=== PATIENT | female | born 1980 | race Caucasian/White ===

== ENCOUNTER 2017-05-12 13:46 | Emergency (ER) | payer OTHER ==
[~2017-05-12] VITALS: Ht 160 cm; Wt 63.5 kg
[~2017-05-12 13:46] MED LIST: AMOX875T PO; HYDR-971 PO
[2017-05-12] MEDS ORDERED: IV NORMAL SALINE 1000ML BAG 1,000 ML IV SCH (15:24)
[2017-05-12] MEDS ORDERED: DEXAMETHASONE SOD PHOS 20 MG/5 ML VIAL. IV ONE (15:30)
[2017-05-12] MEDS ORDERED: ONDANSETRON PF 4 MG/2 ML VIAL. IV ONE (15:30)
[2017-05-12] MEDS ORDERED: 0.9 % SODIUM CHLORIDE 10 ML DISP.SYRIN. IV PRN (15:30)
[2017-05-12] MEDS ORDERED: diphenhydrAMINE 50 MG/ML VIAL IVP ONE (15:30)
[2017-05-12] MEDS ORDERED: KETOROLAC TROMETHAMINE 30 MG/ML INJ. IV ONE (15:30)
[2017-05-12] MEDS ORDERED: DIPH25CA58 PO (16:41)
[2017-05-12] MEDS ORDERED: NAPR500T PO (16:41)
[2017-05-12] MEDS ORDERED: DIAZ5TAB PO (16:41)
--- NOTE | 2017-05-12 16:42 | PHYS DOC ---
Past Medical History Past Medical History: No Pertinent History Past Surgical History: Hysterectomy Additional Past Surgical Histo: BX HAND PLASTIC SX, TEETH REMOVED. Alcohol Use: None Drug Use: None Adult General Chief Complaint Chief Complaint: HEADACHE HPI HPI This is a pleasant 36-year-old otherwise healthy female with a history of intermittent headaches presents with back pain that began 4 days ago describes a dull aching in the upper back with radiation from the lumbar spine down to the upper back and the back of the skull. She describes headache as a bandlike squeezing both temples and the top of her head. It is not worse of life and not sudden onset patient denies any neck stiffness, fevers, or other focal neurologic deficits. Patient admits she's had some photophobia with some nausea and vomiting. Patient denies any trauma. Patient denies any change in vision, denies any problems speaking, or ear pain. She denies any recent URI symptoms of cough congestion runny nose or rash. Her back pain is moderate in pain with no radiation to the rectum. There is no bowel or bladder incontinence. She denies any fevers, chills or weight loss. She doesn't have a diagnosis of migraines but her mother has called these migraines in the past the pattern of her headache is slightly different in location only. Review of Systems Review of Systems Constitutional: Denies fever or chills [] Eyes: Denies change in visual acuity, redness, or eye pain she has had some photophobia without blurred vision HENT: Denies nasal congestion or sore throat [] Respiratory: Denies cough or shortness of breath [] Cardiovascular: No additional information not addressed in HPI [] GI: Denies abdominal pain, she has had some nausea without vomiting bloody stools diarrhea or constipation : Denies dysuria or hematuria [] Musculoskeletal: sHe has lower and upper back pain Integument: Denies rash or skin lesions [] Neurologic: Denies headache, focal weakness or sensory changes [] Endocrine: Denies polyuria or polydipsia [] Current Medications Current Medications Current Medications Medications (Trade) Dose Ordered Sig/Vee Start Time Stop Time Status Last Admin Dose Admin Dexamethasone Sodium Phosphate (Decadron) 10 mg 1X ONCE 05/12/17 15:30 05/12/17 15:31 DC 05/12/17 15:46 10 MG Diphenhydramine HCl (Benadryl) 25 mg 1X ONCE 05/12/17 15:30 05/12/17 15:31 DC 05/12/17 15:45 25 MG Ketorolac Tromethamine (Toradol) 30 mg 1X ONCE 05/12/17 15:30 05/12/17 15:31 DC 05/12/17 15:44 30 MG Ondansetron HCl (Zofran) 4 mg 1X ONCE 05/12/17 15:30 05/12/17 15:31 DC 05/12/17 15:43 4 MG Sodium Chloride (Normal Saline Flush) 10 ml QSHIFT PRN 05/12/17 15:30 05/12/17 15:42 10 ML Allergies Allergies Allergies Coded Allergies Type Severity Reaction Last Updated Verified No Known Drug Allergies 07/11/15 No Physical Exam Physical Exam I reviewed this patient's vital signs are also normal limits. Constitutional: Well developed, well nourished, no acute distress, non-toxic appearance. [] HENT: Normocephalic, atraumatic, bilateral external ears normal, oropharynx moist, no oral exudates, nose normal. [] Eyes: PERRLA, EOMI, conjunctiva normal, no discharge. [] Neck: Normal range of motion, supple, no stridor. There is tenderness that is reproducible over the trapezius muscle on the left more than the right. at the insertion site at the base of the frontalis muscle [] Cardiovascular:Heart rate regular rhythm, no murmur [] Lungs & Thorax: Bilateral breath sounds clear to auscultation [] Skin: Warm, dry, no erythema, no rash. [] Back: Patient does have reproducible tenderness over the erector spinae muscles right greater than left easily reproducible on exam. There is no midline tenderness palpation. Patient straight leg raise is negative bilaterally. Patient's DTRs are normal bilaterally at the knees. Patient is no sensation to light touch per perception the lower extremities bilaterally. Patient has +2 capillary refill +2 peripheral pulses Extremities: No tenderness, no cyanosis, no clubbing, ROM intact, no edema. [] Neurologic: Alert and oriented X 3, normal motor function, normal sensory function, no focal deficits noted. [] Psychologic: Affect normal, judgement normal, mood normal. [] Current Patient Data Vital Signs Vital Signs Date Time Temp Pulse Resp B/P (MAP) Pulse Ox O2 Delivery O2 Flow Rate FiO2 05/12/17 16:01 84 22 135/89 (104) Room Air 05/12/17 14:31 94 05/12/17 14:10 99.8 99.8 EKG EKG [] Radiology/Procedures Radiology/Procedures [] Course & Med Decision Making Course & Med Decision Making Pertinent Labs and Imaging studies reviewed. (See chart for details) Patient was reevaluated at approximate 4:20 PM she feels markedly better. Her headache is resolved her back pain is improved. Patient has a normal neuro exam is quite lucid and will follow-up with her primary care provider. Impression: Tension headache, upper and lower back pain CR a FTI negative by history and physical. Doubt subarachnoid hemorrhage or meningitis. Disposition: PCP follow-up for continued evaluation neurology referral for headache evaluation. [] Dragon Disclaimer Dragon Disclaimer This electronic medical record was generated, in whole or in part, using a voice recognition dictation system. Departure Departure Impression: Primary Impression: Back pain Additional Impressions: Neck pain Tension headache Disposition: HOME, SELF-CARE Condition: IMPROVED Referrals: NO PCP (PCP) Patient Instructions: Back Exercises, Back Injury Prevention, Back Pain, Adult , Tension Headache Additional Instructions: This return for any new or increasing symptoms or given any question concerns. Also return immediately for any neurologic weakness. Scripts Diazepam (VALIUM) 5 Mg Tablet 5 MG PO TID for MUSCLE SPASMS for 5 Days, #15 TAB Prov: ALESIA SZYMANSKI MD 05/12/17 Diphenhydramine Hcl (BENADRYL) 25 Mg Capsule 1 CAP PO QHS, #30 CAP 1 Refill Prov: ALESIA SZYMANSKI MD 05/12/17 Naproxen (NAPROSYN) 500 Mg Tablet 1 TAB PO BID, #14 TAB 1 Refill Prov: ALESIA SZYMANSKI MD 05/12/17 Problem Qualifiers ALESIA SZYMANSKI MD May 12, 2017 16:42
[2017-05-12 16:45] VITALS: BP 124/74
== END 2017-05-12 16:54 | disposition home or self-care (01) ==
LOC: ER 13:46
DX: G44.209 Tension-type headache, unspecified, not intractable (principal); M54.6 Pain in thoracic spine; M54.2 Cervicalgia; Z90.710 Acquired absence of both cervix and uterus
CPT/HCPCS: 96361; 96374; 96375; 99284; J1100; J1200; J1885; J2405; J7030

== ENCOUNTER 2018-02-28 11:29 | Emergency (ER) | payer OTHER | END 2018-02-28 12:37 | disposition home or self-care (01) | LOC: ER 11:29 | DX: K12.0 Recurrent oral aphthae (principal) | CPT/HCPCS: 99283 ==

== ENCOUNTER 2018-10-12 08:26 | Emergency (ER) | payer SELFPAY ==
[~2018-10-12] VITALS: Ht 160 cm; Wt 74.5 kg
[~2018-10-12 08:26] MED LIST changes: +DIAZ5TAB PO; +DIPH25CA58 PO; +HYDR-3164 PO; -HYDR-971 PO; +NAPR-683 PO
[2018-10-12] MEDS ORDERED: ONDANSETRON PF 4 MG/2 ML VIAL. IV ONE (08:45)
[2018-10-12] MEDS ORDERED: IV NORMAL SALINE 1000ML BAG 1,000 ML IV ONE ×2 (08:45→10:15)
[2018-10-12 09:16] LABS: BILIRUBIN,URINE SMALL (NEG); CLARITY,URINE CLEAR; COLOR,URINE AMBER; NITRITE,URINE NEGATIVE (NEG); PH,URINE 5.5; PROTEIN,URINE 100 mg/dL (NEG-TRACE); UROBILINOGEN,URINE 0.2 mg/dL (0.2 mg/dL)
[2018-10-12 09:23] LABS: BARBITURATES NEG (NEG); BENZODIAZEPINES NEG (NEG); CANNABINOIDS NEG (NEG); COCAINE NEG (NEG); METHADONE NEG (NEG); OPIATES NEG (NEG); PHENCYCLIDINE NEG (NEG)
[2018-10-12 09:26] LABS: BACTERIA,URINE MANY /HPF (0-FEW); SQUAMOUS EPITHELIAL CELL,UR FEW /LPF
--- NOTE | 2018-10-12 09:29 | RAD ---
CHEST PA LATERAL History: CHEST PAIN WITH COUGH FOR ONE WEEK Comparison: Jul 05, 2013 Findings: 2 views of the chest are submitted. There is no infiltrate, pneumothorax, or effusion. The cardiac silhouette is within normal limits in size. The trachea is in the midline. No acute osseous abnormality is identified. Impression: 1. There is no evidence of acute cardiopulmonary disease. Electronically signed by: Subhash Lucas MD (10/12/2018 9:25 AM) [id number]
[2018-10-12 09:33] LABS: AMPHETAMINE/METHAMPHETAMINE POS (NEG)
[2018-10-12 09:42] LABS: BASO % 0 % (0-3); EOS % 0 % (0-3); HEMOGLOBIN 13.7 g/dL (12.0-15.5); LYMPH # 0.9 x10^3/uL (1.0-4.8); LYMPH % 8 % (24-48); MEAN CORPUSCULAR HEMOGLOBIN 27 pg (25-35); MEAN CORPUSCULAR HGB CONC 34 g/dL (31-37); MEAN CORPUSCULAR VOLUME 79 fL (79-100); MONO # 0.4 x10^3/uL (0.0-1.1); MONO % 4 % (0-9); NEUT # 9.3 x10^3uL (1.8-7.7); NEUT % 88 % (31-73); PLATELET COUNT 211 x10^3/uL (140-400); RED BLOOD COUNT 5.04 x10^6/uL (3.50-5.40); RED CELL DISTRIBUTION WIDTH 13.7 % (11.5-14.5); WHITE BLOOD COUNT 10.6 x10^3/uL (4.0-11.0)
--- NOTE | 2018-10-12 10:04 | PHYS DOC ---
Past Medical History Past Medical History: No Pertinent History Past Surgical History: Hysterectomy Additional Past Surgical Histo: BX HAND PLASTIC SX, TEETH REMOVED. Alcohol Use: None Drug Use: None Adult General Chief Complaint Chief Complaint: ABDOMINAL PAIN HPI HPI Patient is a 38 year old female who presents with complaints of chest pain with inspiration, nausea but no vomiting and dysuria. She states that she has been having intermittent fevers at home. She has sinus pressure as well as earaches. The patient does have track correa which she stated were old, but there is scabbing apparent to several of the track correa. Review of Systems Review of Systems Constitutional: See history of present illness Eyes: Denies change in visual acuity, redness, or eye pain [] HENT: Denies nasal congestion or sore throat [] Respiratory: See history of present illness Cardiovascular: No additional information not addressed in HPI [] GI: See history of present illness : See history of present illness Musculoskeletal: Denies back pain or joint pain [] Integument: Denies rash or skin lesions [] Neurologic: Denies headache, focal weakness or sensory changes [] Endocrine: Denies polyuria or polydipsia [] All other systems were reviewed and found to be within normal limits, except as documented in this note. Current Medications Current Medications Current Medications Medications (Trade) Dose Ordered Sig/Vee Start Time Stop Time Status Last Admin Dose Admin Acetaminophen (Tylenol) 1,000 mg 1X ONCE 10/12/18 10:30 10/12/18 10:31 DC 10/12/18 10:47 1,000 MG Ondansetron HCl (Zofran) 4 mg 1X ONCE 10/12/18 08:45 10/12/18 09:03 DC 10/12/18 09:33 4 MG Potassium Chloride (KCl Oral Soln) 40 meq 1X ONCE 10/12/18 11:15 10/12/18 11:16 DC 10/12/18 11:20 40 MEQ Potassium Chloride (Klor-Con) 40 meq 1X ONCE 10/12/18 10:15 10/12/18 11:09 DC 10/12/18 10:57 40 MEQ Sodium Chloride 1,000 ml @ 1,000 mls/hr 1X ONCE 10/12/18 10:15 10/12/18 11:14 DC 10/12/18 11:00 1,000 MLS/HR Allergies Allergies Allergies Coded Allergies Type Severity Reaction Last Updated Verified No Known Drug Allergies 07/11/15 No Physical Exam Physical Exam Constitutional: Well developed, well nourished, no acute distress, non-toxic appearance. [] HENT: Normocephalic, atraumatic, bilateral tympanic membranes normal, oropharynx moist, no pharyngeal erythema, no oral exudates, sinus drainage noted to back of throat, nose is positive for thick nasal drainage Eyes: PERRLA, EOMI, conjunctiva normal, no discharge. [] Neck: Normal range of motion, no tenderness, supple, no stridor. [] Cardiovascular:Heart rate regular rhythm, no murmur [] Lungs & Thorax: Bilateral breath sounds clear to auscultation [] Abdomen: Bowel sounds normal, soft, no tenderness, no masses, no pulsatile masses. [] Skin: Warm, dry, no erythema, no rash. [] Back: No tenderness, no CVA tenderness. [] Extremities: No tenderness, no cyanosis, no clubbing, ROM intact, no edema. [] Neurologic: Alert and oriented X 3, normal motor function, normal sensory function, no focal deficits noted. [] Psychologic: Affect normal, judgement normal, mood normal. [] Current Patient Data Vital Signs Vital Signs Date Time Temp Pulse Resp B/P (MAP) Pulse Ox O2 Delivery O2 Flow Rate FiO2 10/12/18 12:19 101.5 107 21 108/57 (74) 98 Room Air 101.5 Lab Values Laboratory Tests Test 10/12/18 09:00 10/12/18 09:25 Urine Collection Type Unknown Urine Color [place] Urine Clarity Clear Urine pH 5.5 Urine Specific [place] >=1.030 Urine Protein 100 mg/dL (NEG-TRACE) Urine Glucose (UA) Negative mg/dL (NEG) Urine Ketones (Stick) 15 mg/dL (NEG) Urine Blood Small (NEG) Urine Nitrite Negative (NEG) Urine Bilirubin Small (NEG) Urine Urobilinogen Dipstick 0.2 mg/dL (0.2 mg/dL) Urine Leukocyte Esterase Small (NEG) Urine RBC 1-2 /HPF (0-2) Urine WBC 11-20 /HPF (0-4) Urine Squamous Epithelial Cells Few /LPF Urine Bacteria Many /HPF (0-FEW) Urine Mucus Marked /LPF Urine Opiates Screen Neg (NEG) Urine Methadone Screen Neg (NEG) Urine Barbiturates Neg (NEG) Urine Phencyclidine Screen Neg (NEG) Urine Amphetamine/Methamphetamine Pos (NEG) Urine Benzodiazepines Screen Neg (NEG) Urine Cocaine Screen Neg (NEG) Urine Cannabinoids Screen Neg (NEG) Urine Ethyl Alcohol Neg (NEG) Influenza Type A Antigen Negative (NEGATIVE) Influenza Type B Antigen Negative (NEGATIVE) White Blood Count 10.6 x10^3/uL (4.0-11.0) Red Blood Count 5.04 x10^6/uL (3.50-5.40) Hemoglobin 13.7 g/dL (12.0-15.5) Hematocrit 40.0 % (36.0-47.0) Mean Corpuscular Volume 79 fL (79-100) Mean Corpuscular Hemoglobin 27 pg (25-35) Mean Corpuscular Hemoglobin Concent 34 g/dL (31-37) Red Cell Distribution Width 13.7 % (11.5-14.5) Platelet Count 211 x10^3/uL (140-400) Neutrophils (%) (Auto) 88 % (31-73) H Lymphocytes (%) (Auto) 8 % (24-48) L Monocytes (%) (Auto) 4 % (0-9) Eosinophils (%) (Auto) 0 % (0-3) Basophils (%) (Auto) 0 % (0-3) Neutrophils # (Auto) 9.3 x10^3uL (1.8-7.7) H Lymphocytes # (Auto) 0.9 x10^3/uL (1.0-4.8) L Monocytes # (Auto) 0.4 x10^3/uL (0.0-1.1) Eosinophils # (Auto) 0.0 x10^3/uL (0.0-0.7) Basophils # (Auto) 0.0 x10^3/uL (0.0-0.2) Segmented Neutrophils % 79 % (35-66) H Band Neutrophils % 9 % (0-9) Lymphocytes % 9 % (24-48) L Monocytes % 2 % (0-10) Basophils % 1 % (0-3) Toxic Vacuolation Slight Platelet Estimate Adequate (ADEQUATE) Sodium Level 133 mmol/L (136-145) L Potassium Level 2.7 mmol/L (3.5-5.1) *L Chloride Level 94 mmol/L (98-107) L Carbon Dioxide Level 26 mmol/L (21-32) Anion Gap 13 (6-14) Blood Urea Nitrogen 11 mg/dL (7-20) Creatinine 0.9 mg/dL (0.6-1.0) Estimated GFR (Cockcroft-Gault) 70.5 BUN/Creatinine Ratio 12 (6-20) Glucose Level 92 mg/dL (70-99) Calcium Level 9.6 mg/dL (8.5-10.1) Total Bilirubin 0.8 mg/dL (0.2-1.0) Aspartate Amino Transferase (AST) 18 U/L (15-37) Alanine Aminotransferase (ALT) 36 U/L (14-59) Alkaline Phosphatase 136 U/L (46-116) H Total Protein 8.9 g/dL (6.4-8.2) H Albumin 3.8 g/dL (3.4-5.0) Albumin/Globulin Ratio 0.7 (1.0-1.7) L Laboratory Tests 10/12/18 09:25 Laboratory Tests 10/12/18 09:25 EKG EKG [] Radiology/Procedures Radiology/Procedures [] PATIENT: YOSEF GORMAN ACCOUNT: [id number] : 1980 LOCATION: ER AGE: 38 SEX: F EXAM STATUS: PRE ER ORD. PHYSICIAN: DESMOND PRESLEY APRN REASON: chest pain with cough PROCEDURE: CHEST PA & LATERAL CHEST PA LATERAL History: CHEST PAIN WITH COUGH FOR ONE WEEK Comparison: Jul 05, 2013 Findings: 2 views of the chest are submitted. There is no infiltrate, pneumothorax, or effusion. The cardiac silhouette is within normal limits in size. The trachea is in the midline. No acute osseous abnormality is identified. Impression: 1. There is no evidence of acute cardiopulmonary disease. Electronically signed by: Mile Ruiz MD (10/12/2018 9:25 AM) [id number] DICTATED and SIGNED BY: MILE RUIZ MD DATE: 10/12/18911 Course & Med Decision Making Course & Med Decision Making Pertinent Labs and Imaging studies reviewed. (See chart for details) []The patient was given normal saline in the emergency department as well as Tylenol for pain. She was given potassium for her hypokalemia. The patient was counseled about methamphetamine abuse and offered services. She declined the need for rehabilitation and declined any services. I did state that if she changes her mind she is welcome to come to the emergency department for services at any time. Dragon Disclaimer Dragon Disclaimer This electronic medical record was generated, in whole or in part, using a voice recognition dictation system. Departure Departure Impression: Primary Impression: Upper respiratory infection Additional Impressions: Nausea Urinary tract infection Hypokalemia Methamphetamine abuse Disposition: HOME, SELF-CARE Condition: STABLE Referrals: NO PCP (PCP) Patient Instructions: Hypokalemia, Methamphetamine Abuse, Complications, Upper Respiratory Infection, Adult, Urinary Tract Infection Additional Instructions: Take the antibiotic as directed. Increase fluids and rest. Use the Zofran to control nausea to increase fluid intake. Follow-up with your primary care provider in 3 days for recheck or return to the emergency department if worsening. Scripts Sulfamethoxazole/Trimethoprim (BACTRIM DS TABLET) 1 Each Tablet 1 TAB PO BID for infection, #20 TAB Prov: DESMOND PRESLEY APRN 10/12/18 Problem Qualifiers DESMOND PRESLEY APRN Oct 12, 2018 10:04
[2018-10-12 10:09] LABS: ALBUMIN 3.8 g/dL (3.4-5.0); ALBUMIN/GLOBULIN RATIO 0.7 (1.0-1.7); CALCIUM 9.6 mg/dL (8.5-10.1); CREATININE 0.9 mg/dL (0.6-1.0); GFR 70.5; TOTAL BILIRUBIN 0.8 mg/dL (0.2-1.0); TOTAL PROTEIN 8.9 g/dL (6.4-8.2)
[2018-10-12 10:11] LABS: POTASSIUM 2.7 mmol/L (3.5-5.1)
[2018-10-12] MEDS ORDERED: POTASSIUM CHLORIDE 20 MEQ TABLET.ER. PO ONE (10:15)
[2018-10-12] MEDS ORDERED: ACETAMINOPHEN 500 MG TABLET PO ONE (10:30)
[2018-10-12 10:41] LABS: INFLUENZA A PATIENT NEGATIVE (NEGATIVE); INFLUENZA B PATIENT NEGATIVE (NEGATIVE)
[2018-10-12 11:11] LABS: % BANDS 9 % (0-9); % BASOS 1 % (0-3); % LYMPHS 9 % (24-48); % MONOS 2 % (0-10); % SEGS 79 % (35-66); PLT ESTIMATE ADEQUATE (ADEQUATE); TOXIC VACUOLATION SLIGHT
[2018-10-12] MEDS ORDERED: POTASSIUM CHLORIDE 20 MEQ/15 ML ORAL LIQUID. PEG ONE (11:15)
[2018-10-12] MEDS ORDERED: SULF1TAB24 PO (12:04)
[2018-10-12 12:19] VITALS: BP 108/57
== END 2018-10-12 12:22 | disposition home or self-care (01) ==
LOC: ER 08:26
DX: J06.9 Acute upper respiratory infection, unspecified (principal); N39.0 Urinary tract infection, site not specified; R11.0 Nausea; E87.6 Hypokalemia; F15.10 Other stimulant abuse, uncomplicated; Z90.710 Acquired absence of both cervix and uterus
CPT/HCPCS: 36415; 71046; 80053; 80307; 81001; 85007; 85025; 87086; 87804; 96374; 99284; J2405; J7030

== ENCOUNTER 2018-12-19 11:02 | Emergency (ER) | payer SELFPAY ==
[~2018-12-19] VITALS: Ht 160 cm; Wt 74.8 kg
[~2018-12-19 11:02] MED LIST changes: +SULF1TAB24 PO
[2018-12-19] MEDS ORDERED: ORPH100T PO (11:31)
[2018-12-19] MEDS ORDERED: HYDR-3164 PO (11:31)
--- NOTE | 2018-12-19 11:33 | PHYS DOC ---
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 (IKE HOUSER DOOR REPAIRMAN) Alcohol Use: None Drug Use: None (IKE HOUSER DOOR REPAIRMAN) Adult General Chief Complaint Chief Complaint: BACK PAIN - NO INJURY HPI HPI Patient is a 38 year old female who presents with right mid back pain x 2 weeks. Patient states it is worse with movement. Patient states she's been using heat and ibuprofen. She states they sort of help but she is having hard time sleeping due to the pain. She denies injury or lifting anything heavy or doing any unusual activities. (IKE HOUSER DOOR REPAIRMAN) Review of Systems Review of Systems Constitutional: Denies fever or chills [] Eyes: Denies change in visual acuity, redness, or eye pain [] HENT: Denies nasal congestion or sore throat [] Respiratory: Denies cough or shortness of breath [] Cardiovascular: No additional information not addressed in HPI [] GI: Denies abdominal pain, nausea, vomiting, bloody stools or diarrhea [] : Denies dysuria or hematuria [] Musculoskeletal: Right mid back pain or joint pain [] Integument: Denies rash or skin lesions [] Neurologic: Denies headache, focal weakness or sensory changes [] All other systems were reviewed and found to be within normal limits, except as documented in this note. (IKE HOUSER DOOR REPAIRMAN) Allergies Allergies Allergies Coded Allergies Type Severity Reaction Last Updated Verified No Known Drug Allergies 07/11/15 No (SAMUEL TUBBS MD) Physical Exam Physical Exam Constitutional: Well developed, well nourished, no acute distress, non-toxic appearance. [] HENT: Normocephalic, atraumatic, bilateral external ears normal, oropharynx moist, no oral exudates, nose normal. [] Eyes: PERRLA, EOMI, conjunctiva normal, no discharge. [] Neck: Normal range of motion, no tenderness, supple, no stridor. [] Cardiovascular:Heart rate regular rhythm, no murmur [] Lungs & Thorax: Bilateral breath sounds clear to auscultation [] Abdomen: Bowel sounds normal, soft, no tenderness, no masses, no pulsatile masses. [] Skin: Warm, dry, no erythema, no rash. [] Back: Right mid back tenderness, no CVA tenderness. [] Extremities: No tenderness, no cyanosis, no clubbing, ROM intact, no edema. [] Neurologic: Alert and oriented X 3, normal motor function, normal sensory function, no focal deficits noted. [] Psychologic: Affect normal, judgement normal, mood normal. [] (IKE HOUSER APRN) Current Patient Data Vital Signs Vital Signs Date Time Temp Pulse Resp B/P (MAP) Pulse Ox O2 Delivery O2 Flow Rate FiO2 12/19/18 12:38 82 16 159/95 (116) 98 Room Air 12/19/18 11:07 98.3 98.3 (SAMUEL TUBBS MD) Lab Values Laboratory Tests Test 12/19/18 11:07 Urine Collection Type Unknown Urine Color Yellow Urine Clarity Clear Urine pH 7.0 Urine Specific [place] 1.020 Urine Protein Negative mg/dL (NEG-TRACE) Urine Glucose (UA) Negative mg/dL (NEG) Urine Ketones (Stick) Negative mg/dL (NEG) Urine Blood Negative (NEG) Urine Nitrite Negative (NEG) Urine Bilirubin Negative (NEG) Urine Urobilinogen Dipstick 1.0 mg/dL (0.2 mg/dL) Urine Leukocyte Esterase Negative (NEG) Urine RBC 0 /HPF (0-2) Urine WBC 0 /HPF (0-4) Urine Squamous Epithelial Cells Few /LPF Urine Bacteria 0 /HPF (0-FEW) (SAMUEL TUBBS MD) Lab Values Laboratory Tests Test 12/19/18 11:07 Urine Collection Type Unknown Urine Color Yellow Urine Clarity Clear Urine pH 7.0 Urine Specific [place] 1.020 Urine Protein Negative mg/dL (NEG-TRACE) Urine Glucose (UA) Negative mg/dL (NEG) Urine Ketones (Stick) Negative mg/dL (NEG) Urine Blood Negative (NEG) Urine Nitrite Negative (NEG) Urine Bilirubin Negative (NEG) Urine Urobilinogen Dipstick 1.0 mg/dL (0.2 mg/dL) Urine Leukocyte Esterase Negative (NEG) Urine RBC 0 /HPF (0-2) Urine WBC 0 /HPF (0-4) Urine Squamous Epithelial Cells Few /LPF Urine Bacteria 0 /HPF (0-FEW) (IKE HOUSER APRN) EKG EKG [] (IKE HOUSER APRN) Radiology/Procedures Radiology/Procedures [] (IKE HOUSER APRN) Course & Med Decision Making Course & Med Decision Making Patient is a 38 year old female who presents with right mid back pain x 2 weeks. Patient states it is worse with movement. Patient states she's been using heat and ibuprofen. She states they sort of help but she is having hard time sleeping due to the pain. She denies injury or lifting anything heavy or doing any unusual activities. There is some tenderness to the area of the mid right back. There is no swelling or bruising is noted. Patient is ambulatory with a steady gait. She denies any numbness or tingling. Patient denies dysuria , fever, nausea, vomiting, diarrhea, blood in her urine. Patient has probable muscle strain. I will give her prescription for muscle relaxer and [place]. Patient to continue taking ibuprofen and using heat to help with the pain. Patient follow-up with her primary care doctor. (IKE HOUSER APRN) Course & Med Decision Making Staff Physician Addendum: I was working in the ER during the course of this patient's visit. I was available for consultation as needed, but I was not directly involved in the care of this patient. (SAMUEL TUBBS MD) Dragon Disclaimer Dragon Disclaimer This electronic medical record was generated, in whole or in part, using a voice recognition dictation system. (IKE HOUSER APRN) Departure Departure Impression: Primary Impression: Muscle strain of upper back Disposition: HOME, SELF-CARE Condition: STABLE Referrals: NO PCP (PCP) Patient Instructions: Low Back Strain with Rehab-SportsMed, Muscle Strain Additional Instructions: Follow up with primary care doctor. Drink plenty of fluids. Continue using Ibuprofen every 6 hours and heat. Take medications as prescribed. Scripts Hydrocodone/Apap 5-325 (NORCO 5-325 TABLET) 1 Each Tablet 1 TAB PO PRN Q6HRS PRN for PAIN, #8 TAB 0 Refills Prov: IKE HOUSER APRN 12/19/18 Orphenadrine Citrate (ORPHENADRINE CITRATE) 100 Mg Tablet.er 1 TAB PO BID, #10 TAB Prov: IKE HOUSER APRN 12/19/18 IKE HOUSER APRN Dec 19, 2018 11:32 SAMUEL TUBBS MD Dec 19, 2018 12:57
[2018-12-19 12:09] LABS: BILIRUBIN,URINE NEGATIVE (NEG); CLARITY,URINE CLEAR; COLOR,URINE YELLOW; NITRITE,URINE NEGATIVE (NEG); PROTEIN,URINE NEGATIVE (NEG-TRACE)
[2018-12-19 12:14] LABS: BACTERIA,URINE 0 /HPF (0-FEW); RBC,URINE 0 /HPF (0-2); SQUAMOUS EPITHELIAL CELL,UR FEW /LPF; WBC,URINE 0 /HPF (0-4)
[2018-12-19 12:38] VITALS: BP 159/95
[2019-04-03] MEDS ORDERED: DIPH25CA58 PO (06:50)
== END 2018-12-19 12:38 | disposition home or self-care (01) ==
LOC: ER 11:02
DX: S29.012A Strain of muscle and tendon of back wall of thorax, initial encounter (principal); Z90.710 Acquired absence of both cervix and uterus; X58.XXXA Exposure to other specified factors, initial encounter; Y93.89 Activity, other specified; Y92.89 Other specified places as the place of occurrence of the external cause; Y99.8 Other external cause status
CPT/HCPCS: 81001; 99283

== ENCOUNTER 2019-03-23 12:29 | Emergency (ER) | payer SELFPAY ==
[~2019-03-23] VITALS: Ht 160 cm; Wt 78.2 kg
[~2019-03-23 12:29] MED LIST changes: +ORPH100T PO
[2019-03-23] MEDS ORDERED: IBUPROFEN 400 MG TABLET. PO ONE (13:00)
[2019-03-23] MEDS ORDERED: ACETAMINOPHEN 500 MG TABLET PO ONE (13:00)
[2019-03-23] MEDS ORDERED: IV NORMAL SALINE 1000ML BAG 1,000 ML IV ONE ×2 (13:00→15:30)
[2019-03-23 13:14] LABS: BILIRUBIN,URINE NEGATIVE (NEG); CLARITY,URINE CLEAR; COLOR,URINE YELLOW; NITRITE,URINE NEGATIVE (NEG); PH,URINE 8.5; PROTEIN,URINE NEGATIVE (NEG-TRACE); UROBILINOGEN,URINE 0.2 mg/dL (0.2 mg/dL)
--- NOTE | 2019-03-23 13:20 | RAD ---
CHEST PA LATERAL History: Cough for one month, fever Comparison: October 12, 2018 Findings: 2 views of the chest are submitted. There is no dependent pleural fluid or pneumothorax. Heart size is within normal limits. There is a small focus of opacity at the left lateral lung base on the PA view difficult to visualize on the lateral view. Impression: 1. There is a small focus of opacity left lung base on the PA view, possible small focus of infiltrate or nodularity although difficult to visualize on the lateral view. Electronically signed by: Subhash Lucas MD (03/23/2019 1:17 PM) [email or web address]
[2019-03-23 13:21] LABS: BACTERIA,URINE 0 /HPF (0-FEW); RBC,URINE 0 /HPF (0-2)
[2019-03-23 13:34] LABS: BASO % 0 % (0-3); EOS # 0.1 x10^3/uL (0.0-0.7); EOS % 1 % (0-3); HEMATOCRIT 37.7 % (36.0-47.0); HEMOGLOBIN 12.8 g/dL (12.0-15.5); LYMPH % 10 % (24-48); MEAN CORPUSCULAR HEMOGLOBIN 27 pg (25-35); MEAN CORPUSCULAR HGB CONC 34 g/dL (31-37); MEAN CORPUSCULAR VOLUME 80 fL (79-100); MONO # 0.5 x10^3/uL (0.0-1.1); MONO % 5 % (0-9); NEUT # 8.2 x10^3uL (1.8-7.7); NEUT % 84 % (31-73); PLATELET COUNT 295 x10^3/uL (140-400); RED CELL DISTRIBUTION WIDTH 14.4 % (11.5-14.5); WHITE BLOOD COUNT 9.8 x10^3/uL (4.0-11.0)
--- NOTE | 2019-03-23 13:38 | RAD ---
CT HEAD WO CONTRAST History: Headache, fever for 3 weeks, no improvement with antibiotics Comparison: July 05, 2013 Technique: Noncontrast CT imaging was performed of the head. Exposure: One or more of the following individualized dose reduction techniques were utilized for this examination: 1. Automated exposure control 2. Adjustment of the mA and/or kV according to patient size 3. Use of iterative reconstruction technique. Findings: No acute extra-axial or parenchymal hemorrhage is identified. There is no significant intra-axial mass effect, midline shift, or extra-axial fluid collection. The thompson-white differentiation of the major vascular territories is preserved. The ventricles, sulci, and cisterns are within normal limits in size and configuration. The mastoid air cells and the visualized paranasal sinuses are aerated. No acute calvarial abnormality is identified. There are again some pineal calcifications. There is likely degree of mild cerebellar tonsillar ectopia greater on the right. Impression: 1. No acute intracranial abnormality is identified. Electronically signed by: Subhash Lucas MD (03/23/2019 1:36 PM) [id number]
[2019-03-23 13:39] LABS: INFLUENZA A PATIENT NEGATIVE (NEGATIVE); INFLUENZA B PATIENT NEGATIVE (NEGATIVE)
[2019-03-23 13:40] LABS: CALCIUM 9.4 mg/dL (8.5-10.1); CREATININE 0.8 mg/dL (0.6-1.0); GFR 80.7; POTASSIUM 3.9 mmol/L (3.5-5.1)
[2019-03-23 13:42] LABS: PROTHROMBIN TIME PATIENT 12.6 SEC (11.7-14.0)
[2019-03-23 13:46] LABS: ALBUMIN 3.1 g/dL (3.4-5.0); ALBUMIN/GLOBULIN RATIO 0.6 (1.0-1.7); TOTAL BILIRUBIN 0.5 mg/dL (0.2-1.0); TOTAL PROTEIN 8.1 g/dL (6.4-8.2)
--- NOTE | 2019-03-23 13:54 | PHYS DOC ---
Past Medical History Past Medical History: URI Past Surgical History: Hysterectomy Additional Past Surgical Histo: BX HAND PLASTIC SX, TEETH REMOVED. Alcohol Use: None Drug Use: None Adult General Chief Complaint Chief Complaint: FLU SYMPTOM HPI HPI Patient is a 38 year old female presented ER today for evaluation of fever off and on for one month. Patient complains chill, body ache, headache. Patient denies any abdominal pain, no nausea vomiting. Patient complaint of nonproductive cough as well. Review of Systems Review of Systems Constitutional: Positive for fever and chills [] Eyes: Denies change in visual acuity, redness, or eye pain [] HENT: Denies nasal congestion or sore throat [] Respiratory: Positive for cough, no shortness of breath [] Cardiovascular: No additional information not addressed in HPI [] GI: Denies abdominal pain, nausea, vomiting, bloody stools or diarrhea [] : Denies dysuria or hematuria [] Musculoskeletal: Positive for back pain and joint pain [] Integument: Denies rash or skin lesions [] Neurologic: Positive for headache, no focal weakness or sensory changes [] Endocrine: Denies polyuria or polydipsia [] All other systems were reviewed and found to be within normal limits, except as documented in this note. Current Medications Current Medications Current Medications Medications (Trade) Dose Ordered Sig/Vee Start Time Stop Time Status Last Admin Dose Admin Acetaminophen (Tylenol) 1,000 mg 1X ONCE 03/23/19 13:00 03/23/19 13:01 DC 03/23/19 13:12 1,000 MG Ceftriaxone Sodium (Rocephin) 1 gm 1X ONCE 03/23/19 14:15 03/23/19 14:24 DC 03/23/19 14:28 1 GM Ibuprofen (Motrin) 800 mg 1X ONCE 03/23/19 13:00 03/23/19 13:01 DC 03/23/19 13:11 800 MG Sodium Chloride 1,000 ml @ 1,000 mls/hr 1X ONCE 03/23/19 15:30 03/23/19 16:29 Allergies Allergies Allergies Coded Allergies Type Severity Reaction Last Updated Verified No Known Drug Allergies 07/11/15 No Physical Exam Physical Exam Constitutional: Well developed, well nourished, no acute distress, non-toxic appearance. [] HENT: Normocephalic, atraumatic, bilateral external ears normal, oropharynx moist, no oral exudates, nose normal. [] Eyes: PERRLA, EOMI, conjunctiva normal, no discharge. [] Neck: Normal range of motion, no tenderness, supple, no stridor. [] Cardiovascular: SINUS TACHYCARDIA, regular rhythm, no murmur [] Lungs & Thorax: Bilateral breath sounds clear to auscultation [] Abdomen: Bowel sounds normal, soft, no tenderness, no masses, no pulsatile masses. [] Skin: Warm, dry, no erythema, no rash. [] Back: No tenderness, no CVA tenderness. [] Extremities: No tenderness, no cyanosis, no clubbing, ROM intact, no edema. [] Neurologic: Alert and oriented X 3, normal motor function, normal sensory function, no focal deficits noted. [] Psychologic: Affect normal, judgement normal, mood normal. [] Current Patient Data Vital Signs Vital Signs Date Time Temp Pulse Resp B/P (MAP) Pulse Ox O2 Delivery O2 Flow Rate FiO2 03/23/19 14:41 100.7 100.7 03/23/19 12:35 125 36 127/85 (99) 96 Room Air Lab Values Laboratory Tests Test 03/23/19 12:25 03/23/19 12:54 03/23/19 13:08 03/23/19 13:40 Urine Collection Type Unknown Urine Color Yellow Urine Clarity Clear Urine pH 8.5 Urine Specific [place] 1.015 Urine Protein Negative mg/dL (NEG-TRACE) Urine Glucose (UA) Negative mg/dL (NEG) Urine Ketones (Stick) Negative mg/dL (NEG) Urine Blood Negative (NEG) Urine Nitrite Negative (NEG) Urine Bilirubin Negative (NEG) Urine Urobilinogen Dipstick 0.2 mg/dL (0.2 mg/dL) Urine Leukocyte Esterase Negative (NEG) Urine RBC 0 /HPF (0-2) Urine WBC 1-4 /HPF (0-4) Urine Bacteria 0 /HPF (0-FEW) Glucose (Fingerstick) 94 mg/dL (70-99) Influenza Type A Antigen Negative (NEGATIVE) Influenza Type B Antigen Negative (NEGATIVE) White Blood Count 9.8 x10^3/uL (4.0-11.0) Red Blood Count 4.70 x10^6/uL (3.50-5.40) Hemoglobin 12.8 g/dL (12.0-15.5) Hematocrit 37.7 % (36.0-47.0) Mean Corpuscular Volume 80 fL (79-100) Mean Corpuscular Hemoglobin 27 pg (25-35) Mean Corpuscular Hemoglobin Concent 34 g/dL (31-37) Red Cell Distribution Width 14.4 % (11.5-14.5) Platelet Count 295 x10^3/uL (140-400) Neutrophils (%) (Auto) 84 % (31-73) H Lymphocytes (%) (Auto) 10 % (24-48) L Monocytes (%) (Auto) 5 % (0-9) Eosinophils (%) (Auto) 1 % (0-3) Basophils (%) (Auto) 0 % (0-3) Neutrophils # (Auto) 8.2 x10^3uL (1.8-7.7) H Lymphocytes # (Auto) 1.0 x10^3/uL (1.0-4.8) Monocytes # (Auto) 0.5 x10^3/uL (0.0-1.1) Eosinophils # (Auto) 0.1 x10^3/uL (0.0-0.7) Basophils # (Auto) 0.0 x10^3/uL (0.0-0.2) Segmented Neutrophils % 72 % (35-66) H Band Neutrophils % 15 % (0-9) H Lymphocytes % 5 % (24-48) L Monocytes % 4 % (0-10) Basophils % 2 % (0-3) Metamyelocytes % 2 % (0-0) H Toxic Granulation Slight Platelet Estimate Adequate (ADEQUATE) Polychromasia Slight Prothrombin Time 12.6 SEC (11.7-14.0) Prothrombin Time INR 1.0 (0.8-1.1) PTT 25 SEC (24-38) Sodium Level 133 mmol/L (136-145) L Potassium Level 3.9 mmol/L (3.5-5.1) Chloride Level 97 mmol/L (98-107) L Carbon Dioxide Level 25 mmol/L (21-32) Anion Gap 11 (6-14) Blood Urea Nitrogen 11 mg/dL (7-20) Creatinine 0.8 mg/dL (0.6-1.0) Estimated GFR (Cockcroft-Gault) 80.7 BUN/Creatinine Ratio 14 (6-20) Glucose Level 106 mg/dL (70-99) H Lactic Acid Level 1.5 mmol/L (0.4-2.0) Calcium Level 9.4 mg/dL (8.5-10.1) Total Bilirubin 0.5 mg/dL (0.2-1.0) Aspartate Amino Transferase (AST) 15 U/L (15-37) Alanine Aminotransferase (ALT) 23 U/L (14-59) Alkaline Phosphatase 122 U/L (46-116) H Total Protein 8.1 g/dL (6.4-8.2) Albumin 3.1 g/dL (3.4-5.0) L Albumin/Globulin Ratio 0.6 (1.0-1.7) L Lipase 232 U/L (73-393) Heterophil Agglutinins Negative (NEGATIVE) Laboratory Tests 03/23/19 13:08 Laboratory Tests 03/23/19 13:08 EKG EKG [] Radiology/Procedures Radiology/Procedures [][address] [address] IMAGING REPORT Signed PATIENT: YOSEF GORMAN ACCOUNT: [id number] : 1980 LOCATION: ER AGE: 38 SEX: F EXAM STATUS: REG ER ORD. PHYSICIAN: FERMÍN BAKER DO REASON: COUGH X 1 MONTH, FEVER PROCEDURE: CHEST PA & LATERAL CHEST PA LATERAL History: Cough for one month, fever Comparison: October 12, 2018 Findings: 2 views of the chest are submitted. There is no dependent pleural fluid or pneumothorax. Heart size is within normal limits. There is a small focus of opacity at the left lateral lung base on the PA view difficult to visualize on the lateral view. Impression: 1. There is a small focus of opacity left lung base on the PA view, possible small focus of infiltrate or nodularity although difficult to visualize on the lateral view. Electronically signed by: Mile Ruiz MD (03/23/2019 1:17 PM) [id number] DICTATED and SIGNED BY: MILE RUIZ MD DATE: 03/23/19 1317 [facility] [address] [facility] [place] [address] IMAGING REPORT Signed PATIENT: YOSEF GORMAN ACCOUNT: [id number] : 1980 LOCATION: ER AGE: 38 SEX: F EXAM STATUS: REG ER ORD. PHYSICIAN: FERMÍN BAKER DO REASON: HEADACHE, FEVER X 3 WEEKS, ANTIBIOTIC NOT HELPING PROCEDURE: CT HEAD WO CONTRAST CT HEAD WO CONTRAST History: Headache, fever for 3 weeks, no improvement with antibiotics Comparison: July 05, 2013 Technique: Noncontrast CT imaging was performed of the head. Exposure: One or more of the following individualized dose reduction techniques were utilized for this examination: 1. Automated exposure control 2. Adjustment of the mA and/or kV according to patient size 3. Use of iterative reconstruction technique. Findings: No acute extra-axial or parenchymal hemorrhage is identified. There is no significant intra-axial mass effect, midline shift, or extra-axial fluid collection. The thompson-white differentiation of the major vascular territories is preserved. The ventricles, sulci, and cisterns are within normal limits in size and configuration. The mastoid air cells and the visualized paranasal sinuses are aerated. No acute calvarial abnormality is identified. There are again some pineal calcifications. There is likely degree of mild cerebellar tonsillar ectopia greater on the right. Impression: 1. No acute intracranial abnormality is identified. Electronically signed by: Mile Ruiz MD (03/23/2019 1:36 PM) [id number] DICTATED and SIGNED BY: MILE RUIZ MD DATE: 03/23/19 1336 Course & Med Decision Making Course & Med Decision Making Pertinent Labs and Imaging studies reviewed. (See chart for details) Patient had no sign evidence of meningitis, her neck is not stiff, no evident of meningeal's side. No petechial rash. xray of her chest shown infiltration. Patient was given saline and Tylenol and Motrin in ER, her temperature improved, she felt much better. We will discharge patient home with antibiotics for pneumonia. Dragon Disclaimer Dragon Disclaimer This electronic medical record was generated, in whole or in part, using a voice recognition dictation system. Departure Departure Impression: Primary Impression: Fever Additional Impression: CAP (community acquired pneumonia) Disposition: 01 HOME, SELF-CARE Condition: IMPROVED Referrals: NO PCP (PCP) FOLLOW UP WITH FAMILY DOCTOR IN A FEW DAY FOR REEVALUATION. TAKE TYLENOL OR MOTRIN NEEDED FOR FEVER. Patient Instructions: Fever, Pneumonia, Adult Scripts Azithromycin (ZITHROMAX) 250 Mg Tablet 1 PKG PO UD, #6 TAB Prov: FERMÍN BAKER DO 03/23/19 Problem Qualifiers FERMÍN BAKER DO March 23, 2019 13:54
[2019-03-23 14:14] LABS: MONONUCLEOSIS PATIENT NEGATIVE (NEGATIVE)
[2019-03-23] MEDS ORDERED: cefTRIAXone IV Push 1 GM VIAL. IVP ONE (14:15)
--- NOTE | 2019-03-23 14:19 | EKG ---
[facility] [address] [place] [address] Test Date: 2019-03-23 Test Time: 12:50:11 Pat Name: YOSEF GORMAN Department: Room: Gender: F Manager [place] : 1980 Requested By: FERMÍN BAKER Order Number: [id number] Reading MD: Measurements Intervals [place] Rate: 129 P: 31 [place]: 116 QRS: 25 QRSD: 74 T: 22 QT: 262 QTc: 385 Interpretive Statements SINUS TACHYCARDIA QRS(T) CONTOUR ABNORMALITY CONSIDER ANTEROLATERAL MYOCARDIAL DAMAGE POSSIBLY ABNORMAL ECG RI6.01 No previous ECG available for comparison
[2019-03-23 14:32] LABS: % BANDS 15 % (0-9); % BASOS 2 % (0-3); % LYMPHS 5 % (24-48); % METAS 2 % (0-0); % MONOS 4 % (0-10); % SEGS 72 % (35-66)
[2019-03-23 14:35] LABS: PLT ESTIMATE ADEQUATE (ADEQUATE); POLYCHROMASIA SLIGHT; TOXIC GRANULATION SLIGHT
[2019-03-23 15:09] VITALS: BP 103/65
[2019-03-23] MEDS ORDERED: AZIT250T PO (15:33)
[2019-04-03] MEDS ORDERED: DIPH25CA58 PO (06:50)
== END 2019-03-23 18:00 | disposition home or self-care (01) ==
LOC: ER 12:29
DX: J18.9 Pneumonia, unspecified organism (principal); R50.9 Fever, unspecified; R00.0 Tachycardia, unspecified; M79.18 Myalgia, other site; R51 Headache; Z90.710 Acquired absence of both cervix and uterus
CPT/HCPCS: 36415; 70450; 71046; 80053; 81001; 82962; 83605; 83690; 85007; 85025; 85610; 85730; 86308; 87040; 87205; 87804; 93005; 96374; 99285; J0696; J7030; 87077

== ENCOUNTER 2019-03-24 09:58 | Inpatient (IN) | payer SELFPAY ==
[~2019-03-24] VITALS: Ht 160 cm; Wt 78.0 kg
[~2019-03-24 09:58] MED LIST changes: +AZIT250T PO
[2019-03-24] MEDS: IV NORMAL SALINE 1000ML BAG 1,000 ML IV SCH ×2 (10:38→13:08)
[2019-03-24] MEDS ORDERED: VANCOMYCIN PER PHARMACY MC ONE (10:45)
[2019-03-24] MEDS ORDERED: cefTRIAXone IV Push 1 GM VIAL. IVP ONE (11:00)
[2019-03-24] MEDS ORDERED: VANCOMYCIN 2 GM in IV NORMAL SALINE 500ML BAG 500 ML IV ONE (11:00)
[2019-03-24 11:04] LABS: BASO % 0 % (0-3); EOS # 0.1 x10^3/uL (0.0-0.7); EOS % 1 % (0-3); HEMATOCRIT 34.3 % (36.0-47.0); HEMOGLOBIN 11.6 g/dL (12.0-15.5); LYMPH # 0.8 x10^3/uL (1.0-4.8); LYMPH % 8 % (24-48); MEAN CORPUSCULAR HEMOGLOBIN 27 pg (25-35); MEAN CORPUSCULAR HGB CONC 34 g/dL (31-37); MEAN CORPUSCULAR VOLUME 80 fL (79-100); MONO # 0.6 x10^3/uL (0.0-1.1); MONO % 6 % (0-9); NEUT # 9.2 x10^3uL (1.8-7.7); NEUT % 86 % (31-73); PLATELET COUNT 284 x10^3/uL (140-400); RED BLOOD COUNT 4.29 x10^6/uL (3.50-5.40); RED CELL DISTRIBUTION WIDTH 14.9 % (11.5-14.5); WHITE BLOOD COUNT 10.6 x10^3/uL (4.0-11.0)
[2019-03-24 11:05] LABS: CREATININE 0.7 mg/dL (0.6-1.0); GFR 94.2; POTASSIUM 4.1 mmol/L (3.5-5.1)
--- NOTE | 2019-03-24 11:10 | RAD ---
PORTABLE CHEST 1V History: Fever yesterday, chest pain today, cough for 1.5 months Comparison: March 23, 2019 Findings: Single view of the chest is submitted. There is no infiltrate, pneumothorax, or effusion. The pericardial cardiac silhouette is within normal limits in size. Impression: 1. There is no radiographic evidence of acute cardiopulmonary disease. Electronically signed by: Subhash Lucas MD (03/24/2019 11:07 AM) [email or web address]
[2019-03-24 11:11] LABS: ALBUMIN 2.8 g/dL (3.4-5.0); ALBUMIN/GLOBULIN RATIO 0.6 (1.0-1.7); TOTAL BILIRUBIN 0.2 mg/dL (0.2-1.0); TOTAL PROTEIN 7.2 g/dL (6.4-8.2)
[2019-03-24] MEDS ORDERED: ONDANSETRON PF 4 MG/2 ML VIAL. IV PRN (11:30)
[2019-03-24] MEDS ORDERED: IV NORMAL SALINE 1000ML BAG 1,000 ML IV ONE (11:30)
[2019-03-24 11:32] LABS: BILIRUBIN,URINE NEGATIVE (NEG); CLARITY,URINE CLEAR; COLOR,URINE YELLOW; NITRITE,URINE NEGATIVE (NEG); PH,URINE 6.5; PROTEIN,URINE NEGATIVE (NEG-TRACE); UROBILINOGEN,URINE 0.2 mg/dL (0.2 mg/dL)
[2019-03-24 11:33] LABS: BACTERIA,URINE 0 /HPF (0-FEW); RBC,URINE 0 /HPF (0-2); SQUAMOUS EPITHELIAL CELL,UR FEW /LPF; WBC,URINE 0 /HPF (0-4)
[2019-03-24 11:50] VITALS: BP 107/57
--- NOTE | 2019-03-24 11:53 | PDOC1 ---
History and Physical Date of Admission Date of Admission DATE: 03/24/19 TIME: 11:52 Identification/Chief Complaint Chief Complaint Positive blood cultures Source Source: Chart review, Patient History of Present Illness History of Present Illness Ms Yung is a 38 yo F w/ PMHx of IVDA in sustained remission over a year who presents with 6 week history of cough and fevers up to 106F. Was seen in ED for this on 03/23/19 and had a blood culture positive for GPC in 2/2 bottles. Patient states she's had a fever on and off for 1 month and a cough. Of note patient was seen in the ED yesterday, had a full workup was noted to have bandemia and elevated neutrophils, was sent home on Z pack which she has not take. She states she took prednisone from the mother. On further review she notes prior opioid dependence which she has been in sustained remission from for over 6 years, she began this habit after a hysterectomy when she was younger. 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) Rheumatologic: No pertinent hx Infectious disease: No pertinent hx ENT: No pertinent hx Renal/: No pertinent hx Endocrine: No pertinent hx Dermatology: No pertinent hx Past Surgical History Past Surgical History: Hysterectomy Family History Family History: Diabetes, Drug Abuse, Heart Disease Social History Smoke: No ALCOHOL: none Drugs: Other (Opioid and methamphatemine use in remission) Current Medications Current Medications Current Medications Ceftriaxone Sodium (Rocephin) 1 gm 1X ONCE IVP ; Start 03/24/19 at 11:00; Stop 03/24/19 at 11:01; Status DC Sodium Chloride 1,000 ml @ 1,560 mls/hr Q39M IV Last administered on 03/24/19at 10:38; Start 03/24/19 at 10:38; Stop 03/24/19 at 11:38; Status DC Vancomycin HCl (Vanco Per Pharmacy) 1 each 1X ONCE MC ; Start 03/24/19 at 10:45; Stop 03/24/19 at 10:52; Status DC Vancomycin HCl 2 gm/Sodium Chloride 500 ml @ 250 mls/hr 1X ONCE IV ; Start 03/24/19 at 11:00; Stop 03/24/19 at 12:59 Ondansetron HCl (Zofran) 4 mg PRN Q8HRS PRN IV NAUSEA/VOMITING; Start 03/24/19 at 11:30; Stop 03/25/19 at 11:29 Acetaminophen (Tylenol) 650 mg PRN Q4HRS PRN PO FEVER; Start 03/24/19 at 11:30; Stop 03/25/19 at 11:29 Sodium Chloride 1,000 ml @ 125 mls/hr 1X ONCE IV ; Start 03/24/19 at 11:30; Stop 03/24/19 at 19:29 Active Scripts Active Zithromax (Azithromycin) 250 Mg Tablet 1 Pkg PO UD Emerson 5-325 Tablet (Acetaminophen/Hydrocodone Bitart) 1 Each Tablet 1 Tab PO PRN Q6HRS PRN Orphenadrine Citrate 100 Mg Tablet.er 1 Tab PO BID Bactrim Ds Tablet (Sulfamethoxazole/Trimethoprim) 1 Each Tablet 1 Tab PO BID Valium (Diazepam) 5 Mg Tablet 5 Mg PO TID 5 Days Benadryl (Diphenhydramine Hcl) 25 Mg Capsule 1 Cap PO QHS Naprosyn (Naproxen) 500 Mg Tablet 1 Tab PO BID Amoxicillin 875 Mg Tablet 1 Tab PO BID [place] 5-325 Tablet (Acetaminophen/Hydrocodone Bitart) 1 Each Tablet 1-2 Tab PO Q4-6HRS Allergies Allergies: Coded Allergies: No Known Drug Allergies (Unverified , 07/11/15) ROS General: YES: Chills, Night Sweats, Fatigue, Malaise; No: Appetite, Other PSYCHOLOGICAL ROS: No: Anxiety, Behavioral Disorder, Concentration difficultie, Decreased libido, Depression, Disorientation, Hallucinations, Hostility, Irritablity, Memory difficulties, Mood Swings, Obsessive thoughts, Physical abuse, Sexual abuse, Sleep disturbances, Suicidal ideation, Other Eyes: No Blurry vision, No Decreased vision, No Double vision, No Dry eyes, No Excessive tearing, No Eye Pain, No Itchy Eyes, No Loss of vision, No Photophobia, No Scotomata, No Uses contacts, No Uses glasses, No Other HEENT: No: Heacaches, Visual Changes, Hearing change, Nasal congestion, Nasal discharge, Oral lesions, Sinus pain, Sore Throat, Epistaxis, Sneezing, Snoring, Tinnitus, Vertigo, Vocal changes, Other ALLERGY AND IMMUNOLOGY: No: Hives, Insect Bite Sensitivity, Itchy/Watery Eyes, Nasal Congestion, Post Nasal Drip, Seasonal Allergies, Other Hematological and Lymphatic: No: Bleeding Problems, Blood Clots, Blood Transfusions, Brusing, Night Sweats, Pallor, Swollen Lymph Nodes, Other ENDOCRINE: No: Breast Changes, Galactorrhea, Hair Pattern Changes, Hot Flashes, Malaise/lethargy, Mood Swings, Palpitations, Polydipsia/polyuria, Skin Changes, Temperature Intolerance, Unexpected Weight Changes, Other Breast: No New/Changing Breast Lumps, No Nipple changes, No Nipple discharge, No Other Respiratory: YES: Cough, Pleuritic Pain, Shortness of breath, Wheezing; No: Hemoptysis, Orthopnea, SOB with excertion, Sputum Changes, Stridor, Tachypnea, Other Cardiovascular: No Chest Pain, No Palpitations, No Orthopnea, No Paroxysmal Noc. Dyspnea, No Edema, No Lt Headedness, No Other Gastrointestinal: Yes Nausea; No Vomiting, No Abdominal Pain, No Diarrhea, No Constipation, No Melena, No Hematochezia, No Other Genitourinary: No Dysuria, No Frequency, No Incontinence, No Hematuria, No Re tention, No Discharge, No Urgency, No Pain, No Flank Pain, No Other, No , No , No , No , No , No , No Musculoskeletal: Yes Gait Disturbance, Yes Joint Pain; No Joint Stiffness, No Joint Swelling, No Muscle Pain, No Muscular Weakness, No Pain In:, No Swelling In:, No Other Neurological: No Behavorial Changes, No Bowel/Bladder ControlChng, No Confusion, No Dizziness, No Gait Disturbance, No Headaches, No Impaired Coord/ba luke, No Memory Loss, No Numbness/Tingling, No Seizures, No Speech Problems, No Tremors, No Visual Changes, No Weakness, No Other Skin: No Dry Skin, No Eczema, No Hair Changes, No Lumps, No Mole Changes, No Mottling, No Nail Changes, No Pruritus, No Rash, No Skin Lesion Changes, No Other, No Acne Physical Exam General: Alert, Oriented X3, Cooperative, No acute distress HEENT: Atraumatic, PERRLA, EOMI, Mucous membr. moist/pink Lungs: Clear to auscultation, Normal air movement Heart: S1S2, RRR Abdomen: Normal bowel sounds, Soft, No tenderness, No hepatosplenomegaly, No masses Extremities: No clubbing, No cyanosis, No edema, Normal pulses, No tenderness/swelling Skin: No rashes, No breakdown, No significant lesion Neuro: Normal gait, Normal speech, Strength at 5/5 X4 ext, Normal tone, Sensation intact, Cranial nerves 3-12 NL, Reflexes 2+ Psych/Mental Status: Mental status NL, Mood NL Vitals Vitals Vital Signs Date Time Temp Pulse Resp B/P (MAP) Pulse Ox O2 Delivery O2 Flow Rate FiO2 03/24/19 11:06 104 18 127/84 (98) 98 Room Air 03/24/19 10:15 98.7 98.7 Labs Labs Laboratory Tests Test 03/24/19 10:24 03/24/19 10:53 White Blood Count 10.6 x10^3/uL (4.0-11.0) Red Blood Count 4.29 x10^6/uL (3.50-5.40) Hemoglobin 11.6 g/dL (12.0-15.5) Hematocrit 34.3 % (36.0-47.0) Mean Corpuscular Volume 80 fL (79-100) Mean Corpuscular Hemoglobin 27 pg (25-35) Mean Corpuscular Hemoglobin Concent 34 g/dL (31-37) Red Cell Distribution Width 14.9 % (11.5-14.5) Platelet Count 284 x10^3/uL (140-400) Neutrophils (%) (Auto) 86 % (31-73) Lymphocytes (%) (Auto) 8 % (24-48) Monocytes (%) (Auto) 6 % (0-9) Eosinophils (%) (Auto) 1 % (0-3) Basophils (%) (Auto) 0 % (0-3) Neutrophils # (Auto) 9.2 x10^3uL (1.8-7.7) Lymphocytes # (Auto) 0.8 x10^3/uL (1.0-4.8) Monocytes # (Auto) 0.6 x10^3/uL (0.0-1.1) Eosinophils # (Auto) 0.1 x10^3/uL (0.0-0.7) Basophils # (Auto) 0.0 x10^3/uL (0.0-0.2) Sodium Level 138 mmol/L (136-145) Potassium Level 4.1 mmol/L (3.5-5.1) Chloride Level 102 mmol/L (98-107) Carbon Dioxide Level 23 mmol/L (21-32) Anion Gap 13 (6-14) Blood Urea Nitrogen 8 mg/dL (7-20) Creatinine 0.7 mg/dL (0.6-1.0) Estimated GFR (Cockcroft-Gault) 94.2 BUN/Creatinine Ratio 11 (6-20) Glucose Level 138 mg/dL (70-99) Lactic Acid Level 1.8 mmol/L (0.4-2.0) Calcium Level 9.0 mg/dL (8.5-10.1) Total Bilirubin 0.2 mg/dL (0.2-1.0) Aspartate Amino Transf (AST/SGOT) 17 U/L (15-37) Alanine Aminotransferase (ALT/SGPT) 31 U/L (14-59) Alkaline Phosphatase 112 U/L (46-116) Total Protein 7.2 g/dL (6.4-8.2) Albumin 2.8 g/dL (3.4-5.0) Albumin/Globulin Ratio 0.6 (1.0-1.7) Urine Collection Type Unknown Urine Color Yellow Urine Clarity Clear Urine pH 6.5 Urine Specific [place] <=1.005 Urine Protein Negative mg/dL (NEG-TRACE) Urine Glucose (UA) Negative mg/dL (NEG) Urine Ketones (Stick) Negative mg/dL (NEG) Urine Blood Negative (NEG) Urine Nitrite Negative (NEG) Urine Bilirubin Negative (NEG) Urine Urobilinogen Dipstick 0.2 mg/dL (0.2 mg/dL) Urine Leukocyte Esterase Negative (NEG) Urine RBC 0 /HPF (0-2) Urine WBC 0 /HPF (0-4) Urine Squamous Epithelial Cells Few /LPF Urine Bacteria 0 /HPF (0-FEW) Laboratory Tests Test 03/24/19 10:24 03/24/19 10:53 White Blood Count 10.6 x10^3/uL (4.0-11.0) Red Blood Count 4.29 x10^6/uL (3.50-5.40) Hemoglobin 11.6 g/dL (12.0-15.5) Hematocrit 34.3 % (36.0-47.0) Mean Corpuscular Volume 80 fL (79-100) Mean Corpuscular Hemoglobin 27 pg (25-35) Mean Corpuscular Hemoglobin Concent 34 g/dL (31-37) Red Cell Distribution Width 14.9 % (11.5-14.5) Platelet Count 284 x10^3/uL (140-400) Neutrophils (%) (Auto) 86 % (31-73) Lymphocytes (%) (Auto) 8 % (24-48) Monocytes (%) (Auto) 6 % (0-9) Eosinophils (%) (Auto) 1 % (0-3) Basophils (%) (Auto) 0 % (0-3) Neutrophils # (Auto) 9.2 x10^3uL (1.8-7.7) Lymphocytes # (Auto) 0.8 x10^3/uL (1.0-4.8) Monocytes # (Auto) 0.6 x10^3/uL (0.0-1.1) Eosinophils # (Auto) 0.1 x10^3/uL (0.0-0.7) Basophils # (Auto) 0.0 x10^3/uL (0.0-0.2) Sodium Level 138 mmol/L (136-145) Potassium Level 4.1 mmol/L (3.5-5.1) Chloride Level 102 mmol/L (98-107) Carbon Dioxide Level 23 mmol/L (21-32) Anion Gap 13 (6-14) Blood Urea Nitrogen 8 mg/dL (7-20) Creatinine 0.7 mg/dL (0.6-1.0) Estimated GFR (Cockcroft-Gault) 94.2 BUN/Creatinine Ratio 11 (6-20) Glucose Level 138 mg/dL (70-99) Lactic Acid Level 1.8 mmol/L (0.4-2.0) Calcium Level 9.0 mg/dL (8.5-10.1) Total Bilirubin 0.2 mg/dL (0.2-1.0) Aspartate Amino Transf (AST/SGOT) 17 U/L (15-37) Alanine Aminotransferase (ALT/SGPT) 31 U/L (14-59) Alkaline Phosphatase 112 U/L (46-116) Total Protein 7.2 g/dL (6.4-8.2) Albumin 2.8 g/dL (3.4-5.0) Albumin/Globulin Ratio 0.6 (1.0-1.7) Urine Collection Type Unknown Urine Color Yellow Urine Clarity Clear Urine pH 6.5 Urine Specific [place] <=1.005 Urine Protein Negative mg/dL (NEG-TRACE) Urine Glucose (UA) Negative mg/dL (NEG) Urine Ketones (Stick) Negative mg/dL (NEG) Urine Blood Negative (NEG) Urine Nitrite Negative (NEG) Urine Bilirubin Negative (NEG) Urine Urobilinogen Dipstick 0.2 mg/dL (0.2 mg/dL) Urine Leukocyte Esterase Negative (NEG) Urine RBC 0 /HPF (0-2) Urine WBC 0 /HPF (0-4) Urine Squamous Epithelial Cells Few /LPF Urine Bacteria 0 /HPF (0-FEW) Images Images CT Head - negative CXR - There is a small focus of opacity left lung base on the PA view, possible small focus of infiltrate or nodularity although difficult to visualize on the lateral view. VTE Prophylaxis Ordered VTE Prophylaxis Devices: Yes VTE Pharmacological Prophylaxi: No Assessment/Plan Assessment/Plan A/P: Cough - CXR is clear on repeat. Will get CT chest to better elucidate. Blood cultures positive - source is not clear Sepsis - from gram positive bacteremia - will give empiric IVF and antibiotics, consult ID Right knee pain Anemia - uncertain etiology, s/p hysterectomy, will check iron stores Hyperglycemia - will monitor, no hx of DM Moderate protein calorie malnutrition - Albumin low likely from prolonged illness FEN - General diet PPX - SCDs FULL CODE Inpatient for sepsis with bacteremia SHEY MA MD March 24, 2019 11:53
[2019-03-24] MEDS: ACETAMINOPHEN 325 MG TABLET. PO PRN (13:08)
--- NOTE | 2019-03-24 13:33 | PHYS DOC ---
Past Medical History Past Medical History: URI Past Surgical History: Hysterectomy Additional Past Surgical Histo: BX HAND PLASTIC SX, TEETH REMOVED. Alcohol Use: None Drug Use: None Adult General Chief Complaint Chief Complaint: OTHER COMPLAINTS HPI HPI Patient is a 38 year old female who presents to the ED today because it she received a phone call from one of all providers notifying her she's had a positive blood culture. Blood work done on 03/24/2019 shows patient has gram- positive cocci in 2 bottles. Patient states she's had a fever on and off for 1 month and a cough. Of note patient was seen in the ED yesterday, had a full workup was noted to have bandemia and elevated neutrophils, and possible infiltrate was sent home on Z pack which she has not take. She states she took prednisone from the mother but not antibiotics. Review of Systems Review of Systems Constitutional: Reports fever, positive blood cultures Eyes: Denies change in visual acuity, redness, or eye pain [] HENT: Denies nasal congestion or sore throat [] Respiratory: Reports cough, denies shortness of breath [] Cardiovascular: No additional information not addressed in HPI [] GI: Denies abdominal pain, nausea, vomiting, bloody stools or diarrhea [] : Denies dysuria or hematuria [] Musculoskeletal: Denies back pain or joint pain [] Integument: Denies rash or skin lesions [] Neurologic: Denies headache, focal weakness or sensory changes [] All other systems were reviewed and found to be within normal limits, except as documented in this note. Allergies Allergies Allergies Coded Allergies Type Severity Reaction Last Updated Verified No Known Drug Allergies 07/11/15 No Physical Exam Physical Exam Constitutional: Well developed, well nourished, no acute distress, non-toxic appearance. [] HENT: Normocephalic, atraumatic, bilateral external ears normal, oropharynx moist, no oral exudates, nose normal. [] Eyes: PERRLA, EOMI, conjunctiva normal, no discharge. [] Neck: Normal range of motion, no tenderness, supple, no stridor. [] Cardiovascular:Heart rate regular rhythm, no murmur [] Lungs & Thorax: Bilateral breath sounds clear to auscultation [] Abdomen: Bowel sounds normal, soft, no tenderness, no masses, no pulsatile masses. [] Skin: Warm, dry, no erythema, no rash. [] Back: No tenderness, no CVA tenderness. [] Extremities: No tenderness, no cyanosis, no clubbing, ROM intact, no edema. [] Neurologic: Alert and oriented X 3, normal motor function, normal sensory function, no focal deficits noted. [] Psychologic: Affect normal, judgement normal, mood normal. [] Current Patient Data Vital Signs Vital Signs Date Time Temp Pulse Resp B/P (MAP) Pulse Ox O2 Delivery O2 Flow Rate FiO2 03/24/19 10:15 98.7 103 18 134/73 (93) 98 Room Air 98.7 EKG EKG [] Radiology/Procedures Radiology/Procedures [] Course & Med Decision Making Course & Med Decision Making Pertinent Labs and Imaging studies reviewed. (See chart for details) This is a 38-year-old female patient who presents to the ED today to be admitted after receiving a phone call she had positive blood cultures. Two bottles of the blood cultures done yesterday were positive for gram positive cocci. Patient was started on sepsis workup given Rocephin and vancomycin. Spoke with Dr. Red who accepted patient for admission Labs pending on admission. Dragon Disclaimer Dragon Disclaimer This electronic medical record was generated, in whole or in part, using a voice recognition dictation system. Departure Departure Impression: Primary Impression: Blood culture positive for microorganism Additional Impressions: Fever Cough Disposition: ADMITTED INPATIENT Condition: STABLE Referrals: NO PCP (PCP) Date and Time of Reassessment Date: March 24, 2019 Time: 12:00 Fluid Challenge Is the fluid challenge complet: No IBW Target Volume Used: No BMI > 30: No Vital Signs Vital Signs: Vital Signs Date Time Temp Pulse Resp B/P (MAP) Pulse Ox O2 Delivery O2 Flow Rate FiO2 03/24/19 10:15 98.7 103 18 134/73 (93) 98 Room Air 98.7 Temperature Source: Oral Respirations Respiratory Effort: Normal Respiratory Pattern: Normal Cardiovascular Pulse Rhythm: Regular Heart: Nml rate, reg. rhythm Lung Sounds Breath Sounds: Clear Capillary Refil Capillary Refill: Rt Hand < 3 seconds Peripheral Pulse Pulse Location: Monitor Pulse Strength: Normal (2+) Pulse Assessment Method: NIBP Integumentary Skin: Warm Skin Moisture: Moist Skin Turgor: Normal Skin Color: warm Fingernail Color: WNL Problem Qualifiers Additional Impressions: Fever Fever type: unspecified Qualified Codes: R50.9 - Fever, unspecified AMINATARICH [employer]ING MACHINE OPERATOR/TENDER March 24, 2019 13:33
[2019-03-24] MEDS ORDERED: IOHEXOL 350 MG/ML 100 ML VIAL. IV ONE (14:15)
[2019-03-24] MEDS ORDERED: CONTRAST GIVEN. MC PRN (14:30)
[2019-03-24 15:00] VITALS: BP 143/77
--- NOTE | 2019-03-24 15:01 | RAD ---
Right knee, 2 views, 03/24/2019: HISTORY: Knee swelling No fracture or dislocation is identified. No significant arthritic change is seen. There is minimal subcutaneous edema anteriorly. IMPRESSION: No acute bony abnormality is detected. Electronically signed by: Peter Keith MD (03/24/2019 2:58 PM) [facility]
[2019-03-24 19:00] VITALS: BP 123/78
[2019-03-24] MEDS: diphenhydrAMINE HCL 25 MG CAPSULE PO SCH (20:42)
[2019-03-24] MEDS: LACTOBACILLUS RHAMNOSUS GG 1 CAPSULE. PO SCH (20:42)
[2019-03-24] MEDS ORDERED: NON FORMULARY ITEM (Naproxen (Naprosyn) 1 TAB) PO SCH (21:00)
[2019-03-24 23:00] VITALS: BP 119/88
[2019-03-25 03:00] VITALS: BP 109/83
[2019-03-25] MEDS: ACETAMINOPHEN 325 MG TABLET. PO PRN ×2 (03:33→20:56)
[2019-03-25 06:01] LABS: BASO % 0 % (0-3); EOS # 0.2 x10^3/uL (0.0-0.7); EOS % 2 % (0-3); HEMATOCRIT 30.3 % (36.0-47.0); HEMOGLOBIN 10.1 g/dL (12.0-15.5); LYMPH # 2.7 x10^3/uL (1.0-4.8); LYMPH % 25 % (24-48); MEAN CORPUSCULAR HEMOGLOBIN 27 pg (25-35); MEAN CORPUSCULAR HGB CONC 33 g/dL (31-37); MEAN CORPUSCULAR VOLUME 81 fL (79-100); MONO % 9 % (0-9); NEUT # 6.7 x10^3uL (1.8-7.7); NEUT % 63 % (31-73); PLATELET COUNT 288 x10^3/uL (140-400); RED BLOOD COUNT 3.77 x10^6/uL (3.50-5.40); RED CELL DISTRIBUTION WIDTH 14.7 % (11.5-14.5); WHITE BLOOD COUNT 10.7 x10^3/uL (4.0-11.0)
[2019-03-25 06:07] LABS: CALCIUM 8.7 mg/dL (8.5-10.1); CREATININE 0.7 mg/dL (0.6-1.0); GFR 94.2; POTASSIUM 3.4 mmol/L (3.5-5.1)
[2019-03-25] MEDS: KETOROLAC 30 MG/ML VIAL. IV PRN ×2 (06:39→15:46)
[2019-03-25 07:00] VITALS: BP 118/77
[2019-03-25] MEDS: LACTOBACILLUS RHAMNOSUS GG 1 CAPSULE. PO SCH ×2 (08:51→20:56)
--- NOTE | 2019-03-25 09:41 | PDOC ---
Infectious Disease Note Vital Signs: Vital Signs Vital Signs Date Time Temp Pulse Resp B/P (MAP) Pulse Ox O2 Delivery O2 Flow Rate FiO2 03/25/19 07:00 97.8 72 14 118/77 (91) 98 Room Air 97.8 Medications: Inpatient Meds: Current Medications Medications (Trade) Dose Ordered Sig/Vee Start Time Stop Time Status Last Admin Dose Admin Acetaminophen (Tylenol) 650 mg PRN Q4HRS PRN 03/24/19 11:30 03/26/19 11:28 03/25/19 03:33 650 MG Ceftriaxone Sodium (Rocephin) 1 gm Q24H 03/25/19 11:00 Diphenhydramine HCl (Benadryl) 25 mg QHS 03/24/19 21:00 03/24/19 20:42 25 MG Info (CONTRAST GIVEN -- Rx MONITORING) 1 each PRN DAILY PRN 03/24/19 14:30 03/26/19 14:29 Iohexol (Omnipaque 350 Mg/ml) 100 ml 1X ONCE 03/24/19 14:15 03/24/19 14:16 DC Ketorolac Tromethamine (Toradol 30mg Vial) 30 mg PRN Q6HRS PRN 03/24/19 14:00 03/29/19 13:59 03/25/19 06:39 30 MG Lactobacillus Rhamnosus (Culturelle) 1 cap BID 03/24/19 21:00 03/25/19 08:51 1 CAP Non-Formulary Medication (Naproxen (Naprosyn)) 1 tab BID 03/24/19 21:00 03/24/19 21:00 DC Ondansetron HCl (Zofran) 4 mg PRN Q8HRS PRN 03/24/19 11:30 03/26/19 11:28 Sodium Chloride 1,000 ml @ 125 mls/hr 1X ONCE 03/24/19 11:30 03/24/19 19:29 DC 03/24/19 13:10 125 MLS/HR Vancomycin HCl (Vanco Per Pharmacy) 1 each 1X ONCE 03/24/19 10:45 03/24/19 10:52 DC Vancomycin HCl 2 gm/Sodium Chloride 500 ml @ 250 mls/hr 1X ONCE 03/24/19 11:00 03/24/19 12:59 DC 03/24/19 13:05 250 MLS/HR Labs: Lab Laboratory Tests Test 03/24/19 10:24 03/24/19 10:53 03/24/19 14:45 03/25/19 04:43 White Blood Count 10.6 x10^3/uL (4.0-11.0) 10.7 x10^3/uL (4.0-11.0) Red Blood Count 4.29 x10^6/uL (3.50-5.40) 3.77 x10^6/uL (3.50-5.40) Hemoglobin 11.6 g/dL (12.0-15.5) 10.1 g/dL (12.0-15.5) Hematocrit 34.3 % (36.0-47.0) 30.3 % (36.0-47.0) Mean Corpuscular Volume 80 fL (79-100) 81 fL (79-100) Mean Corpuscular Hemoglobin 27 pg (25-35) 27 pg (25-35) Mean Corpuscular Hemoglobin Concent 34 g/dL (31-37) 33 g/dL (31-37) Red Cell Distribution Width 14.9 % (11.5-14.5) 14.7 % (11.5-14.5) Platelet Count 284 x10^3/uL (140-400) 288 x10^3/uL (140-400) Neutrophils (%) (Auto) 86 % (31-73) 63 % (31-73) Lymphocytes (%) (Auto) 8 % (24-48) 25 % (24-48) Monocytes (%) (Auto) 6 % (0-9) 9 % (0-9) Eosinophils (%) (Auto) 1 % (0-3) 2 % (0-3) Basophils (%) (Auto) 0 % (0-3) 0 % (0-3) Neutrophils # (Auto) 9.2 x10^3uL (1.8-7.7) 6.7 x10^3uL (1.8-7.7) Lymphocytes # (Auto) 0.8 x10^3/uL (1.0-4.8) 2.7 x10^3/uL (1.0-4.8) Monocytes # (Auto) 0.6 x10^3/uL (0.0-1.1) 1.0 x10^3/uL (0.0-1.1) Eosinophils # (Auto) 0.1 x10^3/uL (0.0-0.7) 0.2 x10^3/uL (0.0-0.7) Basophils # (Auto) 0.0 x10^3/uL (0.0-0.2) 0.0 x10^3/uL (0.0-0.2) Sodium Level 138 mmol/L (136-145) 142 mmol/L (136-145) Potassium Level 4.1 mmol/L (3.5-5.1) 3.4 mmol/L (3.5-5.1) Chloride Level 102 mmol/L (98-107) 105 mmol/L (98-107) Carbon Dioxide Level 23 mmol/L (21-32) 24 mmol/L (21-32) Anion Gap 13 (6-14) 13 (6-14) Blood Urea Nitrogen 8 mg/dL (7-20) 7 mg/dL (7-20) Creatinine 0.7 mg/dL (0.6-1.0) 0.7 mg/dL (0.6-1.0) Estimated GFR (Cockcroft-Gault) 94.2 94.2 BUN/Creatinine Ratio 11 (6-20) Glucose Level 138 mg/dL (70-99) 96 mg/dL (70-99) Lactic Acid Level 1.8 mmol/L (0.4-2.0) 1.4 mmol/L (0.4-2.0) Calcium Level 9.0 mg/dL (8.5-10.1) 8.7 mg/dL (8.5-10.1) Total Bilirubin 0.2 mg/dL (0.2-1.0) Aspartate Amino Transf (AST/SGOT) 17 U/L (15-37) Alanine Aminotransferase (ALT/SGPT) 31 U/L (14-59) Alkaline Phosphatase 112 U/L (46-116) Total Protein 7.2 g/dL (6.4-8.2) Albumin 2.8 g/dL (3.4-5.0) Albumin/Globulin Ratio 0.6 (1.0-1.7) Procalcitonin < 0.10 ng/mL (0.00-0.10) Hepatitis C IgG Antibody Nonreactive (Nonreactive) HIV (1&2) Antibody Screen Nonreactive (Nonreactive) Urine Collection Type Unknown Urine Color Yellow Urine Clarity Clear Urine pH 6.5 Urine Specific [place] <=1.005 Urine Protein Negative mg/dL (NEG-TRACE) Urine Glucose (UA) Negative mg/dL (NEG) Urine Ketones (Stick) Negative mg/dL (NEG) Urine Blood Negative (NEG) Urine Nitrite Negative (NEG) Urine Bilirubin Negative (NEG) Urine Urobilinogen Dipstick 0.2 mg/dL (0.2 mg/dL) Urine Leukocyte Esterase Negative (NEG) Urine RBC 0 /HPF (0-2) Urine WBC 0 /HPF (0-4) Urine Squamous Epithelial Cells Few /LPF Urine Bacteria 0 /HPF (0-FEW) Objective: Assessment: Pt seen and examined IMP Febrile illness for one month fever upto 106*F GPC bacteremia 1/4 bottles ? could be contaminant Cough and Chestpain CXR normal Arthalgias Nausea and vomiting POA,now resolved Plan: Plan of Care Ceftriaxone IV Vanc Doxycycline ct chest w/o f/u bc results MOODY NIELSEN MD March 25, 2019 09:41
[2019-03-25] MEDS ORDERED: VANCOMYCIN 1 GM in IV NORMAL SALINE 250ML 250 ML IV SCH (09:45)
[2019-03-25] MEDS ORDERED: VANCOMYCIN 2 GM in IV NORMAL SALINE 500ML BAG 500 ML IV ONE (10:15)
[2019-03-25] MEDS: DOXYCYCLINE HYCLATE 100 MG TABLET PO SCH ×2 (10:19→20:56)
[2019-03-25 11:00] VITALS: BP 108/68
--- NOTE | 2019-03-25 12:26 | PDOC ---
[employer] PROGRESS NOTE Chief Complaint Chief Complaint Febrile illness for one month fever upto 106*F GPC bacteremia 1/4 bottles ? could be contaminant Cough and Chestpain CXR normal Arthalgias Nausea and vomiting POA,now resolved Plan: Plan of Care Ceftriaxone IV Vanc Doxycycline ct chest w/o f/u bc results History of Present Illness History of Present Illness Patient seen and examined Vitals Vitals Vital Signs Date Time Temp Pulse Resp B/P (MAP) Pulse Ox O2 Delivery O2 Flow Rate FiO2 03/25/19 07:50 Room Air 03/25/19 07:00 97.8 72 14 118/77 (91) 98 97.8 Physical Exam General: Alert, Oriented X3, Cooperative, No acute distress Heart: Regular rate, Normal S1, Normal S2 Lungs: Wheezing Abdomen: Normal bowel sounds, Soft, No tenderness, No hepatosplenomegaly, No masses Extremities: No clubbing, No cyanosis, No edema, Normal pulses, No tenderness/swelling Skin: No rashes, No breakdown, No significant lesion Labs Labs: Laboratory Tests Test 03/24/19 14:45 03/25/19 04:43 03/25/19 10:25 Lactic Acid Level 1.4 mmol/L (0.4-2.0) White Blood Count 10.7 x10^3/uL (4.0-11.0) Red Blood Count 3.77 x10^6/uL (3.50-5.40) Hemoglobin 10.1 g/dL (12.0-15.5) Hematocrit 30.3 % (36.0-47.0) Mean Corpuscular Volume 81 fL (79-100) Mean Corpuscular Hemoglobin 27 pg (25-35) Mean Corpuscular Hemoglobin Concent 33 g/dL (31-37) Red Cell Distribution Width 14.7 % (11.5-14.5) Platelet Count 288 x10^3/uL (140-400) Neutrophils (%) (Auto) 63 % (31-73) Lymphocytes (%) (Auto) 25 % (24-48) Monocytes (%) (Auto) 9 % (0-9) Eosinophils (%) (Auto) 2 % (0-3) Basophils (%) (Auto) 0 % (0-3) Neutrophils # (Auto) 6.7 x10^3uL (1.8-7.7) Lymphocytes # (Auto) 2.7 x10^3/uL (1.0-4.8) Monocytes # (Auto) 1.0 x10^3/uL (0.0-1.1) Eosinophils # (Auto) 0.2 x10^3/uL (0.0-0.7) Basophils # (Auto) 0.0 x10^3/uL (0.0-0.2) Sodium Level 142 mmol/L (136-145) Potassium Level 3.4 mmol/L (3.5-5.1) Chloride Level 105 mmol/L (98-107) Carbon Dioxide Level 24 mmol/L (21-32) Anion Gap 13 (6-14) Blood Urea Nitrogen 7 mg/dL (7-20) Creatinine 0.7 mg/dL (0.6-1.0) Estimated GFR (Cockcroft-Gault) 94.2 Glucose Level 96 mg/dL (70-99) Calcium Level 8.7 mg/dL (8.5-10.1) C-Reactive Protein, Quantitative 24.4 mg/L (0-3.3) Review of Systems Review of Systems Complains of weakness and cough Assessment and Plan Assessmemt and Plan Problems Medical Problems: (1) Blood culture positive for microorganism Status: Acute (2) Cough Status: Acute (3) Fever Status: Possible pneumonia AcuteFebrile illness GPC bacteremia Cough and Chestpain Body aches Nausea and vomiting POA,now resolved Plan: Plan of Care Consult ID IV fluids Home meds Frequent labs Ceftriaxone IV Vanc Doxycycline ct chest w/o per ID Follow blood cultures Comment Review of Relevant I have reviewed the following items ina (where applicable) has been applied. Labs Laboratory Tests Test 03/24/19 10:24 03/24/19 10:53 03/24/19 14:45 03/25/19 04:43 White Blood Count 10.6 x10^3/uL (4.0-11.0) 10.7 x10^3/uL (4.0-11.0) Red Blood Count 4.29 x10^6/uL (3.50-5.40) 3.77 x10^6/uL (3.50-5.40) Hemoglobin 11.6 g/dL (12.0-15.5) 10.1 g/dL (12.0-15.5) Hematocrit 34.3 % (36.0-47.0) 30.3 % (36.0-47.0) Mean Corpuscular Volume 80 fL (79-100) 81 fL (79-100) Mean Corpuscular Hemoglobin 27 pg (25-35) 27 pg (25-35) Mean Corpuscular Hemoglobin Concent 34 g/dL (31-37) 33 g/dL (31-37) Red Cell Distribution Width 14.9 % (11.5-14.5) 14.7 % (11.5-14.5) Platelet Count 284 x10^3/uL (140-400) 288 x10^3/uL (140-400) Neutrophils (%) (Auto) 86 % (31-73) 63 % (31-73) Lymphocytes (%) (Auto) 8 % (24-48) 25 % (24-48) Monocytes (%) (Auto) 6 % (0-9) 9 % (0-9) Eosinophils (%) (Auto) 1 % (0-3) 2 % (0-3) Basophils (%) (Auto) 0 % (0-3) 0 % (0-3) Neutrophils # (Auto) 9.2 x10^3uL (1.8-7.7) 6.7 x10^3uL (1.8-7.7) Lymphocytes # (Auto) 0.8 x10^3/uL (1.0-4.8) 2.7 x10^3/uL (1.0-4.8) Monocytes # (Auto) 0.6 x10^3/uL (0.0-1.1) 1.0 x10^3/uL (0.0-1.1) Eosinophils # (Auto) 0.1 x10^3/uL (0.0-0.7) 0.2 x10^3/uL (0.0-0.7) Basophils # (Auto) 0.0 x10^3/uL (0.0-0.2) 0.0 x10^3/uL (0.0-0.2) Sodium Level 138 mmol/L (136-145) 142 mmol/L (136-145) Potassium Level 4.1 mmol/L (3.5-5.1) 3.4 mmol/L (3.5-5.1) Chloride Level 102 mmol/L (98-107) 105 mmol/L (98-107) Carbon Dioxide Level 23 mmol/L (21-32) 24 mmol/L (21-32) Anion Gap 13 (6-14) 13 (6-14) Blood Urea Nitrogen 8 mg/dL (7-20) 7 mg/dL (7-20) Creatinine 0.7 mg/dL (0.6-1.0) 0.7 mg/dL (0.6-1.0) Estimated GFR (Cockcroft-Gault) 94.2 94.2 BUN/Creatinine Ratio 11 (6-20) Glucose Level 138 mg/dL (70-99) 96 mg/dL (70-99) Lactic Acid Level 1.8 mmol/L (0.4-2.0) 1.4 mmol/L (0.4-2.0) Calcium Level 9.0 mg/dL (8.5-10.1) 8.7 mg/dL (8.5-10.1) Total Bilirubin 0.2 mg/dL (0.2-1.0) Aspartate Amino Transf (AST/SGOT) 17 U/L (15-37) Alanine Aminotransferase (ALT/SGPT) 31 U/L (14-59) Alkaline Phosphatase 112 U/L (46-116) Total Protein 7.2 g/dL (6.4-8.2) Albumin 2.8 g/dL (3.4-5.0) Albumin/Globulin Ratio 0.6 (1.0-1.7) Procalcitonin < 0.10 ng/mL (0.00-0.10) Hepatitis C IgG Antibody Nonreactive (Nonreactive) HIV (1&2) Antibody Screen Nonreactive (Nonreactive) Urine Collection Type Unknown Urine Color Yellow Urine Clarity Clear Urine pH 6.5 Urine Specific [place] <=1.005 Urine Protein Negative mg/dL (NEG-TRACE) Urine Glucose (UA) Negative mg/dL (NEG) Urine Ketones (Stick) Negative mg/dL (NEG) Urine Blood Negative (NEG) Urine Nitrite Negative (NEG) Urine Bilirubin Negative (NEG) Urine Urobilinogen Dipstick 0.2 mg/dL (0.2 mg/dL) Urine Leukocyte Esterase Negative (NEG) Urine RBC 0 /HPF (0-2) Urine WBC 0 /HPF (0-4) Urine Squamous Epithelial Cells Few /LPF Urine Bacteria 0 /HPF (0-FEW) Test 03/25/19 10:25 C-Reactive Protein, Quantitative 24.4 mg/L (0-3.3) Laboratory Tests Test 03/24/19 14:45 03/25/19 04:43 03/25/19 10:25 Lactic Acid Level 1.4 mmol/L (0.4-2.0) White Blood Count 10.7 x10^3/uL (4.0-11.0) Red Blood Count 3.77 x10^6/uL (3.50-5.40) Hemoglobin 10.1 g/dL (12.0-15.5) Hematocrit 30.3 % (36.0-47.0) Mean Corpuscular Volume 81 fL (79-100) Mean Corpuscular Hemoglobin 27 pg (25-35) Mean Corpuscular Hemoglobin Concent 33 g/dL (31-37) Red Cell Distribution Width 14.7 % (11.5-14.5) Platelet Count 288 x10^3/uL (140-400) Neutrophils (%) (Auto) 63 % (31-73) Lymphocytes (%) (Auto) 25 % (24-48) Monocytes (%) (Auto) 9 % (0-9) Eosinophils (%) (Auto) 2 % (0-3) Basophils (%) (Auto) 0 % (0-3) Neutrophils # (Auto) 6.7 x10^3uL (1.8-7.7) Lymphocytes # (Auto) 2.7 x10^3/uL (1.0-4.8) Monocytes # (Auto) 1.0 x10^3/uL (0.0-1.1) Eosinophils # (Auto) 0.2 x10^3/uL (0.0-0.7) Basophils # (Auto) 0.0 x10^3/uL (0.0-0.2) Sodium Level 142 mmol/L (136-145) Potassium Level 3.4 mmol/L (3.5-5.1) Chloride Level 105 mmol/L (98-107) Carbon Dioxide Level 24 mmol/L (21-32) Anion Gap 13 (6-14) Blood Urea Nitrogen 7 mg/dL (7-20) Creatinine 0.7 mg/dL (0.6-1.0) Estimated GFR (Cockcroft-Gault) 94.2 Glucose Level 96 mg/dL (70-99) Calcium Level 8.7 mg/dL (8.5-10.1) C-Reactive Protein, Quantitative 24.4 mg/L (0-3.3) Microbiology 03/24/19 Blood Culture - Final, Complete Medications Current Medications Ceftriaxone Sodium (Rocephin) 1 gm 1X ONCE IVP Last administered on 03/24/19at 13:04; Start 03/24/19 at 11:00; Stop 03/24/19 at 11:01; Status DC Sodium Chloride 1,000 ml @ 1,560 mls/hr Q39M IV Last administered on 03/24/19at 13:08; Start 03/24/19 at 10:38; Stop 03/24/19 at 11:38; Status DC Vancomycin HCl (Vanco Per Pharmacy) 1 each 1X ONCE MC ; Start 03/24/19 at 10:45; Stop 03/24/19 at 10:52; Status DC Vancomycin HCl 2 gm/Sodium Chloride 500 ml @ 250 mls/hr 1X ONCE IV Last administered on 03/24/19at 13:05; Start 03/24/19 at 11:00; Stop 03/24/19 at 12:59; Status DC Ondansetron HCl (Zofran) 4 mg PRN Q8HRS PRN IV NAUSEA/VOMITING; Start 03/24/19 at 11:30; Stop 03/26/19 at 11:28 Acetaminophen (Tylenol) 650 mg PRN Q4HRS PRN PO FEVER Last administered on 03/25/19at 03:33; Start 03/24/19 at 11:30; Stop 03/26/19 at 11:28 Sodium Chloride 1,000 ml @ 125 mls/hr 1X ONCE IV Last administered on 03/24/19at 13:10; Start 03/24/19 at 11:30; Stop 03/24/19 at 19:29; Status DC Diphenhydramine HCl (Benadryl) 25 mg QHS PO Last administered on 03/24/19at 20:42; Start 03/24/19 at 21:00 Non-Formulary Medication (Naproxen (Naprosyn)) 1 tab BID PO ; Start 03/24/19 at 21:00; Stop 03/24/19 at 21:00; Status DC Ketorolac Tromethamine (Toradol 30mg Vial) 30 mg PRN Q6HRS PRN IV MODERATE PAIN Last administered on 03/25/19at 06:39; Start 03/24/19 at 14:00; Stop 03/29/19 at 13:59 Ceftriaxone Sodium (Rocephin) 1 gm Q24H IVP ; Start 03/25/19 at 11:00 Iohexol (Omnipaque 350 Mg/ml) 100 ml 1X ONCE IV ; Start 03/24/19 at 14:15; Stop 03/24/19 at 14:16; Status DC Info (CONTRAST GIVEN -- Rx MONITORING) 1 each PRN DAILY PRN MC SEE COMMENTS; Start 03/24/19 at 14:30; Stop 03/26/19 at 14:29 Lactobacillus Rhamnosus (Culturelle) 1 cap BID PO Last administered on 03/25/19at 08:51; Start 03/24/19 at 21:00 Vancomycin HCl 1 gm/Sodium Chloride 250 ml @ 250 mls/hr Q12H IV ; Start 03/25/19 at 09:45; Status UNV Doxycycline Hyclate (Vibra-Tab) 100 mg BID PO Last administered on 03/25/19at 10:19; Start 03/25/19 at 10:00 Vancomycin HCl (Vanco Per Pharmacy) 1 each PRN DAILY PRN MC SEE COMMENTS; Start 03/25/19 at 10:00 Vancomycin HCl 2 gm/Sodium Chloride 500 ml @ 250 mls/hr 1X ONCE IV Last administered on 03/25/19at 10:20; Start 03/25/19 at 10:15; Stop 03/25/19 at 12:14; Status DC Active Scripts Active Zithromax (Azithromycin) 250 Mg Tablet 1 Pkg PO UD Clifford 5-325 Tablet (Acetaminophen/Hydrocodone Bitart) 1 Each Tablet 1 Tab PO PRN Q6HRS PRN Orphenadrine Citrate 100 Mg Tablet.er 1 Tab PO BID Bactrim Ds Tablet (Sulfamethoxazole/Trimethoprim) 1 Each Tablet 1 Tab PO BID Valium (Diazepam) 5 Mg Tablet 5 Mg PO TID 5 Days Benadryl (Diphenhydramine Hcl) 25 Mg Capsule 1 Cap PO QHS Naprosyn (Naproxen) 500 Mg Tablet 1 Tab PO BID Amoxicillin 875 Mg Tablet 1 Tab PO BID Clifford 5-325 Tablet (Acetaminophen/Hydrocodone Bitart) 1 Each Tablet 1-2 Tab PO Q4-6HRS Vitals/I & O Vital Sign - Last 24 Hours 03/24/19 03/24/19 03/24/19 03/24/19 15:00 19:00 19:38 23:00 Temp 97.6 98.2 98.5 97.6 98.2 98.5 Pulse 86 79 74 Resp 18 18 18 B/P (MAP) 143/77 (99) 123/78 (93) 119/88 (98) Pulse Ox 98 98 98 O2 Delivery Room Air Room Air 03/25/19 03/25/19 03/25/19 03:00 07:00 07:50 Temp 99.2 97.8 99.2 97.8 Pulse 79 72 Resp 16 14 B/P (MAP) 109/83 (92) 118/77 (91) Pulse Ox 98 98 O2 Delivery Room Air Room Air Intake and Output 03/24/19 03/24/19 03/25/19 15:00 23:00 07:00 Intake Total 240 ml 600 ml 600 ml Balance 240 ml 600 ml 600 ml CABRERA ZAIDI III DO March 25, 2019 12:26
[2019-03-25] MEDS: VANCOMYCIN PER PHARMACY MC PRN ×2 (12:51→12:55)
--- NOTE | 2019-03-25 12:59 | RAD ---
CT of the chest without contrast, 03/25/2019: HISTORY: Chest pain, fever, cough No IV contrast contrast was injected for this study, reportedly due to lack of adequate venous access. There are several small scattered peripheral opacities in both lungs. These include a 1.5 cm subpleural cavitary nodule in the anterolateral aspect of the left lower lobe as seen on image 36 of series #2. There is a slightly larger irregular spiculated subpleural nodule in the posterior aspect of the left lower lobe and a similar nodule in the anterolateral aspect of the left upper lobe. These opacities do not demonstrate definite cavitation. Smaller peripheral subpleural irregular opacities are noted in the right lung such as in the right upper lobe on image 11 of series #2. A density in the posterior costophrenic angle on the right appears to be due to a trace amount of pleural fluid and underlying atelectasis. There is minimal blunting of the posterior costophrenic angle on the right with tiny pleural opacities suggesting minimal fibrocalcific scarring. The thoracic aorta is of normal caliber with only minimal calcific plaquing. The heart size is normal. No mediastinal adenopathy is seen. There are mild scattered degenerative changes in the spine. IMPRESSION: 1. Multiple peripheral parenchymal densities left greater than right, including a cavitary nodule in the left lower lobe. Diagnostic considerations include a multifocal infectious process such as septic emboli, pulmonary embolic disease or scarring from a prior inflammatory or embolic episode. 2. Probable tiny left pleural effusion 3. Minimal calcific pleural plaquing on the right. PQRS Compliance Statement: One or more of the following individualized dose reduction techniques were utilized for this examination: 1. Automated exposure control 2. Adjustment of the mA and/or kV according to patient size 3. Use of iterative reconstruction technique Electronically signed by: Peter Keith MD (03/25/2019 12:56 PM) [facility]
[2019-03-25] MEDS: cefTRIAXone IV Push 1 GM VIAL. IVP SCH (13:36)
--- NOTE | 2019-03-25 14:09 | NUR ---
SW following for discharge planning. Discussed with RN, pt is from home with family, currently no SW needs. ID following. SW will continue to follow for discharge planning.
[2019-03-25 15:00] VITALS: BP 131/87
--- NOTE | 2019-03-25 16:49 | CONS ---
DATE OF CONSULTATION: PULMONARY CONSULTATION ATTENDING PHYSICIAN: Morris Seay MD. REASON FOR CONSULTATION: Abnormal CT chest and pneumonia. HISTORY OF PRESENT ILLNESS: The patient is a 38-year-old who has no history of tobacco use. She has a febrile illness with a fever maximum of 106, 3 days ago. The febrile illness has been present for over one month. The patient has been clean from IV meth about a year. She did IV meth for a year as well. The patient was having cough for about a month as well. The pain was started to hurt her neck as well as arms as a result, she was hospitalized and especially when she had a fever of 106. She underwent CT chest, which was reviewed by me. There are multiple bilateral patchy infiltrates, left greater than right including a cavitary nodule in the left lower lobe. I have been asked to see her for further evaluation. She has no other chronic medical conditions. The patient has not been on any other drugs. No nausea. She did have emesis x 1. No sick contact. No recent travels. PAST MEDICAL HISTORY: Significant for history of opioid and amphetamine use in the past and she did IV meth for about a year. No other medical problems. PAST SURGICAL HISTORY: Hysterectomy. FAMILY HISTORY: Diabetes, drug abuse and heart disease. ALLERGIES: None. MEDICATIONS: All reviewed as listed in the MRAD. REVIEW OF SYSTEMS: As discussed in my history of present illness. PHYSICAL EXAMINATION: VITAL SIGNS: Reviewed. T-max of 99.5. The blood pressure stable, pulse ox 99% room air. NECK: Supple. LUNGS: Clear. CARDIOVASCULAR: Regular rate and rhythm. ABDOMEN: Soft, nontender. EXTREMITIES: With no pitting edema. LABORATORY DATA: Reviewed. White cell count 10.7, hemoglobin 10.1 and platelets are 288. Chemistries with BUN and creatinine normal. IMPRESSION: The patient with febrile illness for about a month along with cough for the same duration. She has done IV meth for a year, but has been clean for the same duration. She now comes in with a very high-grade fever of 106 and bilateral infiltrates on the CT chest with one of the cavitary nodule in the left lower lobe. Clinical suspicion for low-grade infection such as endocarditis is high. The possibility of right-sided vegetations cannot be ruled out. She is a nonsmoker. RECOMMENDATIONS: 1. Continue with broad-spectrum antibiotics. 2. Follow final blood cultures, 10/30 is positive for gram-positive cocci. 3. She will need an echocardiogram and possible transesophageal echo to look for vegetations. 4. Follow Infectious Disease recommendations. 5. Discussed with the patient and RN. We will follow along with you. ORTEGA CUENCA MD DR: GISSELLE/silvia JOB#: [id number] / [id number]
[2019-03-25] MEDS ORDERED: POTASSIUM CHLORIDE 20 MEQ TABLET.ER. PO ONE (18:30)
[2019-03-25 19:00] VITALS: BP 123/76
[2019-03-25] MEDS: diphenhydrAMINE HCL 25 MG CAPSULE PO SCH (20:56)
[2019-03-25] MEDS: VANCOMYCIN 1.25 GM in IV NORMAL SALINE 250ML 250 ML IV SCH (20:57)
[2019-03-25 23:03] VITALS: BP 113/66
--- NOTE | 2019-03-26 03:09 | CONS ---
DATE OF CONSULTATION: 03/25/2019 REFERRING PHYSICIAN: Dr. Seay REASON FOR CONSULTATION: Positive blood culture. HISTORY OF PRESENT ILLNESS: A 38-year-old female with history of chronic cough, chest pain going on for 6 weeks with fever as high as 105, presented to the ER on 03/23/2019. She had a white count done, which was normal. Blood cultures were done. She was given Z-OZIEL and was discharged. The patient was asked to return as blood cultures were positive. She did take some prednisone from her mother. The patient also has pain over the left neck going down the left upper extremity, which has resolved. She has chest pain, which goes on for hours along with cough, dry. She was supposed to get CTA with IV infiltrated and the patient has refused for further CTA. The patient denies any recent procedures. There is a history of opiate dependence, which she has been in sustained remission for over 6 years. The patient also had right knee pain, which she attributed to mowing her lawn. She also has swelling of both the hands small joints off and on for a couple of months. She denies any history of injury. Denies any history of autoimmune disease. The patient denies being on any antibiotics recently. She has undergone hysterectomy for uterine bleeding 6 years ago. She also underwent dental extraction with dentures 1 year ago due to broken teeth. The patient received a dose of IV vancomycin and Rocephin in the ER. Currently, is on IV Rocephin. Chest x-ray revealed no acute abnormality. Knee x-ray showed no acute bony abnormality. White count was 10.7, hemoglobin of 10.1, hematocrit 30.3, platelets 288. UA was negative. Hepatitis C antibody negative. HIV negative. Lactate was normal. The patient had a potassium of 3.4. Procalcitonin of less than 0.10. Upon admission here, the patient has had no further fevers. She remains on room air. PAST MEDICAL AND SURGICAL HISTORY: Status post hysterectomy, history of opioid and amphetamine use with sustained remission per chart, dental extraction with dentures. FAMILY HISTORY: Positive for drug abuse, diabetes, heart disease. SOCIAL HISTORY: Denies smoking, ETOH or illicit drug use. Two children. Not sexually active. Denies any history of STDs. Denies any history of recent travel or sick contact. The patient has cats, dogs and horses. CURRENT MEDICATION: IV ceftriaxone, status post dose of vancomycin. In the ER, the patient was given Zithromax, which she did not take; Bactrim, which she did not take. Also, there is a note of amoxicillin in the past. ALLERGIES: No known drug allergies. REVIEW OF SYSTEMS: Fevers high-grade of 106 for 1-1/2 months. Chest pain about the same time; dry cough; pleuritic chest pain; nausea; vomiting once, now resolved; joint pain; knee pain; small joints of both hands; right upper extremity swelling and pain due to infiltration of IV. PHYSICAL EXAMINATION: VITAL SIGNS: Temperature 97.8, pulse 72, respiratory rate 14, blood pressure 118/77, oxygen saturation 98% on room air. GENERAL: Alert and oriented x 3, pleasant female, lying in bed comfortably, in no acute distress, cooperative. HEENT: Normocephalic, atraumatic, anicteric. No oropharyngeal exudate. Oral mucosa moist. Edentulous. NECK: Supple. No JVD. LUNGS: Clear bilaterally. No wheezing. HEART: S1, S2. No gallops or murmurs. ABDOMEN: Soft, nontender, nondistended. No rebound, no guarding. BACK: Reveals normal curvature. No CVA tenderness. EXTREMITIES: No edema, no cyanosis, no clubbing. DERMATOLOGIC: Warm and dry. No generalized rash. Multiple tattoos. NEUROLOGIC: Alert and oriented x 3, grossly nonfocal. PSYCHIATRIC: Cooperative, appropriate mood and affect. LABORATORY DATA: WBC 10.7, hemoglobin 10.1, hematocrit 30.3, platelets 288, neutrophils 63, lymphocytes 25, mono 9, eosinophils 2, basophils 0, neutrophils 6.7, lymphocytes 2.7. UA negative. Sodium 142, potassium 3.4, chloride 105, bicarb 24, BUN 7, creatinine 0.7, glucose 96. Lactate 1.4, total bili 8.7. Procalcitonin less than 0.10. Hepatitis C antibody nonreactive, HIV nonreactive. DIAGNOSTICS: Chest x-ray: No acute cardiopulmonary abnormality. Knee x-ray shows no acute bony abnormality. IMPRESSION: 1. Chest pain with cough. Chest x-ray is clear. 2. Bacteremia 1/4 bottles, gram-positive cocci in clusters, ID and TRE pending at this time. 3. Right knee pain. 4. Arthralgias. RECOMMENDATIONS: 1. Continue empiric ceftriaxone for now. 2. Add empiric IV vancomycin for now. Monitor renal functions closely. 3. Repeat blood cultures. 4. The patient has remained afebrile with normal white count and normal procalcitonin here. Arthralgias could be from other noninfectious etiologies. 5. Follow up cultures and lab in a.m. 6. Continue supportive care. 7. Obtain a CT of the chest without contrast as the patient is refusing for CTA. 8. Continue supportive care. 9. Discussed with RN. 10. We will add doxycycline. Thank you, Dr. Seay, for consulting Infectious Disease to participate in this patient's care. If you have any questions, do not hesitate to contact me. MOODY NIELSEN MD DR: PK/nts JOB#: [id number] / [id number]
[2019-03-26 03:12] VITALS: BP 116/75
[2019-03-26] MEDS: KETOROLAC 30 MG/ML VIAL. IV PRN ×2 (04:53→18:04)
[2019-03-26 07:00] VITALS: BP 108/70
--- NOTE | 2019-03-26 07:57 | NUR ---
Martha Yung, mother of patient called for a status.
[2019-03-26] MEDS: LACTOBACILLUS RHAMNOSUS GG 1 CAPSULE. PO SCH ×2 (09:13→21:33)
[2019-03-26] MEDS: DOXYCYCLINE HYCLATE 100 MG TABLET PO SCH ×2 (09:14→21:33)
[2019-03-26] MEDS: VANCOMYCIN PER PHARMACY MC PRN ×2 (09:40→23:41)
[2019-03-26] MEDS: VANCOMYCIN 1.25 GM in IV NORMAL SALINE 250ML 250 ML IV SCH ×3 (10:00→23:25)
--- NOTE | 2019-03-26 10:35 | PDOC ---
Infectious Disease Note Subjective: Subjective pt has headache today cont to have chestpain at 10 this am some sob no f/c/n/v/d/abdo pain RUE swelling and pain has improved some ROS: ROS Negative except for above. Vital Signs: Vital Signs Vital Signs Date Time Temp Pulse Resp B/P (MAP) Pulse Ox O2 Delivery O2 Flow Rate FiO2 03/26/19 07:00 98.2 73 16 108/70 (83) 96 Room Air 98.2 Physical Exam: PHYSICAL EXAM GENERAL: Alert and oriented x 3, pleasant female, lying in bed comfortably, in no acute distress, cooperative. HEENT: Normocephalic, atraumatic, anicteric. No oropharyngeal exudate. Oral mucosa moist. Edentulous. NECK: Supple. No JVD. LUNGS: Clear bilaterally. No wheezing. HEART: S1, S2. No gallops or murmurs. ABDOMEN: Soft, nontender, nondistended. No rebound, no guarding. BACK: Reveals normal curvature. No CVA tenderness. EXTREMITIES: No edema, no cyanosis, no clubbing.RUE swelling and mild tenderness at previous iv site DERMATOLOGIC: Warm and dry. No generalized rash. Multiple tattoos. NEUROLOGIC: Alert and oriented x 3, grossly nonfocal. PSYCHIATRIC: Cooperative, appropriate mood and affect. Medications: Inpatient Meds: Current Medications Medications (Trade) Dose Ordered Sig/Vee Start Time Stop Time Status Last Admin Dose Admin Acetaminophen (Tylenol) 650 mg PRN Q4HRS PRN 03/24/19 11:30 03/26/19 11:28 03/25/19 20:56 650 MG Ceftriaxone Sodium (Rocephin) 1 gm Q24H 03/25/19 11:00 03/25/19 13:36 1 GM Diphenhydramine HCl (Benadryl) 25 mg QHS 03/24/19 21:00 03/25/19 20:56 25 MG Doxycycline Hyclate (Vibra-Tab) 100 mg BID 03/25/19 10:00 03/26/19 09:14 100 MG Info (CONTRAST GIVEN -- Rx MONITORING) 1 each PRN DAILY PRN 03/24/19 14:30 03/26/19 14:29 Iohexol (Omnipaque 350 Mg/ml) 100 ml 1X ONCE 03/24/19 14:15 03/24/19 14:16 DC Ketorolac Tromethamine (Toradol 30mg Vial) 30 mg PRN Q6HRS PRN 03/24/19 14:00 03/29/19 13:59 03/26/19 04:53 30 MG Lactobacillus Rhamnosus (Culturelle) 1 cap BID 03/24/19 21:00 03/26/19 09:13 1 CAP Non-Formulary Medication (Naproxen (Naprosyn)) 1 tab BID 03/24/19 21:00 03/24/19 21:00 DC Ondansetron HCl (Zofran) 4 mg PRN Q8HRS PRN 03/24/19 11:30 03/26/19 11:28 Potassium Chloride (Klor-Con) 40 meq 1X ONCE 03/25/19 18:30 03/25/19 18:31 DC 03/25/19 17:58 40 MEQ Sodium Chloride 1,000 ml @ 125 mls/hr 1X ONCE 03/24/19 11:30 03/24/19 19:29 DC 03/24/19 13:10 125 MLS/HR Vancomycin HCl (Vanco Per Pharmacy) 1 each PRN DAILY PRN 03/25/19 10:00 03/26/19 09:40 1 EACH Vancomycin HCl (Vancomycin Trough Level) 1 each 1X ONCE 03/26/19 21:30 03/26/19 21:31 Vancomycin HCl 1.25 gm/Sodium Chloride 250 ml @ 167 mls/hr Q12H 03/25/19 22:00 03/25/19 20:57 167 MLS/HR Vancomycin HCl 1 gm/Sodium Chloride 250 ml @ 250 mls/hr Q12H 03/25/19 09:45 UNV Vancomycin HCl 2 gm/Sodium Chloride 500 ml @ 250 mls/hr 1X ONCE 03/25/19 10:15 03/25/19 12:14 DC 03/25/19 10:20 250 MLS/HR Labs: Micro CT Chest IMPRESSION: 1. Multiple peripheral parenchymal densities left greater than right, including a cavitary nodule in the left lower lobe. Diagnostic considerations include a multifocal infectious process such as septic emboli, pulmonary embolic disease or scarring from a prior inflammatory or embolic episode. 2. Probable tiny left pleural effusion 3. Minimal calcific pleural plaquing on the right. Objective: Assessment: 1. Chest pain with cough. Chest x-ray is clear. CT chest Multiple peripheral parenchymal densities left greater than right, including a cavitary nodule in the left lower lobe. Diagnostic considerations include a multifocal infectious process such as septic emboli, pulmonary embolic disease or scarring from a prior inflammatory or embolic episode. Unable to get CTA due to iv infiltration Pt refused for Contrast 2. Bacteremia / bottles, gram-positive cocci in clusters, ID and TRE pending at this time. 3. Right knee pain. 4. Arthralgias. 5. H/O Drug use IVDU one year ago per pt 6. HIV and hep c neg 7.RUE swelling from IV contrast leak Plan: Plan of Care cont ceftriaxone and IV vancomycin cont doxycycline Monitor renal functions closely. f/u Repeat blood cultures. echo ordered f/u lab in a.m. u/s rue elevate rususy D/W MOODY Koch MD March 26, 2019 10:35
[2019-03-26 11:00] VITALS: BP 129/87
[2019-03-26] MEDS: cefTRIAXone IV Push 1 GM VIAL. IVP SCH (11:11)
[2019-03-26] MEDS: ACETAMINOPHEN 325 MG TABLET. PO PRN (11:25)
--- NOTE | 2019-03-26 11:38 | PDOC ---
PULMONARY PROGRESS NOTES Subjective LESS COUGH Vitals Vital Signs Date Time Temp Pulse Resp B/P (MAP) Pulse Ox O2 Delivery O2 Flow Rate FiO2 03/26/19 07:00 98.2 73 16 108/70 (83) 96 Room Air 98.2 General: Alert, No acute distress Lungs: Clear Cardiovascular: S1 Abdomen: Soft Neuro Exam: Alert Extremities: No Edema Skin: Warm Labs Laboratory Tests Test 03/24/19 14:45 03/25/19 04:43 03/25/19 10:25 Lactic Acid Level 1.4 mmol/L (0.4-2.0) White Blood Count 10.7 x10^3/uL (4.0-11.0) Red Blood Count 3.77 x10^6/uL (3.50-5.40) Hemoglobin 10.1 g/dL (12.0-15.5) Hematocrit 30.3 % (36.0-47.0) Mean Corpuscular Volume 81 fL (79-100) Mean Corpuscular Hemoglobin 27 pg (25-35) Mean Corpuscular Hemoglobin Concent 33 g/dL (31-37) Red Cell Distribution Width 14.7 % (11.5-14.5) Platelet Count 288 x10^3/uL (140-400) Neutrophils (%) (Auto) 63 % (31-73) Lymphocytes (%) (Auto) 25 % (24-48) Monocytes (%) (Auto) 9 % (0-9) Eosinophils (%) (Auto) 2 % (0-3) Basophils (%) (Auto) 0 % (0-3) Neutrophils # (Auto) 6.7 x10^3uL (1.8-7.7) Lymphocytes # (Auto) 2.7 x10^3/uL (1.0-4.8) Monocytes # (Auto) 1.0 x10^3/uL (0.0-1.1) Eosinophils # (Auto) 0.2 x10^3/uL (0.0-0.7) Basophils # (Auto) 0.0 x10^3/uL (0.0-0.2) Sodium Level 142 mmol/L (136-145) Potassium Level 3.4 mmol/L (3.5-5.1) Chloride Level 105 mmol/L (98-107) Carbon Dioxide Level 24 mmol/L (21-32) Anion Gap 13 (6-14) Blood Urea Nitrogen 7 mg/dL (7-20) Creatinine 0.7 mg/dL (0.6-1.0) Estimated GFR (Cockcroft-Gault) 94.2 Glucose Level 96 mg/dL (70-99) Calcium Level 8.7 mg/dL (8.5-10.1) Erythrocyte Sedimentation Rate 61 (0-25) C-Reactive Protein, Quantitative 24.4 mg/L (0-3.3) Treponema pallidum Antibody Nonreactive (Nonreactive) Medications Active Scripts Medications Dose Route/Sig Max Daily Dose Days Date Category Zithromax (Azithromycin) 250 Mg Tablet 1 Pkg PO UD 03/23/19 Rx [place] 5-325 Tablet (Acetaminophen/Hydrocodone Bitart) 1 Each Tablet 1 Tab PO PRN Q6HRS PRN 12/19/18 Rx Orphenadrine Citrate 100 Mg Tablet.er 1 Tab PO BID 12/19/18 Rx Bactrim Ds Tablet (Sulfamethoxazole/Trimethoprim) 1 Each Tablet 1 Tab PO BID 10/12/18 Rx Valium (Diazepam) 5 Mg Tablet 5 Mg PO TID 5 05/12/17 Rx Benadryl (Diphenhydramine Hcl) 25 Mg Capsule 1 Cap PO QHS 05/12/17 Rx Naprosyn (Naproxen) 500 Mg Tablet 1 Tab PO BID 05/12/17 Rx Amoxicillin 875 Mg Tablet 1 Tab PO BID 12/03/16 Rx [place] 5-325 Tablet (Acetaminophen/Hydrocodone Bitart) 1 Each Tablet 1-2 Tab PO Q4-6HRS 12/03/16 Rx Impression . 1.The patient with febrile illness for about a month along with cough for the same duration. She has done IV meth for a year, but has been clean for the same duration. She now comes in with a very high-grade fever of 106 and bilateral infiltrates on the CT chest with one of the cavitary nodule in the left lower lobe. Clinical suspicion for low-grade infection such as endocarditis is high. The possibility of right-sided vegetations cannot be ruled out. She is a nonsmoker. 2. BACTEREMIA Plan . 1. Continue with broad-spectrum antibiotics. 2. Follow final blood cultures, 10/30 is positive for gram-positive cocci. 3. She will need an echocardiogram and possible transesophageal echo to look for vegetations. ECHO ordered 4. Follow Infectious Disease recommendations. 5. Discussed with the patient and RN. We will follow along with you. ORTEGA CUENCA MD March 26, 2019 11:38
--- NOTE | 2019-03-26 12:50 | CARD ---
MR#: [id number] Date of Study: 03/26/2019 Ordering Physician: JOLANTA PETERS, Referring Physician: SHEY MA, Tech: Loly Richards [facility] APPROVED REPORT EXAM: Two-dimensional and M-mode echocardiogram with Doppler and color Doppler. Other Information Quality : GoodHR: 90bpm Rhythm : Other INDICATION Fever 2D DIMENSIONS RVDd3.1 (2.9-3.5cm)Left Atrium(2D)3.6 (1.6-4.0cm) IVSd1.0 (0.7-1.1cm)Aortic Root(2D)2.9 (2.0-3.7cm) LVDd4.5 (3.9-5.9cm)LVOT Diameter1.9 (1.8-2.4cm) PWd0.9 (0.7-1.1cm)LVDs2.9 (2.5-4.0cm) FS (%) 34.7 %SV58.2 ml LVEF(%)64.0 (>50%) M-Mode DIMENSIONS Left Atrium(MM)3.84 (2.5-4.0cm)Aortic Root2.74 (2.2-3.7cm) Aortic Valve AoV Peak Dejan.136.7cm/sAoV VTI22.8cm AO Peak GR.7.5mmHgLVOT Peak Dejan.102.1cm/s AO Mean GR.4mmHgAVA (VMAX)2.13cm2 JEANNE (VTI)2.20cm2 Mitral Valve MV E Jkrxmogc44.2cm/sMV DECEL [id number] MV A Eswpaxmk37.6cm/sE/A Ratio1.4 MV A Izsnjufx393pf Pulmonary Valve PV Peak Zysvfabs91.2cm/s Tricuspid Valve TR P. Vcxpmpoc585vd/sRAP NNQGXCTP4yeXs TR Peak Gr.02ahRgRMXX13fcSm Pulmonary Vein S1 Djqsrexp46.1cm/sD2 Tgrnqgds81.3cm/s PVa [id number] LEFT VENTRICLE The left ventricle is normal size. There is normal left ventricular wall thickness. The left ventricu lar systolic function is normal and the ejection fraction is within normal range. The Ejection Fracti on is 60-65%. There is normal LV segmental wall motion. The left ventricular diastolic function and f illing is normal for age. RIGHT VENTRICLE The right ventricle is normal size. There is normal right ventricular wall thickness. The right ventr icular systolic function is normal. ATRIA The left atrium size is normal. The right atrium size is normal. The interatrial septum is intact wit h no evidence for an atrial septal defect or patent foramen ovale as noted on 2-D or Doppler imaging. AORTIC VALVE The aortic valve is normal in structure and function. The aortic valve is trileaflet. Doppler and Col or Flow revealed no significant aortic regurgitation. There is no significant aortic valvular stenosi s. There is no aortic valvular vegetation. MITRAL VALVE The mitral valve is normal in structure and function. There is no evidence of mitral valve prolapse. There is no mitral valve stenosis. Doppler and Color-flow revealed trace mitral regurgitation. TRICUSPID VALVE The tricuspid valve is normal in structure and function. Doppler and Color Flow revealed mild tricusp id regurgitation. The PA pressure was estimated at 29 mmHg. There is no tricuspid valve prolapse or v egetation. There is no tricuspid valve stenosis. PULMONIC VALVE The pulmonary valve is normal in structure and function. Doppler and Color Flow revealed no pulmonic valvular regurgitation. There is no pulmonic valvular stenosis. GREAT VESSELS The aortic root is normal in size. The ascending aorta is normal in size. The IVC is normal in size a nd collapses >50% with inspiration. PERICARDIAL EFFUSION There is no evidence of significant pericardial effusion. Critical Notification Critical Value: No <Conclusion> The left ventricle is normal size. The left ventricular systolic function is normal and the ejection fraction is within normal range. The Ejection Fraction is 60-65%. There is no significant aortic valvular stenosis. Doppler and Color Flow revealed no significant aortic regurgitation. Doppler and Color-flow revealed trace mitral regurgitation. Doppler and Color Flow revealed mild tricuspid regurgitation. The PA pressure was estimated at 29 mmHg. Signed by : Moisés Garcia MD Electronically Approved : 03/26/2019 12:49:59
--- NOTE | 2019-03-26 13:51 | PDOC ---
PROGRESS NOTES Chief Complaint Chief Complaint Febrile illness for one month fever upto 106*F GPC bacteremia 1/4 bottles ? could be contaminant Cough and Chestpain CXR normal Arthalgias Nausea and vomiting POA,now resolved Plan: Plan of Care antibiotics as per ID technical services consultant will order ECHO ct chest discussed with patient further recommendations based on clinical course. f/u bc results History of Present Illness History of Present Illness Patient seen and examined Vitals Vitals Vital Signs Date Time Temp Pulse Resp B/P (MAP) Pulse Ox O2 Delivery O2 Flow Rate FiO2 03/26/19 11:00 98.3 85 18 129/87 (101) 96 Room Air 98.3 Physical Exam Physical Exam GENERAL: Alert and oriented x 3, pleasant female, lying in bed comfortably, in no acute distress, cooperative. HEENT: Normocephalic, atraumatic, anicteric. No oropharyngeal exudate. Oral mucosa moist. Edentulous. NECK: Supple. No JVD. LUNGS: Clear bilaterally. No wheezing. HEART: S1, S2. No gallops or murmurs. ABDOMEN: Soft, nontender, nondistended. No rebound, no guarding. BACK: Reveals normal curvature. No CVA tenderness. EXTREMITIES: No edema, no cyanosis, no clubbing.RUE swelling and mild tenderness at previous iv site DERMATOLOGIC: Warm and dry. No generalized rash. Multiple tattoos. NEUROLOGIC: Alert and oriented x 3, grossly nonfocal. PSYCHIATRIC: Cooperative, appropriate mood and affect. General: Alert, Oriented X3, Cooperative, No acute distress Heart: Regular rate, Normal S1, Normal S2 Lungs: Clear Abdomen: Normal bowel sounds, Soft, No tenderness, No hepatosplenomegaly, No masses Extremities: No clubbing, No cyanosis, No edema, Normal pulses, No tenderness/swelling Skin: No rashes, No breakdown, No significant lesion Review of Systems Review of Systems pertinent as per HPI otherwise 14 point review of system is negative Assessment and Plan Assessmemt and Plan Problems Medical Problems: (1) Blood culture positive for microorganism Status: Acute (2) Cough Status: Acute (3) Fever Status: Acute Comment Review of Relevant I have reviewed the following items ina (where applicable) has been applied. Labs Laboratory Tests Test 03/24/19 14:45 03/25/19 04:43 03/25/19 10:25 Lactic Acid Level 1.4 mmol/L (0.4-2.0) White Blood Count 10.7 x10^3/uL (4.0-11.0) Red Blood Count 3.77 x10^6/uL (3.50-5.40) Hemoglobin 10.1 g/dL (12.0-15.5) Hematocrit 30.3 % (36.0-47.0) Mean Corpuscular Volume 81 fL (79-100) Mean Corpuscular Hemoglobin 27 pg (25-35) Mean Corpuscular Hemoglobin Concent 33 g/dL (31-37) Red Cell Distribution Width 14.7 % (11.5-14.5) Platelet Count 288 x10^3/uL (140-400) Neutrophils (%) (Auto) 63 % (31-73) Lymphocytes (%) (Auto) 25 % (24-48) Monocytes (%) (Auto) 9 % (0-9) Eosinophils (%) (Auto) 2 % (0-3) Basophils (%) (Auto) 0 % (0-3) Neutrophils # (Auto) 6.7 x10^3uL (1.8-7.7) Lymphocytes # (Auto) 2.7 x10^3/uL (1.0-4.8) Monocytes # (Auto) 1.0 x10^3/uL (0.0-1.1) Eosinophils # (Auto) 0.2 x10^3/uL (0.0-0.7) Basophils # (Auto) 0.0 x10^3/uL (0.0-0.2) Sodium Level 142 mmol/L (136-145) Potassium Level 3.4 mmol/L (3.5-5.1) Chloride Level 105 mmol/L (98-107) Carbon Dioxide Level 24 mmol/L (21-32) Anion Gap 13 (6-14) Blood Urea Nitrogen 7 mg/dL (7-20) Creatinine 0.7 mg/dL (0.6-1.0) Estimated GFR (Cockcroft-Gault) 94.2 Glucose Level 96 mg/dL (70-99) Calcium Level 8.7 mg/dL (8.5-10.1) Erythrocyte Sedimentation Rate 61 (0-25) C-Reactive Protein, Quantitative 24.4 mg/L (0-3.3) Treponema pallidum Antibody Nonreactive (Nonreactive) Microbiology 03/25/19 Blood Culture - Preliminary, Resulted NO GROWTH AFTER 1 DAY Medications Current Medications Ceftriaxone Sodium (Rocephin) 1 gm 1X ONCE IVP Last administered on 03/24/19 13:04; Start 03/24/19 at 11:00; Stop 03/24/19 at 11:01; Status DC Sodium Chloride 1,000 ml @ 1,560 mls/hr Q39M IV Last administered on 03/24/19at 13:08; Start 03/24/19 at 10:38; Stop 03/24/19 at 11:38; Status DC Vancomycin HCl (Vanco Per Pharmacy) 1 each 1X ONCE MC ; Start 03/24/19 at 10:45; Stop 03/24/19 at 10:52; Status DC Vancomycin HCl 2 gm/Sodium Chloride 500 ml @ 250 mls/hr 1X ONCE IV Last administered on 03/24/19 13:05; Start 03/24/19 at 11:00; Stop 03/24/19 at 12:59; Status DC Ondansetron HCl (Zofran) 4 mg PRN Q8HRS PRN IV NAUSEA/VOMITING; Start 03/24/19 at 11:30; Stop 03/26/19 at 11:28; Status DC Acetaminophen (Tylenol) 650 mg PRN Q4HRS PRN PO FEVER Last administered on 03/26/19at 11:25; Start 03/24/19 at 11:30; Stop 03/26/19 at 11:28; Status DC Sodium Chloride 1,000 ml @ 125 mls/hr 1X ONCE IV Last administered on 03/24/19at 13:10; Start 03/24/19 at 11:30; Stop 03/24/19 at 19:29; Status DC Diphenhydramine HCl (Benadryl) 25 mg QHS PO Last administered on 03/25/19at 20:56; Start 03/24/19 at 21:00 Non-Formulary Medication (Naproxen (Naprosyn)) 1 tab BID PO ; Start 03/24/19 at 21:00; Stop 03/24/19 at 21:00; Status DC Ketorolac Tromethamine (Toradol 30mg Vial) 30 mg PRN Q6HRS PRN IV MODERATE PAIN Last administered on 03/26/19at 04:53; Start 03/24/19 at 14:00; Stop 03/29/19 at 13:59 Ceftriaxone Sodium (Rocephin) 1 gm Q24H IVP Last administered on 03/26/19at 11:11; Start 03/25/19 at 11:00 Iohexol (Omnipaque 350 Mg/ml) 100 ml 1X ONCE IV ; Start 03/24/19 at 14:15; Stop 03/24/19 at 14:16; Status DC Info (CONTRAST GIVEN -- Rx MONITORING) 1 each PRN DAILY PRN MC SEE COMMENTS; Start 03/24/19 at 14:30; Stop 03/26/19 at 14:29 Lactobacillus Rhamnosus (Culturelle) 1 cap BID PO Last administered on 02/26 09:13; Start 03/24/19 at 21:00 Vancomycin HCl 1 gm/Sodium Chloride 250 ml @ 250 mls/hr Q12H IV ; Start 03/25/19 at 09:45; Status UNV Doxycycline Hyclate (Vibra-Tab) 100 mg BID PO Last administered on 03/26/19at 09:14; Start 03/25/19 at 10:00 Vancomycin HCl (Vanco Per Pharmacy) 1 each PRN DAILY PRN MC SEE COMMENTS Last administered on 03/26/19at 09:40; Start 03/25/19 at 10:00 Vancomycin HCl 2 gm/Sodium Chloride 500 ml @ 250 mls/hr 1X ONCE IV Last administered on 03/25/19at 10:20; Start 03/25/19 at 10:15; Stop 03/25/19 at 12:14; Status DC Vancomycin HCl 1.25 gm/Sodium Chloride 250 ml @ 167 mls/hr Q12H IV Last administered on 03/26/19at 10:00; Start 03/25/19 at 22:00 Vancomycin HCl (Vancomycin Trough Level) 1 each 1X ONCE MC ; Start 03/26/19 at 21:30; Stop 03/26/19 at 21:31 Potassium Chloride (Klor-Con) 40 meq 1X ONCE PO Last administered on 03/25/19at 17:58; Start 03/25/19 at 18:30; Stop 03/25/19 at 18:31; Status DC Active Scripts Active Zithromax (Azithromycin) 250 Mg Tablet 1 Pkg PO UD [place] 5-325 Tablet (Acetaminophen/Hydrocodone Bitart) 1 Each Tablet 1 Tab PO PRN Q6HRS PRN Orphenadrine Citrate 100 Mg Tablet.er 1 Tab PO BID Bactrim Ds Tablet (Sulfamethoxazole/Trimethoprim) 1 Each Tablet 1 Tab PO BID Valium (Diazepam) 5 Mg Tablet 5 Mg PO TID 5 Days Benadryl (Diphenhydramine Hcl) 25 Mg Capsule 1 Cap PO QHS Naprosyn (Naproxen) 500 Mg Tablet 1 Tab PO BID Amoxicillin 875 Mg Tablet 1 Tab PO BID [place] 5-325 Tablet (Acetaminophen/Hydrocodone Bitart) 1 Each Tablet 1-2 Tab PO Q4-6HRS Vitals/I & O Vital Sign - Last 24 Hours 03/25/19 03/25/19 03/25/19 03/25/19 15:00 19:00 19:58 23:03 Temp 98.1 98.1 97.9 98.1 98.1 97.9 Pulse 82 64 78 Resp 14 20 20 B/P (MAP) 131/87 (102) 123/76 (92) 113/66 (82) Pulse Ox 99 98 97 O2 Delivery Room Air Room Air Room Air Room Air 03/26/19 03/26/19 03/26/19 03/26/19 03:12 07:00 08:00 11:00 Temp 98.3 98.2 98.3 98.3 98.2 98.3 Pulse 66 73 85 Resp 20 16 18 B/P (MAP) 116/75 (89) 108/70 (83) 129/87 (101) Pulse Ox 99 96 96 O2 Delivery Room Air Room Air Room Air Room Air Intake and Output 03/25/19 03/25/19 03/26/19 15:00 23:00 07:00 Intake Total 480 ml 600 ml 250 ml Balance 480 ml 600 ml 250 ml JOLANTA PETERS MD March 26, 2019 13:51
--- NOTE | 2019-03-26 14:35 | RAD ---
Right upper extremity venous ultrasound, 03/26/2019: HISTORY: Right arm swelling Duplex evaluation of the major veins in the right upper extremity was performed including grayscale, color-flow and spectral Doppler analysis The right internal jugular, subclavian, axillary, brachial, radial and ulnar veins are all patent. Patent cephalic and basilic veins are also evident in the upper arm. IMPRESSION: There is no sonographic evidence of deep vein thrombosis in the right upper extremity. Electronically signed by: Peter Keith MD (03/26/2019 2:33 PM) [facility]
[2019-03-26 15:00] VITALS: BP 114/73
[2019-03-26 19:00] VITALS: BP 122/83
[2019-03-26] MEDS: diphenhydrAMINE HCL 25 MG CAPSULE PO SCH (21:33)
[2019-03-26 22:31] LABS: VANC TR 12.2 mcg/mL (10.0-20.0)
[2019-03-26 23:00] VITALS: BP 112/70
--- NOTE | 2019-03-26 23:43 | NUR ---
Pharmacy Vancomycin Dosing Note S: Consulted to monitor and dose vancomycin started 03/25/19. O: YOSEF GORMAN is a 38 year old F with Sepsis, . Other Antibiotics: ROCEPHIN, DOXYCYCLINE LABS: Last BUN: 7 Last Creatinine: 0.7 Creatinine Clearance: 109 mL/min Last WBC: 10.7 Last Procalcitonin: <0.10 Tmax (past 24 hours): 99.2 Microbiology: GPC IN 10/30 THIS ADMISSION, 11/28MARCH 23 IN ER I/O: Drug Levels: Last Trough level: 12.2 on 03/26/19 at 2130 Last dose given 03/26/19 at 1000 Vancomycin Dosing: Dosing Weight: Actual Target Trough: 15-20 A: Based on: Trough, Actual Wt and CrCl P: 1. 03/26/19 2330 Increase Vancomycin 1250 mg IV q8h 2. Follow up Trough level on 03/27/19 at 2300 3. Pharmacy will continue to monitor, follow and adjust therapy as needed. BEV FAIR RPH, 03/26/19 2343 Signed: 03/26/19 at 2344 by BEV FAIR RPH PHA
[2019-03-27] MEDS: VANCOMYCIN 1.25 GM in IV NORMAL SALINE 250ML 250 ML IV SCH ×3 (02:00→15:45)
[2019-03-27 03:00] VITALS: BP 123/75
[2019-03-27 05:53] LABS: CREATININE 0.8 mg/dL (0.6-1.0); GFR 80.7
[2019-03-27 07:00] VITALS: BP 136/72
[2019-03-27] MEDS: POTASSIUM CHLORIDE 20 MEQ TABLET.ER. PO SCH ×2 (08:43→10:43)
[2019-03-27] MEDS: LACTOBACILLUS RHAMNOSUS GG 1 CAPSULE. PO SCH ×2 (08:44→21:35)
[2019-03-27] MEDS: DOXYCYCLINE HYCLATE 100 MG TABLET PO SCH ×2 (08:44→21:35)
[2019-03-27] MEDS: cefTRIAXone IV Push 1 GM VIAL. IVP SCH (10:43)
[2019-03-27 11:00] VITALS: BP 136/76
--- NOTE | 2019-03-27 11:09 | PDOC ---
PULMONARY PROGRESS NOTES Subjective LESS COUGH Vitals Vital Signs Date Time Temp Pulse Resp B/P (MAP) Pulse Ox O2 Delivery O2 Flow Rate FiO2 03/27/19 07:00 98.0 73 16 136/72 (93) 97 Room Air 98.0 General: Alert, No acute distress Lungs: Clear Cardiovascular: S1 Abdomen: Soft Neuro Exam: Alert Extremities: No Edema Skin: Warm Labs Laboratory Tests Test 03/26/19 22:10 03/27/19 04:15 Vancomycin Level Trough 12.2 mcg/mL (10.0-20.0) Vancomycin Last Dose Date Vancomycin Last Dose Time Creatinine 0.8 mg/dL (0.6-1.0) Estimated GFR (Cockcroft-Gault) 80.7 Laboratory Tests Test 03/26/19 22:10 03/27/19 04:15 Vancomycin Level Trough 12.2 mcg/mL (10.0-20.0) Vancomycin Last Dose Date Vancomycin Last Dose Time Creatinine 0.8 mg/dL (0.6-1.0) Estimated GFR (Cockcroft-Gault) 80.7 Medications Active Scripts Medications Dose Route/Sig Max Daily Dose Days Date Category Zithromax (Azithromycin) 250 Mg Tablet 1 Pkg PO UD 03/23/19 Rx [place] 5-325 Tablet (Acetaminophen/Hydrocodone Bitart) 1 Each Tablet 1 Tab PO PRN Q6HRS PRN 12/19/18 Rx Orphenadrine Citrate 100 Mg Tablet.er 1 Tab PO BID 12/19/18 Rx Bactrim Ds Tablet (Sulfamethoxazole/Trimethoprim) 1 Each Tablet 1 Tab PO BID 10/12/18 Rx Valium (Diazepam) 5 Mg Tablet 5 Mg PO TID 5 05/12/17 Rx Benadryl (Diphenhydramine Hcl) 25 Mg Capsule 1 Cap PO QHS 05/12/17 Rx Naprosyn (Naproxen) 500 Mg Tablet 1 Tab PO BID 05/12/17 Rx Amoxicillin 875 Mg Tablet 1 Tab PO BID 12/03/16 Rx [place] 5-325 Tablet (Acetaminophen/Hydrocodone Bitart) 1 Each Tablet 1-2 Tab PO Q4-6HRS 12/03/16 Rx Impression . 1.The patient with febrile illness for about a month along with cough for the same duration. She has done IV meth for a year, but has been clean for the same duration. She now comes in with a very high-grade fever of 106 and bilateral infiltrates on the CT chest with one of the cavitary nodule in the left lower lobe. Clinical suspicion for low-grade infection such as endocarditis is high. The possibility of right-sided vegetations cannot be ruled out. She is a nonsmoker. 2. BACTEREMIA 3. 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 1. Continue with broad-spectrum antibiotics. 2. Follow final blood cultures, / is positive for gram-positive cocci. 3. No vegetations on echocardiogram , ? transesophageal echo to look for vegetations. 4. Follow Infectious Disease recommendations. 5. Discussed with the patient and RN. We will follow along with you. ORTEGA CUENCA MD Mar 27, 2019 11:09
--- NOTE | 2019-03-27 13:32 | PDOC ---
Infectious Disease Note Subjective Subjective Feeling good, hoping to go home soon Having some mild left chest pain off and on + hot flashes No fevers/chills ROS ROS per HPI Vital Sign Vital Signs Vital Signs Date Time Temp Pulse Resp B/P (MAP) Pulse Ox O2 Delivery O2 Flow Rate FiO2 03/27/19 11:00 97.8 90 18 136/76 (96) 94 Room Air 97.8 Physical Exam PHYSICAL EXAM GENERAL: Propped up in bed, alert, smiling HEENT: Pupils equal, normal conjunctivae, Oral cavity clear, dentures NECK: Supple. LUNGS: Clear bilaterally. No wheezing. HEART: S1, S2. ABDOMEN: Soft and nontender EXTREMITIES: No edema, no cyanosis, no clubbing. RUE swelling and mild tenderness at previous iv site SKIN: Warm and dry. No generalized rash. Multiple tattoos. NEUROLOGIC: Alert and oriented x 3, grossly nonfocal. Labs Lab Laboratory Tests Test 03/26/19 22:10 03/27/19 04:15 Vancomycin Level Trough 12.2 mcg/mL (10.0-20.0) Vancomycin Last Dose Date Vancomycin Last Dose Time Creatinine 0.8 mg/dL (0.6-1.0) Estimated GFR (Cockcroft-Gault) 80.7 IMPRESSION: There is no sonographic evidence of deep vein thrombosis in the right upper extremity. The left ventricle is normal size. The left ventricular systolic function is normal and the ejection fraction is within normal range. The Ejection Fraction is 60-65%. There is no significant aortic valvular stenosis. Doppler and Color Flow revealed no significant aortic regurgitation. Doppler and Color-flow revealed trace mitral regurgitation. Doppler and Color Flow revealed mild tricuspid regurgitation. The PA pressure was estimated at 29 mmHg. Micro Microbiology 03/25/19 Blood Culture - Preliminary, Resulted NO GROWTH AFTER 2 DAYS 03/24. BLOOD CULTURE Final GRAM POSITIVE COCCI IN CLUSTERS IN 1 OF 4 BOTTLES (2 SETS COLLECTED). Objective Assessment Chest pain with cough. Multiple peripheral parenchymal densities left greater than right, including a cavitary nodule in the left lower lobe. Diagnostic considerations include a multifocal infectious process such as septic emboli, pulmonary embolic disease or scarring from a prior inflammatory or embolic episode, on CT Unable to get CTA due to IV infiltration Bacteremia 1/4 bottles, gram-positive cocci in clusters, 03/24. ID and TRE pending Right knee pain. Arthralgias. H/O Drug use IVDU one year ago per pt. HIV and hep c neg RUE swelling from IV contrast leak, US neg DVT Plan Plan of Care Vanc, ceftriaxone and doxycycline Trough 12.2 Monitor renal functions closely. Repeat blood cultures 03/25 neg so far Echo showed no evidence of veg Elevate RUE - d/ w nursing may need IV adjusted Attending Co-Sign Attending Co-Sign The patient was seen and interviewed as well as examined at the bedside. The chart was reviewed. The case was discussed. Agree with the plan of care. ALL BECKER APRN Mar 27, 2019 13:32 LATONYA BAUER MD Mar 27, 2019 17:24
[2019-03-27] MEDS: VANCOMYCIN PER PHARMACY MC PRN (14:24)
[2019-03-27 15:00] VITALS: BP 123/79
--- NOTE | 2019-03-27 15:37 | PDOC ---
PROGRESS NOTES Chief Complaint Chief Complaint Febrile illness for one month fever upto 106*F GPC bacteremia 1/4 bottles ? could be contaminant Cough and Chestpain CXR normal Arthalgias Nausea and vomiting POA,now resolved Plan: Plan of Care antibiotics as per ID quantitative consultant will order ECHO ct chest discussed with patient further recommendations based on clinical course. f/u bc results History of Present Illness History of Present Illness Patient seen and examined, clinically much improved, no fever or acute events reported overnight, discussed her laboratory data and imaging studies, no concerns voiced, hoping to be dismissed soon. Reassurance provided. Vitals Vitals Vital Signs Date Time Temp Pulse Resp B/P (MAP) Pulse Ox O2 Delivery O2 Flow Rate FiO2 03/27/19 15:00 98.1 76 16 123/79 (94) 96 Room Air 98.1 Physical Exam Physical Exam GENERAL: Propped up in bed, alert, smiling HEENT: Pupils equal, normal conjunctivae, Oral cavity clear, dentures NECK: Supple. LUNGS: Clear bilaterally. No wheezing. HEART: S1, S2. ABDOMEN: Soft and nontender EXTREMITIES: No edema, no cyanosis, no clubbing. RUE swelling and mild tenderness at previous iv site SKIN: Warm and dry. No generalized rash. Multiple tattoos. NEUROLOGIC: Alert and oriented x 3, grossly nonfocal. General: Alert, Oriented X3, Cooperative, No acute distress Heart: Regular rate, Normal S1, Normal S2 Lungs: Clear Abdomen: Normal bowel sounds, Soft, No tenderness, No hepatosplenomegaly, No masses Extremities: No clubbing, No cyanosis, No edema, Normal pulses, No tenderness/swelling Skin: No rashes, No breakdown, No significant lesion Labs LABS Laboratory Tests Test 03/26/19 22:10 03/27/19 04:15 Vancomycin Level Trough 12.2 mcg/mL (10.0-20.0) Vancomycin Last Dose Date Vancomycin Last Dose Time Creatinine 0.8 mg/dL (0.6-1.0) Estimated GFR (Cockcroft-Gault) 80.7 Review of Systems Review of Systems Pertinent as per history of present illness otherwise 14 point review of system is negative Assessment and Plan Assessmemt and Plan Problems Medical Problems: (1) Blood culture positive for microorganism Status: Acute (2) Cough Status: Acute (3) Fever Status: Acute Comment Review of Relevant I have reviewed the following items ina (where applicable) has been applied. Labs Laboratory Tests Test 03/26/19 22:10 03/27/19 04:15 Vancomycin Level Trough 12.2 mcg/mL (10.0-20.0) Vancomycin Last Dose Date Vancomycin Last Dose Time Creatinine 0.8 mg/dL (0.6-1.0) Estimated GFR (Cockcroft-Gault) 80.7 Laboratory Tests Test 03/26/19 22:10 03/27/19 04:15 Vancomycin Level Trough 12.2 mcg/mL (10.0-20.0) Vancomycin Last Dose Date Vancomycin Last Dose Time Creatinine 0.8 mg/dL (0.6-1.0) Estimated GFR (Cockcroft-Gault) 80.7 Microbiology 03/25/19 Blood Culture - Preliminary, Resulted NO GROWTH AFTER 2 DAYS Medications Current Medications Ceftriaxone Sodium (Rocephin) 1 gm 1X ONCE IVP Last administered on 03/24/19at 13:04; Start 03/24/19 at 11:00; Stop 03/24/19 at 11:01; Status DC Sodium Chloride 1,000 ml @ 1,560 mls/hr Q39M IV Last administered on 03/24/19at 13:08; Start 03/24/19 at 10:38; Stop 03/24/19 at 11:38; Status DC Vancomycin HCl (Vanco Per Pharmacy) 1 each 1X ONCE MC ; Start 03/24/19 at 10:45; Stop 03/24/19 at 10:52; Status DC Vancomycin HCl 2 gm/Sodium Chloride 500 ml @ 250 mls/hr 1X ONCE IV Last administered on 03/24/19at 13:05; Start 03/24/19 at 11:00; Stop 03/24/19 at 12:59; Status DC Ondansetron HCl (Zofran) 4 mg PRN Q8HRS PRN IV NAUSEA/VOMITING; Start 03/24/19 at 11:30; Stop 03/26/19 at 11:28; Status DC Acetaminophen (Tylenol) 650 mg PRN Q4HRS PRN PO FEVER Last administered on 03/26/19at 11:25; Start 03/24/19 at 11:30; Stop 03/26/19 at 11:28; Status DC Sodium Chloride 1,000 ml @ 125 mls/hr 1X ONCE IV Last administered on 03/24/19at 13:10; Start 03/24/19 at 11:30; Stop 03/24/19 at 19:29; Status DC Diphenhydramine HCl (Benadryl) 25 mg QHS PO Last administered on 03/26/19at 21:33; Start 03/24/19 at 21:00 Non-Formulary Medication (Naproxen (Naprosyn)) 1 tab BID PO ; Start 03/24/19 at 21:00; Stop 03/24/19 at 21:00; Status DC Ketorolac Tromethamine (Toradol 30mg Vial) 30 mg PRN Q6HRS PRN IV MODERATE PAIN Last administered on 03/26/19at 18:04; Start 03/24/19 at 14:00; Stop 03/29/19 at 13:59 Ceftriaxone Sodium (Rocephin) 1 gm Q24H IVP Last administered on 03/27/19at 10:43; Start 03/25/19 at 11:00 Iohexol (Omnipaque 350 Mg/ml) 100 ml 1X ONCE IV ; Start 03/24/19 at 14:15; Stop 03/24/19 at 14:16; Status DC Info (CONTRAST GIVEN -- Rx MONITORING) 1 each PRN DAILY PRN MC SEE COMMENTS; Start 03/24/19 at 14:30; Stop 03/26/19 at 14:29; Status DC Lactobacillus Rhamnosus (Culturelle) 1 cap BID PO Last administered on 03/27/19at 08:44; Start 03/24/19 at 21:00 Vancomycin HCl 1 gm/Sodium Chloride 250 ml @ 250 mls/hr Q12H IV ; Start 03/25/19 at 09:45; Status UNV Doxycycline Hyclate (Vibra-Tab) 100 mg BID PO Last administered on 03/27/19at 08:44; Start 03/25/19 at 10:00 Vancomycin HCl (Vanco Per Pharmacy) 1 each PRN DAILY PRN MC SEE COMMENTS Last administered on 03/27/19at 14:24; Start 03/25/19 at 10:00 Vancomycin HCl 2 gm/Sodium Chloride 500 ml @ 250 mls/hr 1X ONCE IV Last administered on 03/25/19at 10:20; Start 03/25/19 at 10:15; Stop 03/25/19 at 12:14; Status DC Vancomycin HCl 1.25 gm/Sodium Chloride 250 ml @ 167 mls/hr Q12H IV Last administered on 03/26/19at 10:00; Start 03/25/19 at 22:00; Stop 03/26/19 at 23:08; Status DC Vancomycin HCl (Vancomycin Trough Level) 1 each 1X ONCE MC Last administered on 03/26/19at 21:30; Start 03/26/19 at 21:30; Stop 03/26/19 at 21:31; Status DC Potassium Chloride (Klor-Con) 40 meq 1X ONCE PO Last administered on 03/25/19at 17:58; Start 03/25/19 at 18:30; Stop 03/25/19 at 18:31; Status DC Vancomycin HCl 1.25 gm/Sodium Chloride 250 ml @ 167 mls/hr Q8H IV Last administered on 03/27/19at 08:39; Start 03/26/19 at 23:30 Vancomycin HCl (Vancomycin Trough Level) 1 each 1X ONCE MC ; Start 03/27/19 at 23:00; Stop 03/27/19 at 23:01 Potassium Chloride (Klor-Con) 40 meq Q2H PO Last administered on 03/27/19at 10:43; Start 03/27/19 at 08:00; Stop 03/27/19 at 10:01; Status DC Active Scripts Active Zithromax (Azithromycin) 250 Mg Tablet 1 Pkg PO UD [place] 5-325 Tablet (Acetaminophen/Hydrocodone Bitart) 1 Each Tablet 1 Tab PO PRN Q6HRS PRN Orphenadrine Citrate 100 Mg Tablet.er 1 Tab PO BID Bactrim Ds Tablet (Sulfamethoxazole/Trimethoprim) 1 Each Tablet 1 Tab PO BID Valium (Diazepam) 5 Mg Tablet 5 Mg PO TID 5 Days Benadryl (Diphenhydramine Hcl) 25 Mg Capsule 1 Cap PO QHS Naprosyn (Naproxen) 500 Mg Tablet 1 Tab PO BID Amoxicillin 875 Mg Tablet 1 Tab PO BID [place] 5-325 Tablet (Acetaminophen/Hydrocodone Bitart) 1 Each Tablet 1-2 Tab PO Q4-6HRS Vitals/I & O Vital Sign - Last 24 Hours 03/26/19 03/26/19 03/27/19 03/27/19 19:00 23:00 03:00 07:00 Temp 97.6 97.5 97.7 98.0 97.6 97.5 97.7 98.0 Pulse 96 82 87 73 Resp 17 17 17 16 B/P (MAP) 122/83 (96) 112/70 (84) 123/75 (91) 136/72 (93) Pulse Ox 96 97 96 97 O2 Delivery Room Air Room Air Room Air Room Air 03/27/19 03/27/19 03/27/19 08:00 11:00 15:00 Temp 97.8 98.1 97.8 98.1 Pulse 90 76 Resp 18 16 B/P (MAP) 136/76 (96) 123/79 (94) Pulse Ox 94 96 O2 Delivery Room Air Room Air Room Air Intake and Output 03/26/19 03/26/19 03/27/19 15:00 23:00 07:00 Intake Total 680 ml 520 ml 180 ml Balance 680 ml 520 ml 180 ml JOLANTA PETERS MD Mar 27, 2019 15:37
[2019-03-27 19:00] VITALS: BP 130/77
[2019-03-27] MEDS: diphenhydrAMINE HCL 25 MG CAPSULE PO SCH (21:35)
[2019-03-27 23:04] VITALS: BP 122/79
[2019-03-27 23:41] LABS: VANC TR 19.7 mcg/mL (10.0-20.0)
[2019-03-28] MEDS: VANCOMYCIN 1.25 GM in IV NORMAL SALINE 250ML 250 ML IV SCH ×2 (00:41→07:20)
[2019-03-28] MEDS: VANCOMYCIN PER PHARMACY MC PRN ×2 (01:18→13:12)
--- NOTE | 2019-03-28 01:18 | NUR ---
Pharmacy Vancomycin Dosing Note S: Consulted to monitor and dose vancomycin started 03/25/19. O: YOSEF GORMAN is a 38 year old F with Sepsis, . Other Antibiotics: ROCEPHIN, DOXYCYCLINE LABS: Last BUN: 7 Last Creatinine: 0.8 Creatinine Clearance: 95 mL/min Last WBC: 10.7 Last Procalcitonin: <0.10 Tmax (past 24 hours): 100.2 Microbiology: GPC IN 10/30 THIS ADMISSION, 11/28MARCH 23 IN ER I/O: 1380/ 5 VOIDS Drug Levels: Last Trough level: 19.7 on 03/27/19 at 2300 Last dose given 03/27/19 at 1545 Vancomycin Dosing: Dosing Weight: Actual Target Trough: 15-20 A: Based on: Trough, Actual Wt and CrCl P: 1. 03/27/19 2330 Continue Vancomycin 1250 mg IV q8h 2. Follow up Trough level in 5 to 7 days as needed 3. Pharmacy will continue to monitor, follow and adjust therapy as needed. BEV FAIR RPH, 03/28/19 0119 Signed: 03/28/19 at 0120 by BEV FAIR RPH PHA
[2019-03-28 03:09] VITALS: BP 123/70
[2019-03-28 06:24] LABS: CREATININE 0.8 mg/dL (0.6-1.0); GFR 80.7
[2019-03-28 07:00] VITALS: BP 117/72
[2019-03-28] MEDS: DOXYCYCLINE HYCLATE 100 MG TABLET PO SCH ×2 (08:36→22:13)
[2019-03-28] MEDS: LACTOBACILLUS RHAMNOSUS GG 1 CAPSULE. PO SCH ×2 (08:36→22:13)
[2019-03-28] MEDS: cefTRIAXone IV Push 1 GM VIAL. IVP SCH (10:48)
[2019-03-28 11:00] VITALS: BP 120/68
--- NOTE | 2019-03-28 12:57 | PDOC ---
Infectious Disease Note Subjective Subjective Feeling good, hoping to go home soon Minimal left-sided chest pain with deep breathing + hot flashes No fevers/chills ROS ROS per HPI Vital Sign Vital Signs Vital Signs Date Time Temp Pulse Resp B/P (MAP) Pulse Ox O2 Delivery O2 Flow Rate FiO2 03/28/19 11:00 97.9 70 18 120/68 (85) 98 Room Air 97.9 Physical Exam PHYSICAL EXAM GENERAL: Propped up in bed, alert, smiling HEENT: Pupils equal, normal conjunctivae, Oral cavity clear, dentures NECK: Supple. LUNGS: Clear bilaterally. No wheezing. HEART: S1, S2. ABDOMEN: Soft and nontender EXTREMITIES: No edema, no cyanosis, no clubbing. SKIN: Warm and dry. No generalized rash. Multiple tattoos. NEUROLOGIC: Alert and oriented x 3, grossly nonfocal. PIV ok Labs Lab Laboratory Tests Test 03/27/19 23:00 03/28/19 04:40 Vancomycin Level Trough 19.7 mcg/mL (10.0-20.0) Vancomycin Last Dose Date Unk Vancomycin Last Dose Time Unk Creatinine 0.8 mg/dL (0.6-1.0) Estimated GFR (Cockcroft-Gault) 80.7 Micro Microbiology 03/25/19 Blood Culture - Preliminary, Resulted NO GROWTH AFTER 2 DAYS 03/24. BLOOD CULTURE Final GRAM POSITIVE COCCI IN CLUSTERS IN 1 OF 4 BOTTLES (2 SETS COLLECTED). BLD CULT RESULT 1 Preliminary Comment Staphylococcus species Objective Assessment Chest pain with cough - better. Multiple peripheral parenchymal densities left greater than right, including a cavitary nodule in the left lower lobe. Diagnostic considerations include a multifocal infectious process such as septic emboli, pulmonary embolic disease or scarring from a prior inflammatory or embolic episode, on CT Unable to get CTA due to IV infiltration Bacteremia 1/4 bottles, gram-positive cocci in clusters, 03/24. Staph spp, ID and TRE pending Right knee pain. Arthralgias. H/O Drug use IVDU one year ago per pt. HIV and hep c neg RUE swelling from IV contrast leak, US neg DVT - better Plan Plan of Care Vanc, ceftriaxone and doxycycline Trough 19.7 Monitor renal functions closely. Repeat blood cultures 03/25 neg so far Echo showed no evidence of veg Elevate RUE Attending Co-Sign Attending Co-Sign The patient was seen and interviewed as well as examined at the bedside. The chart was reviewed. The case was discussed. Agree with the plan of care. ALL BECKER APRN Mar 28, 2019 12:57 LATONYA BAUER MD Mar 28, 2019 15:26
--- NOTE | 2019-03-28 13:08 | PDOC ---
PULMONARY PROGRESS NOTES Subjective LESS COUGH Vitals Vital Signs Date Time Temp Pulse Resp B/P (MAP) Pulse Ox O2 Delivery O2 Flow Rate FiO2 03/28/19 11:00 97.9 70 18 120/68 (85) 98 Room Air 97.9 General: Alert, No acute distress Lungs: Clear Cardiovascular: S1 Abdomen: Soft Neuro Exam: Alert Extremities: No Edema Skin: Warm Labs Laboratory Tests Test 03/26/19 22:10 03/27/19 04:15 03/27/19 23:00 03/28/19 04:40 Vancomycin Level Trough 12.2 mcg/mL (10.0-20.0) 19.7 mcg/mL (10.0-20.0) Vancomycin Last Dose Date Unk Vancomycin Last Dose Time Unk Creatinine 0.8 mg/dL (0.6-1.0) 0.8 mg/dL (0.6-1.0) Estimated GFR (Cockcroft-Gault) 80.7 80.7 Laboratory Tests Test 03/27/19 23:00 03/28/19 04:40 Vancomycin Level Trough 19.7 mcg/mL (10.0-20.0) Vancomycin Last Dose Date Unk Vancomycin Last Dose Time Unk Creatinine 0.8 mg/dL (0.6-1.0) Estimated GFR (Cockcroft-Gault) 80.7 Medications Active Scripts Medications Dose Route/Sig Max Daily Dose Days Date Category Zithromax (Azithromycin) 250 Mg Tablet 1 Pkg PO UD 03/23/19 Rx [place] 5-325 Tablet (Acetaminophen/Hydrocodone Bitart) 1 Each Tablet 1 Tab PO PRN Q6HRS PRN 12/19/18 Rx Orphenadrine Citrate 100 Mg Tablet.er 1 Tab PO BID 12/19/18 Rx Bactrim Ds Tablet (Sulfamethoxazole/Trimethoprim) 1 Each Tablet 1 Tab PO BID 10/12/18 Rx Valium (Diazepam) 5 Mg Tablet 5 Mg PO TID 5 05/12/17 Rx Benadryl (Diphenhydramine Hcl) 25 Mg Capsule 1 Cap PO QHS 05/12/17 Rx Naprosyn (Naproxen) 500 Mg Tablet 1 Tab PO BID 05/12/17 Rx Amoxicillin 875 Mg Tablet 1 Tab PO BID 12/03/16 Rx [place] 5-325 Tablet (Acetaminophen/Hydrocodone Bitart) 1 Each Tablet 1-2 Tab PO Q4-6HRS 12/03/16 Rx Comments 03/24. BLOOD CULTURE Final GRAM POSITIVE COCCI IN CLUSTERS IN 1 OF 4 BOTTLES (2 SETS COLLECTED). BLD CULT RESULT 1 Preliminary Comment Staphylococcus species Impression . 1.The patient with febrile illness for about a month along with cough for the same duration. She has done IV meth for a year, but has been clean for the same duration. She now comes in with a very high-grade fever of 106 and bilateral infiltrates on the CT chest with one of the cavitary nodule in the left lower lobe. Clinical suspicion for low-grade infection such as endocarditis is high. The possibility of right-sided vegetations cannot be ruled out. She is a nonsmoker. 2. BACTEREMIA 3. 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 1. Continue with broad-spectrum antibiotics. 2. Follow final blood cultures, 10/30 is positive for gram-positive cocci. 3. No vegetations on echocardiogram , 4. Follow Infectious Disease recommendations. 5. Discussed with the patient and RN. dc plans per ID/ ok by ORTEGA Bowen MD Mar 28, 2019 13:08
--- NOTE | 2019-03-28 14:21 | PDOC ---
PROGRESS NOTES Chief Complaint Chief Complaint Febrile illness for one month fever upto 106*F GPC bacteremia 1/4 bottles ? could be contaminant Multiple peripheral parenchymal densities left greater than right, including a cavitary nodule in the left lower lobe. Diagnostic considerations include a multifocal infectious process such as septic emboli, pulmonary embolic disease or scarring from a prior inflammatory or embolic episode. history of IV drug abuse hep panel negative Cough and Chest pain due to musculoskeletal nature cavitary lesion on CT chest Arthralgias improved Nausea and vomiting POA,now resolved Plan: Plan of Care antibiotics as per ID [employer] ax consultant negative ECHO ct chest discussed with patient awaiting results of her culture and ID final recommendations stable from the medical and pulmonary point of view for discharge f/u bc results History of Present Illness History of Present Illness Patient seen and examined, clinically much improved, no fever or acute events reported overnight, discussed her laboratory data and imaging studies, no concerns voiced, hoping to be dismissed soon. Reassurance provided. Vitals Vitals Vital Signs Date Time Temp Pulse Resp B/P (MAP) Pulse Ox O2 Delivery O2 Flow Rate FiO2 03/28/19 11:00 97.9 70 18 120/68 (85) 98 Room Air 97.9 Physical Exam Physical Exam GENERAL: Propped up in bed, alert, smiling HEENT: Pupils equal, normal conjunctivae, Oral cavity clear, dentures NECK: Supple. LUNGS: Clear bilaterally. No wheezing. HEART: S1, S2. ABDOMEN: Soft and nontender EXTREMITIES: No edema, no cyanosis, no clubbing. SKIN: Warm and dry. No generalized rash. Multiple tattoos. NEUROLOGIC: Alert and oriented x 3, grossly nonfocal. PIV ok General: Alert, Oriented X3, Cooperative, No acute distress Heart: Regular rate, Normal S1, Normal S2 Lungs: Clear Abdomen: Normal bowel sounds, Soft, No tenderness, No hepatosplenomegaly, No masses Extremities: No clubbing, No cyanosis, No edema, Normal pulses, No tenderness/swelling Skin: No rashes, No breakdown, No significant lesion Labs LABS Laboratory Tests Test 03/27/19 23:00 03/28/19 04:40 Vancomycin Level Trough 19.7 mcg/mL (10.0-20.0) Vancomycin Last Dose Date Unk Vancomycin Last Dose Time Unk Creatinine 0.8 mg/dL (0.6-1.0) Estimated GFR (Cockcroft-Gault) 80.7 Review of Systems Review of Systems negative 10 point review of system Assessment and Plan Assessmemt and Plan Problems Medical Problems: (1) Blood culture positive for microorganism Status: Acute (2) Cough Status: Acute (3) Fever Status: Acute Comment Review of Relevant I have reviewed the following items ina (where applicable) has been applied. Labs Laboratory Tests Test 03/26/19 22:10 03/27/19 04:15 03/27/19 23:00 03/28/19 04:40 Vancomycin Level Trough 12.2 mcg/mL (10.0-20.0) 19.7 mcg/mL (10.0-20.0) Vancomycin Last Dose Date Unk Vancomycin Last Dose Time Unk Creatinine 0.8 mg/dL (0.6-1.0) 0.8 mg/dL (0.6-1.0) Estimated GFR (Cockcroft-Gault) 80.7 80.7 Laboratory Tests Test 03/27/19 23:00 03/28/19 04:40 Vancomycin Level Trough 19.7 mcg/mL (10.0-20.0) Vancomycin Last Dose Date Unk Vancomycin Last Dose Time Unk Creatinine 0.8 mg/dL (0.6-1.0) Estimated GFR (Cockcroft-Gault) 80.7 Microbiology 03/27/19 Blood Culture - Preliminary, Resulted NO GROWTH AFTER 1 DAY Medications Current Medications Ceftriaxone Sodium (Rocephin) 1 gm 1X ONCE IVP Last administered on 03/24/19at 13:04; Start 03/24/19 at 11:00; Stop 03/24/19 at 11:01; Status DC Sodium Chloride 1,000 ml @ 1,560 mls/hr Q39M IV Last administered on 03/24/19at 13:08; Start 03/24/19 at 10:38; Stop 03/24/19 at 11:38; Status DC Vancomycin HCl (Vanco Per Pharmacy) 1 each 1X ONCE MC ; Start 03/24/19 at 10:45; Stop 03/24/19 at 10:52; Status DC Vancomycin HCl 2 gm/Sodium Chloride 500 ml @ 250 mls/hr 1X ONCE IV Last administered on 03/24/19at 13:05; Start 03/24/19 at 11:00; Stop 03/24/19 at 12:59; Status DC Ondansetron HCl (Zofran) 4 mg PRN Q8HRS PRN IV NAUSEA/VOMITING; Start 03/24/19 at 11:30; Stop 03/26/19 at 11:28; Status DC Acetaminophen (Tylenol) 650 mg PRN Q4HRS PRN PO FEVER Last administered on 03/26/19at 11:25; Start 03/24/19 at 11:30; Stop 03/26/19 at 11:28; Status DC Sodium Chloride 1,000 ml @ 125 mls/hr 1X ONCE IV Last administered on 03/24/19at 13:10; Start 03/24/19 at 11:30; Stop 03/24/19 at 19:29; Status DC Diphenhydramine HCl (Benadryl) 25 mg QHS PO Last administered on 03/27/19at 21:35; Start 03/24/19 at 21:00 Non-Formulary Medication (Naproxen (Naprosyn)) 1 tab BID PO ; Start 03/24/19 at 21:00; Stop 03/24/19 at 21:00; Status DC Ketorolac Tromethamine (Toradol 30mg Vial) 30 mg PRN Q6HRS PRN IV MODERATE PAIN Last administered on 03/26/19at 18:04; Start 03/24/19 at 14:00; Stop 03/29/19 at 13:59 Ceftriaxone Sodium (Rocephin) 1 gm Q24H IVP Last administered on 03/28/19at 10:48; Start 03/25/19 at 11:00 Iohexol (Omnipaque 350 Mg/ml) 100 ml 1X ONCE IV ; Start 03/24/19 at 14:15; Stop 03/24/19 at 14:16; Status DC Info (CONTRAST GIVEN -- Rx MONITORING) 1 each PRN DAILY PRN MC SEE COMMENTS; Start 03/24/19 at 14:30; Stop 03/26/19 at 14:29; Status DC Lactobacillus Rhamnosus (Culturelle) 1 cap BID PO Last administered on 03/28/19at 08:36; Start 03/24/19 at 21:00 Vancomycin HCl 1 gm/Sodium Chloride 250 ml @ 250 mls/hr Q12H IV ; Start 03/25/19 at 09:45; Status UNV Doxycycline Hyclate (Vibra-Tab) 100 mg BID PO Last administered on 03/28/19at 0 8:36; Start 03/25/19 at 10:00 Vancomycin HCl (Vanco Per Pharmacy) 1 each PRN DAILY PRN MC SEE COMMENTS Last administered on 03/28/19at 13:12; Start 03/25/19 at 10:00 Vancomycin HCl 2 gm/Sodium Chloride 500 ml @ 250 mls/hr 1X ONCE IV Last administered on 03/25/19at 10:20; Start 03/25/19 at 10:15; Stop 03/25/19 at 12:14; Status DC Vancomycin HCl 1.25 gm/Sodium Chloride 250 ml @ 167 mls/hr Q12H IV Last administered on 03/26/19at 10:00; Start 03/25/19 at 22:00; Stop 03/26/19 at 23:08; Status DC Vancomycin HCl (Vancomycin Trough Level) 1 each 1X ONCE MC Last administered on 03/26/19at 21:30; Start 03/26/19 at 21:30; Stop 03/26/19 at 21:31; Status DC Potassium Chloride (Klor-Con) 40 meq 1X ONCE PO Last administered on 03/25/19at 17:58; Start 03/25/19 at 18:30; Stop 03/25/19 at 18:31; Status DC Vancomycin HCl 1.25 gm/Sodium Chloride 250 ml @ 167 mls/hr Q8H IV Last administered on 03/28/19at 07:20; Start 03/26/19 at 23:30; Stop 03/28/19 at 13:14; Status DC Vancomycin HCl (Vancomycin Trough Level) 1 each 1X ONCE MC Last administered on 03/27/19at 23:00; Start 03/27/19 at 23:00; Stop 03/27/19 at 23:01; Status DC Potassium Chloride (Klor-Con) 40 meq Q2H PO Last administered on 03/27/19at 10:43; Start 03/27/19 at 08:00; Stop 03/27/19 at 10:01; Status DC Vancomycin HCl 1 gm/Sodium Chloride 250 ml @ 250 mls/hr Q8H IV ; Start 03/28/19 at 16:00 Active Scripts Active Zithromax (Azithromycin) 250 Mg Tablet 1 Pkg PO UD [place] 5-325 Tablet (Acetaminophen/Hydrocodone Bitart) 1 Each Tablet 1 Tab PO PRN Q6HRS PRN Orphenadrine Citrate 100 Mg Tablet.er 1 Tab PO BID Bactrim Ds Tablet (Sulfamethoxazole/Trimethoprim) 1 Each Tablet 1 Tab PO BID Valium (Diazepam) 5 Mg Tablet 5 Mg PO TID 5 Days Benadryl (Diphenhydramine Hcl) 25 Mg Capsule 1 Cap PO QHS Naprosyn (Naproxen) 500 Mg Tablet 1 Tab PO BID Amoxicillin 875 Mg Tablet 1 Tab PO BID [place] 5-325 Tablet (Acetaminophen/Hydrocodone Bitart) 1 Each Tablet 1-2 Tab PO Q4-6HRS Vitals/I & O Vital Sign - Last 24 Hours 03/27/19 03/27/19 03/27/19 03/28/19 15:00 19:00 23:04 03:09 Temp 98.1 98.2 98.8 98.2 98.1 98.2 98.8 98.2 Pulse 76 95 81 75 Resp 16 20 20 20 B/P (MAP) 123/79 (94) 130/77 (94) 122/79 (93) 123/70 (87) Pulse Ox 96 95 97 95 O2 Delivery Room Air Room Air Room Air Room Air 03/28/19 03/28/19 03/28/19 07:00 08:00 11:00 Temp 98.0 97.9 98.0 97.9 Pulse 71 70 Resp 18 18 B/P (MAP) 117/72 (87) 120/68 (85) Pulse Ox 96 98 O2 Delivery Room Air Room Air Room Air JOLANTA PETERS MD Mar 28, 2019 14:21
[2019-03-28 14:58] VITALS: BP 123/81
[2019-03-28] MEDS: VANCOMYCIN 1 GM in IV NORMAL SALINE 250ML 250 ML IV SCH ×2 (16:30→23:47)
[2019-03-28 19:00] VITALS: BP 117/80
[2019-03-28] MEDS: diphenhydrAMINE HCL 25 MG CAPSULE PO SCH (22:13)
[2019-03-28 23:00] VITALS: BP 114/72
[2019-03-29 03:00] VITALS: BP 111/63
[2019-03-29 06:53] LABS: CREATININE 0.8 mg/dL (0.6-1.0); GFR 80.7
[2019-03-29 07:00] VITALS: BP 109/70
[2019-03-29] MEDS: LACTOBACILLUS RHAMNOSUS GG 1 CAPSULE. PO SCH (08:25)
[2019-03-29] MEDS: VANCOMYCIN 1 GM in IV NORMAL SALINE 250ML 250 ML IV SCH (08:25)
[2019-03-29] MEDS: DOXYCYCLINE HYCLATE 100 MG TABLET PO SCH (08:25)
--- NOTE | 2019-03-29 09:29 | PDOC ---
PULMONARY PROGRESS NOTES Subjective LESS COUGH Vitals Vital Signs Date Time Temp Pulse Resp B/P (MAP) Pulse Ox O2 Delivery O2 Flow Rate FiO2 03/29/19 07:00 97.9 70 18 109/70 (83) 96 Room Air 97.9 General: Alert, No acute distress Lungs: Clear Cardiovascular: S1 Abdomen: Soft Neuro Exam: Alert Extremities: No Edema Skin: Warm Labs Laboratory Tests Test 03/27/19 23:00 03/28/19 04:40 03/29/19 06:11 Vancomycin Level Trough 19.7 mcg/mL (10.0-20.0) Vancomycin Last Dose Date Unk Vancomycin Last Dose Time Unk Creatinine 0.8 mg/dL (0.6-1.0) 0.8 mg/dL (0.6-1.0) Estimated GFR (Cockcroft-Gault) 80.7 80.7 Laboratory Tests Test 03/29/19 06:11 Creatinine 0.8 mg/dL (0.6-1.0) Estimated GFR (Cockcroft-Gault) 80.7 Medications Active Scripts Medications Dose Route/Sig Max Daily Dose Days Date Category Zithromax (Azithromycin) 250 Mg Tablet 1 Pkg PO UD 03/23/19 Rx [place] 5-325 Tablet (Acetaminophen/Hydrocodone Bitart) 1 Each Tablet 1 Tab PO PRN Q6HRS PRN 12/19/18 Rx Orphenadrine Citrate 100 Mg Tablet.er 1 Tab PO BID 12/19/18 Rx Bactrim Ds Tablet (Sulfamethoxazole/Trimethoprim) 1 Each Tablet 1 Tab PO BID 10/12/18 Rx Valium (Diazepam) 5 Mg Tablet 5 Mg PO TID 5 05/12/17 Rx Benadryl (Diphenhydramine Hcl) 25 Mg Capsule 1 Cap PO QHS 05/12/17 Rx Naprosyn (Naproxen) 500 Mg Tablet 1 Tab PO BID 05/12/17 Rx Amoxicillin 875 Mg Tablet 1 Tab PO BID 12/03/16 Rx [place] 5-325 Tablet (Acetaminophen/Hydrocodone Bitart) 1 Each Tablet 1-2 Tab PO Q4-6HRS 12/03/16 Rx Comments 03/24. BLOOD CULTURE Final GRAM POSITIVE COCCI IN CLUSTERS IN 1 OF 4 BOTTLES (2 SETS COLLECTED). BLD CULT RESULT 1 Preliminary Comment Staphylococcus species Impression . 1.The patient with febrile illness for about a month along with cough for the same duration. She has done IV meth for a year, but has been clean for the same duration. She now comes in with a very high-grade fever of 106 and bilateral infiltrates on the CT chest with one of the cavitary nodule in the left lower lobe. Clinical suspicion for low-grade infection such as endocarditis is high. The possibility of right-sided vegetations cannot be ruled out. She is a nonsmoker. 2. BACTEREMIA 3. 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 D/C PER ID RECOMMEND A REPEAT CT IN 2 MONTHS ARMAND PEREZ MD Mar 29, 2019 09:29
--- NOTE | 2019-03-29 10:19 | PDOC ---
Infectious Disease Note Subjective Subjective Feeling good, hoping to go home soon Minimal left-sided chest pain with deep breathing + hot flashes No fevers/chills ROS ROS o/w neg Vital Sign Vital Signs Vital Signs Date Time Temp Pulse Resp B/P (MAP) Pulse Ox O2 Delivery O2 Flow Rate FiO2 03/29/19 07:00 97.9 70 18 109/70 (83) 96 Room Air 97.9 Physical Exam PHYSICAL EXAM GENERAL: Propped up in bed, alert, smiling HEENT: Pupils equal, normal conjunctivae, Oral cavity clear, dentures NECK: Supple. LUNGS: Clear bilaterally. No wheezing. HEART: S1, S2. ABDOMEN: Soft and nontender EXTREMITIES: No edema, no cyanosis, no clubbing. SKIN: Warm and dry. No generalized rash. Multiple tattoos. NEUROLOGIC: Alert and oriented x 3, grossly nonfocal. PIV ok -better Labs Lab Laboratory Tests Test 03/29/19 06:11 Creatinine 0.8 mg/dL (0.6-1.0) Estimated GFR (Cockcroft-Gault) 80.7 Micro 03/24 BLOOD CULTURE LC Final Final report BLD CULT RESULT 1 Final Staphylococcus aureus Based on susceptibility to oxacillin this isolate would be susceptible to: *Penicillinase-stable penicillins, such as: Cloxacillin, Dicloxacillin, Nafcillin *Beta-lactam combination agents, such as: Amoxicillin-clavulanic acid, Ampicillin-sulbactam, Piperacillin-tazobactam *Oral cephems, such as: Cefaclor, Cefdinir, Cefpodoxime, Cefprozil, Cefuroxime, Cephalexin, Loracarbef *Parenteral cephems, such as: Cefazolin, Cefepime, Cefotaxime, Cefotetan, Ceftaroline, Ceftizoxime, Ceftriaxone, Cefuroxime *Carbapenems, such as: Doripenem, Ertapenem, Imipenem, Meropenem ANTIMICROBIAL SUSCEPTIBILITY Final Comment S = Susceptible; I = Intermediate; R = Resistant P = Positive; N = Negative MICS are expressed in micrograms per mL Antibiotic RSLT#1 RSLT#2 RSLT#3 RSLT#4 Ciprofloxacin S<=0.5 Gentamicin S<=0.5 Levofloxacin S<=0.12 Linezolid S =2 Moxifloxacin S<=0.25 Nitrofurantoin S<=16 Oxacillin S =1 Penicillin R>=0.5 Quinupristin/Dalfopristin S<=0.25 Rifampin S<=0.5 CONTINUED ON NEXT PAGE RUN DATE: 03/28/19 PAGE 2 RUN TIME: 1910 [facility] [address] [place] [address] Irvin Valdez M.D., Professor Of Biology ----- SPEC: [id number] PATIENT: [id number] (Continued) Procedure Result -------- ANTIMICROBIAL SUSCEPTIBILITY Final (continued) Tetracycline S<=1 Trimethoprim/Sulfa S<=10 Vancomycin S =1 Microbiology 03/27/19 Blood Culture - Preliminary, Resulted NO GROWTH AFTER 2 DAYS Objective Assessment Chest pain with cough - better. Multiple peripheral parenchymal densities left greater than right, including a cavitary nodule in the left lower lobe. Diagnostic considerations include a multifocal infectious process such as septic emboli, pulmonary embolic disease or scarring from a prior inflammatory or embolic episode, on CT Unable to get CTA due to IV infiltration MSSA Bacteremia 10/30 bottles, gram-positive cocci in clusters, 03/24 repeat cults neg. Right knee pain. Arthralgias. H/O Drug use IVDU one year ago per pt. HIV and hep c neg RUE swelling from IV contrast leak, US neg DVT - better Plan Plan of Care D/c Vanc, ceftriaxone begin Cefazolin Cont po doxycycline for now Social service eval and will need PICC Needs IV abx. home 2 gm IV q 8 or Naficillin 12 gm IV cont 24 hours for 5 weeks. o/w may need Rocephin 2 g IV q 24 daily outpatient as Dapto will not treat lung Monitor renal functions closely. Repeat blood cultures 03/25 neg so far Echo showed no evidence of veg LATONYA BAUER MD Mar 29, 2019 10:19
--- NOTE | 2019-03-29 10:30 | PDOC ---
[employer] PROGRESS NOTE Chief Complaint Chief Complaint Febrile illness for one month fever upto 106*F GPC bacteremia 1/4 bottles ? could be contaminant Multiple peripheral parenchymal densities left greater than right, including a cavitary nodule in the left lower lobe. Diagnostic considerations include a multifocal infectious process such as septic emboli, pulmonary embolic disease or scarring from a prior inflammatory or embolic episode. history of IV drug abuse hep panel negative Cough and Chest pain due to musculoskeletal nature cavitary lesion on CT chest Arthralgias improved Nausea and vomiting POA,now resolved History of Present Illness History of Present Illness Patient seen and examined She was sleeping and awoke very easily Seems to be very happy and alert and in no apparent distress Vitals Vitals Vital Signs Date Time Temp Pulse Resp B/P (MAP) Pulse Ox O2 Delivery O2 Flow Rate FiO2 03/29/19 07:00 97.9 70 18 109/70 (83) 96 Room Air 97.9 Physical Exam Physical Exam GENERAL: Propped up in bed, alert, smiling HEENT: Pupils equal, normal conjunctivae, Oral cavity clear, dentures NECK: Supple. LUNGS: Clear bilaterally. No wheezing. HEART: S1, S2. ABDOMEN: Soft and nontender EXTREMITIES: No edema, no cyanosis, no clubbing. SKIN: Warm and dry. No generalized rash. Multiple tattoos. NEUROLOGIC: Alert and oriented x 3, grossly nonfocal. PIV ok General: Alert, Oriented X3, Cooperative, No acute distress Heart: Regular rate, Normal S1, Normal S2 Lungs: Clear Abdomen: Normal bowel sounds, Soft, No tenderness, No hepatosplenomegaly, No masses Extremities: No clubbing, No cyanosis, No edema, Normal pulses, No tenderness/swelling Skin: No rashes, No breakdown, No significant lesion Labs Labs: Laboratory Tests Test 03/29/19 06:11 Creatinine 0.8 mg/dL (0.6-1.0) Estimated GFR (Cockcroft-Gault) 80.7 Review of Systems Review of Systems No complaints request discharge Assessment and Plan Assessmemt and Plan Problems Medical Problems: (1) Blood culture positive for microorganism Status: Acute (2) Cough Status: Acute (3) Fever Status: Acute Febrile illness for one month fever upto 106*F GPC bacteremia 1/4 bottles ? could be contaminant Multiple peripheral parenchymal densities left greater than right, including a cavitary nodule in the left lower lobe. Diagnostic considerations include a multifocal infectious process such as septic emboli, pulmonary embolic disease or scarring from a prior inflammatory or embolic episode. history of IV drug abuse hep panel negative Cough and Chest pain due to musculoskeletal nature cavitary lesion on CT chest Arthralgias improved Nausea and vomiting POA,now resolved Plan Hope to discharge on by mouth antibiotics today Await further subspecialist input for now Discharge orders were tentatively placed I asked for infectious disease to please leave prescription for by mouth antibiotic of their choice. Comment Review of Relevant I have reviewed the following items ina (where applicable) has been applied. Labs Laboratory Tests Test 03/27/19 23:00 03/28/19 04:40 03/29/19 06:11 Vancomycin Level Trough 19.7 mcg/mL (10.0-20.0) Vancomycin Last Dose Date Unk Vancomycin Last Dose Time Unk Creatinine 0.8 mg/dL (0.6-1.0) 0.8 mg/dL (0.6-1.0) Estimated GFR (Cockcroft-Gault) 80.7 80.7 Laboratory Tests Test 03/29/19 06:11 Creatinine 0.8 mg/dL (0.6-1.0) Estimated GFR (Cockcroft-Gault) 80.7 Microbiology 03/27/19 Blood Culture - Preliminary, Resulted NO GROWTH AFTER 2 DAYS Medications Current Medications Ceftriaxone Sodium (Rocephin) 1 gm 1X ONCE IVP Last administered on 03/24/19at 13:04; Start 03/24/19 at 11:00; Stop 03/24/19 at 11:01; Status DC Sodium Chloride 1,000 ml @ 1,560 mls/hr Q39M IV Last administered on 03/24/19at 13:08; Start 03/24/19 at 10:38; Stop 03/24/19 at 11:38; Status DC Vancomycin HCl (Vanco Per Pharmacy) 1 each 1X ONCE MC ; Start 03/24/19 at 10:45; Stop 03/24/19 at 10:52; Status DC Vancomycin HCl 2 gm/Sodium Chloride 500 ml @ 250 mls/hr 1X ONCE IV Last administered on 03/24/19at 13:05; Start 03/24/19 at 11:00; Stop 03/24/19 at 12:59; Status DC Ondansetron HCl (Zofran) 4 mg PRN Q8HRS PRN IV NAUSEA/VOMITING; Start 03/24/19 at 11:30; Stop 03/26/19 at 11:28; Status DC Acetaminophen (Tylenol) 650 mg PRN Q4HRS PRN PO FEVER Last administered on 03/26/19at 11:25; Start 03/24/19 at 11:30; Stop 03/26/19 at 11:28; Status DC Sodium Chloride 1,000 ml @ 125 mls/hr 1X ONCE IV Last administered on 03/24/19at 13:10; Start 03/24/19 at 11:30; Stop 03/24/19 at 19:29; Status DC Diphenhydramine HCl (Benadryl) 25 mg QHS PO Last administered on 03/28/19at 22:13; Start 03/24/19 at 21:00 Non-Formulary Medication (Naproxen (Naprosyn)) 1 tab BID PO ; Start 03/24/19 at 21:00; Stop 03/24/19 at 21:00; Status DC Ketorolac Tromethamine (Toradol 30mg Vial) 30 mg PRN Q6HRS PRN IV MODERATE PAIN Last administered on 03/26/19at 18:04; Start 03/24/19 at 14:00; Stop 03/29/19 at 13:59 Ceftriaxone Sodium (Rocephin) 1 gm Q24H IVP Last administered on 03/28/19at 10:48; Start 03/25/19 at 11:00; Stop 03/29/19 at 10:18; Status DC Iohexol (Omnipaque 350 Mg/ml) 100 ml 1X ONCE IV ; Start 03/24/19 at 14:15; Stop 03/24/19 at 14:16; Status DC Info (CONTRAST GIVEN -- Rx MONITORING) 1 each PRN DAILY PRN MC SEE COMMENTS; Start 03/24/19 at 14:30; Stop 03/26/19 at 14:29; Status DC Lactobacillus Rhamnosus (Culturelle) 1 cap BID PO Last administered on 03/29/19at 08:25; Start 03/24/19 at 21:00 Vancomycin HCl 1 gm/Sodium Chloride 250 ml @ 250 mls/hr Q12H IV ; Start 03/25/19 at 09:45; Status UNV Doxycycline Hyclate (Vibra-Tab) 100 mg BID PO Last administered on 03/29/19 08:25; Start 03/25/19 at 10:00 Vancomycin HCl (Vanco Per Pharmacy) 1 each PRN DAILY PRN MC SEE COMMENTS Last administered on 03/28/19at 13:12; Start 03/25/19 at 10:00; Stop 03/29/19 at 10:18; Status DC Vancomycin HCl 2 gm/Sodium Chloride 500 ml @ 250 mls/hr 1X ONCE IV Last administered on 03/25/19at 10:20; Start 03/25/19 at 10:15; Stop 03/25/19 at 12:14; Status DC Vancomycin HCl 1.25 gm/Sodium Chloride 250 ml @ 167 mls/hr Q12H IV Last administered on 03/26/19at 10:00; Start 03/25/19 at 22:00; Stop 03/26/19 at 23:08; Status DC Vancomycin HCl (Vancomycin Trough Level) 1 each 1X ONCE MC Last administered on 03/26/19at 21:30; Start 03/26/19 at 21:30; Stop 03/26/19 at 21:31; Status DC Potassium Chloride (Klor-Con) 40 meq 1X ONCE PO Last administered on 03/25/19at 17:58; Start 03/25/19 at 18:30; Stop 03/25/19 at 18:31; Status DC Vancomycin HCl 1.25 gm/Sodium Chloride 250 ml @ 167 mls/hr Q8H IV Last administered on 03/28/19at 07:20; Start 03/26/19 at 23:30; Stop 03/28/19 at 13:14; Status DC Vancomycin HCl (Vancomycin Trough Level) 1 each 1X ONCE MC Last administered on 03/27/19at 23:00; Start 03/27/19 at 23:00; Stop 03/27/19 at 23:01; Status DC Potassium Chloride (Klor-Con) 40 meq Q2H PO Last administered on 03/27/19at 1 0:43; Start 03/27/19 at 08:00; Stop 03/27/19 at 10:01; Status DC Vancomycin HCl 1 gm/Sodium Chloride 250 ml @ 250 mls/hr Q8H IV Last administered on 03/29/19 08:25; Start 03/28/19 at 16:00; Stop 03/29/19 at 10:18; Status DC Cefazolin Sodium/ Dextrose 50 ml @ 100 mls/hr Q8HRS IV ; Start 03/29/19 at 12:00 Active Scripts Active Zithromax (Azithromycin) 250 Mg Tablet 1 Pkg PO UD [place] 5-325 Tablet (Acetaminophen/Hydrocodone Bitart) 1 Each Tablet 1 Tab PO PRN Q6HRS PRN Orphenadrine Citrate 100 Mg Tablet.er 1 Tab PO BID Bactrim Ds Tablet (Sulfamethoxazole/Trimethoprim) 1 Each Tablet 1 Tab PO BID Valium (Diazepam) 5 Mg Tablet 5 Mg PO TID 5 Days Benadryl (Diphenhydramine Hcl) 25 Mg Capsule 1 Cap PO QHS Naprosyn (Naproxen) 500 Mg Tablet 1 Tab PO BID Amoxicillin 875 Mg Tablet 1 Tab PO BID [place] 5-325 Tablet (Acetaminophen/Hydrocodone Bitart) 1 Each Tablet 1-2 Tab PO Q4-6HRS Vitals/I & O Vital Sign - Last 24 Hours 03/28/19 03/28/19 03/28/19 03/28/19 11:00 14:58 19:00 23:00 Temp 97.9 98.7 97.9 97.9 97.9 98.7 97.9 97.9 Pulse 70 96 90 78 Resp 18 18 18 18 B/P (MAP) 120/68 (85) 123/81 (95) 117/80 (92) 114/72 (86) Pulse Ox 98 95 96 95 O2 Delivery Room Air Room Air Room Air Room Air 03/29/19 03/29/19 03:00 07:00 Temp 98.3 97.9 98.3 97.9 Pulse 78 70 Resp 18 18 B/P (MAP) 111/63 (79) 109/70 (83) Pulse Ox 94 96 O2 Delivery Room Air Room Air Intake and Output 03/28/19 03/28/19 03/29/19 14:59 22:59 06:59 Intake Total 600 ml 490 ml Output Total 0 ml Balance 600 ml 0 ml 490 ml CABRERA ZAIDI III DO Mar 29, 2019 10:30
[2019-03-29 10:47] VITALS: BP 104/59
[2019-03-29 14:48] VITALS: BP 110/64
--- NOTE | 2019-03-29 16:21 | NUR ---
SS following up with discharge planning. Pt is self pay pt with no insurance at this time. HCFS following for discharge planning. Pt needing IV antibiotics at discharge. No home infusion options available at this time. SS received approval for outpatient IV antibiotics at [facility]. SS phoned and faxed referral and script to outpatient, [phone]; fax [phone]. Pt instructed to be at hospital at 0930 on 03/30/2019 for her first infusion. Pt to bring a minimum of $20/week as a good danelle payment per administration. Pt's RN notified.
--- NOTE | 2019-03-29 19:52 | NUR ---
PRE-PICC INSERTION NOTE Allergies and reactions NKDA INR NA BUN 7 Cr 0.7 Platelets 288 Blood culture done YES blood culture results POS MSSA Order Verified YES Consent signed YES Previous PICC placement NO Past Medical/Surgical history and current diagnosis reviewed YES Patient Medical /Surgical History Related to PICC line placement Infectious Disease consult Septicemia/Bacteremia Special considerations for PICC line placement Infections PICC placement indication Caustic medication class drug usage, assisted antibiotic usage, name of PICC Nurse TODD DUMAS RN
--- NOTE | 2019-03-29 19:55 | NUR ---
PICC INSERTION NOTE Procedure: Following complete explanation of the PICC procedure including the indications, risks, and potential complications, informed consent was obtained. The possibility for infection was discussed along with signs, symptoms, and prevention. All the [PATIENT'S] questions were answered. Written and verbal patient education was provided. Hand hygiene performed. Standardized central line checklist was utilized. The patient was placed in the supine position, the arm was prepped with chlorhexidine and patient draped with maximum sterile barrier. [0.5] mL 1% lidocaine was infiltrated into the skin to provide local anesthesia. A thorough assessment of [RIGHT] upper extremity completed. Using real-time ultrasound guidance and standardized micro puncture set, the [RIGHT BASILIC] vein was punctured and a peel away sheath was placed using the modified Seldinger technique. A tip location device was used to ensure adequate catheter placement. The catheter was secured using a securement device and an antimicrobial patch was applied directly on the insertion site followed by a transparent dressing. All ports withdraw blood and flush without resistance. Patient tolerated the procedure without apparent complication(s). [[address] DOUBLE] Lumen Power PICC placement successful and uncomplicated. Placement verified by EKG tip confirmation system and/or chest x-ray. Tip located in the [SVC] Complications: [NONE]
--- NOTE | 2019-03-29 20:00 | NUR ---
Pt. discharged to home with mom. Picc line in place. All other lines dc'd. All questions answered. Pt aware she is to report to outpatient for IV antibiotics in the am.
[2019-04-03] MEDS ORDERED: DIPH25CA58 PO (06:50)
== END 2019-03-29 20:00 | disposition home or self-care (01) | DRG 872 ==
LOC: ER 09:58 → 5 NORTH 10:16
PROVIDERS: ADMIT Internal Medicine; ATTEND Internal Medicine
PROC: 02HV33Z Insertion of Infusion Device into Superior Vena Cava, Percutaneous Approach (ICD-10-PCS; principal; 2019-03-29)
PROC: B548ZZA Ultrasonography of Superior Vena Cava, Guidance (ICD-10-PCS; 2019-03-29)
DX: A41.9 Sepsis, unspecified organism (principal); E44.0 Moderate protein-calorie malnutrition; F11.20 Opioid dependence, uncomplicated; F15.10 Other stimulant abuse, uncomplicated; R73.9 Hyperglycemia, unspecified; B96.89 Other specified bacterial agents as the cause of diseases classified elsewhere; D64.9 Anemia, unspecified; N95.1 Menopausal and female climacteric states; Z83.3 Family history of diabetes mellitus; Z90.710 Acquired absence of both cervix and uterus; Z68.30 Body mass index [BMI] 30.0-30.9, adult; Z79.899 Other long term (current) drug therapy
CPT/HCPCS: 36415; 36569; 71045; 71250; 73560; 80048; 80053; 80202; 81001; 82565; 83605; 84145; 85025; 85651; 86140; 86592; 86703; 86803; 87040; 87077; 87205; 87491; 87591; 93306; 93971; 96365; 96366; 96375; J0696; J1885; J3370; J7030; J7040; J7050; Q0163; 99285-25

== ENCOUNTER 2019-04-16 19:07 | Emergency (ER) | payer SELFPAY ==
[~2019-04-16] VITALS: Ht 160 cm; Wt 80.7 kg
--- NOTE | 2019-04-16 19:37 | PHYS DOC ---
Past Medical History Past Medical History: URI (SANGEETHA GOODE APRN) Past Surgical History: Hysterectomy Additional Past Surgical Histo: BX HAND PLASTIC SX, TEETH REMOVED. (SANGEETHA GOODE APRN) Alcohol Use: None Drug Use: None (SANGEETHA GOODE APRN) Adult General Chief Complaint Chief Complaint: OTHER COMPLAINTS HPI HPI 38-year-old female presents to ER via POV for concerns about her PICC line in her right upper extremity. Patient is currently on antibiotics and had her dressing changed today. Patient states she noticed a kink in the tubing and small amount of blood she became anxious in regards to the PICC line and its patency. Patient reports she comes in daily for antibiotics and had no issues the PICC line today during the infusion. Patient denies any right arm pain, numbness, or swelling. (SANGEETHA GOODE APRN) Review of Systems Review of Systems Constitutional: Denies fever or chills [] Respiratory: Denies cough or shortness of breath [] Cardiovascular: Denies CP/palpitations Musculoskeletal: Denies back pain or joint pain [] Integument: Denies rash or skin lesions [] Neurologic: Denies focal weakness or sensory changes [] All other systems were reviewed and found to be within normal limits, except as documented in this note. (SANGEETHA GOODE APRN) Allergies Allergies Allergies Coded Allergies Type Severity Reaction Last Updated Verified No Known Drug Allergies 04/17/19 No (SAMUEL TUBBS MD) Physical Exam Physical Exam Constitutional: Well developed, well nourished, no acute distress, non-toxic appearance. [] HENT: Normocephalic, atraumatic, oropharynx moist, nose normal. [] Eyes: Pupils equal, conjunctiva normal, no discharge. [] Neck: Normal range of motion, no tenderness, supple, no stridor Cardiovascular: Heart rate regular rhythm, no murmur [] Lungs & Thorax: Bilateral breath sounds clear to auscultation- resp. equal/nonlabored Skin: Warm, dry, no erythema, no rash. [] Back: Full ROM Extremities: No tenderness, no cyanosis, no clubbing, ROM intact, no edema. 2+ radial bilat. PICC line rt medial upper arm- no swelling/crepitus/ecch ymosis/erythema. Nontender around site. Right medial upper arm just above before meal Neurologic: Alert and oriented X 3, normal motor function, normal sensory function, no focal deficits noted. [] Psychologic: Affect normal, judgement normal, mood normal. [] (SANGEETHA GOODE APRN) Current Patient Data Vital Signs Vital Signs Date Time Temp Pulse Resp B/P (MAP) Pulse Ox O2 Delivery O2 Flow Rate FiO2 04/16/19 19:46 160/108 (125) 04/16/19 19:19 98.1 81 16 97 Room Air 98.1 (SAMUEL TUBBS MD) EKG EKG [] (SANGEETHA GOODE APRN) Radiology/Procedures Radiology/Procedures [] (SANGEETHA GOODE APRN) Course & Med Decision Making Course & Med Decision Making Pt had concerns regarding her rt arm PICC line- RN reports patient's PICC line flushed easily with good blood return and patient had no complaints of pain during the flushed. Patient reported PICC line was used this morning for antibiotic infusion and she had no discomfort in her right upper extremity or issues with use of the PICC line. Following patient having line flushed by RN in the ER patient states she was reassured and was feeling less anxious. Patient's blood pressure was initially elevated on arrival and she reports while inpatient in the hospital her blood pressure were stable. Patient will have antibiotic infusion in the morning and will have PICC line reassessed at that time. Patient has been stable and in no distress. Education provided on signs and symptoms to return to ER. Discharge instructions were discussed. Patient to follow-up with primary care physician if symptoms persist or with any concerns. (SANGEETHA GOODE APRN) Course & Med Decision Making Staff Physician Addendum: I was working in the ER during the course of this patient's visit. I was avail able for consultation as needed, but I was not directly involved in the care of this patient. (SAMUEL TUBBS MD) Dragon Disclaimer Dragon Disclaimer This electronic medical record was generated, in whole or in part, using a voice recognition dictation system. (SANGEETHA GOODE APRN) Departure Departure Impression: Primary Impression: PIC line (peripherally inserted central catheter) flush Disposition: HOME, SELF-CARE Condition: STABLE Referrals: NO PCP (PCP) Patient Instructions: PICC Home Guide Additional Instructions: Continue with your daily antibiotics as you have done since your discharge. With any concerns follow-up with your primary care physician and or discussion or concerns with the nurse tomorrow during your antibiotic infusion. SANGEETHA GOODE APRN Apr 16, 2019 19:37 SAMUEL TUBBS MD Apr 18, 2019 04:12
[2019-04-16 19:46] VITALS: BP 160/108
== END 2019-04-16 19:48 | disposition home or self-care (01) ==
LOC: ER 19:07
DX: Z45.2 Encounter for adjustment and management of vascular access device (principal); Z90.710 Acquired absence of both cervix and uterus
CPT/HCPCS: 99284; 99285

== ENCOUNTER 2019-07-06 02:37 | Inpatient (IN) | payer OTHER ==
[~2019-07-06] VITALS: Ht 160 cm; Wt 79.0 kg
[2019-07-06] MEDS ORDERED: PRED20TA PO (02:59)
[2019-07-06] MEDS ORDERED: KETOROLAC 15 MG/ML VIAL. IV ONE (03:00)
[2019-07-06] MEDS ORDERED: IV NORMAL SALINE 1000ML BAG 1,000 ML IV ONE (03:00)
[2019-07-06] MEDS ORDERED: ASPIRIN 325 MG TABLET PO ONE (03:00)
--- NOTE | 2019-07-06 03:00 | PHYS DOC ---
Past Medical History Past Medical History: Pneumonia, URI, Other Additional Past Medical Histor: SEPSIS Past Surgical History: Hysterectomy Additional Past Surgical Histo: BX HAND PLASTIC SX, TEETH REMOVED. Additional Information: Nonsmoker Alcohol Use: None Drug Use: Methamphetamine Adult General Chief Complaint Chief Complaint: CHEST PAIN HPI HPI 38-year-old female presents with 3 day history of worsening pleuritic chest pain and shortness of air. Patient reports she started having the symptoms after "dropping off the wagon" and using methamphetamine 6 days ago. Denies leg swelling or calf tenderness. Denies fever or chills. Denies known trauma. Cardiac risk factors of family history of CAD. Denies history or family history of DVT/PE. Review of Systems Review of Systems Constitutional: Denies fever or chills; reports generalized malaise Eyes: Denies redness or eye pain HENT: Denies nasal congestion or sore throat Respiratory: Denies cough; reports shortness of breath Cardiovascular: Reports chest pain and palpitations GI: Denies abdominal pain, nausea, or vomiting : Denies dysuria or hematuria Musculoskeletal: Denies back pain or joint pain Integument: Denies rash or skin lesions Neurologic: Denies headache, focal weakness or sensory changes Complete systems were reviewed and found to be within normal limits, except as documented in this note. Current Medications Current Medications Current Medications Medications (Trade) Dose Ordered Sig/Vee Start Time Stop Time Status Last Admin Dose Admin Aspirin (Roland Aspirin) 325 mg 1X ONCE 07/06/19 03:00 07/06/19 03:01 DC 07/06/19 04:14 325 MG Dexamethasone Sodium Phosphate (Decadron) 10 mg 1X ONCE 07/06/19 03:15 07/06/19 03:16 DC 07/06/19 04:14 10 MG Enoxaparin Sodium (Lovenox 80mg Syringe) 75 mg 1X ONCE 07/06/19 05:00 07/06/19 05:01 DC Ketorolac Tromethamine (Toradol 15mg Vial) 15 mg 1X ONCE 07/06/19 03:00 07/06/19 03:01 DC 07/06/19 04:14 15 MG Ondansetron HCl (Zofran) 4 mg PRN Q8HRS PRN 07/06/19 05:00 07/07/19 04:59 UNV Sodium Chloride 1,000 ml @ 1,000 mls/hr 1X ONCE 07/06/19 03:00 07/06/19 03:59 DC 07/06/19 04:14 1,000 MLS/HR Allergies Allergies Allergies Coded Allergies Type Severity Reaction Last Updated Verified No Known Drug Allergies 05/05/19 No Physical Exam Physical Exam Constitutional: Well developed, well nourished, anxious, uncomfortable, non- toxic appearance HENT: Normocephalic, atraumatic, oropharynx moist Eyes: Conjunctiva normal, no discharge Neck: Normal range of motion, no tenderness, supple Cardiovascular: Heart rate tachycardic, regular rhythm Lungs & Thorax: Bilateral breath sounds clear to auscultation, no wheezing Abdomen: Soft, no tenderness Skin: Warm, dry, no erythema, no rash Extremities: No tenderness, ROM intact, no edema Neurologic: Alert and oriented X 3, normal motor function, normal sensory function, no focal deficits noted Psychologic: Affect anxious, judgement normal Current Patient Data Vital Signs Vital Signs Date Time Temp Pulse Resp B/P (MAP) Pulse Ox O2 Delivery O2 Flow Rate FiO2 07/06/19 02:47 99.9 106 20 136/77 (96) 96 Room Air 99.9 Lab Values Laboratory Tests Test 07/06/19 03:50 07/06/19 04:08 White Blood Count 10.1 x10^3/uL (4.0-11.0) Red Blood Count 4.75 x10^6/uL (3.50-5.40) Hemoglobin 12.3 g/dL (12.0-15.5) Hematocrit 36.7 % (36.0-47.0) Mean Corpuscular Volume 77 fL (79-100) L Mean Corpuscular Hemoglobin 26 pg (25-35) Mean Corpuscular Hemoglobin Concent 34 g/dL (31-37) Red Cell Distribution Width 14.1 % (11.5-14.5) Platelet Count 261 x10^3/uL (140-400) Neutrophils (%) (Auto) 78 % (31-73) H Lymphocytes (%) (Auto) 13 % (24-48) L Monocytes (%) (Auto) 9 % (0-9) Eosinophils (%) (Auto) 0 % (0-3) Basophils (%) (Auto) 0 % (0-3) Neutrophils # (Auto) 7.8 x10^3/uL (1.8-7.7) H Lymphocytes # (Auto) 1.3 x10^3/uL (1.0-4.8) Monocytes # (Auto) 0.9 x10^3/uL (0.0-1.1) Eosinophils # (Auto) 0.0 x10^3/uL (0.0-0.7) Basophils # (Auto) 0.0 x10^3/uL (0.0-0.2) Prothrombin Time 13.8 SEC (11.7-14.0) Prothrombin Time INR 1.1 (0.8-1.1) Activated Partial Thromboplast Time 30 SEC (24-38) D-Dimer (Alysia) 1.81 ug/mlFEU (0.00-0.50) H Sodium Level 136 mmol/L (136-145) Potassium Level 3.9 mmol/L (3.5-5.1) Chloride Level 100 mmol/L (98-107) Carbon Dioxide Level 25 mmol/L (21-32) Anion Gap 11 (6-14) Blood Urea Nitrogen 6 mg/dL (7-20) L Creatinine 0.8 mg/dL (0.6-1.0) Estimated GFR (Cockcroft-Gault) 80.7 BUN/Creatinine Ratio 8 (6-20) Glucose Level 105 mg/dL (70-99) H Calcium Level 8.8 mg/dL (8.5-10.1) Magnesium Level 1.9 mg/dL (1.8-2.4) Total Bilirubin 0.4 mg/dL (0.2-1.0) Aspartate Amino Transferase (AST) 95 U/L (15-37) H Alanine Aminotransferase (ALT) 83 U/L (14-59) H Alkaline Phosphatase 159 U/L (46-116) H Creatine Kinase 38 U/L (26-192) Creatine Kinase MB (Mass) < 0.5 ng/mL (0.0-3.6) Creatine Kinase MB Relative Index % (0-4) Troponin I Quantitative < 0.017 ng/mL (0.000-0.055) PM-Ypn-V-Type Natriuretic Peptide 44 pg/mL (0-124) Total Protein 7.7 g/dL (6.4-8.2) Albumin 3.1 g/dL (3.4-5.0) L Albumin/Globulin Ratio 0.7 (1.0-1.7) L Lipase 235 U/L (73-393) Lactic Acid Level 0.8 mmol/L (0.4-2.0) Laboratory Tests 07/06/19 03:50 Laboratory Tests 07/06/19 03:50 EKG EKG @0242 Sinus tachycardia at 100bpm, NO ST elevation, nonspecific t wave inversion III Radiology/Procedures Radiology/Procedures CXR 2V: (preliminary interpretation by ED physician): NO acute process Course & Med Decision Making Course & Med Decision Making Pertinent Labs and Imaging studies reviewed. (See chart for details) Patient with low cardiac risk factors presents with chest pain which patient reports is pleuritic in nature with associated shortness of air. Patient with history of methamphetamine abuse recently. Unable to rule out PE per PERC. EKG stable. Labs obtained and posted to chart. Initial troponin �1 negative. HEART Score 2. D-dimer elevated. CTA chest ordered however unable to obtain appropriate peripheral line despite bedside ultrasound guidance. CXR stable. VQ scan pending. Empiric Lovenox provided. Patient requiring observation admission for further evaluation and treatment. Discussed with Dr. Pickard (hospitalist) who is in agreement with admission. Discussed findings and plan with patient, who acknowledge understanding and agreement. Dragon Disclaimer Dragon Disclaimer This electronic medical record was generated, in whole or in part, using a voice recognition dictation system. Departure Departure Impression: Primary Impression: Pleuritic chest pain Additional Impressions: Methamphetamine abuse Elevated d-dimer Disposition: ADMITTED INPATIENT Admitting Physician: BLANCA De Jesus) Condition: STABLE Referrals: NO PCP (PCP) PERC Rule for PE PERC Rule for PE PERC Rule for PE Response (Comments) Value Age > 50: No 0 HR > 100: Yes 1 Sa02 on room air <95%: No 0 Unilateral leg swelling: No 0 Hemoptysis: No 0 Recent surgery or trauma: No 0 Prior PE or DVT: No 0 Hormone use: No 0 Total 1 The HEART Score for CP Pts HEART Score for Chest Pain: HEART Score for Chest Pain Response (Comments) Value History Moderately Suspicious 1 ECG Normal 0 Age < 45 0 Risk Factors 1 or 2 Risk Factors 1 Troponin < Normal Limit 0 Total 2 Risk Factors: Risk Factors: DM, Current or recent (<one month) smoker, HTN, HLP, family history of CAD, obesity. Risk Scores: Score 0 - 3: 2.5% MACE over next 6 weeks - Discharge Home Score 4 - 6: 20.3% MACE over next 6 weeks - Admit for Clinical Observation Score 7 - 10: 72.7% MACE over next 6 weeks - Early Invasive Strategies Problem Qualifiers YANET MONTELONGO DO Jul 06, 2019 03:00
[2019-07-06] MEDS ORDERED: DEXAMETHASONE SOD PHOS 20 MG/5 ML VIAL. IV ONE (03:15)
[2019-07-06 04:01] LABS: BASO % 0 % (0-3); EOS % 0 % (0-3); HEMATOCRIT 36.7 % (36.0-47.0); HEMOGLOBIN 12.3 g/dL (12.0-15.5); LYMPH # 1.3 x10^3/uL (1.0-4.8); LYMPH % 13 % (24-48); MEAN CORPUSCULAR HEMOGLOBIN 26 pg (25-35); MEAN CORPUSCULAR HGB CONC 34 g/dL (31-37); MEAN CORPUSCULAR VOLUME 77 fL (79-100); MONO # 0.9 x10^3/uL (0.0-1.1); MONO % 9 % (0-9); NEUT # 7.8 x10^3/uL (1.8-7.7); NEUT % 78 % (31-73); PLATELET COUNT 261 x10^3/uL (140-400); RED BLOOD COUNT 4.75 x10^6/uL (3.50-5.40); RED CELL DISTRIBUTION WIDTH 14.1 % (11.5-14.5); WHITE BLOOD COUNT 10.1 x10^3/uL (4.0-11.0)
[2019-07-06 04:10] LABS: CALCIUM 8.8 mg/dL (8.5-10.1); CREATININE 0.8 mg/dL (0.6-1.0); GFR 80.7; POTASSIUM 3.9 mmol/L (3.5-5.1)
[2019-07-06 04:13] LABS: PROTHROMBIN TIME PATIENT 13.8 SEC (11.7-14.0)
[2019-07-06 04:16] LABS: ALBUMIN 3.1 g/dL (3.4-5.0); ALBUMIN/GLOBULIN RATIO 0.7 (1.0-1.7); MAGNESIUM 1.9 mg/dL (1.8-2.4); TOTAL BILIRUBIN 0.4 mg/dL (0.2-1.0); TOTAL PROTEIN 7.7 g/dL (6.4-8.2)
[2019-07-06 04:35] LABS: CREATINE KINASE 38 U/L (26-192)
[2019-07-06] MEDS ORDERED: ONDANSETRON PF 4 MG/2 ML VIAL. IV PRN (05:00)
[2019-07-06 05:11] LABS: BILIRUBIN,URINE NEGATIVE (NEG); CLARITY,URINE CLEAR; COLOR,URINE YELLOW; NITRITE,URINE NEGATIVE (NEG); PROTEIN,URINE NEGATIVE (NEG-TRACE); UROBILINOGEN,URINE 0.2 mg/dL (0.2 mg/dL)
[2019-07-06 05:17] LABS: BARBITURATES NEG (NEG); BENZODIAZEPINES NEG (NEG); CANNABINOIDS NEG (NEG); COCAINE NEG (NEG); METHADONE NEG (NEG); OPIATES NEG (NEG); PHENCYCLIDINE NEG (NEG)
--- NOTE | 2019-07-06 05:18 | EKG ---
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
[2019-07-06 05:24] LABS: AMPHETAMINE/METHAMPHETAMINE NEG (NEG)
[2019-07-06 05:31] LABS: SQUAMOUS EPITHELIAL CELL,UR FEW /LPF
[2019-07-06 05:32] LABS: BACTERIA,URINE FEW /HPF (0-FEW); RBC,URINE OCC /HPF (0-2)
--- NOTE | 2019-07-06 06:47 | RAD ---
CHEST PA LATERAL INDICATION: Chest pain. COMPARISON STUDY: CT 03/25/2019. FINDINGS: Lungs: Normal lung volume. Wedged shaped right upper lung peripheral opacity. Left basilar peripheral opacity. Pleura: No pleural effusion or pneumothorax. Heart and Mediastinum: The cardiomediastinal silhouette is normal. The great vessels of the thorax are normal. IMPRESSION: Bilateral peripheral opacities, nonspecific. Considerations would include multifocal infection, scarring, or potentially pulmonary infarction given the wedge-shaped morphology. Electronically signed by: Subhash Garcia MD (07/06/2019 6:44 AM) [facility]
[2019-07-06 08:00] VITALS: BP 101/66
--- NOTE | 2019-07-06 10:08 | RAD ---
Examination: LUNG VENT/PERFUSION SCAN(VQ) History: Chest pain, elevated d-dimer Comparison/Correlation: 01/22/2019 CTA of the chest, 07/06/2019 two-view chest x-ray exam Findings: 21.5 mCi xenon-133 gas was administered. Ventilation is unremarkable with no defect identified in the anterior posterior projection. 5.5 mCi technetium 99m MAA was administered intravenously for perfusion imaging. Imaging was performed in 8 projections. There is no suspicious matched or mismatched defect. Impression: Low probability for pulmonary embolism. Electronically signed by: Gilberto Melendez MD (07/06/2019 10:05 AM) [facility]
[2019-07-06 11:00] VITALS: BP 113/64
[2019-07-06] MEDS ORDERED: PIP/TAZO PER PHARMACY MC PRN ×2 (12:00→12:45)
[2019-07-06] MEDS ORDERED: VANCOMYCIN PER PHARMACY MC PRN (12:45)
[2019-07-06] MEDS ORDERED: PIPERACILLIN/TAZOBACTAM 3.375 GM in IV NORMAL SALINE 50ML 50 ML IV SCH (13:00)
[2019-07-06] MEDS: HYDROcodone/APAP 5/325MG 1 TAB TABLET PO PRN ×2 (13:21→18:44)
[2019-07-06] MEDS ORDERED: VANCOMYCIN 2 GM in IV NORMAL SALINE 500ML BAG 500 ML IV ONE (13:30)
--- NOTE | 2019-07-06 13:49 | CONS ---
DATE OF CONSULTATION: PULMONARY CONSULTATION ATTENDING PHYSICIAN: Dr. Wilcox. REASONS FOR CONSULTATION: Pneumonia and substance abuse. HISTORY OF PRESENT ILLNESS: The patient is a 38-year-old who has history of intravenous methamphetamine abuse; she did for a year and half, then she was sober for a year, but then started doing in the last 4-5 days. She came into the hospital after she did intravenous methamphetamine. She said she started having high-grade fever. She has a mild nonproductive cough. She was having some pleuritic chest pain. She has no history of deep vein thrombosis or pulmonary embolism. She has history of sepsis in the past. She underwent imaging study and I have reviewed her CT chest. It has not been read yet. The patient has patchy, somewhat nodular, left-sided peripheral infiltrates. Her V/Q scan did not reveal any pulmonary embolism. I have been asked to see her for further evaluation. She denies any nausea or vomiting. No diarrhea. No dysuria. No focal weakness. No skin rash. PAST MEDICAL HISTORY: Significant for history of pneumonia, URI, and sepsis. PAST SURGICAL HISTORY: Hysterectomy. ALLERGIES: None. SOCIAL HISTORY: Intravenous methamphetamine abuse; denies any tobacco use. MEDICATIONS: Reviewed. She only got Zofran. REVIEW OF SYSTEMS: Twelve-point system obtained; pertinent positives discussed in my history of present illness, otherwise noncontributory. All systems that were negative were reviewed as well. FAMILY HISTORY: Noncontributory to lungs. PHYSICAL EXAMINATION: VITAL SIGNS: Her T-max 99.9, blood pressure 113/64, and pulse oximetry 95% on room air. NECK: Supple. LUNGS: Clear. CARDIOVASCULAR: With a regular rate. ABDOMEN: Soft. EXTREMITIES: With no pitting edema. LABORATORY DATA: Reviewed; white cell count 10.1, hemoglobin 12.3, and platelets are 261; BUN 6 and creatinine 0.8. IMPRESSION: 1. Dyspnea secondary to suspected sepsis. 2. High-grade fever, likely related to pneumonia; however, she has a strong suspicion for septic emboli based on some hazy nodular opacities in the left chest. 3. Intravenous methamphetamine abuse; now comes in with fever; suspect sepsis. 4. Need to rule out endocarditis. 5. No history of tobacco use. 6. No evidence of pulmonary embolism by V/Q scan. RECOMMENDATIONS: 1. Initiate broad-spectrum antibiotic with Zosyn and vancomycin. 2. Follow all blood cultures. 3. Infectious Disease consult. 4. Cardiology consult. 5. Transthoracic echo and if it is nondiagnostic, needs a transesophageal echo to rule out endocarditis. 6. Discussed with RN and we will follow along with you. I have instructed the patient to get rid of methamphetamine and also that she will require days in the hospital. ORTEGA CUENCA MD DR: GISSELLE/silvia JOB#: [id number] / [id number]
--- NOTE | 2019-07-06 13:50 | PDOC2 ---
CARDIAC CONSULT DATE OF CONSULT Date of Consult DATE: 07/06/19 TIME: 13:38 REASON FOR CONSULT Reason for Consult: Possible endocarditis REFERRING PHYSICIAN Referring Physician: Ainsley SOURCE Source: Chart review, Patient HISTORY OF PRESENT ILLNESS HISTORY OF PRESENT ILLNESS This is a pleasant 38 yo female admitted for complains of chest pain. Reports that this is sharp in consistency, more to left chest more to left lower ribcage area nonradiating and duplicated by respiration. With some SOA. No palpitations, nausea, or vomiting. Reports that she relapse with prior hx of meth abuse. She injected both her arms with methamphetamines 6 days ago and 3-4 days ago has not been feeling ok and was this sharp chest pain. She then started having high fever 103 with sweats. No prior hx of CAD, arrhythmias. PAST MEDICAL HISTORY Pulmonary: No pertinent hx CENTRAL NERVOUS SYSTEM: Other (No pertinent history) GI: No pertinent hx Hepatobiliary: No pertinent hx Psych: No pertinent hx Musculoskeletal: Other (none) Infectious disease: Other (prior sepsis/bacteremia) Renal/: No pertinent hx Endocrine: No pertinent hx Dermatology: No pertinent hx PAST SURGICAL HISTORY Past Surgical History: Hysterectomy FAMILY HISTORY Family History: Heart Disease SOCIAL HISTORY Smoke: No ALCOHOL: occassional Drugs: Crystal meth Lives: with Family (parents) CURRENT MEDICATIONS CURRENT MEDICATIONS Current Medications Medications (Trade) Dose Ordered Sig/Vee Route PRN Reason Start Time Stop Time Status Last Admin Dose Admin Aspirin (Roland Aspirin) 325 mg 1X ONCE PO 07/06/19 03:00 07/06/19 03:01 DC 07/06/19 04:14 Sodium Chloride 1,000 ml @ 1,000 mls/hr 1X ONCE IV 07/06/19 03:00 07/06/19 03:59 DC 07/06/19 04:14 Ketorolac Tromethamine (Toradol 15mg Vial) 15 mg 1X ONCE IV 07/06/19 03:00 07/06/19 03:01 DC 07/06/19 04:14 Dexamethasone Sodium Phosphate (Decadron) 10 mg 1X ONCE IV 07/06/19 03:15 07/06/19 03:16 DC 07/06/19 04:14 Enoxaparin Sodium (Lovenox 80mg Syringe) 75 mg 1X ONCE SQ 07/06/19 05:00 07/06/19 05:01 DC 07/06/19 05:38 Piperacillin Sod/ Tazobactam Sod 3.375 gm/Sodium Chloride 50 ml @ 100 mls/hr Q6HRS IV 07/06/19 13:00 07/06/19 13:19 Acetaminophen/ Hydrocodone Bitart (Lortab 5/325) 1 tab PRN Q4HRS PRN PO MODERATE PAIN 07/06/19 13:00 07/06/19 13:21 ALLERGIES ALLERGIES: Coded Allergies: No Known Drug Allergies (Unverified , 05/05/19) ROS Review of System 14 point ROS evaluated with pertinent positives noted per HPI PHYSICAL EXAM General: Alert, Oriented X3, Cooperative, No acute distress HEENT: Atraumatic, Mucous membr. moist/pink Lungs: Clear to auscultation, Normal air movement Heart: Regular rate (SR), Normal S1, Normal S2, No murmurs Abdomen: Soft, No tenderness Extremities: No cyanosis, No edema Skin: No breakdown, No significant lesion Neuro: Normal speech, Sensation intact Psych/Mental Status: Mental status NL, Mood NL MUSCULOSKELETAL: Full range of motion without pain VITALS/I&O VITALS/I&O: Vital Signs Date Time Temp Pulse Resp B/P (MAP) Pulse Ox O2 Delivery O2 Flow Rate FiO2 07/06/19 13:21 95 Room Air 07/06/19 11:00 97.4 79 18 113/64 (80) 97.4 I & O 07/05/19 07/05/19 07/06/19 15:00 23:00 07:00 Intake Total 1000 ml Balance 1000 ml LABS Lab: Laboratory Tests Test 07/06/19 03:50 07/06/19 04:08 07/06/19 05:00 07/06/19 09:45 White Blood Count 10.1 x10^3/uL (4.0-11.0) Red Blood Count 4.75 x10^6/uL (3.50-5.40) Hemoglobin 12.3 g/dL (12.0-15.5) Hematocrit 36.7 % (36.0-47.0) Mean Corpuscular Volume 77 fL (79-100) L Mean Corpuscular Hemoglobin 26 pg (25-35) Mean Corpuscular Hemoglobin Concent 34 g/dL (31-37) Red Cell Distribution Width 14.1 % (11.5-14.5) Platelet Count 261 x10^3/uL (140-400) Neutrophils (%) (Auto) 78 % (31-73) H Lymphocytes (%) (Auto) 13 % (24-48) L Monocytes (%) (Auto) 9 % (0-9) Eosinophils (%) (Auto) 0 % (0-3) Basophils (%) (Auto) 0 % (0-3) Neutrophils # (Auto) 7.8 x10^3/uL (1.8-7.7) H Lymphocytes # (Auto) 1.3 x10^3/uL (1.0-4.8) Monocytes # (Auto) 0.9 x10^3/uL (0.0-1.1) Eosinophils # (Auto) 0.0 x10^3/uL (0.0-0.7) Basophils # (Auto) 0.0 x10^3/uL (0.0-0.2) Prothrombin Time 13.8 SEC (11.7-14.0) Prothrombin Time INR 1.1 (0.8-1.1) Activated Partial Thromboplast Time 30 SEC (24-38) D-Dimer (Alysia) 1.81 ug/mlFEU (0.00-0.50) H Sodium Level 136 mmol/L (136-145) Potassium Level 3.9 mmol/L (3.5-5.1) Chloride Level 100 mmol/L (98-107) Carbon Dioxide Level 25 mmol/L (21-32) Anion Gap 11 (6-14) Blood Urea Nitrogen 6 mg/dL (7-20) L Creatinine 0.8 mg/dL (0.6-1.0) Estimated GFR (Cockcroft-Gault) 80.7 BUN/Creatinine Ratio 8 (6-20) Glucose Level 105 mg/dL (70-99) H Calcium Level 8.8 mg/dL (8.5-10.1) Magnesium Level 1.9 mg/dL (1.8-2.4) Total Bilirubin 0.4 mg/dL (0.2-1.0) Aspartate Amino Transferase (AST) 95 U/L (15-37) H Alanine Aminotransferase (ALT) 83 U/L (14-59) H Alkaline Phosphatase 159 U/L (46-116) H Creatine Kinase 38 U/L (26-192) Creatine Kinase MB (Mass) < 0.5 ng/mL (0.0-3.6) Creatine Kinase MB Relative Index % (0-4) Troponin I Quantitative < 0.017 ng/mL (0.000-0.055) < 0.017 ng/mL (0.000-0.055) LS-Wla-Q-Type Natriuretic Peptide 44 pg/mL (0-124) Total Protein 7.7 g/dL (6.4-8.2) Albumin 3.1 g/dL (3.4-5.0) L Albumin/Globulin Ratio 0.7 (1.0-1.7) L Lipase 235 U/L (73-393) Lactic Acid Level 0.8 mmol/L (0.4-2.0) Urine Collection Type Void Urine Color Yellow Urine Clarity Clear Urine pH 6.0 Urine Specific [place]win[place] 1.020 Urine Protein Negative mg/dL (NEG-TRACE) Urine Glucose (UA) Negative mg/dL (NEG) Urine Ketones (Stick) Negative mg/dL (NEG) Urine Blood Negative (NEG) Urine Nitrite Negative (NEG) Urine Bilirubin Negative (NEG) Urine Urobilinogen Dipstick 0.2 mg/dL (0.2 mg/dL) Urine Leukocyte Esterase Trace (NEG) Urine RBC Occ /HPF (0-2) Urine WBC 5-10 /HPF (0-4) Urine Squamous Epithelial Cells Few /LPF Urine Bacteria Few /HPF (0-FEW) Urine Mucus Mod /LPF Urine Opiates Screen Neg (NEG) Urine Methadone Screen Neg (NEG) Urine Barbiturates Neg (NEG) Urine Phencyclidine Screen Neg (NEG) Urine Amphetamine/Methamphetamine Neg (NEG) Urine Benzodiazepines Screen Neg (NEG) Urine Cocaine Screen Neg (NEG) Urine Cannabinoids Screen Neg (NEG) Urine Ethyl Alcohol Neg (NEG) Test 07/06/19 12:55 Troponin I Quantitative < 0.017 ng/mL (0.000-0.055) Laboratory Tests 07/06/19 03:50 Laboratory Tests 07/06/19 03:50 ECHOCARDIOGRAM ECHOCARDIOGRAM <Conclusion> The left ventricle is normal size. The left ventricular systolic function is normal and the ejection fraction is within normal range. The Ejection Fraction is 60-65%. There is no significant aortic valvular stenosis. Doppler and Color Flow revealed no significant aortic regurgitation. Doppler and Color-flow revealed trace mitral regurgitation. Doppler and Color Flow revealed mild tricuspid regurgitation. The PA pressure was estimated at 29 mmHg. DATE: 03/26/19 1249 ASSESSMENT/PLAN ASSESSMENT/PLAN 1. Atypical CP: pleuritic 2. Pneumonia with possible bacteremia with recent IV meth use 3. Substance abuse: Relapse last use 6 days ago and fever start 3-4 days ago. 4. Hx of MSSA bacteremia Recommendations 1. TTE and will note any semblance of endocarditis. Depending on BC will consider for JORGE LUIS 2. ID consult. Pulmonary on the case as well. JAZ BRAVO CONTACT CLERK Jul 06, 2019 13:50
--- NOTE | 2019-07-06 14:26 | CARD ---
MR#: [id number] Date of Study: 07/06/2019 Ordering Physician: ORTEGA CUENCA, Referring Physician: ORTEGA CUENCA Tech: Loly Richards [facility] APPROVED REPORT EXAM: Two-dimensional and M-mode echocardiogram with Doppler and color Doppler. Other Information Quality : AverageHR: 72bpm Rhythm : NSR INDICATION Chest Pain 2D DIMENSIONS RVDd2.9 (2.9-3.5cm)Left Atrium(2D)3.2 (1.6-4.0cm) IVSd0.9 (0.7-1.1cm)Aortic Root(2D)2.8 (2.0-3.7cm) LVDd4.5 (3.9-5.9cm)LVOT Diameter1.9 (1.8-2.4cm) PWd0.8 (0.7-1.1cm)LVDs2.6 (2.5-4.0cm) FS (%) 43.3 %SV69.1 ml LVEF(%)74.6 (>50%) Aortic Valve AoV Peak Dejan.145.3cm/sAoV VTI25.3cm AO Peak GR.8.4mmHgLVOT Peak Dejan.105.7cm/s AO Mean GR.5mmHgAVA (VMAX)2.00cm2 JEANNE (VTI)2.10cm2 Mitral Valve MV E Sjwdlicd97.5cm/sMV DECEL GDNN386qt MV A Wnhhjlis09.0cm/sE/A Ratio1.0 Pulmonary Valve PV Peak Nauyimum947.1cm/s Tricuspid Valve TR P. Pmmppqzv272bu/sRAP [id number] TR Peak Gr.[id number] LEFT VENTRICLE The left ventricle is normal size. There is normal left ventricular wall thickness. The left ventricl e is hyperdynamic. The Ejection Fraction is >70%. There is normal LV segmental wall motion. The left ventricular diastolic function and filling is normal for age. RIGHT VENTRICLE The right ventricle is normal size. There is normal right ventricular wall thickness. The right ventr icular systolic function is normal. ATRIA The left atrium size is normal. The right atrium size is normal. The interatrial septum is intact wit h no evidence for an atrial septal defect or patent foramen ovale as noted on 2-D or Doppler imaging. AORTIC VALVE The aortic valve is normal in structure and function. The aortic valve is trileaflet. Doppler and Col or Flow revealed no significant aortic regurgitation. There is no significant aortic valvular stenosi s. There is no aortic valvular vegetation. MITRAL VALVE The mitral valve is normal in structure and function. There is no evidence of mitral valve prolapse. There is no mitral valve stenosis. Doppler and Color Flow revealed no mitral valve regurgitation note d. TRICUSPID VALVE The tricuspid valve is normal in structure and function. Doppler and Color Flow revealed trace tricus pid regurgitation. The PA pressure was estimated at 29 mmHg. There is no tricuspid valve prolapse or vegetation. There is no tricuspid valve stenosis. PULMONIC VALVE The pulmonary valve is normal in structure and function. Doppler and Color Flow revealed no pulmonic valvular regurgitation. There is no pulmonic valvular stenosis. GREAT VESSELS The aortic root is normal in size. The ascending aorta is normal in size. The IVC is normal in size a nd collapses >50% with inspiration. PERICARDIAL EFFUSION There is no evidence of significant pericardial effusion. Critical Notification Critical Value: No <Conclusion> The left ventricle is hyperdynamic. The Ejection Fraction is >70%. There is normal LV segmental wall motion. Trace tricuspid regurgitation. The PA pressure was estimated at 29 mmHg. There is no evidence of significant pericardial effusion. Signed by : Valeriano Ontiveros, Electronically Approved : 07/06/2019 14:25:29
[2019-07-06 15:00] VITALS: BP 119/76
--- NOTE | 2019-07-06 15:16 | PDOC1 ---
History and Physical Date of Admission Date of Admission DATE: 07/06/19 TIME: 15:16 Source Source: Chart review, Patient History of Present Illness History of Present Illness Late Entry, pt seen 0930, was out at 0830 for VQ Ms. Yung, os a 38-year-old female admit with acute dyspnea and chest pain, severe over 24 hours, but present for 3 days. pain 06/05 - she reports she started having the symptoms after "dropping off the wagon" and using methamphetamine 6 days ago. no leg pain or swelling, some fever, no chills Denies known trauma. Cardiac risk factors of family history of CAD. she has 2 children, aged 12 and 17 Past Medical History Cardiovascular: No pertinent hx Pulmonary: No pertinent hx CENTRAL NERVOUS SYSTEM: Other (No pertinent history) GI: No pertinent hx Heme/Onc: No pertinent hx Hepatobiliary: No pertinent hx Psych: No pertinent hx Musculoskeletal: Other (none) Rheumatologic: No pertinent hx Infectious disease: Other (prior sepsis/bacteremia) Renal/: No pertinent hx Endocrine: No pertinent hx Dermatology: No pertinent hx Past Surgical History Past Surgical History: Hysterectomy Family History Family History: Heart Disease Social History Smoke: No ALCOHOL: occassional Drugs: Crystal meth Current Problem List Problem List Problems Medical Problems: (1) Methamphetamine abuse Status: Acute (2) Pleuritic chest pain Status: Acute Current Medications Current Medications Current Medications Aspirin (Roland Aspirin) 325 mg 1X ONCE PO Last administered on 07/06/19at 04:14; Start 07/06/19 at 03:00; Stop 07/06/19 at 03:01; Status DC Sodium Chloride 1,000 ml @ 1,000 mls/hr 1X ONCE IV Last administered on 07/06/19at 04:14; Start 07/06/19 at 03:00; Stop 07/06/19 at 03:59; Status DC Ketorolac Tromethamine (Toradol 15mg Vial) 15 mg 1X ONCE IV Last administered on 07/06/19at 04:14; Start 07/06/19 at 03:00; Stop 07/06/19 at 03:01; Status DC Dexamethasone Sodium Phosphate (Decadron) 10 mg 1X ONCE IV Last administered on 07/06/19at 04:14; Start 07/06/19 at 03:15; Stop 07/06/19 at 03:16; Status DC Enoxaparin Sodium (Lovenox 80mg Syringe) 75 mg 1X ONCE SQ Last administered on 07/06/19at 05:38; Start 07/06/19 at 05:00; Stop 07/06/19 at 05:01; Status DC Ondansetron HCl (Zofran) 4 mg PRN Q8HRS PRN IV NAUSEA/VOMITING; Start 07/06/19 at 05:00; Stop 07/07/19 at 04:59 Vancomycin HCl (Vanco Per Pharmacy) 1 each PRN DAILY PRN MC SEE COMMENTS; Start 07/06/19 at 12:00 Piperacillin Sod/ Tazobactam Sod (Zosyn Per Pharmacy) 1 each PRN DAILY PRN MC SEE COMMENTS; Start 07/06/19 at 12:00 Piperacillin Sod/ Tazobactam Sod 3.375 gm/Sodium Chloride 50 ml @ 100 mls/hr Q6HRS IV Last administered on 07/06/19at 13:19; Start 07/06/19 at 13:00 Vancomycin HCl 2 gm/Sodium Chloride 500 ml @ 250 mls/hr 1X ONCE IV Last administered on 07/06/19at 14:27; Start 07/06/19 at 13:30; Stop 07/06/19 at 15:29 Vancomycin HCl (Vanco Per Pharmacy) 1 each PRN DAILY PRN MC SEE COMMENTS; Start 07/06/19 at 12:45; Status UNV Piperacillin Sod/ Tazobactam Sod (Zosyn Per Pharmacy) 1 each PRN DAILY PRN MC SEE COMMENTS; Start 07/06/19 at 12:45; Status UNV Acetaminophen/ Hydrocodone Bitart (Lortab 5/325) 1 tab PRN Q4HRS PRN PO MODERATE PAIN Last administered on 07/06/19at 13:21; Start 07/06/19 at 13:00 Active Scripts Active Reported Benadryl (Diphenhydramine Hcl) 25 Mg Capsule 1 Cap PO QHS Allergies Allergies: Coded Allergies: No Known Drug Allergies (Unverified , 05/05/19) ROS General: YES: Chills, Fatigue, Malaise; No: Night Sweats, Appetite, Other PSYCHOLOGICAL ROS: No: Anxiety, Behavioral Disorder, Concentration difficultie, Decreased libido, Depression, Disorientation, Hallucinations, Hostility, Irritablity, Memory difficulties, Mood Swings, Obsessive thoughts, Physical abuse, Sexual abuse, Sleep disturbances, Suicidal ideation, Other Eyes: No Blurry vision, No Decreased vision, No Double vision, No Dry eyes, No Excessive tearing, No Eye Pain, No Itchy Eyes, No Loss of vision, No Photophobia, No Scotomata, No Uses contacts, No Uses glasses, No Other HEENT: No: Heacaches, Visual Changes, Hearing change, Nasal congestion, Nasal discharge, Oral lesions, Sinus pain, Sore Throat, Epistaxis, Sneezing, Snoring, Tinnitus, Vertigo, Vocal changes, Other Respiratory: YES: Cough, SOB with excertion; No: Hemoptysis, Orthopnea, Pleuritic Pain, Shortness of breath, Sputum Changes, Stridor, Tachypnea, Wheezing, Other Cardiovascular: yes Chest Pain; No Palpitations, No Orthopnea, No Paroxysmal Noc. Dyspnea, No Edema, No Lt Headedness, No Other Gastrointestinal: Yes Nausea; No Vomiting, No Abdominal Pain, No Diarrhea, No Constipation, No Melena, No Hematochezia, No Other Genitourinary: No Dysuria, No Frequency, No Incontinence, No Hematuria, No Retention, No Discharge, No Urgency, No Pain, No Flank Pain, No Other, No , No , No , No , No , No , No Musculoskeletal: Yes Joint Pain, Yes Joint Stiffness; No Gait Disturbance, No Joint Swelling, No Muscle Pain, No Muscular Weakness, No Pain In:, No Swelling In:, No Other Neurological: No Behavorial Changes, No Bowel/Bladder ControlChng, No Confusion, No Dizziness, No Gait Disturbance, No Headaches, No Impaired Coord/balance, No Memory Loss, No Numbness/Tingling, No Seizures, No Speech Problems, No Tremors, No Visual Changes, No Weakness, No Other Skin: Yes Dry Skin; No Eczema, No Hair Changes, No Lumps, No Mole Changes, No Mottling, No Nail Changes, No Pruritus, No Rash, No Skin Lesion Changes, No Other, No Acne Physical Exam General: Alert, Oriented X3, mild distress HEENT: PERRLA, EOMI, Mucous membr. moist/pink Lungs: Normal air movement, Other (rales, no wheeze, ) Heart: no gallops, no murmurs Abdomen: Normal bowel sounds, Soft Rectal Exam: not examined Extremities: No edema Skin: No rashes Neuro: Normal gait, Strength at 5/5 X4 ext, Normal tone, Cranial nerves 3-12 NL Vitals Vitals Vital Signs Date Time Temp Pulse Resp B/P (MAP) Pulse Ox O2 Delivery O2 Flow Rate FiO2 07/06/19 15:00 97.9 105 119/76 (90) 97.9 07/06/19 14:27 95 Room Air 07/06/19 11:00 18 Labs Labs Laboratory Tests Test 07/06/19 03:50 07/06/19 04:08 07/06/19 05:00 07/06/19 09:45 White Blood Count 10.1 x10^3/uL (4.0-11.0) Red Blood Count 4.75 x10^6/uL (3.50-5.40) Hemoglobin 12.3 g/dL (12.0-15.5) Hematocrit 36.7 % (36.0-47.0) Mean Corpuscular Volume 77 fL (79-100) Mean Corpuscular Hemoglobin 26 pg (25-35) Mean Corpuscular Hemoglobin Concent 34 g/dL (31-37) Red Cell Distribution Width 14.1 % (11.5-14.5) Platelet Count 261 x10^3/uL (140-400) Neutrophils (%) (Auto) 78 % (31-73) Lymphocytes (%) (Auto) 13 % (24-48) Monocytes (%) (Auto) 9 % (0-9) Eosinophils (%) (Auto) 0 % (0-3) Basophils (%) (Auto) 0 % (0-3) Neutrophils # (Auto) 7.8 x10^3/uL (1.8-7.7) Lymphocytes # (Auto) 1.3 x10^3/uL (1.0-4.8) Monocytes # (Auto) 0.9 x10^3/uL (0.0-1.1) Eosinophils # (Auto) 0.0 x10^3/uL (0.0-0.7) Basophils # (Auto) 0.0 x10^3/uL (0.0-0.2) Prothrombin Time 13.8 SEC (11.7-14.0) Prothromb Time International Ratio 1.1 (0.8-1.1) Activated Partial Thromboplast Time 30 SEC (24-38) D-Dimer (Alysia) 1.81 ug/mlFEU (0.00-0.50) Sodium Level 136 mmol/L (136-145) Potassium Level 3.9 mmol/L (3.5-5.1) Chloride Level 100 mmol/L (98-107) Carbon Dioxide Level 25 mmol/L (21-32) Anion Gap 11 (6-14) Blood Urea Nitrogen 6 mg/dL (7-20) Creatinine 0.8 mg/dL (0.6-1.0) Estimated GFR (Cockcroft-Gault) 80.7 BUN/Creatinine Ratio 8 (6-20) Glucose Level 105 mg/dL (70-99) Calcium Level 8.8 mg/dL (8.5-10.1) Magnesium Level 1.9 mg/dL (1.8-2.4) Total Bilirubin 0.4 mg/dL (0.2-1.0) Aspartate Amino Transf (AST/SGOT) 95 U/L (15-37) Alanine Aminotransferase (ALT/SGPT) 83 U/L (14-59) Alkaline Phosphatase 159 U/L (46-116) Creatine Kinase 38 U/L (26-192) Creatine Kinase MB (Mass) < 0.5 ng/mL (0.0-3.6) Creatine Kinase MB Relative Index % (0-4) Troponin I Quantitative < 0.017 ng/mL (0.000-0.055) < 0.017 ng/mL (0.000-0.055) EI-Ctx-U-Type Natriuretic Peptide 44 pg/mL (0-124) Total Protein 7.7 g/dL (6.4-8.2) Albumin 3.1 g/dL (3.4-5.0) Albumin/Globulin Ratio 0.7 (1.0-1.7) Lipase 235 U/L (73-393) Lactic Acid Level 0.8 mmol/L (0.4-2.0) Urine Collection Type Void Urine Color Yellow Urine Clarity Clear Urine pH 6.0 Urine Specific [place] 1.020 Urine Protein Negative mg/dL (NEG-TRACE) Urine Glucose (UA) Negative mg/dL (NEG) Urine Ketones (Stick) Negative mg/dL (NEG) Urine Blood Negative (NEG) Urine Nitrite Negative (NEG) Urine Bilirubin Negative (NEG) Urine Urobilinogen Dipstick 0.2 mg/dL (0.2 mg/dL) Urine Leukocyte Esterase Trace (NEG) Urine RBC Occ /HPF (0-2) Urine WBC 5-10 /HPF (0-4) Urine Squamous Epithelial Cells Few /LPF Urine Bacteria Few /HPF (0-FEW) Urine Mucus Mod /LPF Urine Opiates Screen Neg (NEG) Urine Methadone Screen Neg (NEG) Urine Barbiturates Neg (NEG) Urine Phencyclidine Screen Neg (NEG) Urine Amphetamine/Methamphetamine Neg (NEG) Urine Benzodiazepines Screen Neg (NEG) Urine Cocaine Screen Neg (NEG) Urine Cannabinoids Screen Neg (NEG) Urine Ethyl Alcohol Neg (NEG) Test 07/06/19 12:55 Troponin I Quantitative < 0.017 ng/mL (0.000-0.055) Laboratory Tests Test 07/06/19 03:50 07/06/19 04:08 07/06/19 05:00 07/06/19 09:45 White Blood Count 10.1 x10^3/uL (4.0-11.0) Red Blood Count 4.75 x10^6/uL (3.50-5.40) Hemoglobin 12.3 g/dL (12.0-15.5) Hematocrit 36.7 % (36.0-47.0) Mean Corpuscular Volume 77 fL (79-100) Mean Corpuscular Hemoglobin 26 pg (25-35) Mean Corpuscular Hemoglobin Concent 34 g/dL (31-37) Red Cell Distribution Width 14.1 % (11.5-14.5) Platelet Count 261 x10^3/uL (140-400) Neutrophils (%) (Auto) 78 % (31-73) Lymphocytes (%) (Auto) 13 % (24-48) Monocytes (%) (Auto) 9 % (0-9) Eosinophils (%) (Auto) 0 % (0-3) Basophils (%) (Auto) 0 % (0-3) Neutrophils # (Auto) 7.8 x10^3/uL (1.8-7.7) Lymphocytes # (Auto) 1.3 x10^3/uL (1.0-4.8) Monocytes # (Auto) 0.9 x10^3/uL (0.0-1.1) Eosinophils # (Auto) 0.0 x10^3/uL (0.0-0.7) Basophils # (Auto) 0.0 x10^3/uL (0.0-0.2) Prothrombin Time 13.8 SEC (11.7-14.0) Prothromb Time International Ratio 1.1 (0.8-1.1) Activated Partial Thromboplast Time 30 SEC (24-38) D-Dimer (Alysia) 1.81 ug/mlFEU (0.00-0.50) Sodium Level 136 mmol/L (136-145) Potassium Level 3.9 mmol/L (3.5-5.1) Chloride Level 100 mmol/L (98-107) Carbon Dioxide Level 25 mmol/L (21-32) Anion Gap 11 (6-14) Blood Urea Nitrogen 6 mg/dL (7-20) Creatinine 0.8 mg/dL (0.6-1.0) Estimated GFR (Cockcroft-Gault) 80.7 BUN/Creatinine Ratio 8 (6-20) Glucose Level 105 mg/dL (70-99) Calcium Level 8.8 mg/dL (8.5-10.1) Magnesium Level 1.9 mg/dL (1.8-2.4) Total Bilirubin 0.4 mg/dL (0.2-1.0) Aspartate Amino Transf (AST/SGOT) 95 U/L (15-37) Alanine Aminotransferase (ALT/SGPT) 83 U/L (14-59) Alkaline Phosphatase 159 U/L (46-116) Creatine Kinase 38 U/L (26-192) Creatine Kinase MB (Mass) < 0.5 ng/mL (0.0-3.6) Creatine Kinase MB Relative Index % (0-4) Troponin I Quantitative < 0.017 ng/mL (0.000-0.055) < 0.017 ng/mL (0.000-0.055) FV-Tpr-I-Type Natriuretic Peptide 44 pg/mL (0-124) Total Protein 7.7 g/dL (6.4-8.2) Albumin 3.1 g/dL (3.4-5.0) Albumin/Globulin Ratio 0.7 (1.0-1.7) Lipase 235 U/L (73-393) Lactic Acid Level 0.8 mmol/L (0.4-2.0) Urine Collection Type Void Urine Color Yellow Urine Clarity Clear Urine pH 6.0 Urine Specific [place] 1.020 Urine Protein Negative mg/dL (NEG-TRACE) Urine Glucose (UA) Negative mg/dL (NEG) Urine Ketones (Stick) Negative mg/dL (NEG) Urine Blood Negative (NEG) Urine Nitrite Negative (NEG) Urine Bilirubin Negative (NEG) Urine Urobilinogen Dipstick 0.2 mg/dL (0.2 mg/dL) Urine Leukocyte Esterase Trace (NEG) Urine RBC Occ /HPF (0-2) Urine WBC 5-10 /HPF (0-4) Urine Squamous Epithelial Cells Few /LPF Urine Bacteria Few /HPF (0-FEW) Urine Mucus Mod /LPF Urine Opiates Screen Neg (NEG) Urine Methadone Screen Neg (NEG) Urine Barbiturates Neg (NEG) Urine Phencyclidine Screen Neg (NEG) Urine Amphetamine/Methamphetamine Neg (NEG) Urine Benzodiazepines Screen Neg (NEG) Urine Cocaine Screen Neg (NEG) Urine Cannabinoids Screen Neg (NEG) Urine Ethyl Alcohol Neg (NEG) Test 07/06/19 12:55 Troponin I Quantitative < 0.017 ng/mL (0.000-0.055) VTE Prophylaxis Ordered VTE Prophylaxis Devices: Yes VTE Pharmacological Prophylaxi: No Assessment/Plan Assessment/Plan acute hypoxic respiratory failure CXR with "wedge" defect, could be infarction or infection, recent IV drug abuse severe chest pain BMI 31 with mild malnutrition SHERLY PAPPAS MD Jul 06, 2019 15:16
--- NOTE | 2019-07-06 15:39 | RAD ---
Examination: CT CHEST WO CONTRAST History: Pulmonary infarct or empyema possible Comparison/Correlation: 03/25/2019 CT chest without contrast Findings: Axial images of chest were obtained without contrast. Sagittal and coronal reformatted images were provided. Bibasilar costophrenic sulcus atelectasis is present. Multiple subpleural basilar nodular infiltrates are present. Right lateral upper thoracic linear atelectasis is evident. No enlarged thoracic lymph nodes. Resolution of the previously evident right paraspinal nodule at the upper lung field level is evident. Lingular nodule on axial image 35 of series 3 measuring up to 0.7 cm diameter is present. Lingular nodule which abuts the major fissure at the lung base no longer has a significant cavitary component and appears slightly increased in size compared to the prior exam. Splenic low-attenuation well-circumscribed measuring up to 2.5 cm x 1.7 cm is present with Hounsfield units of up to 25. It is unchanged compared to Bony structures are unremarkable. Impression: Overall increase in size and number of pulmonary nodules and infiltrates. Indeterminate splenic lesion. Low-attenuation is evident and this likely represents hemangioma or mildly complex cyst. PQRS Compliance Statement: One or more of the following individualized dose reduction techniques were utilized for this examination: 1. Automated exposure control 2. Adjustment of the mA and/or kV according to patient size 3. Use of iterative reconstruction technique Electronically signed by: Gilberto Melendez MD (07/06/2019 3:36 PM) [facility]
[2019-07-06] MEDS: VANCOMYCIN PER PHARMACY MC PRN (16:14)
--- NOTE | 2019-07-06 16:17 | NUR ---
Pharmacy Vancomycin Dosing Note S:Consulted to monitor and dose vancomycin started 07/06/19. O:YOSEF GORMAN is a 38 year old F with Pneumonia Height: 5 feet, 3 inches Weight: 80.9 kg [place] Body Weight: 52.40 Adjusted Body Weight: 63.80 Dosing Weight: Actual Other Antibiotics: ZOSYN LABS: Last BUN: 6 Last Creatinine: 0.8 Creatinine Clearance: 97 mL/min Last WBC: 10.1 Last Procalcitonin: Tmax (past 24 hours): 99.9 Last dose given 07/06/19 at 1430 Vancomycin Dosing: Loading Dose: 2000 mg x1 Dosing Weight: Actual Target Trough: 15-20 A: Based on: weight, renal function, and dosing during prior admit P: 1. Begin Vancomycin 1000 mg IV q8h 2. Follow up Trough level on 07/07/19 at 1330 3. Pharmacy will continue to monitor, follow and adjust therapy as needed. Audelia Figueroa Puja, 07/06/19 [id number]
[2019-07-06] MEDS ORDERED: IBUP-1060 PO (18:20)
[2019-07-06] MEDS: PIPERACILLIN/TAZOBACTAM 4.5 GM in IV NORMAL SALINE 100ML 100 ML IV SCH ×2 (18:44→23:32)
[2019-07-06 19:49] VITALS: BP 112/63
[2019-07-06] MEDS: VANCOMYCIN 1 GM in IV NORMAL SALINE 250ML 250 ML IV SCH (21:52)
[2019-07-06 23:08] VITALS: BP 99/63
[2019-07-07 02:33] VITALS: BP 127/88
[2019-07-07] MEDS: HYDROcodone/APAP 5/325MG 1 TAB TABLET PO PRN ×3 (03:16→18:46)
[2019-07-07] MEDS: VANCOMYCIN 1 GM in IV NORMAL SALINE 250ML 250 ML IV SCH (05:14)
[2019-07-07] MEDS: PIPERACILLIN/TAZOBACTAM 4.5 GM in IV NORMAL SALINE 100ML 100 ML IV SCH ×3 (06:25→18:47)
[2019-07-07 07:13] VITALS: BP_SYST 100; BP_SYST 154; BP_DIAS 62; BP_DIAS 75
[2019-07-07 07:36] LABS: CREATININE 0.7 mg/dL (0.6-1.0); GFR 94.2
[2019-07-07 07:39] LABS: CHOLESTEROL/HDL RATIO 5.5
[2019-07-07 10:37] VITALS: BP 117/60
--- NOTE | 2019-07-07 11:49 | NUR ---
SS following for discharge planning. SS reviewed pt chart. Pt is from home and is currently on room air. No discharge needs noted at this time. SS will continue to follow for discharge planning.
--- NOTE | 2019-07-07 13:10 | PDOC ---
[employer] PROGRESS NOTE Chief Complaint Chief Complaint Chest Pain Acute respiratory failure with hypoxia Methamphetamine abuse History of Present Illness History of Present Illness 07/07/19 Pt seen and examined at bedside Pt says chest pain is improved Pt exhibits NAD and expresses desire to go home saying she "has grass to cut." Vitals/I&O Vitals/I&O: Vital Signs Date Time Temp Pulse Resp B/P (MAP) Pulse Ox O2 Delivery O2 Flow Rate FiO2 07/07/19 12:41 95 Room Air 07/07/19 10:37 98.0 77 18 117/60 (79) 98.0 I & O 07/06/19 07/06/19 07/07/19 15:00 23:00 07:00 Intake Total 50 ml 350 ml 470 ml Balance 50 ml 350 ml 470 ml Physical Exam General: Alert, Oriented X3, mild distress Heart: Regular rate (SR), Normal S1, Normal S2, No murmurs Lungs: Clear Abdomen: Normal bowel sounds, Soft Extremities: No clubbing, No edema, No tenderness/swelling Skin: No rashes, No significant lesion Labs Labs: Laboratory Tests Test 07/07/19 06:37 Creatinine 0.7 mg/dL (0.6-1.0) Estimated GFR (Cockcroft-Gault) 94.2 Triglycerides Level 88 mg/dL (0-150) Cholesterol Level 159 mg/dL (0-200) LDL Cholesterol, Calculated 112 mg/dL (0-100) VLDL Cholesterol, Calculated 18 mg/dL (0-40) Non-HDL Cholesterol Calculated 130 mg/dL (0-129) HDL Cholesterol 29 mg/dL (40-60) Cholesterol/HDL Ratio 5.5 Procalcitonin < 0.10 ng/mL (0.00-0.10) Review of Systems Review of Systems: Denies MACDONALD Denies vision change Assessment and Plan Assessmemt and Plan Problems Medical Problems: (1) Acute respiratory failure with hypoxia Status: Acute (2) Chest pain Status: Acute (3) Methamphetamine abuse Status: Acute (4) Mild malnutrition Status: Chronic (5) Pleuritic chest pain Status: Acute Assessment Chest Pain Acute respiratory failure with hypoxia Methamphetamine abuse Plan Cardiac monitoring DVT prophylaxis Continue home meds Discussed methamphetamine cessation D/C once clear with subspecialties Comment Review of Relevant I have reviewed the following items ina (where applicable) has been applied. Medications: Current Medications Medications (Trade) Dose Ordered Sig/Vee Route PRN Reason Start Time Stop Time Status Last Admin Dose Admin Vancomycin HCl 2 gm/Sodium Chloride 500 ml @ 250 mls/hr 1X ONCE IV 07/06/19 13:30 07/06/19 15:29 DC 07/06/19 14:27 Vancomycin HCl 1 gm/Sodium Chloride 250 ml @ 250 mls/hr Q8H IV 07/06/19 22:00 07/07/19 05:14 Piperacillin Sod/ Tazobactam Sod 4.5 gm/Sodium Chloride 100 ml @ 200 mls/hr Q6HRS IV 07/06/19 18:00 07/07/19 12:41 CABRERA ZAIDI III DO Jul 07, 2019 13:10
--- NOTE | 2019-07-07 13:27 | PDOC ---
PULMONARY PROGRESS NOTES Subjective no soa Vitals Vital Signs Date Time Temp Pulse Resp B/P (MAP) Pulse Ox O2 Delivery O2 Flow Rate FiO2 07/07/19 12:41 95 Room Air 07/07/19 10:37 98.0 77 18 117/60 (79) 98.0 General: Alert, No acute distress Lungs: Clear Cardiovascular: S1 Abdomen: Soft Neuro Exam: Alert Extremities: No Edema Labs Laboratory Tests Test 07/06/19 03:50 07/06/19 04:08 07/06/19 05:00 07/06/19 09:45 White Blood Count 10.1 x10^3/uL (4.0-11.0) Red Blood Count 4.75 x10^6/uL (3.50-5.40) Hemoglobin 12.3 g/dL (12.0-15.5) Hematocrit 36.7 % (36.0-47.0) Mean Corpuscular Volume 77 fL (79-100) Mean Corpuscular Hemoglobin 26 pg (25-35) Mean Corpuscular Hemoglobin Concent 34 g/dL (31-37) Red Cell Distribution Width 14.1 % (11.5-14.5) Platelet Count 261 x10^3/uL (140-400) Neutrophils (%) (Auto) 78 % (31-73) Lymphocytes (%) (Auto) 13 % (24-48) Monocytes (%) (Auto) 9 % (0-9) Eosinophils (%) (Auto) 0 % (0-3) Basophils (%) (Auto) 0 % (0-3) Neutrophils # (Auto) 7.8 x10^3/uL (1.8-7.7) Lymphocytes # (Auto) 1.3 x10^3/uL (1.0-4.8) Monocytes # (Auto) 0.9 x10^3/uL (0.0-1.1) Eosinophils # (Auto) 0.0 x10^3/uL (0.0-0.7) Basophils # (Auto) 0.0 x10^3/uL (0.0-0.2) Prothrombin Time 13.8 SEC (11.7-14.0) Prothromb Time International Ratio 1.1 (0.8-1.1) Activated Partial Thromboplast Time 30 SEC (24-38) D-Dimer (Alysia) 1.81 ug/mlFEU (0.00-0.50) Sodium Level 136 mmol/L (136-145) Potassium Level 3.9 mmol/L (3.5-5.1) Chloride Level 100 mmol/L (98-107) Carbon Dioxide Level 25 mmol/L (21-32) Anion Gap 11 (6-14) Blood Urea Nitrogen 6 mg/dL (7-20) Creatinine 0.8 mg/dL (0.6-1.0) Estimated GFR (Cockcroft-Gault) 80.7 BUN/Creatinine Ratio 8 (6-20) Glucose Level 105 mg/dL (70-99) Calcium Level 8.8 mg/dL (8.5-10.1) Magnesium Level 1.9 mg/dL (1.8-2.4) Total Bilirubin 0.4 mg/dL (0.2-1.0) Aspartate Amino Transf (AST/SGOT) 95 U/L (15-37) Alanine Aminotransferase (ALT/SGPT) 83 U/L (14-59) Alkaline Phosphatase 159 U/L (46-116) Creatine Kinase 38 U/L (26-192) Creatine Kinase MB (Mass) < 0.5 ng/mL (0.0-3.6) Creatine Kinase MB Relative Index % (0-4) Troponin I Quantitative < 0.017 ng/mL (0.000-0.055) < 0.017 ng/mL (0.000-0.055) DS-Etp-L-Type Natriuretic Peptide 44 pg/mL (0-124) Total Protein 7.7 g/dL (6.4-8.2) Albumin 3.1 g/dL (3.4-5.0) Albumin/Globulin Ratio 0.7 (1.0-1.7) Lipase 235 U/L (73-393) Lactic Acid Level 0.8 mmol/L (0.4-2.0) Urine Collection Type Void Urine Color Yellow Urine Clarity Clear Urine pH 6.0 Urine Specific [place] 1.020 Urine Protein Negative mg/dL (NEG-TRACE) Urine Glucose (UA) Negative mg/dL (NEG) Urine Ketones (Stick) Negative mg/dL (NEG) Urine Blood Negative (NEG) Urine Nitrite Negative (NEG) Urine Bilirubin Negative (NEG) Urine Urobilinogen Dipstick 0.2 mg/dL (0.2 mg/dL) Urine Leukocyte Esterase Trace (NEG) Urine RBC Occ /HPF (0-2) Urine WBC 5-10 /HPF (0-4) Urine Squamous Epithelial Cells Few /LPF Urine Bacteria Few /HPF (0-FEW) Urine Mucus Mod /LPF Urine Opiates Screen Neg (NEG) Urine Methadone Screen Neg (NEG) Urine Barbiturates Neg (NEG) Urine Phencyclidine Screen Neg (NEG) Urine Amphetamine/Methamphetamine Neg (NEG) Urine Benzodiazepines Screen Neg (NEG) Urine Cocaine Screen Neg (NEG) Urine Cannabinoids Screen Neg (NEG) Urine Ethyl Alcohol Neg (NEG) Test 07/06/19 12:55 07/07/19 06:37 Troponin I Quantitative < 0.017 ng/mL (0.000-0.055) Creatinine 0.7 mg/dL (0.6-1.0) Estimated GFR (Cockcroft-Gault) 94.2 Triglycerides Level 88 mg/dL (0-150) Cholesterol Level 159 mg/dL (0-200) LDL Cholesterol, Calculated 112 mg/dL (0-100) VLDL Cholesterol, Calculated 18 mg/dL (0-40) Non-HDL Cholesterol Calculated 130 mg/dL (0-129) HDL Cholesterol 29 mg/dL (40-60) Cholesterol/HDL Ratio 5.5 Procalcitonin < 0.10 ng/mL (0.00-0.10) Laboratory Tests Test 07/07/19 06:37 Creatinine 0.7 mg/dL (0.6-1.0) Estimated GFR (Cockcroft-Gault) 94.2 Triglycerides Level 88 mg/dL (0-150) Cholesterol Level 159 mg/dL (0-200) LDL Cholesterol, Calculated 112 mg/dL (0-100) VLDL Cholesterol, Calculated 18 mg/dL (0-40) Non-HDL Cholesterol Calculated 130 mg/dL (0-129) HDL Cholesterol 29 mg/dL (40-60) Cholesterol/HDL Ratio 5.5 Procalcitonin < 0.10 ng/mL (0.00-0.10) Medications Active Scripts Medications Dose Route/Sig Max Daily Dose Days Date Category Ibuprofen 800 Mg Tablet 800 Mg PO PRN Q4-6HRS PRN 07/06/19 Reported Benadryl (Diphenhydramine Hcl) 25 Mg Capsule 1 Cap PO QHS 04/03/19 Reported Impression . 1. Dyspnea secondary to suspected sepsis. 2. High-grade fever, likely related to pneumonia; however, she has a strong suspicion for septic emboli based on some hazy nodular opacities in the left chest. 3. Intravenous methamphetamine abuse; now comes in with fever; suspect sepsis. 4. Need to rule out endocarditis. 5. No history of tobacco use. 6. No evidence of pulmonary embolism by V/Q scan. Plan . 1. broad-spectrum antibiotic 2. Follow all blood cultures. 3. Infectious Disease rec 4. Cardiology rec 5. Transthoracic echo reviewed. nondiagnostic, needs a transesophageal echo to rule out endocarditis if bacteremia is confirmed 6. Discussed with RN and we will follow along with you. ORTEGA CUENCA MD Jul 07, 2019 13:27
[2019-07-07 14:19] LABS: VANC TR 11.1 mcg/mL (10.0-20.0)
[2019-07-07 14:35] VITALS: BP 109/59
[2019-07-07] MEDS: VANCOMYCIN PER PHARMACY MC PRN ×2 (15:02→15:06)
--- NOTE | 2019-07-07 15:04 | NUR ---
Pharmacy Vancomycin Dosing Note S:Consulted to monitor and dose vancomycin started 07/06/19. O:YOSEF GORMAN is a 38 year old F with Endocarditis Pneumonia . Height: 5 feet, 3 inches Weight: 82.999442 kg [place] Body Weight: 52.40 Adjusted Body Weight: 63.80 Dosing Weight: Actual Other Antibiotics: ZOSYN LABS: Last BUN: 6 Last Creatinine: 0.8 Creatinine Clearance: 97 mL/min Last WBC: 10.1 Last Procalcitonin: Tmax (past 24 hours): 98 Microbiology: 07/07 PENDING I/O: Drug Levels: Last level: on at Last dose given 07/07/19 at 0514 Vancomycin Dosing: Loading Dose: 2000 mg x1 Dosing Weight: Actual Target Trough: 15-20 A: Based on: SUBTHERAPEUTIC TROUGH FOR INDICATION, P: 1. Initiate new regimen of Vancomycin 1250 mg IV q8h 2. Follow up Trough level on 07/08/19 at 0630 3. Pharmacy will continue to monitor, follow and adjust therapy as needed. [facility], 07/07/19 [id number]
[2019-07-07] MEDS: VANCOMYCIN 1.25 GM in IV NORMAL SALINE 250ML 250 ML IV SCH ×2 (16:36→22:44)
[2019-07-07 19:00] VITALS: BP 119/59
[2019-07-07] MEDS: LACTOBACILLUS RHAMNOSUS GG 1 CAPSULE. PO SCH (21:08)
[2019-07-07] MEDS: HYDROcodone/APAP 10/325 1 TAB TABLET PO PRN (22:42)
[2019-07-07 23:00] VITALS: BP 111/56
[2019-07-08] VITALS (11 sets, daily range): BP systolic 106–130; BP diastolic 60–88
--- NOTE | 2019-07-08 00:18 | DS ---
DATE OF DISCHARGE: 07/07/2019 ADMISSION DIAGNOSES: Chest pain, methamphetamine abuse. DISCHARGE DIAGNOSES: Atypical chest pain. Chronic methamphetamine abuse. HOSPITAL COURSE: The patient is a pleasant 38-year-old female who has chronic methamphetamine abuse issues. She presented with chest pain after doing some meth. We observed her overnight, did some cardiac workup, consulted Cardiology. Today, I saw her and examined her. She is doing well. No more chest pain. Heart sounds are normal. Lungs are clear. We plan to discharge. DISPOSITION: Home. ACTIVITY: As tolerated. DIET: Low sodium. MEDICATIONS: Please see the MRAD. TOTAL TIME: 33 minutes. CABRERA ZAIDI DO DR: BILL/silvia JOB#: [id number] / [id number]
[2019-07-08] MEDS: PIPERACILLIN/TAZOBACTAM 4.5 GM in IV NORMAL SALINE 100ML 100 ML IV SCH ×4 (00:42→21:13)
--- NOTE | 2019-07-08 03:12 | CONS ---
DATE OF CONSULTATION: 07/07/2019 REFERRING PHYSICIAN: Dr. Schmitz. REASON FOR CONSULTATION: Possible endocarditis. HISTORY OF PRESENT ILLNESS: A 38-year-old female with 3-day history of worsening pleuritic chest pain and shortness of breath presented to the ER on 07/06/2019. The patient started using methamphetamine again 6 days ago. She denied any fevers or chills. Denied any difficulty swallowing, sore throat, rash, joint pain, trauma, nausea, vomiting or symptoms. The patient underwent hospitalization in 02/2019 for chronic cough, chest pain and fevers. Workup revealed multiple parenchymal densities of the lung with cavitary nodule. Diagnostic considerations were septic emboli, pulmonary embolic disease or scarring from prior inflammatory or embolic episode. Since the patient had MSSA bacteremia on 03/23/2019 and 03/24/2019, with echocardiogram negative and repeat blood cultures negative on 03/25/2019, she was treated with 6 weeks of IV Rocephin, which she completed as outpatient. The patient said she had been clean until 6 days ago. T-max was 99.9. White count was normal. She had normal creatinine. CT chest revealed overall increase in the size and number of pulmonary nodules and infiltrates, intermittent splenic lesion. Low attenuation is evident and this likely represents hemangioma or complex cyst. D-dimer was 1.18. Lactate was normal. CK was normal. Troponin was normal. BNP was normal. Lipase was 236. UDS was negative. UA had 5-10 wbc's and trace leukocyte esterase. Chest x-ray had wedge defect, which could be infarction or infection. Urine cultures were done. No blood culture was available. The patient was started on IV vancomycin and Zosyn. ID consult has been requested for possible endocarditis. Today, the patient says her chest pain is better. She denies any fevers or chills. Denies any nausea, vomiting, diarrhea, headache, sore throat, difficulty swallowing, rash, joint pain, back pain, hematuria, dysuria or abdominal pain. The patient denies any trauma. Denies any medications or antibiotics prior to admission. Denies any procedure. She lives with her parents and children. She currently does not work. Denies any recent travel. The patient denies any focal neurologic weakness. PAST MEDICAL HISTORY: History of pneumonia, history of opioid and methamphetamine use and dental extraction with dentures. FAMILY HISTORY: Positive for drug use, diabetes and heart disease, though the patient denies any active drug use by family members at this time. SOCIAL HISTORY: Denies smoking, EtOH or illicit drug use, except for methamphetamine use 6 days ago; history of remote IVDU. Two children, 12 and 17. Not sexually active. Denies any history of STDs. The patient has cats, dogs and horses. Does not work. CURRENT MEDICATIONS: IV vancomycin and Zosyn. ALLERGIES: No known drug allergies. REVIEW OF SYSTEMS: Negative, except for above in the HPI. PHYSICAL EXAMINATION: VITAL SIGNS: Temperature 97.4, pulse 79, respiratory rate 18, blood pressure 113/84 and oxygen saturation 95% on room air. T-max 99.9. GENERAL: Alert and oriented x 3, pleasant female, lying in bed comfortably, in no acute distress, cooperative, eating breakfast. HEENT: Normocephalic, atraumatic. Anicteric. No thrush. Oral mucosa moist. Edentulous. No conjunctival petechiae. NECK: Supple. No JVD, no lymphadenopathy. LUNGS: Clear bilaterally. HEART: S1, S2. No gallops, murmurs or rubs. ABDOMEN: Soft, nontender and nondistended. No rebound or guarding. EXTREMITIES: No edema, no cyanosis, no clubbing. No peripheral stigmata of endocarditis. BACK: Reveals normal curvature. No CVA tenderness. DERMATOLOGIC: Warm, dry. No generalized rash. Multiple tattoos. NEUROLOGIC: Alert and oriented x 3, grossly nonfocal. PSYCHIATRIC: Cooperative, appropriate to mood, affect. LABORATORY DATA: WBC 10.1, hemoglobin 12.3, hematocrit 36.7, platelets 261,000 and neutrophils 78. Sodium 136, potassium 3.9, chloride 100, bicarbonate 25, BUN 6, creatinine 0.8 and glucose 105. LFTs elevated. Magnesium 1.9. Total bilirubin 0.4. Lipase 235. Albumin 3.1. Troponin within normal limits. Creatinine this morning is 0.7. Procalcitonin less than 0.10. On 07/06/2019, echocardiogram shows left ventricle is hyperdynamic. Ejection fraction is 70%. There is normal left ventricular segmental wall motion, tricuspid regurgitation. PA pressure is 29 mmHg. There is no evidence of significant pericardial effusion. IMPRESSION: 1. Febrile illness, likely related to pneumonia vs other 2. Dyspnea likely related to pneumonia. 3. Increase in size and number of pulmonary nodules and infiltrates.? septic emboli vs other etiologies 4. Indeterminate splenic lesion ,Complex splenic cyst or hemangioma. 5. IVDU with methamphetamine 7. History of methicillin-susceptible Staphylococcus aureus bacteremia on 02/2019,treated with IV antibiotics for 6 weeks due to pulm nodules, possible infective endocarditis,echo negative. RECOMMENDATIONS: 1. Continue empiric IV vancomycin and Zosyn. 2. Monitor renal functions closely. 3. Vancomycin and Zosyn dose to be adjusted according to renal function, Pharmacy to assist. 4. Obtain 3 sets of blood cultures. 5. Followup labs in the a.m. and cultures. 6. Advised to quit street drugs. 7. Continue supportive care. Thank you for consulting Infectious Disease to participate in this patient's care. If you have any questions, do not hesitate to contact me. MOODY NIELSEN MD DR: PK/silvia JOB#: [id number] / [id number] PASCUAL
[2019-07-08] MEDS: HYDROcodone/APAP 10/325 1 TAB TABLET PO PRN ×3 (05:50→19:22)
[2019-07-08 08:26] LABS: CALCIUM 8.4 mg/dL (8.5-10.1); CREATININE 0.9 mg/dL (0.6-1.0); GFR 70.5; POTASSIUM 3.4 mmol/L (3.5-5.1)
[2019-07-08 08:31] LABS: BASO % 0 % (0-3); EOS # 0.1 x10^3/uL (0.0-0.7); EOS % 1 % (0-3); HEMATOCRIT 30.7 % (36.0-47.0); HEMOGLOBIN 10.6 g/dL (12.0-15.5); LYMPH # 1.8 x10^3/uL (1.0-4.8); LYMPH % 19 % (24-48); MEAN CORPUSCULAR HEMOGLOBIN 27 pg (25-35); MEAN CORPUSCULAR HGB CONC 35 g/dL (31-37); MEAN CORPUSCULAR VOLUME 78 fL (79-100); MONO # 0.8 x10^3/uL (0.0-1.1); MONO % 8 % (0-9); NEUT # 6.9 x10^3/uL (1.8-7.7); NEUT % 72 % (31-73); PLATELET COUNT 286 x10^3/uL (140-400); RED BLOOD COUNT 3.96 x10^6/uL (3.50-5.40); RED CELL DISTRIBUTION WIDTH 14.1 % (11.5-14.5); WHITE BLOOD COUNT 9.6 x10^3/uL (4.0-11.0)
--- NOTE | 2019-07-08 08:35 | PDOC ---
Infectious Disease Note Subjective: Subjective pt has chestpain some subjective chills t max 99.9 dry cough no n/v/d/abdo pain ROS: ROS Negative otherwise. Vital Signs: Vital Signs Vital Signs Date Time Temp Pulse Resp B/P (MAP) Pulse Ox O2 Delivery O2 Flow Rate FiO2 07/08/19 05:54 16 96 Room Air 07/08/19 03:00 99.9 90 115/60 (78) 99.9 Physical Exam: PHYSICAL EXAM GENERAL: Alert and oriented x 3, pleasant female, lying in bed comfortably, in no acute distress, cooperative, eating breakfast. HEENT: Normocephalic, atraumatic. Anicteric. No thrush. Oral mucosa moist. Edentulous. No conjunctival petechiae. NECK: Supple. No JVD, no lymphadenopathy. LUNGS: Clear bilaterally. HEART: S1, S2. No gallops, murmurs or rubs. ABDOMEN: Soft, nontender and nondistended. No rebound or guarding. EXTREMITIES: No edema, no cyanosis, no clubbing. No peripheral stigmata of endocarditis. BACK: Reveals normal curvature. No CVA tenderness. DERMATOLOGIC: Warm, dry. No generalized rash. Multiple tattoos. NEUROLOGIC: Alert and oriented x 3, grossly nonfocal. PSYCHIATRIC: Cooperative, appropriate to mood, affect. Medications: Inpatient Meds: Current Medications Medications (Trade) Dose Ordered Sig/Vee Start Time Stop Time Status Last Admin Dose Admin Acetaminophen/ Hydrocodone Bitart (Lortab 10/325) 1 tab PRN Q6HRS PRN 07/07/19 22:45 07/08/19 05:54 1 TAB Acetaminophen/ Hydrocodone Bitart (Lortab 5/325) 1 tab PRN Q4HRS PRN 07/06/19 13:00 07/07/19 18:46 1 TAB Aspirin (Roland Aspirin) 325 mg 1X ONCE 07/06/19 03:00 07/06/19 03:01 DC 07/06/19 04:14 325 MG Dexamethasone Sodium Phosphate (Decadron) 10 mg 1X ONCE 07/06/19 03:15 07/06/19 03:16 DC 07/06/19 04:14 10 MG Doxycycline Hyclate (Vibra-Tab) 100 mg BID 07/08/19 09:00 Enoxaparin Sodium (Lovenox 80mg Syringe) 75 mg 1X ONCE 07/06/19 05:00 07/06/19 05:01 DC 07/06/19 05:38 75 MG Ketorolac Tromethamine (Toradol 15mg Vial) 15 mg 1X ONCE 07/06/19 03:00 07/06/19 03:01 DC 07/06/19 04:14 15 MG Lactobacillus Rhamnosus (Culturelle) 1 cap BID 07/07/19 21:00 07/07/19 21:09 1 CAP Ondansetron HCl (Zofran) 4 mg PRN Q8HRS PRN 07/06/19 05:00 07/07/19 04:59 DC Piperacillin Sod/ Tazobactam Sod (Zosyn Per Pharmacy) 1 each PRN DAILY PRN 07/06/19 12:45 UNV Piperacillin Sod/ Tazobactam Sod 3.375 gm/Sodium Chloride 50 ml @ 100 mls/hr Q6HRS 07/06/19 13:00 07/06/19 16:20 DC 07/06/19 13:19 100 MLS/HR Piperacillin Sod/ Tazobactam Sod 4.5 gm/Sodium Chloride 100 ml @ 200 mls/hr Q6HRS 07/06/19 18:00 07/08/19 05:54 200 MLS/HR Sodium Chloride 1,000 ml @ 1,000 mls/hr 1X ONCE 07/06/19 03:00 07/06/19 03:59 DC 07/06/19 04:14 1,000 MLS/HR Vancomycin HCl (Vanco Per Pharmacy) 1 each PRN DAILY PRN 07/06/19 12:45 UNV Vancomycin HCl (Vancomycin Trough Level) 1 each 1X ONCE 07/08/19 06:30 07/08/19 06:31 DC Vancomycin HCl 1.25 gm/Sodium Chloride 250 ml @ 167 mls/hr Q8H 07/07/19 15:00 07/07/19 22:44 167 MLS/HR Vancomycin HCl 1 gm/Sodium Chloride 250 ml @ 250 mls/hr Q8H 07/06/19 22:00 07/07/19 14:54 DC 07/07/19 05:14 250 MLS/HR Vancomycin HCl 2 gm/Sodium Chloride 500 ml @ 250 mls/hr 1X ONCE 07/06/19 13:30 07/06/19 15:29 DC 07/06/19 14:27 250 MLS/HR Labs: Lab Laboratory Tests Test 07/07/19 13:40 07/08/19 07:05 Vancomycin Level Trough 11.1 mcg/mL (10.0-20.0) Vancomycin Last Dose Date 07/07/19 Vancomycin Last Dose Time 0600 Treponema pallidum Antibody Nonreactive (Nonreactive) Hepatitis A IgM Antibody Nonreactive (Nonreactive) Hepatitis B Surface Antigen Nonreactive (Nonreactive) Hepatitis B Core IgM Antibody Nonreactive (Nonreactive) Hepatitis C IgG Antibody Nonreactive (Nonreactive) HIV (1&2) Antibody Screen Nonreactive (Nonreactive) Sodium Level 139 mmol/L (136-145) Potassium Level 3.4 mmol/L (3.5-5.1) Chloride Level 103 mmol/L (98-107) Carbon Dioxide Level 27 mmol/L (21-32) Anion Gap 9 (6-14) Blood Urea Nitrogen 8 mg/dL (7-20) Creatinine 0.9 mg/dL (0.6-1.0) Estimated GFR (Cockcroft-Gault) 70.5 Glucose Level 90 mg/dL (70-99) Calcium Level 8.4 mg/dL (8.5-10.1) Objective: Assessment: 1. Febrile illness, likely related to pneumonia vs other 2. Dyspnea likely related to pneumonia. 3. Pulmonary nodules February 2019, Increase in size and number of pulmonary nodules and infiltrates on repeat CT Chest.? septic pulm emboli vs other etiologies 4. Indeterminate splenic lesion ,Complex splenic cyst or hemangioma. 5. IVDU with methamphetamine 7. History of methicillin-susceptible Staphylococcus aureus bacteremia on 02/2019,treated with IV antibiotics for 6 weeks due to pulm nodules, possible infective endocarditis,echo negative. Plan: Plan of Care Continue empiric IV vancomycin and Zosyn. Monitor renal functions closely. Vancomycin and Zosyn dose to be adjusted according to renal function, Pharmacy to assist. f/u blood cultures 07/07. add doxycycline Followup labs in the a.m. and cultures. Advised to quit street drugs. Continue supportive care. D/W MOODY SEWELL MD Jul 08, 2019 08:35
[2019-07-08] MEDS: LACTOBACILLUS RHAMNOSUS GG 1 CAPSULE. PO SCH ×2 (08:45→21:13)
[2019-07-08] MEDS: DOXYCYCLINE HYCLATE 100 MG TABLET PO SCH ×2 (08:45→21:13)
[2019-07-08 08:46] LABS: VANC TR 15.9 mcg/mL (10.0-20.0)
[2019-07-08] MEDS: VANCOMYCIN 1.25 GM in IV NORMAL SALINE 250ML 250 ML IV SCH ×2 (09:46→19:16)
--- NOTE | 2019-07-08 09:52 | PDOC ---
[facility] [facility] PROGRESS NOTE Chief Complaint Chief Complaint Chest Pain Acute respiratory failure with hypoxia Methamphetamine abuse History of Present Illness History of Present Illness 07/08/19 Pt seen and examined at bedside Pt says she had a "bad night" describing sharp central chest pain radiating to her right chest. She describes the pain as an 8.5 this am Pt denies any other concerning sx Upon questioning, she says that she injected methamphetamines, and did not smoke it DW RN 07/07/19 Pt seen and examined at bedside Pt says chest pain is improved Pt exhibits NAD and expresses desire to go home saying she "has grass to cut." Vitals/I&O Vitals/I&O: Vital Signs Date Time Temp Pulse Resp B/P (MAP) Pulse Ox O2 Delivery O2 Flow Rate FiO2 07/08/19 08:44 96 Room Air 07/08/19 07:00 99.9 86 16 119/80 (93) 99.9 I & O 07/07/19 07/07/19 07/08/19 15:00 23:00 07:00 Intake Total 480 ml 1200 ml 240 ml Balance 480 ml 1200 ml 240 ml Physical Exam Physical Exam: GENERAL: Alert and oriented x 3, pleasant female, lying in bed comfortably, in no acute distress, cooperative, eating breakfast. HEENT: Normocephalic, atraumatic. Anicteric. No thrush. Oral mucosa moist. Edentulous. No conjunctival petechiae. NECK: Supple. No JVD, no lymphadenopathy. LUNGS: Clear bilaterally. HEART: S1, S2. No gallops, murmurs or rubs. ABDOMEN: Soft, nontender and nondistended. No rebound or guarding. EXTREMITIES: No edema, no cyanosis, no clubbing. No peripheral stigmata of endocarditis. BACK: Reveals normal curvature. No CVA tenderness. DERMATOLOGIC: Warm, dry. No generalized rash. Multiple tattoos. NEUROLOGIC: Alert and oriented x 3, grossly nonfocal. PSYCHIATRIC: Cooperative, appropriate to mood, affect. General: Alert, Oriented X3, mild distress Heart: Regular rate (SR), Normal S1, Normal S2, No murmurs Lungs: Clear Abdomen: Normal bowel sounds, Soft Extremities: No clubbing, No edema, No tenderness/swelling Skin: No rashes, No significant lesion Labs Labs: Laboratory Tests Test 07/07/19 13:40 07/08/19 07:05 Vancomycin Level Trough 11.1 mcg/mL (10.0-20.0) 15.9 mcg/mL (10.0-20.0) Vancomycin Last Dose Date 07/07/19 07/07/19 Vancomycin Last Dose Time 0600 2300 Treponema pallidum Antibody Nonreactive (Nonreactive) Hepatitis A IgM Antibody Nonreactive (Nonreactive) Hepatitis B Surface Antigen Nonreactive (Nonreactive) Hepatitis B Core IgM Antibody Nonreactive (Nonreactive) Hepatitis C IgG Antibody Nonreactive (Nonreactive) HIV (1&2) Antibody Screen Nonreactive (Nonreactive) White Blood Count 9.6 x10^3/uL (4.0-11.0) Red Blood Count 3.96 x10^6/uL (3.50-5.40) Hemoglobin 10.6 g/dL (12.0-15.5) Hematocrit 30.7 % (36.0-47.0) Mean Corpuscular Volume 78 fL (79-100) Mean Corpuscular Hemoglobin 27 pg (25-35) Mean Corpuscular Hemoglobin Concent 35 g/dL (31-37) Red Cell Distribution Width 14.1 % (11.5-14.5) Platelet Count 286 x10^3/uL (140-400) Neutrophils (%) (Auto) 72 % (31-73) Lymphocytes (%) (Auto) 19 % (24-48) Monocytes (%) (Auto) 8 % (0-9) Eosinophils (%) (Auto) 1 % (0-3) Basophils (%) (Auto) 0 % (0-3) Neutrophils # (Auto) 6.9 x10^3/uL (1.8-7.7) Lymphocytes # (Auto) 1.8 x10^3/uL (1.0-4.8) Monocytes # (Auto) 0.8 x10^3/uL (0.0-1.1) Eosinophils # (Auto) 0.1 x10^3/uL (0.0-0.7) Basophils # (Auto) 0.0 x10^3/uL (0.0-0.2) Sodium Level 139 mmol/L (136-145) Potassium Level 3.4 mmol/L (3.5-5.1) Chloride Level 103 mmol/L (98-107) Carbon Dioxide Level 27 mmol/L (21-32) Anion Gap 9 (6-14) Blood Urea Nitrogen 8 mg/dL (7-20) Creatinine 0.9 mg/dL (0.6-1.0) Estimated GFR (Cockcroft-Gault) 70.5 Glucose Level 90 mg/dL (70-99) Calcium Level 8.4 mg/dL (8.5-10.1) Review of Systems Review of Systems: co chest pain no co vision change Assessment and Plan Assessmemt and Plan Problems Medical Problems: (1) Acute respiratory failure with hypoxia Status: Acute (2) Chest pain Status: Acute (3) Dyspnea Status: Acute (4) High fever Status: Acute (5) Methamphetamine abuse Status: Acute (6) Mild malnutrition Status: Chronic (7) Pleuritic chest pain Status: Acute Assessment Chest Pain Acute respiratory failure with hypoxia Methamphetamine abuse Plan IV Zosyn and Vanco PO Doxy IV fluids Cardiac monitoring DVT prophylaxis Continue home meds Awaiting blood cultures- possible JORGE LUIS Appreciate subspecialty input Comment Review of Relevant I have reviewed the following items ina (where applicable) has been applied. Medications: Current Medications Medications (Trade) Dose Ordered Sig/Vee Route PRN Reason Start Time Stop Time Status Last Admin Dose Admin Vancomycin HCl (Vancomycin Trough Level) 1 each 1X ONCE 07/07/19 13:30 07/07/19 13:31 DC 07/07/19 16:02 Lactobacillus Rhamnosus (Culturelle) 1 cap BID PO 07/07/19 21:00 07/08/19 08:45 Vancomycin HCl 1.25 gm/Sodium Chloride 250 ml @ 167 mls/hr Q8H IV 07/07/19 15:00 07/08/19 09:46 Vancomycin HCl (Vancomycin Trough Level) 1 each 1X ONCE 07/08/19 06:30 07/08/19 06:31 DC 07/08/19 09:46 Acetaminophen/ Hydrocodone Bitart (Lortab 10/325) 1 tab PRN Q6HRS PRN PO SEVERE PAIN 7-10 07/07/19 22:45 07/08/19 05:54 Doxycycline Hyclate (Vibra-Tab) 100 mg BID PO 07/08/19 09:00 07/08/19 08:45 CABRERA ZAIDI III DO Jul 08, 2019 09:52
--- NOTE | 2019-07-08 10:50 | PDOC ---
PULMONARY PROGRESS NOTES Subjective no soa Vitals Vital Signs Date Time Temp Pulse Resp B/P (MAP) Pulse Ox O2 Delivery O2 Flow Rate FiO2 07/08/19 08:44 96 Room Air 07/08/19 07:00 99.9 86 16 119/80 (93) 99.9 General: Alert, No acute distress Lungs: Clear Cardiovascular: S1 Abdomen: Soft Neuro Exam: Alert Extremities: No Edema Labs Laboratory Tests Test 07/06/19 12:55 07/07/19 06:37 07/07/19 13:40 07/08/19 07:05 Troponin I Quantitative < 0.017 ng/mL (0.000-0.055) Creatinine 0.7 mg/dL (0.6-1.0) 0.9 mg/dL (0.6-1.0) Estimated GFR (Cockcroft-Gault) 94.2 70.5 Triglycerides Level 88 mg/dL (0-150) Cholesterol Level 159 mg/dL (0-200) LDL Cholesterol, Calculated 112 mg/dL (0-100) VLDL Cholesterol, Calculated 18 mg/dL (0-40) Non-HDL Cholesterol Calculated 130 mg/dL (0-129) HDL Cholesterol 29 mg/dL (40-60) Cholesterol/HDL Ratio 5.5 Procalcitonin < 0.10 ng/mL (0.00-0.10) Vancomycin Level Trough 11.1 mcg/mL (10.0-20.0) 15.9 mcg/mL (10.0-20.0) Vancomycin Last Dose Date 07/07/19 07/07/19 Vancomycin Last Dose Time 0600 2300 Treponema pallidum Antibody Nonreactive (Nonreactive) Hepatitis A IgM Antibody Nonreactive (Nonreactive) Hepatitis B Surface Antigen Nonreactive (Nonreactive) Hepatitis B Core IgM Antibody Nonreactive (Nonreactive) Hepatitis C IgG Antibody Nonreactive (Nonreactive) HIV (1&2) Antibody Screen Nonreactive (Nonreactive) White Blood Count 9.6 x10^3/uL (4.0-11.0) Red Blood Count 3.96 x10^6/uL (3.50-5.40) Hemoglobin 10.6 g/dL (12.0-15.5) Hematocrit 30.7 % (36.0-47.0) Mean Corpuscular Volume 78 fL (79-100) Mean Corpuscular Hemoglobin 27 pg (25-35) Mean Corpuscular Hemoglobin Concent 35 g/dL (31-37) Red Cell Distribution Width 14.1 % (11.5-14.5) Platelet Count 286 x10^3/uL (140-400) Neutrophils (%) (Auto) 72 % (31-73) Lymphocytes (%) (Auto) 19 % (24-48) Monocytes (%) (Auto) 8 % (0-9) Eosinophils (%) (Auto) 1 % (0-3) Basophils (%) (Auto) 0 % (0-3) Neutrophils # (Auto) 6.9 x10^3/uL (1.8-7.7) Lymphocytes # (Auto) 1.8 x10^3/uL (1.0-4.8) Monocytes # (Auto) 0.8 x10^3/uL (0.0-1.1) Eosinophils # (Auto) 0.1 x10^3/uL (0.0-0.7) Basophils # (Auto) 0.0 x10^3/uL (0.0-0.2) Sodium Level 139 mmol/L (136-145) Potassium Level 3.4 mmol/L (3.5-5.1) Chloride Level 103 mmol/L (98-107) Carbon Dioxide Level 27 mmol/L (21-32) Anion Gap 9 (6-14) Blood Urea Nitrogen 8 mg/dL (7-20) Glucose Level 90 mg/dL (70-99) Calcium Level 8.4 mg/dL (8.5-10.1) Laboratory Tests Test 07/07/19 13:40 07/08/19 07:05 Vancomycin Level Trough 11.1 mcg/mL (10.0-20.0) 15.9 mcg/mL (10.0-20.0) Vancomycin Last Dose Date 07/07/19 07/07/19 Vancomycin Last Dose Time 0600 2300 Treponema pallidum Antibody Nonreactive (Nonreactive) Hepatitis A IgM Antibody Nonreactive (Nonreactive) Hepatitis B Surface Antigen Nonreactive (Nonreactive) Hepatitis B Core IgM Antibody Nonreactive (Nonreactive) Hepatitis C IgG Antibody Nonreactive (Nonreactive) HIV (1&2) Antibody Screen Nonreactive (Nonreactive) White Blood Count 9.6 x10^3/uL (4.0-11.0) Red Blood Count 3.96 x10^6/uL (3.50-5.40) Hemoglobin 10.6 g/dL (12.0-15.5) Hematocrit 30.7 % (36.0-47.0) Mean Corpuscular Volume 78 fL (79-100) Mean Corpuscular Hemoglobin 27 pg (25-35) Mean Corpuscular Hemoglobin Concent 35 g/dL (31-37) Red Cell Distribution Width 14.1 % (11.5-14.5) Platelet Count 286 x10^3/uL (140-400) Neutrophils (%) (Auto) 72 % (31-73) Lymphocytes (%) (Auto) 19 % (24-48) Monocytes (%) (Auto) 8 % (0-9) Eosinophils (%) (Auto) 1 % (0-3) Basophils (%) (Auto) 0 % (0-3) Neutrophils # (Auto) 6.9 x10^3/uL (1.8-7.7) Lymphocytes # (Auto) 1.8 x10^3/uL (1.0-4.8) Monocytes # (Auto) 0.8 x10^3/uL (0.0-1.1) Eosinophils # (Auto) 0.1 x10^3/uL (0.0-0.7) Basophils # (Auto) 0.0 x10^3/uL (0.0-0.2) Sodium Level 139 mmol/L (136-145) Potassium Level 3.4 mmol/L (3.5-5.1) Chloride Level 103 mmol/L (98-107) Carbon Dioxide Level 27 mmol/L (21-32) Anion Gap 9 (6-14) Blood Urea Nitrogen 8 mg/dL (7-20) Creatinine 0.9 mg/dL (0.6-1.0) Estimated GFR (Cockcroft-Gault) 70.5 Glucose Level 90 mg/dL (70-99) Calcium Level 8.4 mg/dL (8.5-10.1) Medications Active Scripts Medications Dose Route/Sig Max Daily Dose Days Date Category Ibuprofen 800 Mg Tablet 800 Mg PO PRN Q4-6HRS PRN 07/06/19 Reported Benadryl (Diphenhydramine Hcl) 25 Mg Capsule 1 Cap PO QHS 04/03/19 Reported Impression . 1. Dyspnea secondary to suspected sepsis. 2. High-grade fever, likely related to pneumonia/ bacteremia; however, she has a strong suspicion for septic emboli based on some hazy nodular opacities in the left chest. 3. Intravenous methamphetamine abuse; now comes in with fever; suspect sepsis. 4. Need to rule out endocarditis. 5. No history of tobacco use. 6. No evidence of pulmonary embolism by V/Q scan. Plan . 1. broad-spectrum antibiotic 2. Follow all blood cultures.11/01 [facility] 3. Infectious Disease rec 4. Cardiology rec 5. Transthoracic echo reviewed. nondiagnostic, needs a transesophageal echo to rule out endocarditis 6. Discussed with RN and we will follow along with you. ORTEGA CUENCA MD Jul 08, 2019 10:50
[2019-07-08] MEDS: VANCOMYCIN PER PHARMACY MC PRN (11:41)
--- NOTE | 2019-07-08 11:43 | NUR ---
Pharmacy Vancomycin Dosing Note S:Consulted to monitor and dose vancomycin started 07/06/19. O:YOSEF GORMAN is a 38 year old F with concerns for endocarditis, pneumonia and bacteremia. Height: 5 feet, 3 inches Weight: 78.515637 kg [place] Body Weight: 52.40 Adjusted Body Weight: 62.64 Dosing Weight: Actual Other Antibiotics: ZOSYN Doxycycline LABS: Last BUN: 8 Last Creatinine: 0.9 Creatinine Clearance: 80-85 mL/min Last WBC: 9.6 Last Procalcitonin: < 0.10 Tmax (past 24 hours): 99.9 Microbiology: 07/07 Blood cultures growing gram + cocci in clusters I/O: 0/ voids Drug Levels: Last Trough level: 15.9 on 07/08/19 at 0705 Last dose given 07/07/19 at 2244 Vancomycin Dosing: Loading Dose: 2000 mg x1 Dosing Weight: Actual Target Trough: 15-20 A: Based on: Patient's trough level drawn prior to the 3rd dose of the new dosing regimen, patient's renal function, and severity of suspected infection P: 1. Will continue Vancomycin 1250 mg IV q8h 2. Follow up Trough level on 07/09/19 at 0930 3. Pharmacy will continue to monitor, follow and adjust therapy as needed. SENAIT GREENBERG RPH, 07/08/19 [id number]
[2019-07-08] MEDS ORDERED: BENZOCAINE ONE 20% MUCOSAL SPRAY. MM (11:45)
[2019-07-08] MEDS ORDERED: LIDOCAINE 2% TOPICAL JELLY 30GM TUBE. TP ONE ×2 (11:45→15:58)
[2019-07-08] MEDS ORDERED: LIDOCAINE 2% VISCOUS 15 ML SOLUTION. SWSW ONE (11:45)
--- NOTE | 2019-07-08 13:22 | NUR ---
SS following up with discharge planning. No discharge needs noted at this time. SS will continue to follow for discharge planning.
[2019-07-08] MEDS ORDERED: PROPOFOL 40 ML IV ONE (15:07)
[2019-07-08] MEDS ORDERED: LIDOCAINE 2% TOPICAL JELLY 5GM TUBE. TP ONE (15:07)
[2019-07-08] MEDS ORDERED: LIDOCAINE 2% PF 5 ML VIAL. ONE (15:07)
[2019-07-08] MEDS ORDERED: IV RINGERS,LACTATED 1000ML 1,000 ML IV SCH (15:30)
[2019-07-08] MEDS ORDERED: BENZOCAINE ONE 20% MUCOSAL SPRAY. (15:58)
[2019-07-08] MEDS ORDERED: LIDOCAINE 2% VISCOUS 15 ML SOLUTION. ONE (15:58)
--- NOTE | 2019-07-08 17:22 | CARD ---
MR#: [id number] Date of Study: 07/08/2019 Ordering Physician: KATELYN SALAS, Referring Physician: KATELYN SALAS Tech: Mariza Lock APPROVED REPORT EXAM: Two-dimensional and M-mode echocardiogram with Doppler and color Doppler. INDICATION Chest Pain Fever, Endocarditis Reason For Test : Rule out endocarditis. PROCEDURE After obtaining informed consent, patient underwent transesophageal echo in the PACU. Type of Sedation : General Anesthesia Sedation was administered by Jeremiah Garg CRNA. Sedation was achieved with Propofol 230mg intravenously. Transesophageal probe was inserted and advanced into esophagus by Katelyn Salas MD. The JORGE LUIS was performed without complications. Throughout the procedure, the blood pressure, pulse oximetry, cardiac rhythm, and rate were monitored . The patient tolerated the procedure without adverse effects. Recovery from general anesthesia was une ventful and vital signs were stable. LEFT VENTRICLE The left ventricle is normal size. There is normal left ventricular wall thickness. The left ventricu lar systolic function is normal. The Ejection Fraction is 55-60%. There is normal LV segmental wall m otion. Diastology not performed. RIGHT VENTRICLE The right ventricle is normal size. There is normal right ventricular wall thickness. The right ventr icular systolic function is normal. ATRIA The left atrium size is normal. The right atrium size is normal. The interatrial septum is intact wit h no evidence for an atrial septal defect or patent foramen ovale as noted on 2-D or Doppler imaging. There is no thrombus noted in the left atrial appendage. AORTIC VALVE The aortic valve is normal in structure and function. Doppler and Color Flow revealed no significant aortic regurgitation. There is no significant aortic valvular stenosis. There is no aortic valvular v egetation. MITRAL VALVE The mitral valve is normal in structure and function. There is no evidence of mitral valve prolapse. There is no mitral valve stenosis. Doppler and Color-flow revealed trace mitral regurgitation. TRICUSPID VALVE The tricuspid valve is normal in structure and function. Doppler and Color Flow revealed mild to mode rate tricuspid regurgitation. There is no tricuspid valve stenosis. PULMONIC VALVE The pulmonary valve is normal in structure and function. Doppler and Color Flow revealed no pulmonic valvular regurgitation. There is no pulmonic valvular stenosis. GREAT VESSELS The aortic root is normal in size. PERICARDIAL EFFUSION There is no evidence of significant pericardial effusion. There is no pleural effusion. Critical Notification Critical Value: No <Conclusion> The left ventricular systolic function is normal. The Ejection Fraction is 55-60%. There is normal LV segmental wall motion. Trace mitral regurgitation. Mild to moderate tricuspid regurgitation. There is no evidence of significant pericardial effusion. No intracardiac vegetations or thrombi. Signed by : Katelyn Salas, Electronically Approved : 07/08/2019 17:22:06
[2019-07-09] MEDS: PIPERACILLIN/TAZOBACTAM 4.5 GM in IV NORMAL SALINE 100ML 100 ML IV SCH ×5 (00:10→23:31)
[2019-07-09] MEDS: HYDROcodone/APAP 10/325 1 TAB TABLET PO PRN ×4 (01:07→22:01)
[2019-07-09] MEDS: VANCOMYCIN 1.25 GM in IV NORMAL SALINE 250ML 250 ML IV SCH ×3 (02:18→22:00)
[2019-07-09 02:31] VITALS: BP 104/65
[2019-07-09 07:00] VITALS: BP 123/85
--- NOTE | 2019-07-09 08:06 | PDOC ---
Infectious Disease Note Subjective: Subjective pt cont to have chestpain some subjective chills some headache dry cough no n/v/d/abdo pain ROS: ROS Negative otherwise. Vital Signs: Vital Signs Vital Signs Date Time Temp Pulse Resp B/P (MAP) Pulse Ox O2 Delivery O2 Flow Rate FiO2 07/09/19 07:30 Room Air 07/09/19 03:30 16 96 07/09/19 03:30 3.0 07/09/19 02:31 98.6 101 104/65 (78) 98.6 Physical Exam: PHYSICAL EXAM GENERAL: Alert and oriented x 3, pleasant female, lying in bed comfortably, in no acute distress, cooperative, eating breakfast. HEENT: Normocephalic, atraumatic. Anicteric. No thrush. Oral mucosa moist. Edentulous. No conjunctival petechiae. NECK: Supple. No JVD, no lymphadenopathy. LUNGS: Clear bilaterally. HEART: S1, S2. No gallops, murmurs or rubs. ABDOMEN: Soft, nontender and nondistended. No rebound or guarding. EXTREMITIES: No edema, no cyanosis, no clubbing. No peripheral stigmata of endocarditis. BACK: Reveals normal curvature. No CVA tenderness. DERMATOLOGIC: Warm, dry. No generalized rash. Multiple tattoos. NEUROLOGIC: Alert and oriented x 3, grossly nonfocal. PSYCHIATRIC: Cooperative, appropriate to mood, affect. Medications: Inpatient Meds: Current Medications Medications (Trade) Dose Ordered Sig/Vee Start Time Stop Time Status Last Admin Dose Admin Acetaminophen/ Hydrocodone Bitart (Lortab 10/325) 1 tab PRN Q6HRS PRN 07/07/19 22:45 07/09/19 01:07 1 TAB Acetaminophen/ Hydrocodone Bitart (Lortab 5/325) 1 tab PRN Q4HRS PRN 07/06/19 13:00 07/07/19 18:46 1 TAB Aspirin (Roland Aspirin) 325 mg 1X ONCE 07/06/19 03:00 07/06/19 03:01 DC 07/06/19 04:14 325 MG Benzocaine (Hurricaine One) 1 spray STK-MED ONCE 07/08/19 15:58 07/08/19 15:58 DC Dexamethasone Sodium Phosphate (Decadron) 10 mg 1X ONCE 07/06/19 03:15 07/06/19 03:16 DC 07/06/19 04:14 10 MG Doxycycline Hyclate (Vibra-Tab) 100 mg BID 07/08/19 09:00 07/08/19 21:14 100 MG Enoxaparin Sodium (Lovenox 80mg Syringe) 75 mg 1X ONCE 07/06/19 05:00 07/06/19 05:01 DC 07/06/19 05:38 75 MG Ketorolac Tromethamine (Toradol 15mg Vial) 15 mg 1X ONCE 07/06/19 03:00 07/06/19 03:01 DC 07/06/19 04:14 15 MG Lactobacillus Rhamnosus (Culturelle) 1 cap BID 07/07/19 21:00 07/08/19 21:14 1 CAP Lidocaine HCl (Lidocaine Pf 2% Vial) 5 ml STK-MED ONCE 07/08/19 15:07 07/08/19 15:07 DC Lidocaine HCl (Viscous Lidocaine) 15 ml STK-MED ONCE 07/08/19 15:58 07/08/19 15:59 DC Lidocaine HCl (Xylocaine 2% Topical 30gm Tube) 30 ebony STK-MED ONCE 07/08/19 15:58 07/08/19 15:59 DC Lidocaine HCl (Xylocaine 2% Topical 5gm Tube) 5 ebony STK-MED ONCE 07/08/19 15:07 07/08/19 15:07 DC Ondansetron HCl (Zofran) 4 mg PRN Q8HRS PRN 07/06/19 05:00 07/07/19 04:59 DC Piperacillin Sod/ Tazobactam Sod (Zosyn Per Pharmacy) 1 each PRN DAILY PRN 07/06/19 12:45 UNV Piperacillin Sod/ Tazobactam Sod 3.375 gm/Sodium Chloride 50 ml @ 100 mls/hr Q6HRS 07/06/19 13:00 07/06/19 16:20 DC 07/06/19 13:19 100 MLS/HR Piperacillin Sod/ Tazobactam Sod 4.5 gm/Sodium Chloride 100 ml @ 200 mls/hr Q6HRS 07/06/19 18:00 07/09/19 05:57 200 MLS/HR Propofol 40 ml @ As Directed STK-MED ONCE 07/08/19 15:07 07/08/19 15:07 DC Ringer's Solution 1,000 ml @ 75 mls/hr [id number] 07/08/19 15:30 07/09/19 05:15 DC 07/08/19 17:26 75 MLS/HR Sodium Chloride 1,000 ml @ 1,000 mls/hr 1X ONCE 07/06/19 03:00 07/06/19 03:59 DC 07/06/19 04:14 1,000 MLS/HR Vancomycin HCl (Vanco Per Pharmacy) 1 each PRN DAILY PRN 07/06/19 12:45 UNV Vancomycin HCl (Vancomycin Trough Level) 1 each 1X ONCE 07/09/19 09:30 07/09/19 09:31 Vancomycin HCl 1.25 gm/Sodium Chloride 250 ml @ 167 mls/hr Q8H 07/07/19 15:00 07/09/19 02:20 167 MLS/HR Vancomycin HCl 1 gm/Sodium Chloride 250 ml @ 250 mls/hr Q8H 07/06/19 22:00 07/07/19 14:54 DC 07/07/19 05:14 250 MLS/HR Vancomycin HCl 2 gm/Sodium Chloride 500 ml @ 250 mls/hr 1X ONCE 07/06/19 13:30 07/06/19 15:29 DC 07/06/19 14:27 250 MLS/HR Labs: Micro RUN DATE: 07/09/19 PAGE 1 RUN TIME: 753 [facility] [address] [place] [address] Irvin Valdez M.D., Registered Nurse PATIENT: YOSEF GORMAN ACCT: [id number] LOC: [address] [place] [address] U: [id number] AGE/SX: 38/F ROOM: 258 RE07/06/[address]: SHERLY PAPPAS MD : 1980 BED: 1 DIS: STATUS: ADM IN TLOC: SPEC #: [id number] DOLLY: 07/07/19 STATUS: COMP REQ #: [id number] RECD: 07/07/[address] [facility] [address]: MOODY NIELSEN MD SOURCE: BLOOD ENTR: 07/07/[address] [facility] [address]: LATONYA BAUER MD [facility]: SHERLY PAPPAS MD, VENKAT R MD SISILLO, SABATO MD ORDERED: BCULT Procedure Result BLOOD CULTURE Final AMENDED REPORT: 4 OF 6 BOTTLES ARE NOW POSITIVE. GRAM POSITIVE COCCI IN CLUSTERS IN 3 OF 6 BOTTLES(AEROBIC BOTTLE THIS SET);REPRESENTING 3 SETS DRAWN. THE RESULT WAS CALLED TO [place](2S)ON 07/08/19 AT 1128 BY Kurt TURNER. THE BLOOD CULTURE HAS BEEN SENT TO [facility] FOR FURTHER WORKUP. * This is an amended report. * A prior result that was reported as final has been changed. Objective: Assessment: 1. Bacteremia 01/30 bottles GPCs in a pt with IVDU, ID and TRE pending ,JORGE LUIS 07/08 neg for vegetations 2. Dyspnea and chestpain likely from septic emboli 3. Pulmonary nodules February 2019, Increase in size and number of pulmonary nodules and infiltrates on repeat CT Chest. likely septic pulm emboli 4. Indeterminate splenic lesion ,Complex splenic cyst or hemangioma. 5. IVDU with methamphetamine 7. History of methicillin-susceptible Staphylococcus aureus bacteremia on 02/2019,treated with IV antibiotics for 6 weeks due to pulm nodules, possible infective endocarditis,echo negative. 8. MR on JORGE LUIS Plan: Plan of Care Continue empiric IV vancomycin and Zosyn. Monitor renal functions closely. Vancomycin and Zosyn dose to be adjusted according to renal function, Pharmacy to assist. f/u blood cultures 07/07, 07/09 cont doxycycline Followup labs in the a.m. and cultures. Advised to quit street drugs. Continue supportive care. D/W MOODY SEWELL MD Jul 09, 2019 08:06
[2019-07-09] MEDS: DOXYCYCLINE HYCLATE 100 MG TABLET PO SCH ×2 (09:01→20:39)
[2019-07-09] MEDS: LACTOBACILLUS RHAMNOSUS GG 1 CAPSULE. PO SCH ×2 (09:01→20:39)
[2019-07-09 09:58] LABS: BASO % 0 % (0-3); EOS # 0.2 x10^3/uL (0.0-0.7); EOS % 2 % (0-3); HEMATOCRIT 33.7 % (36.0-47.0); HEMOGLOBIN 11.2 g/dL (12.0-15.5); LYMPH # 1.5 x10^3/uL (1.0-4.8); LYMPH % 18 % (24-48); MEAN CORPUSCULAR HEMOGLOBIN 26 pg (25-35); MEAN CORPUSCULAR HGB CONC 33 g/dL (31-37); MEAN CORPUSCULAR VOLUME 79 fL (79-100); MONO # 0.4 x10^3/uL (0.0-1.1); MONO % 5 % (0-9); NEUT # 6.1 x10^3/uL (1.8-7.7); NEUT % 75 % (31-73); PLATELET COUNT 290 x10^3/uL (140-400); RED BLOOD COUNT 4.26 x10^6/uL (3.50-5.40); RED CELL DISTRIBUTION WIDTH 14.2 % (11.5-14.5); WHITE BLOOD COUNT 8.2 x10^3/uL (4.0-11.0)
[2019-07-09 10:00] LABS: CALCIUM 8.5 mg/dL (8.5-10.1); GFR 62.4; POTASSIUM 3.7 mmol/L (3.5-5.1)
--- NOTE | 2019-07-09 10:35 | PDOC ---
[facility] [facility] PROGRESS NOTE Chief Complaint Chief Complaint Chest Pain Acute respiratory failure with hypoxia Methamphetamine abuse History of Present Illness History of Present Illness [id number] Patient seen and examined Discussed with RN We have 4 out of 6 blood cultures positive but the transesophageal echo is negative Awaiting sensitivities Sand Slinger is here drawing another set of cultures now 07/08/19 Pt seen and examined at bedside Pt says she had a "bad night" describing sharp central chest pain radiating to her right chest. She describes the pain as an 8.5 this am Pt denies any other concerning sx Upon questioning, she says that she injected methamphetamines, and did not smoke it DW RN 07/07/19 Pt seen and examined at bedside Pt says chest pain is improved Pt exhibits NAD and expresses desire to go home saying she "has grass to cut." Vitals/I&O Vitals/I&O: Vital Signs Date Time Temp Pulse Resp B/P (MAP) Pulse Ox O2 Delivery O2 Flow Rate FiO2 07/09/19 10:17 93 Room Air 07/09/19 07:00 99.4 88 16 123/85 (98) 99.4 07/09/19 03:30 3.0 I & O 07/08/19 07/08/19 07/09/19 14:59 22:59 06:59 Intake Total 400 ml 700 ml 740 ml Balance 400 ml 700 ml 740 ml Physical Exam Physical Exam: GENERAL: Alert and oriented x 3, pleasant female, lying in bed comfortably, in no acute distress, cooperative, eating breakfast. HEENT: Normocephalic, atraumatic. Anicteric. No thrush. Oral mucosa moist. Edentulous. No conjunctival petechiae. NECK: Supple. No JVD, no lymphadenopathy. LUNGS: Clear bilaterally. HEART: S1, S2. No gallops, murmurs or rubs. ABDOMEN: Soft, nontender and nondistended. No rebound or guarding. EXTREMITIES: No edema, no cyanosis, no clubbing. No peripheral stigmata of endocarditis. BACK: Reveals normal curvature. No CVA tenderness. DERMATOLOGIC: Warm, dry. No generalized rash. Multiple tattoos. NEUROLOGIC: Alert and oriented x 3, grossly nonfocal. PSYCHIATRIC: Cooperative, appropriate to mood, affect. General: Alert, Oriented X3, mild distress Heart: Regular rate (SR), Normal S1, Normal S2, No murmurs Lungs: Clear Abdomen: Normal bowel sounds, Soft Extremities: No clubbing, No edema, No tenderness/swelling Skin: No rashes, No significant lesion Labs Labs: Laboratory Tests Test 07/09/19 09:30 White Blood Count 8.2 x10^3/uL (4.0-11.0) Red Blood Count 4.26 x10^6/uL (3.50-5.40) Hemoglobin 11.2 g/dL (12.0-15.5) Hematocrit 33.7 % (36.0-47.0) Mean Corpuscular Volume 79 fL (79-100) Mean Corpuscular Hemoglobin 26 pg (25-35) Mean Corpuscular Hemoglobin Concent 33 g/dL (31-37) Red Cell Distribution Width 14.2 % (11.5-14.5) Platelet Count 290 x10^3/uL (140-400) Neutrophils (%) (Auto) 75 % (31-73) Lymphocytes (%) (Auto) 18 % (24-48) Monocytes (%) (Auto) 5 % (0-9) Eosinophils (%) (Auto) 2 % (0-3) Basophils (%) (Auto) 0 % (0-3) Neutrophils # (Auto) 6.1 x10^3/uL (1.8-7.7) Lymphocytes # (Auto) 1.5 x10^3/uL (1.0-4.8) Monocytes # (Auto) 0.4 x10^3/uL (0.0-1.1) Eosinophils # (Auto) 0.2 x10^3/uL (0.0-0.7) Basophils # (Auto) 0.0 x10^3/uL (0.0-0.2) Sodium Level 141 mmol/L (136-145) Potassium Level 3.7 mmol/L (3.5-5.1) Chloride Level 103 mmol/L (98-107) Carbon Dioxide Level 29 mmol/L (21-32) Anion Gap 9 (6-14) Blood Urea Nitrogen 8 mg/dL (7-20) Creatinine 1.0 mg/dL (0.6-1.0) Estimated GFR (Cockcroft-Gault) 62.4 Glucose Level 163 mg/dL (70-99) Calcium Level 8.5 mg/dL (8.5-10.1) Vancomycin Level Trough 20.0 mcg/mL (10.0-20.0) Vancomycin Last Dose Date 07/09/19 Vancomycin Last Dose Time 0200 Review of Systems Review of Systems: Complains of weakness Assessment and Plan Assessmemt and Plan Problems Medical Problems: (1) Acute respiratory failure with hypoxia Status: Acute (2) Chest pain Status: Acute (3) Dyspnea Status: Acute (4) High fever Status: Acute (5) Methamphetamine abuse Status: Acute (6) Mild malnutrition Status: Chronic (7) Pleuritic chest pain Status: Acute Assessment Chest Pain Acute respiratory failure with hypoxia Methamphetamine abuse Plan IV Zosyn and Vanco PO Doxy IV fluids Cardiac monitoring DVT prophylaxis Continue home meds Awaiting blood cultures and sensitivities Appreciate subspecialty input Comment Review of Relevant I have reviewed the following items ina (where applicable) has been applied. Medications: Current Medications Medications (Trade) Dose Ordered Sig/Vee Route PRN Reason Start Time Stop Time Status Last Admin Dose Admin Lidocaine HCl (Xylocaine 2% Topical 30gm Tube) 1 ebony 1X ONCE TP 07/08/19 11:45 07/08/19 11:48 DC 07/08/19 17:03 Benzocaine (Hurricaine One) 2 spray 1X ONCE MM 07/08/19 11:45 07/08/19 11:48 DC 07/08/19 17:03 Vancomycin HCl (Vancomycin Trough Level) 1 each 1X ONCE MC 07/09/19 09:30 07/09/19 09:31 DC 07/09/19 10:17 Ringer's Solution 1,000 ml @ 75 mls/hr [id number] IV 07/08/19 15:30 07/09/19 05:15 DC 07/08/19 17:26 CABRERA ZAIDI III DO Jul 09, 2019 10:35
[2019-07-09 11:00] VITALS: BP 106/69
--- NOTE | 2019-07-09 12:07 | PDOC ---
PULMONARY PROGRESS NOTES Subjective no soa Vitals Vital Signs Date Time Temp Pulse Resp B/P (MAP) Pulse Ox O2 Delivery O2 Flow Rate FiO2 07/09/19 11:00 98.9 91 16 106/69 (81) 90 Room Air 98.9 07/09/19 03:30 3.0 General: Alert, No acute distress Lungs: Clear Cardiovascular: S1 Abdomen: Soft Neuro Exam: Alert Extremities: No Edema Labs Laboratory Tests Test 07/07/19 13:40 07/08/19 07:05 07/09/19 09:30 Vancomycin Level Trough 11.1 mcg/mL (10.0-20.0) 15.9 mcg/mL (10.0-20.0) 20.0 mcg/mL (10.0-20.0) Vancomycin Last Dose Date 07/07/19 07/07/19 07/09/19 Vancomycin Last Dose Time 0600 2300 0200 Treponema pallidum Antibody Nonreactive (Nonreactive) Hepatitis A IgM Antibody Nonreactive (Nonreactive) Hepatitis B Surface Antigen Nonreactive (Nonreactive) Hepatitis B Core IgM Antibody Nonreactive (Nonreactive) Hepatitis C IgG Antibody Nonreactive (Nonreactive) HIV (1&2) Antibody Screen Nonreactive (Nonreactive) White Blood Count 9.6 x10^3/uL (4.0-11.0) 8.2 x10^3/uL (4.0-11.0) Red Blood Count 3.96 x10^6/uL (3.50-5.40) 4.26 x10^6/uL (3.50-5.40) Hemoglobin 10.6 g/dL (12.0-15.5) 11.2 g/dL (12.0-15.5) Hematocrit 30.7 % (36.0-47.0) 33.7 % (36.0-47.0) Mean Corpuscular Volume 78 fL (79-100) 79 fL (79-100) Mean Corpuscular Hemoglobin 27 pg (25-35) 26 pg (25-35) Mean Corpuscular Hemoglobin Concent 35 g/dL (31-37) 33 g/dL (31-37) Red Cell Distribution Width 14.1 % (11.5-14.5) 14.2 % (11.5-14.5) Platelet Count 286 x10^3/uL (140-400) 290 x10^3/uL (140-400) Neutrophils (%) (Auto) 72 % (31-73) 75 % (31-73) Lymphocytes (%) (Auto) 19 % (24-48) 18 % (24-48) Monocytes (%) (Auto) 8 % (0-9) 5 % (0-9) Eosinophils (%) (Auto) 1 % (0-3) 2 % (0-3) Basophils (%) (Auto) 0 % (0-3) 0 % (0-3) Neutrophils # (Auto) 6.9 x10^3/uL (1.8-7.7) 6.1 x10^3/uL (1.8-7.7) Lymphocytes # (Auto) 1.8 x10^3/uL (1.0-4.8) 1.5 x10^3/uL (1.0-4.8) Monocytes # (Auto) 0.8 x10^3/uL (0.0-1.1) 0.4 x10^3/uL (0.0-1.1) Eosinophils # (Auto) 0.1 x10^3/uL (0.0-0.7) 0.2 x10^3/uL (0.0-0.7) Basophils # (Auto) 0.0 x10^3/uL (0.0-0.2) 0.0 x10^3/uL (0.0-0.2) Sodium Level 139 mmol/L (136-145) 141 mmol/L (136-145) Potassium Level 3.4 mmol/L (3.5-5.1) 3.7 mmol/L (3.5-5.1) Chloride Level 103 mmol/L (98-107) 103 mmol/L (98-107) Carbon Dioxide Level 27 mmol/L (21-32) 29 mmol/L (21-32) Anion Gap 9 (6-14) 9 (6-14) Blood Urea Nitrogen 8 mg/dL (7-20) 8 mg/dL (7-20) Creatinine 0.9 mg/dL (0.6-1.0) 1.0 mg/dL (0.6-1.0) Estimated GFR (Cockcroft-Gault) 70.5 62.4 Glucose Level 90 mg/dL (70-99) 163 mg/dL (70-99) Calcium Level 8.4 mg/dL (8.5-10.1) 8.5 mg/dL (8.5-10.1) Laboratory Tests Test 07/09/19 09:30 White Blood Count 8.2 x10^3/uL (4.0-11.0) Red Blood Count 4.26 x10^6/uL (3.50-5.40) Hemoglobin 11.2 g/dL (12.0-15.5) Hematocrit 33.7 % (36.0-47.0) Mean Corpuscular Volume 79 fL (79-100) Mean Corpuscular Hemoglobin 26 pg (25-35) Mean Corpuscular Hemoglobin Concent 33 g/dL (31-37) Red Cell Distribution Width 14.2 % (11.5-14.5) Platelet Count 290 x10^3/uL (140-400) Neutrophils (%) (Auto) 75 % (31-73) Lymphocytes (%) (Auto) 18 % (24-48) Monocytes (%) (Auto) 5 % (0-9) Eosinophils (%) (Auto) 2 % (0-3) Basophils (%) (Auto) 0 % (0-3) Neutrophils # (Auto) 6.1 x10^3/uL (1.8-7.7) Lymphocytes # (Auto) 1.5 x10^3/uL (1.0-4.8) Monocytes # (Auto) 0.4 x10^3/uL (0.0-1.1) Eosinophils # (Auto) 0.2 x10^3/uL (0.0-0.7) Basophils # (Auto) 0.0 x10^3/uL (0.0-0.2) Sodium Level 141 mmol/L (136-145) Potassium Level 3.7 mmol/L (3.5-5.1) Chloride Level 103 mmol/L (98-107) Carbon Dioxide Level 29 mmol/L (21-32) Anion Gap 9 (6-14) Blood Urea Nitrogen 8 mg/dL (7-20) Creatinine 1.0 mg/dL (0.6-1.0) Estimated GFR (Cockcroft-Gault) 62.4 Glucose Level 163 mg/dL (70-99) Calcium Level 8.5 mg/dL (8.5-10.1) Vancomycin Level Trough 20.0 mcg/mL (10.0-20.0) Vancomycin Last Dose Date 07/09/19 Vancomycin Last Dose Time 0200 Medications Active Scripts Medications Dose Route/Sig Max Daily Dose Days Date Category Ibuprofen 800 Mg Tablet 800 Mg PO PRN Q4-6HRS PRN 07/06/19 Reported Benadryl (Diphenhydramine Hcl) 25 Mg Capsule 1 Cap PO QHS 04/03/19 Reported Impression . 1. Dyspnea secondary to suspected sepsis. 2. High-grade fever POA, likely related to pneumonia/ bacteremia; however, she has a strong suspicion for septic emboli based on some hazy nodular opacities in the left chest. 3. Intravenous methamphetamine abuse; now comes in with fever; suspect sepsis. 4. Need to rule out endocarditis. 5. No history of tobacco use. 6. No evidence of pulmonary embolism by V/Q scan. Plan . 1. broad-spectrum antibiotic 2. Follow all blood cultures./ positive for staph 3. Infectious Disease rec 4. Cardiology rec 5. transesophageal echo neg for vegetations 6. Discussed with RN and we will follow along with you. ORTEGA CUENCA MD Jul 09, 2019 12:07
[2019-07-09] MEDS: VANCOMYCIN PER PHARMACY MC PRN (14:48)
--- NOTE | 2019-07-09 14:48 | NUR ---
Pharmacy Vancomycin Dosing Note S:Consulted to monitor and dose vancomycin started 07/06/19. O:YOSEF GORMAN is a 38 year old F with Endocarditis Pneumonia . Height: 5 feet, 3 inches Weight: 81.408265 kg [place] Body Weight: 52.40 Adjusted Body Weight: 62.64 Dosing Weight: Actual Other Antibiotics: ZOSYN Doxycycline LABS: Last BUN: 8 Last Creatinine: 1 Creatinine Clearance: 78.02 mL/min Last WBC: 9.6 Last Procalcitonin: < 0.10 Tmax (past 24 hours): 99.4 Microbiology: 07/07 Blood cultures growing gram + cocci in clusters I/O: 1919/ voids Drug Levels: Last Trough level: 20 on 07/09/19 at 0930 Last dose given 07/08/19 at 0946 Vancomycin Dosing: Loading Dose: 2000 mg x1 Dosing Weight: Actual Target Trough: 15-20 A: Based on: the fact that the vanc level is trending up and scr has changed fro 0.9 to 1.0, P: 1. Change vanco to Vancomycin 1250 mg IV q12h 2. Follow up Trough level as needed 3. Pharmacy will continue to monitor, follow and adjust therapy as needed. SONIDO MARIANO [facility], 07/09/19 0064
[2019-07-09 15:00] VITALS: BP 116/76
[2019-07-09 19:40] VITALS: BP 117/82
[2019-07-09 23:46] VITALS: BP 138/91
[2019-07-10 03:20] VITALS: BP 134/88
[2019-07-10] MEDS: HYDROcodone/APAP 10/325 1 TAB TABLET PO PRN ×3 (03:54→20:23)
[2019-07-10 05:04] LABS: BASO % 1 % (0-3); EOS # 0.3 x10^3/uL (0.0-0.7); EOS % 4 % (0-3); HEMATOCRIT 30.5 % (36.0-47.0); HEMOGLOBIN 10.1 g/dL (12.0-15.5); LYMPH # 1.7 x10^3/uL (1.0-4.8); LYMPH % 22 % (24-48); MEAN CORPUSCULAR HEMOGLOBIN 26 pg (25-35); MEAN CORPUSCULAR HGB CONC 33 g/dL (31-37); MEAN CORPUSCULAR VOLUME 78 fL (79-100); MONO # 0.6 x10^3/uL (0.0-1.1); MONO % 8 % (0-9); NEUT # 5.1 x10^3/uL (1.8-7.7); NEUT % 65 % (31-73); PLATELET COUNT 325 x10^3/uL (140-400); RED BLOOD COUNT 3.91 x10^6/uL (3.50-5.40); RED CELL DISTRIBUTION WIDTH 14.1 % (11.5-14.5); WHITE BLOOD COUNT 7.9 x10^3/uL (4.0-11.0)
[2019-07-10 05:18] LABS: CALCIUM 8.8 mg/dL (8.5-10.1); CREATININE 0.8 mg/dL (0.6-1.0); GFR 80.7; POTASSIUM 3.7 mmol/L (3.5-5.1)
[2019-07-10] MEDS: PIPERACILLIN/TAZOBACTAM 4.5 GM in IV NORMAL SALINE 100ML 100 ML IV SCH ×3 (05:35→17:29)
[2019-07-10 07:00] VITALS: BP 129/81
[2019-07-10 08:03] LABS: % ATYL 1 % (0-0); % BANDS 12 % (0-9); % EOS 4 % (0-5); % LYMPHS 20 % (24-48); % MONOS 3 % (0-10); % SEGS 60 % (35-66); PLT ESTIMATE ADEQUATE (ADEQUATE)
[2019-07-10 08:04] LABS: MICROCYTOSIS SLIGHT; POLYCHROMASIA PRESENT
[2019-07-10] MEDS: DOXYCYCLINE HYCLATE 100 MG TABLET PO SCH ×2 (08:29→20:22)
[2019-07-10] MEDS: LACTOBACILLUS RHAMNOSUS GG 1 CAPSULE. PO SCH ×2 (08:30→20:22)
--- NOTE | 2019-07-10 09:40 | PDOC ---
Infectious Disease Note Subjective: Subjective pt cont to have chestpain some headache dry cough no n/v/d/abdo pain/jt pain or back pain ROS: ROS Negative otherwise. Vital Signs: Vital Signs Vital Signs Date Time Temp Pulse Resp B/P (MAP) Pulse Ox O2 Delivery O2 Flow Rate FiO2 07/10/19 08:30 Room Air 07/10/19 07:00 98.4 73 18 129/81 (97) 90 98.4 Physical Exam: PHYSICAL EXAM GENERAL: Alert and oriented x 3, pleasant female, lying in bed comfortably, in no acute distress, cooperative, eating breakfast. HEENT: Normocephalic, atraumatic. Anicteric. No thrush. Oral mucosa moist. Edentulous. No conjunctival petechiae. NECK: Supple. No JVD, no lymphadenopathy. LUNGS: Clear bilaterally. HEART: S1, S2. No gallops, murmurs or rubs. ABDOMEN: Soft, nontender and nondistended. No rebound or guarding. EXTREMITIES: No edema, no cyanosis, no clubbing. No peripheral stigmata of endocarditis. BACK: Reveals normal curvature. No CVA tenderness. DERMATOLOGIC: Warm, dry. No generalized rash. Multiple tattoos. NEUROLOGIC: Alert and oriented x 3, grossly nonfocal. PSYCHIATRIC: Cooperative, appropriate to mood, affect. Medications: Inpatient Meds: Current Medications Medications (Trade) Dose Ordered Sig/Vee Start Time Stop Time Status Last Admin Dose Admin Acetaminophen/ Hydrocodone Bitart (Lortab 10/325) 1 tab PRN Q6HRS PRN 07/07/19 22:45 07/10/19 03:54 1 TAB Acetaminophen/ Hydrocodone Bitart (Lortab 5/325) 1 tab PRN Q4HRS PRN 07/06/19 13:00 07/07/19 18:46 1 TAB Aspirin (Roland Aspirin) 325 mg 1X ONCE 07/06/19 03:00 07/06/19 03:01 DC 07/06/19 04:14 325 MG Benzocaine (Hurricaine One) 1 spray STK-MED ONCE 07/08/19 15:58 07/08/19 15:58 DC Dexamethasone Sodium Phosphate (Decadron) 10 mg 1X ONCE 07/06/19 03:15 07/06/19 03:16 DC 07/06/19 04:14 10 MG Doxycycline Hyclate (Vibra-Tab) 100 mg BID 07/08/19 09:00 07/10/19 08:30 100 MG Enoxaparin Sodium (Lovenox 80mg Syringe) 75 mg 1X ONCE 07/06/19 05:00 07/06/19 05:01 DC 07/06/19 05:38 75 MG Ketorolac Tromethamine (Toradol 15mg Vial) 15 mg 1X ONCE 07/06/19 03:00 07/06/19 03:01 DC 07/06/19 04:14 15 MG Lactobacillus Rhamnosus (Culturelle) 1 cap BID 07/07/19 21:00 07/10/19 08:30 1 CAP Lidocaine HCl (Lidocaine Pf 2% Vial) 5 ml STK-MED ONCE 07/08/19 15:07 07/08/19 15:07 DC Lidocaine HCl (Viscous Lidocaine) 15 ml STK-MED ONCE 07/08/19 15:58 07/08/19 15:59 DC Lidocaine HCl (Xylocaine 2% Topical 30gm Tube) 30 ebony STK-MED ONCE 07/08/19 15:58 07/08/19 15:59 DC Lidocaine HCl (Xylocaine 2% Topical 5gm Tube) 5 ebony STK-MED ONCE 07/08/19 15:07 07/08/19 15:07 DC Ondansetron HCl (Zofran) 4 mg PRN Q8HRS PRN 07/06/19 05:00 07/07/19 04:59 DC Piperacillin Sod/ Tazobactam Sod (Zosyn Per Pharmacy) 1 each PRN DAILY PRN 07/06/19 12:45 UNV Piperacillin Sod/ Tazobactam Sod 3.375 gm/Sodium Chloride 50 ml @ 100 mls/hr Q6HRS 07/06/19 13:00 07/06/19 16:20 DC 07/06/19 13:19 100 MLS/HR Piperacillin Sod/ Tazobactam Sod 4.5 gm/Sodium Chloride 100 ml @ 200 mls/hr Q6HRS 07/06/19 18:00 07/10/19 05:35 200 MLS/HR Propofol 40 ml @ As Directed STK-MED ONCE 07/08/19 15:07 07/08/19 15:07 DC Ringer's Solution 1,000 ml @ 75 mls/hr [id number] 07/08/19 15:30 07/09/19 05:15 DC 07/08/19 17:26 75 MLS/HR Sodium Chloride 1,000 ml @ 1,000 mls/hr 1X ONCE 07/06/19 03:00 07/06/19 03:59 DC 07/06/19 04:14 1,000 MLS/HR Vancomycin HCl (Vanco Per Pharmacy) 1 each PRN DAILY PRN 07/06/19 12:45 UNV Vancomycin HCl (Vancomycin Trough Level) 1 each 1X ONCE 07/09/19 09:30 07/09/19 09:31 DC 07/09/19 10:17 1 EACH Vancomycin HCl 1.25 gm/Sodium Chloride 250 ml @ 167 mls/hr Q12H 07/09/19 22:00 07/09/19 22:01 167 MLS/HR Vancomycin HCl 1 gm/Sodium Chloride 250 ml @ 250 mls/hr Q8H 07/06/19 22:00 07/07/19 14:54 DC 07/07/19 05:14 250 MLS/HR Vancomycin HCl 2 gm/Sodium Chloride 500 ml @ 250 mls/hr 1X ONCE 07/06/19 13:30 07/06/19 15:29 DC 07/06/19 14:27 250 MLS/HR Labs: Lab Laboratory Tests Test 07/10/19 04:50 White Blood Count 7.9 x10^3/uL (4.0-11.0) Red Blood Count 3.91 x10^6/uL (3.50-5.40) Hemoglobin 10.1 g/dL (12.0-15.5) Hematocrit 30.5 % (36.0-47.0) Mean Corpuscular Volume 78 fL (79-100) Mean Corpuscular Hemoglobin 26 pg (25-35) Mean Corpuscular Hemoglobin Concent 33 g/dL (31-37) Red Cell Distribution Width 14.1 % (11.5-14.5) Platelet Count 325 x10^3/uL (140-400) Neutrophils (%) (Auto) 65 % (31-73) Lymphocytes (%) (Auto) 22 % (24-48) Monocytes (%) (Auto) 8 % (0-9) Eosinophils (%) (Auto) 4 % (0-3) Basophils (%) (Auto) 1 % (0-3) Neutrophils # (Auto) 5.1 x10^3/uL (1.8-7.7) Lymphocytes # (Auto) 1.7 x10^3/uL (1.0-4.8) Monocytes # (Auto) 0.6 x10^3/uL (0.0-1.1) Eosinophils # (Auto) 0.3 x10^3/uL (0.0-0.7) Basophils # (Auto) 0.0 x10^3/uL (0.0-0.2) Segmented Neutrophils % 60 % (35-66) Band Neutrophils % 12 % (0-9) Lymphocytes % 20 % (24-48) Atypical Lymphocytes % (Manual) 1 % (0-0) Monocytes % 3 % (0-10) Eosinophils % 4 % (0-5) Platelet Estimate Adequate (ADEQUATE) Polychromasia Present Microcytosis Slight Sodium Level 141 mmol/L (136-145) Potassium Level 3.7 mmol/L (3.5-5.1) Chloride Level 105 mmol/L (98-107) Carbon Dioxide Level 29 mmol/L (21-32) Anion Gap 7 (6-14) Blood Urea Nitrogen 8 mg/dL (7-20) Creatinine 0.8 mg/dL (0.6-1.0) Estimated GFR (Cockcroft-Gault) 80.7 Glucose Level 95 mg/dL (70-99) Calcium Level 8.8 mg/dL (8.5-10.1) Micro RUN DATE: 07/09/19 PAGE 1 RUN TIME: 0754 [facility] [address] [place] [address] Irvin Valdez M.D., Jingle Writer PATIENT: YOSEF GORMAN Demetrius ACCT: [id number] LOC: [address] [place] [address] U: [id number] AGE/SX: 38/F ROOM: 258 RE07/06/[address]: SHERLY PAPPAS MD : 1980 BED: 1 DIS: STATUS: ADM IN TLOC: SPEC #: [id number] DOLLY: 07/07/19 STATUS: COMP REQ #: [id number] RECD: 07/07/[address]: MOODY NIELSEN MD SOURCE: BLOOD ENTR: 07/07/19 [facility] DR: LATONYA BAUER MD [place]: SHERLY PAPPAS MD, VENKAT R MD SISILLO, SABATO MD ORDERED: BCULT Procedure Result BLOOD CULTURE Final AMENDED REPORT: 4 OF 6 BOTTLES ARE NOW POSITIVE. GRAM POSITIVE COCCI IN CLUSTERS IN 3 OF 6 BOTTLES(AEROBIC BOTTLE THIS SET);REPRESENTING 3 SETS DRAWN. THE RESULT WAS CALLED TO [place](2S)ON 07/08/19 AT 1128 BY Kurt TURNER. THE BLOOD CULTURE HAS BEEN SENT TO [facility] FOR FURTHER WORKUP. * This is an amended report. * A prior result that was reported as final has been changed. Objective: Assessment: 1. Bacteremia 01/30 bottles GPCs in a pt with IVDU, ID and TRE pending ,JORGE LUIS 07/08 neg for vegetations 2. Dyspnea and chestpain likely from septic emboli 3. Pulmonary nodules February 2019, Increase in size and number of pulmonary nodules and infiltrates on repeat CT Chest. likely septic pulm emboli 4. Indeterminate splenic lesion ,Complex splenic cyst or hemangioma. 5. IVDU with methamphetamine 7. History of methicillin-susceptible Staphylococcus aureus bacteremia on 02/2019,treated with IV antibiotics for 6 weeks due to pulm nodules, possible infective endocarditis,echo negative. 8. MR on JORGE LUIS Plan: Plan of Care Continue empiric IV vancomycin and Zosyn. Monitor renal functions closely. Vancomycin and Zosyn dose to be adjusted according to renal function, Vanc trough 20 today Pharmacy to assist. f/u blood cultures 07/07, 07/09 cont doxycycline Followup labs in the a.m. and cultures. Advised to quit street drugs. Continue supportive care. D/W RN MOODY NIELSEN MD Jul 10, 2019 09:40
--- NOTE | 2019-07-10 10:03 | PDOC ---
PULMONARY PROGRESS NOTES Subjective denies shortness of breath, reports pain on left side with deep breath currently on room air reports non-productive cough. Vitals Vital Signs Date Time Temp Pulse Resp B/P (MAP) Pulse Ox O2 Delivery O2 Flow Rate FiO2 07/10/19 08:30 Room Air 07/10/19 07:00 98.4 73 18 129/81 (97) 90 98.4 ROS: No Nausea, No Increase Cough General: Alert, No acute distress Lungs: Clear Cardiovascular: S1, S2 Abdomen: Soft Neuro Exam: Alert Extremities: No Edema Skin: Warm, Dry Labs Laboratory Tests Test 07/09/19 09:30 07/10/19 04:50 White Blood Count 8.2 x10^3/uL (4.0-11.0) 7.9 x10^3/uL (4.0-11.0) Red Blood Count 4.26 x10^6/uL (3.50-5.40) 3.91 x10^6/uL (3.50-5.40) Hemoglobin 11.2 g/dL (12.0-15.5) 10.1 g/dL (12.0-15.5) Hematocrit 33.7 % (36.0-47.0) 30.5 % (36.0-47.0) Mean Corpuscular Volume 79 fL (79-100) 78 fL (79-100) Mean Corpuscular Hemoglobin 26 pg (25-35) 26 pg (25-35) Mean Corpuscular Hemoglobin Concent 33 g/dL (31-37) 33 g/dL (31-37) Red Cell Distribution Width 14.2 % (11.5-14.5) 14.1 % (11.5-14.5) Platelet Count 290 x10^3/uL (140-400) 325 x10^3/uL (140-400) Neutrophils (%) (Auto) 75 % (31-73) 65 % (31-73) Lymphocytes (%) (Auto) 18 % (24-48) 22 % (24-48) Monocytes (%) (Auto) 5 % (0-9) 8 % (0-9) Eosinophils (%) (Auto) 2 % (0-3) 4 % (0-3) Basophils (%) (Auto) 0 % (0-3) 1 % (0-3) Neutrophils # (Auto) 6.1 x10^3/uL (1.8-7.7) 5.1 x10^3/uL (1.8-7.7) Lymphocytes # (Auto) 1.5 x10^3/uL (1.0-4.8) 1.7 x10^3/uL (1.0-4.8) Monocytes # (Auto) 0.4 x10^3/uL (0.0-1.1) 0.6 x10^3/uL (0.0-1.1) Eosinophils # (Auto) 0.2 x10^3/uL (0.0-0.7) 0.3 x10^3/uL (0.0-0.7) Basophils # (Auto) 0.0 x10^3/uL (0.0-0.2) 0.0 x10^3/uL (0.0-0.2) Sodium Level 141 mmol/L (136-145) 141 mmol/L (136-145) Potassium Level 3.7 mmol/L (3.5-5.1) 3.7 mmol/L (3.5-5.1) Chloride Level 103 mmol/L (98-107) 105 mmol/L (98-107) Carbon Dioxide Level 29 mmol/L (21-32) 29 mmol/L (21-32) Anion Gap 9 (6-14) 7 (6-14) Blood Urea Nitrogen 8 mg/dL (7-20) 8 mg/dL (7-20) Creatinine 1.0 mg/dL (0.6-1.0) 0.8 mg/dL (0.6-1.0) Estimated GFR (Cockcroft-Gault) 62.4 80.7 Glucose Level 163 mg/dL (70-99) 95 mg/dL (70-99) Calcium Level 8.5 mg/dL (8.5-10.1) 8.8 mg/dL (8.5-10.1) Vancomycin Level Trough 20.0 mcg/mL (10.0-20.0) Vancomycin Last Dose Date 07/09/19 Vancomycin Last Dose Time 0200 Segmented Neutrophils % 60 % (35-66) Band Neutrophils % 12 % (0-9) Lymphocytes % 20 % (24-48) Atypical Lymphocytes % (Manual) 1 % (0-0) Monocytes % 3 % (0-10) Eosinophils % 4 % (0-5) Platelet Estimate Adequate (ADEQUATE) Polychromasia Present Microcytosis Slight Laboratory Tests Test 07/10/19 04:50 White Blood Count 7.9 x10^3/uL (4.0-11.0) Red Blood Count 3.91 x10^6/uL (3.50-5.40) Hemoglobin 10.1 g/dL (12.0-15.5) Hematocrit 30.5 % (36.0-47.0) Mean Corpuscular Volume 78 fL (79-100) Mean Corpuscular Hemoglobin 26 pg (25-35) Mean Corpuscular Hemoglobin Concent 33 g/dL (31-37) Red Cell Distribution Width 14.1 % (11.5-14.5) Platelet Count 325 x10^3/uL (140-400) Neutrophils (%) (Auto) 65 % (31-73) Lymphocytes (%) (Auto) 22 % (24-48) Monocytes (%) (Auto) 8 % (0-9) Eosinophils (%) (Auto) 4 % (0-3) Basophils (%) (Auto) 1 % (0-3) Neutrophils # (Auto) 5.1 x10^3/uL (1.8-7.7) Lymphocytes # (Auto) 1.7 x10^3/uL (1.0-4.8) Monocytes # (Auto) 0.6 x10^3/uL (0.0-1.1) Eosinophils # (Auto) 0.3 x10^3/uL (0.0-0.7) Basophils # (Auto) 0.0 x10^3/uL (0.0-0.2) Segmented Neutrophils % 60 % (35-66) Band Neutrophils % 12 % (0-9) Lymphocytes % 20 % (24-48) Atypical Lymphocytes % (Manual) 1 % (0-0) Monocytes % 3 % (0-10) Eosinophils % 4 % (0-5) Platelet Estimate Adequate (ADEQUATE) Polychromasia Present Microcytosis Slight Sodium Level 141 mmol/L (136-145) Potassium Level 3.7 mmol/L (3.5-5.1) Chloride Level 105 mmol/L (98-107) Carbon Dioxide Level 29 mmol/L (21-32) Anion Gap 7 (6-14) Blood Urea Nitrogen 8 mg/dL (7-20) Creatinine 0.8 mg/dL (0.6-1.0) Estimated GFR (Cockcroft-Gault) 80.7 Glucose Level 95 mg/dL (70-99) Calcium Level 8.8 mg/dL (8.5-10.1) Medications Active Scripts Medications Dose Route/Sig Max Daily Dose Days Date Category Ibuprofen 800 Mg Tablet 800 Mg PO PRN Q4-6HRS PRN 07/06/19 Reported Benadryl (Diphenhydramine Hcl) 25 Mg Capsule 1 Cap PO QHS 04/03/19 Reported Impression . 1. Dyspnea 2/2 sepsis 2. High-grade fever/ bacteremia; however, septic emboli 3. Intravenous methamphetamine abuse 5. No history of tobacco use. 6. No evidence of pulmonary embolism by V/Q scan. Plan . 1. broad-spectrum antibiotic per ID 2. Follow all blood cultures.01/30 positive for GPC;'s 3. JORGE LUIS negative for vegetations on 07/08 4. bronchodilators 5. Discussed with RN and we will follow along with you. cxr today ORTEGA CUENCA MD Jul 10, 2019 10:03
[2019-07-10] MEDS: VANCOMYCIN 1.25 GM in IV NORMAL SALINE 250ML 250 ML IV SCH (10:30)
[2019-07-10 11:00] VITALS: BP 121/58
--- NOTE | 2019-07-10 11:09 | RAD ---
CHEST AP ONLY History: Shortness of breath Comparison: July 06, 2019 Findings: Single view of the chest is submitted. There is now small pleural effusion with adjacent airspace opacity. There is again minimal patchy infiltrate of the superior right hemithorax, small focus of infiltrate of the superior left hemithorax more apparent on this exam. Heart size appears somewhat more prominent although may be accentuated by differences in degree of inspiration. No pneumothorax is identified. Impression: 1. There is now small left pleural effusion with increased adjacent atelectasis/infiltrate, also new small focus of infiltrate more superiorly of the left hemithorax. Electronically signed by: Subhash Lucas MD (07/10/2019 11:07 AM) [id number]
--- NOTE | 2019-07-10 11:33 | PDOC ---
[employer] PROGRESS NOTE Chief Complaint Chief Complaint Chest Pain Acute respiratory failure with hypoxia Methamphetamine abuse History of Present Illness History of Present Illness 07/10/19 Pt seen and examined lying in bed in NAD Awaiting sensitivities and repeat cultures VALENTINA RN Chart reviewed Patient seen and examined Discussed with RN We have 4 out of 6 blood cultures positive but the transesophageal echo is negat ana maria Awaiting sensitivities Envelope Folding Machine Adjuster is here drawing another set of cultures now 07/08/19 Pt seen and examined at bedside Pt says she had a "bad night" describing sharp central chest pain radiating to her right chest. She describes the pain as an 8.5 this am Pt denies any other concerning sx Upon questioning, she says that she injected methamphetamines, and did not smoke it DW RN 07/07/19 Pt seen and examined at bedside Pt says chest pain is improved Pt exhibits NAD and expresses desire to go home saying she "has grass to cut." Vitals/I&O Vitals/I&O: Vital Signs Date Time Temp Pulse Resp B/P (MAP) Pulse Ox O2 Delivery O2 Flow Rate FiO2 07/10/19 10:30 92 Room Air 07/10/19 07:00 98.4 73 18 129/81 (97) 98.4 I & O 07/09/19 07/09/19 07/10/19 14:59 22:59 06:59 Intake Total 0 ml 650 ml Balance 0 ml 650 ml Physical Exam Physical Exam: GENERAL: Alert and oriented x 3, pleasant female, lying in bed comfortably, in no acute distress, cooperative, eating breakfast. HEENT: Normocephalic, atraumatic. Anicteric. No thrush. Oral mucosa moist. Edentulous. No conjunctival petechiae. NECK: Supple. No JVD, no lymphadenopathy. LUNGS: Clear bilaterally. HEART: S1, S2. No gallops, murmurs or rubs. ABDOMEN: Soft, nontender and nondistended. No rebound or guarding. EXTREMITIES: No edema, no cyanosis, no clubbing. No peripheral stigmata of endocarditis. BACK: Reveals normal curvature. No CVA tenderness. DERMATOLOGIC: Warm, dry. No generalized rash. Multiple tattoos. NEUROLOGIC: Alert and oriented x 3, grossly nonfocal. PSYCHIATRIC: Cooperative, appropriate to mood, affect. General: Alert, Oriented X3, Cooperative, No acute distress Heart: Regular rate (SR), Normal S1, Normal S2, No murmurs Lungs: Clear Abdomen: Normal bowel sounds, Soft Extremities: No clubbing, No edema, No tenderness/swelling Skin: No rashes, No significant lesion Labs Labs: Laboratory Tests Test 07/10/19 04:50 White Blood Count 7.9 x10^3/uL (4.0-11.0) Red Blood Count 3.91 x10^6/uL (3.50-5.40) Hemoglobin 10.1 g/dL (12.0-15.5) Hematocrit 30.5 % (36.0-47.0) Mean Corpuscular Volume 78 fL (79-100) Mean Corpuscular Hemoglobin 26 pg (25-35) Mean Corpuscular Hemoglobin Concent 33 g/dL (31-37) Red Cell Distribution Width 14.1 % (11.5-14.5) Platelet Count 325 x10^3/uL (140-400) Neutrophils (%) (Auto) 65 % (31-73) Lymphocytes (%) (Auto) 22 % (24-48) Monocytes (%) (Auto) 8 % (0-9) Eosinophils (%) (Auto) 4 % (0-3) Basophils (%) (Auto) 1 % (0-3) Neutrophils # (Auto) 5.1 x10^3/uL (1.8-7.7) Lymphocytes # (Auto) 1.7 x10^3/uL (1.0-4.8) Monocytes # (Auto) 0.6 x10^3/uL (0.0-1.1) Eosinophils # (Auto) 0.3 x10^3/uL (0.0-0.7) Basophils # (Auto) 0.0 x10^3/uL (0.0-0.2) Segmented Neutrophils % 60 % (35-66) Band Neutrophils % 12 % (0-9) Lymphocytes % 20 % (24-48) Atypical Lymphocytes % (Manual) 1 % (0-0) Monocytes % 3 % (0-10) Eosinophils % 4 % (0-5) Platelet Estimate Adequate (ADEQUATE) Polychromasia Present Microcytosis Slight Sodium Level 141 mmol/L (136-145) Potassium Level 3.7 mmol/L (3.5-5.1) Chloride Level 105 mmol/L (98-107) Carbon Dioxide Level 29 mmol/L (21-32) Anion Gap 7 (6-14) Blood Urea Nitrogen 8 mg/dL (7-20) Creatinine 0.8 mg/dL (0.6-1.0) Estimated GFR (Cockcroft-Gault) 80.7 Glucose Level 95 mg/dL (70-99) Calcium Level 8.8 mg/dL (8.5-10.1) Review of Systems Review of Systems: No co acute pain Co hunger Assessment and Plan Assessmemt and Plan Problems Medical Problems: (1) Acute respiratory failure with hypoxia Status: Acute (2) Chest pain Status: Acute (3) Dyspnea Status: Acute (4) High fever Status: Acute (5) Methamphetamine abuse Status: Acute (6) Mild malnutrition Status: Chronic (7) Pleuritic chest pain Status: Acute Assessment Chest Pain Acute respiratory failure with hypoxia Methamphetamine abuse Plan IV Zosyn, vancomycin PO Doxycycline Cardiac monitoring IV fluids DVT prophylaxis Home meds Awaiting blood cultures and sensitivities Appreciate subspecialty input Comment Review of Relevant I have reviewed the following items ina (where applicable) has been applied. Medications: Current Medications Medications (Trade) Dose Ordered Sig/Vee Route PRN Reason Start Time Stop Time Status Last Admin Dose Admin Vancomycin HCl 1.25 gm/Sodium Chloride 250 ml @ 167 mls/hr Q12H IV 07/09/19 22:00 07/10/19 10:30 CABRERA ZAIDI III DO Jul 10, 2019 11:33
[2019-07-10 15:00] VITALS: BP 120/78
[2019-07-10] MEDS: VANCOMYCIN PER PHARMACY MC PRN (15:15)
--- NOTE | 2019-07-10 15:16 | NUR ---
BRIEF VANCOMYCIN DOSING NOTE Patient is receiving vancomycin 1250 mg IV q12hrs. This was changed on 07/09 due to a vancomycin trough of 20 mcg/ml and increasing SCr. Patient's renal function has improved today. Based on other vancomycin levels from this admission, will change to the following: Plan: 1. Change to vancomycin 1000 mg IV q8hrs 2. Follow-up SCr 07/11/19 Soheila Mota Pharm.D.
[2019-07-10] MEDS: VANCOMYCIN 1 GM in IV NORMAL SALINE 250ML 250 ML IV SCH (18:24)
[2019-07-10 19:45] VITALS: BP 135/90
[2019-07-10 23:42] VITALS: BP 129/75
[2019-07-11] MEDS: PIPERACILLIN/TAZOBACTAM 4.5 GM in IV NORMAL SALINE 100ML 100 ML IV SCH ×4 (00:56→18:12)
[2019-07-11] MEDS: VANCOMYCIN 1 GM in IV NORMAL SALINE 250ML 250 ML IV SCH ×3 (01:44→18:54)
[2019-07-11] MEDS: HYDROcodone/APAP 10/325 1 TAB TABLET PO PRN ×4 (02:34→21:56)
[2019-07-11 03:17] VITALS: BP 158/94
[2019-07-11 04:32] LABS: BASO % 0 % (0-3); EOS # 0.5 x10^3/uL (0.0-0.7); EOS % 6 % (0-3); HEMATOCRIT 30.7 % (36.0-47.0); HEMOGLOBIN 10.5 g/dL (12.0-15.5); LYMPH # 2.1 x10^3/uL (1.0-4.8); LYMPH % 26 % (24-48); MEAN CORPUSCULAR HEMOGLOBIN 27 pg (25-35); MEAN CORPUSCULAR HGB CONC 34 g/dL (31-37); MEAN CORPUSCULAR VOLUME 78 fL (79-100); MONO # 0.6 x10^3/uL (0.0-1.1); MONO % 8 % (0-9); NEUT # 4.9 x10^3/uL (1.8-7.7); NEUT % 60 % (31-73); PLATELET COUNT 360 x10^3/uL (140-400); RED BLOOD COUNT 3.95 x10^6/uL (3.50-5.40); RED CELL DISTRIBUTION WIDTH 13.9 % (11.5-14.5); WHITE BLOOD COUNT 8.1 x10^3/uL (4.0-11.0)
[2019-07-11 04:43] LABS: CALCIUM 9.1 mg/dL (8.5-10.1); CREATININE 0.8 mg/dL (0.6-1.0); GFR 80.7; POTASSIUM 3.8 mmol/L (3.5-5.1)
[2019-07-11 07:00] VITALS: BP 121/70
[2019-07-11] MEDS: DOXYCYCLINE HYCLATE 100 MG TABLET PO SCH (08:08)
[2019-07-11] MEDS: LACTOBACILLUS RHAMNOSUS GG 1 CAPSULE. PO SCH ×2 (08:08→21:56)
--- NOTE | 2019-07-11 09:09 | PDOC ---
PULMONARY PROGRESS NOTES Subjective Pt. is up ambulating in room this am. Remains on room air. Reports some Shortness of breath on exertion. Denies cough Reports some pain with taking a deep breath Vitals Vital Signs Date Time Temp Pulse Resp B/P (MAP) Pulse Ox O2 Delivery O2 Flow Rate FiO2 07/11/19 08:05 Room Air 07/11/19 07:00 98.2 69 18 121/70 (87) 93 98.2 ROS: No Nausea, No Increase Cough General: Alert, Oriented X4, No acute distress Lungs: Clear Cardiovascular: S1, S2 Abdomen: Soft Neuro Exam: Alert Extremities: No Edema Skin: Warm, Dry Labs Laboratory Tests Test 07/09/19 09:30 07/10/19 04:50 07/11/19 04:00 White Blood Count 8.2 x10^3/uL (4.0-11.0) 7.9 x10^3/uL (4.0-11.0) 8.1 x10^3/uL (4.0-11.0) Red Blood Count 4.26 x10^6/uL (3.50-5.40) 3.91 x10^6/uL (3.50-5.40) 3.95 x10^6/uL (3.50-5.40) Hemoglobin 11.2 g/dL (12.0-15.5) 10.1 g/dL (12.0-15.5) 10.5 g/dL (12.0-15.5) Hematocrit 33.7 % (36.0-47.0) 30.5 % (36.0-47.0) 30.7 % (36.0-47.0) Mean Corpuscular Volume 79 fL (79-100) 78 fL (79-100) 78 fL (79-100) Mean Corpuscular Hemoglobin 26 pg (25-35) 26 pg (25-35) 27 pg (25-35) Mean Corpuscular Hemoglobin Concent 33 g/dL (31-37) 33 g/dL (31-37) 34 g/dL (31-37) Red Cell Distribution Width 14.2 % (11.5-14.5) 14.1 % (11.5-14.5) 13.9 % (11.5-14.5) Platelet Count 290 x10^3/uL (140-400) 325 x10^3/uL (140-400) 360 x10^3/uL (140-400) Neutrophils (%) (Auto) 75 % (31-73) 65 % (31-73) 60 % (31-73) Lymphocytes (%) (Auto) 18 % (24-48) 22 % (24-48) 26 % (24-48) Monocytes (%) (Auto) 5 % (0-9) 8 % (0-9) 8 % (0-9) Eosinophils (%) (Auto) 2 % (0-3) 4 % (0-3) 6 % (0-3) Basophils (%) (Auto) 0 % (0-3) 1 % (0-3) 0 % (0-3) Neutrophils # (Auto) 6.1 x10^3/uL (1.8-7.7) 5.1 x10^3/uL (1.8-7.7) 4.9 x10^3/uL (1.8-7.7) Lymphocytes # (Auto) 1.5 x10^3/uL (1.0-4.8) 1.7 x10^3/uL (1.0-4.8) 2.1 x10^3/uL (1.0-4.8) Monocytes # (Auto) 0.4 x10^3/uL (0.0-1.1) 0.6 x10^3/uL (0.0-1.1) 0.6 x10^3/uL (0.0-1.1) Eosinophils # (Auto) 0.2 x10^3/uL (0.0-0.7) 0.3 x10^3/uL (0.0-0.7) 0.5 x10^3/uL (0.0-0.7) Basophils # (Auto) 0.0 x10^3/uL (0.0-0.2) 0.0 x10^3/uL (0.0-0.2) 0.0 x10^3/uL (0.0-0.2) Sodium Level 141 mmol/L (136-145) 141 mmol/L (136-145) 139 mmol/L (136-145) Potassium Level 3.7 mmol/L (3.5-5.1) 3.7 mmol/L (3.5-5.1) 3.8 mmol/L (3.5-5.1) Chloride Level 103 mmol/L (98-107) 105 mmol/L (98-107) 104 mmol/L (98-107) Carbon Dioxide Level 29 mmol/L (21-32) 29 mmol/L (21-32) 26 mmol/L (21-32) Anion Gap 9 (6-14) 7 (6-14) 9 (6-14) Blood Urea Nitrogen 8 mg/dL (7-20) 8 mg/dL (7-20) 8 mg/dL (7-20) Creatinine 1.0 mg/dL (0.6-1.0) 0.8 mg/dL (0.6-1.0) 0.8 mg/dL (0.6-1.0) Estimated GFR (Cockcroft-Gault) 62.4 80.7 80.7 Glucose Level 163 mg/dL (70-99) 95 mg/dL (70-99) 97 mg/dL (70-99) Calcium Level 8.5 mg/dL (8.5-10.1) 8.8 mg/dL (8.5-10.1) 9.1 mg/dL (8.5-10.1) Vancomycin Level Trough 20.0 mcg/mL (10.0-20.0) Vancomycin Last Dose Date 07/09/19 Vancomycin Last Dose Time 0200 Segmented Neutrophils % 60 % (35-66) Band Neutrophils % 12 % (0-9) Lymphocytes % 20 % (24-48) Atypical Lymphocytes % (Manual) 1 % (0-0) Monocytes % 3 % (0-10) Eosinophils % 4 % (0-5) Platelet Estimate Adequate (ADEQUATE) Polychromasia Present Microcytosis Slight Laboratory Tests Test 07/11/19 04:00 White Blood Count 8.1 x10^3/uL (4.0-11.0) Red Blood Count 3.95 x10^6/uL (3.50-5.40) Hemoglobin 10.5 g/dL (12.0-15.5) Hematocrit 30.7 % (36.0-47.0) Mean Corpuscular Volume 78 fL (79-100) Mean Corpuscular Hemoglobin 27 pg (25-35) Mean Corpuscular Hemoglobin Concent 34 g/dL (31-37) Red Cell Distribution Width 13.9 % (11.5-14.5) Platelet Count 360 x10^3/uL (140-400) Neutrophils (%) (Auto) 60 % (31-73) Lymphocytes (%) (Auto) 26 % (24-48) Monocytes (%) (Auto) 8 % (0-9) Eosinophils (%) (Auto) 6 % (0-3) Basophils (%) (Auto) 0 % (0-3) Neutrophils # (Auto) 4.9 x10^3/uL (1.8-7.7) Lymphocytes # (Auto) 2.1 x10^3/uL (1.0-4.8) Monocytes # (Auto) 0.6 x10^3/uL (0.0-1.1) Eosinophils # (Auto) 0.5 x10^3/uL (0.0-0.7) Basophils # (Auto) 0.0 x10^3/uL (0.0-0.2) Sodium Level 139 mmol/L (136-145) Potassium Level 3.8 mmol/L (3.5-5.1) Chloride Level 104 mmol/L (98-107) Carbon Dioxide Level 26 mmol/L (21-32) Anion Gap 9 (6-14) Blood Urea Nitrogen 8 mg/dL (7-20) Creatinine 0.8 mg/dL (0.6-1.0) Estimated GFR (Cockcroft-Gault) 80.7 Glucose Level 97 mg/dL (70-99) Calcium Level 9.1 mg/dL (8.5-10.1) Medications Active Scripts Medications Dose Route/Sig Max Daily Dose Days Date Category Ibuprofen 800 Mg Tablet 800 Mg PO PRN Q4-6HRS PRN 07/06/19 Reported Benadryl (Diphenhydramine Hcl) 25 Mg Capsule 1 Cap PO QHS 04/03/19 Reported Impression . 1. Dyspnea 2/2 sepsis 2. High-grade fever/ bacteremia; however, septic emboli 3. Intravenous methamphetamine abuse 4. CXR on 07/10 : small left pleural effusion with increased adjacent atelectasis/infiltrate, also new small focus of infiltrate superiorly to the left hemithorax. 5. No history of tobacco use. 6. No evidence of pulmonary embolism by V/Q scan. Plan . 1. broad-spectrum antibiotic per ID continue Doxy/vanco/ zosyn 2. Follow all blood cultures./ positive for GPC;'s repeat blood cultures no growth to date 3. JORGE LUIS negative for vegetations on 07/08 4. bronchodilators/ IS 5. Supplemental oxygen PRN to keep sats above 92 % 6. Discussed with RN and we will follow along with you. 7. Monitor cxr for any increase in left effusion ORTEGA CUENCA MD Jul 11, 2019 09:09
--- NOTE | 2019-07-11 09:42 | PDOC ---
Infectious Disease Note Subjective: Subjective pt cont to have chestpain cont to have headaches, no vision or ear complaints dry cough no n/v/d/abdo pain/jt pain or back pain ROS: ROS Negative otherwise. Vital Signs: Vital Signs Vital Signs Date Time Temp Pulse Resp B/P (MAP) Pulse Ox O2 Delivery O2 Flow Rate FiO2 07/11/19 08:05 Room Air 07/11/19 07:00 98.2 69 18 121/70 (87) 93 98.2 Physical Exam: PHYSICAL EXAM GENERAL: Alert and oriented x 3, pleasant female, lying in bed comfortably, in no acute distress, cooperative, eating breakfast. HEENT: Normocephalic, atraumatic. Anicteric. No thrush. Oral mucosa moist. Edentulous. No conjunctival petechiae. NECK: Supple. No JVD, no lymphadenopathy. LUNGS: Clear bilaterally. HEART: S1, S2. No gallops, murmurs or rubs. ABDOMEN: Soft, nontender and nondistended. No rebound or guarding. EXTREMITIES: No edema, no cyanosis, no clubbing. No peripheral stigmata of endocarditis. BACK: Reveals normal curvature. No CVA tenderness. DERMATOLOGIC: Warm, dry. No generalized rash. Multiple tattoos. NEUROLOGIC: Alert and oriented x 3, grossly nonfocal. PSYCHIATRIC: Cooperative, appropriate to mood, affect. Medications: Inpatient Meds: Current Medications Medications (Trade) Dose Ordered Sig/Vee Start Time Stop Time Status Last Admin Dose Admin Acetaminophen/ Hydrocodone Bitart (Lortab 10/325) 1 tab PRN Q6HRS PRN 07/07/19 22:45 07/11/19 08:10 1 TAB Acetaminophen/ Hydrocodone Bitart (Lortab 5/325) 1 tab PRN Q4HRS PRN 07/06/19 13:00 07/07/19 18:46 1 TAB Aspirin (Roland Aspirin) 325 mg 1X ONCE 07/06/19 03:00 07/06/19 03:01 DC 07/06/19 04:14 325 MG Benzocaine (Hurricaine One) 1 spray STK-MED ONCE 07/08/19 15:58 07/08/19 15:58 DC Dexamethasone Sodium Phosphate (Decadron) 10 mg 1X ONCE 07/06/19 03:15 07/06/19 03:16 DC 07/06/19 04:14 10 MG Doxycycline Hyclate (Vibra-Tab) 100 mg BID 07/08/19 09:00 07/11/19 08:10 100 MG Enoxaparin Sodium (Lovenox 80mg Syringe) 75 mg 1X ONCE 07/06/19 05:00 07/06/19 05:01 DC 07/06/19 05:38 75 MG Ketorolac Tromethamine (Toradol 15mg Vial) 15 mg 1X ONCE 07/06/19 03:00 07/06/19 03:01 DC 07/06/19 04:14 15 MG Lactobacillus Rhamnosus (Culturelle) 1 cap BID 07/07/19 21:00 07/11/19 08:10 1 CAP Lidocaine HCl (Lidocaine Pf 2% Vial) 5 ml STK-MED ONCE 07/08/19 15:07 07/08/19 15:07 DC Lidocaine HCl (Viscous Lidocaine) 15 ml STK-MED ONCE 07/08/19 15:58 07/08/19 15:59 DC Lidocaine HCl (Xylocaine 2% Topical 30gm Tube) 30 ebony STK-MED ONCE 07/08/19 15:58 07/08/19 15:59 DC Lidocaine HCl (Xylocaine 2% Topical 5gm Tube) 5 ebony STK-MED ONCE 07/08/19 15:07 07/08/19 15:07 DC Ondansetron HCl (Zofran) 4 mg PRN Q8HRS PRN 07/06/19 05:00 07/07/19 04:59 DC Piperacillin Sod/ Tazobactam Sod (Zosyn Per Pharmacy) 1 each PRN DAILY PRN 07/06/19 12:45 UNV Piperacillin Sod/ Tazobactam Sod 3.375 gm/Sodium Chloride 50 ml @ 100 mls/hr Q6HRS 07/06/19 13:00 07/06/19 16:20 DC 07/06/19 13:19 100 MLS/HR Piperacillin Sod/ Tazobactam Sod 4.5 gm/Sodium Chloride 100 ml @ 200 mls/hr Q6HRS 07/06/19 18:00 07/11/19 06:10 200 MLS/HR Propofol 40 ml @ As Directed STK-MED ONCE 07/08/19 15:07 07/08/19 15:07 DC Ringer's Solution 1,000 ml @ 75 mls/hr [id number] 07/08/19 15:30 07/09/19 05:15 DC 07/08/19 17:26 75 MLS/HR Sodium Chloride 1,000 ml @ 1,000 mls/hr 1X ONCE 07/06/19 03:00 07/06/19 03:59 DC 07/06/19 04:14 1,000 MLS/HR Vancomycin HCl (Vanco Per Pharmacy) 1 each PRN DAILY PRN 07/06/19 12:45 UNV Vancomycin HCl (Vancomycin Trough Level) 1 each 1X ONCE 07/09/19 09:30 07/09/19 09:31 DC 07/09/19 10:17 1 EACH Vancomycin HCl 1.25 gm/Sodium Chloride 250 ml @ 167 mls/hr Q12H 07/09/19 22:00 07/10/19 15:10 DC 07/10/19 10:30 167 MLS/HR Vancomycin HCl 1 gm/Sodium Chloride 250 ml @ 250 mls/hr Q8H 07/10/19 18:00 07/11/19 01:44 250 MLS/HR Vancomycin HCl 2 gm/Sodium Chloride 500 ml @ 250 mls/hr 1X ONCE 07/06/19 13:30 07/06/19 15:29 DC 07/06/19 14:27 250 MLS/HR Labs: Lab Laboratory Tests Test 07/11/19 04:00 White Blood Count 8.1 x10^3/uL (4.0-11.0) Red Blood Count 3.95 x10^6/uL (3.50-5.40) Hemoglobin 10.5 g/dL (12.0-15.5) Hematocrit 30.7 % (36.0-47.0) Mean Corpuscular Volume 78 fL (79-100) Mean Corpuscular Hemoglobin 27 pg (25-35) Mean Corpuscular Hemoglobin Concent 34 g/dL (31-37) Red Cell Distribution Width 13.9 % (11.5-14.5) Platelet Count 360 x10^3/uL (140-400) Neutrophils (%) (Auto) 60 % (31-73) Lymphocytes (%) (Auto) 26 % (24-48) Monocytes (%) (Auto) 8 % (0-9) Eosinophils (%) (Auto) 6 % (0-3) Basophils (%) (Auto) 0 % (0-3) Neutrophils # (Auto) 4.9 x10^3/uL (1.8-7.7) Lymphocytes # (Auto) 2.1 x10^3/uL (1.0-4.8) Monocytes # (Auto) 0.6 x10^3/uL (0.0-1.1) Eosinophils # (Auto) 0.5 x10^3/uL (0.0-0.7) Basophils # (Auto) 0.0 x10^3/uL (0.0-0.2) Sodium Level 139 mmol/L (136-145) Potassium Level 3.8 mmol/L (3.5-5.1) Chloride Level 104 mmol/L (98-107) Carbon Dioxide Level 26 mmol/L (21-32) Anion Gap 9 (6-14) Blood Urea Nitrogen 8 mg/dL (7-20) Creatinine 0.8 mg/dL (0.6-1.0) Estimated GFR (Cockcroft-Gault) 80.7 Glucose Level 97 mg/dL (70-99) Calcium Level 9.1 mg/dL (8.5-10.1) Micro RUN DATE: 07/09/19 PAGE 1 RUN TIME: 0754 [facility] [address] [place] [address] Irvin Valdez M.D., [employer] PATIENT: YOSEF GORMAN ACCT: [id number] LOC: [address] [place] [address] U: [id number] AGE/SX: 38/F ROOM: 258 RE07/06/[address]: SHERLY PAPPAS MD : 1980 BED: 1 DIS: STATUS: ADM IN TLOC: SPEC #: [id number] DOLLY: 07/07/19 STATUS: COMP REQ #: [id number] RECD: 07/07/[address] [facility] [address]: MOODY NIELSEN MD SOURCE: BLOOD ENTR: 07/07/[address] [facility] [address]: LATONYA BAUER MD [facility]: SHERLY PAPPAS MD, VENKAT R MD SISILLO, SABATO MD ORDERED: BCULT - Procedure Result BLOOD CULTURE Final AMENDED REPORT: 4 OF 6 BOTTLES ARE NOW POSITIVE. GRAM POSITIVE COCCI IN CLUSTERS IN 3 OF 6 BOTTLES(AEROBIC BOTTLE THIS SET);REPRESENTING 3 SETS DRAWN. THE RESULT WAS CALLED TO [place](2S)ON 07/08/19 AT 1128 BY Kurt TURNER. THE BLOOD CULTURE HAS BEEN SENT TO [facility] FOR FURTHER WORKUP. * This is an amended report. * A prior result that was reported as final has been changed. Objective: Assessment: 1. Staph aureus Bacteremia 4/6 bottles with likely septic emboli ANGELA pending ,JORGE LUIS 07/08 neg for vegetations 2. Dyspnea and chestpain likely from septic emboli 3. Pulmonary nodules February 2019, Increase in size and number of pulmonary nodules and infiltrates on repeat CT Chest. likely septic pulm emboli 4. Indeterminate splenic lesion ,Complex splenic cyst or hemangioma. 5. IVDU with methamphetamine 7. History of methicillin-susceptible Staphylococcus aureus bacteremia on 02/2019,treated with IV antibiotics for 6 weeks due to pulm nodules, possible infective endocarditis,echo negative. 8. MR on JORGE LUIS 9. Headache Plan: Plan of Care CT head Continue empiric IV vancomycin and Zosyn.will deescalate with angela of staph aureus Monitor renal functions closely. Vancomycin and Zosyn dose to be adjusted according to renal function, Vanc trough 20 today,creat is wnl at this time,f/u in am Pharmacy to assist. f/u blood cultures 07/07, 07/09 neg so far Followup labs in the a.m. and cultures. Advised to quit street drugs. Continue supportive care. D/W MOODY SEWELL MD Jul 11, 2019 09:42
[2019-07-11 11:00] VITALS: BP 117/70
--- NOTE | 2019-07-11 12:16 | PDOC ---
[employer] PROGRESS NOTE Chief Complaint Chief Complaint Chest Pain Acute respiratory failure with hypoxia Methamphetamine abuse History of Present Illness History of Present Illness 07/11/19 Pt seen and examined at bedside- watching cartoons with NAD Still awaiting sensitivities and repeat cultures VALENTINA RN 07/10/19 Pt seen and examined lying in bed in NAD Awaiting sensitivities and repeat cultures VALENTINA RN Chart reviewed [id number] Patient seen and examined Discussed with RN We have 4 out of 6 blood cultures positive but the transesophageal echo is negative Awaiting sensitivities Energy Trader is here drawing another set of cultures now 07/08/19 Pt seen and examined at bedside Pt says she had a "bad night" describing sharp central chest pain radiating to her right chest. She describes the pain as an 8.5 this am Pt denies any other concerning sx Upon questioning, she says that she injected methamphetamines, and did not smoke it VALENTINA RN 07/07/19 Pt seen and examined at bedside Pt says chest pain is improved Pt exhibits NAD and expresses desire to go home saying she "has grass to cut." Vitals/I&O Vitals/I&O: Vital Signs Date Time Temp Pulse Resp B/P (MAP) Pulse Ox O2 Delivery O2 Flow Rate FiO2 07/11/19 08:05 Room Air 07/11/19 07:00 98.2 69 18 121/70 (87) 93 98.2 I & O 07/10/19 07/10/19 07/11/19 15:00 23:00 07:00 Intake Total 710 ml 400 ml Balance 710 ml 400 ml Physical Exam Physical Exam: GENERAL: Alert and oriented x 3, pleasant female, lying in bed comfortably, in no acute distress, cooperative, eating breakfast. HEENT: Normocephalic, atraumatic. Anicteric. No thrush. Oral mucosa moist. Edentulous. No conjunctival petechiae. NECK: Supple. No JVD, no lymphadenopathy. LUNGS: Clear bilaterally. HEART: S1, S2. No gallops, murmurs or rubs. ABDOMEN: Soft, nontender and nondistended. No rebound or guarding. EXTREMITIES: No edema, no cyanosis, no clubbing. No peripheral stigmata of endocarditis. BACK: Reveals normal curvature. No CVA tenderness. DERMATOLOGIC: Warm, dry. No generalized rash. Multiple tattoos. NEUROLOGIC: Alert and oriented x 3, grossly nonfocal. PSYCHIATRIC: Cooperative, appropriate to mood, affect. General: Alert, Oriented X3, Cooperative, No acute distress Heart: Regular rate (SR), Normal S1, Normal S2, No murmurs Lungs: Clear Abdomen: Normal bowel sounds, Soft Extremities: No clubbing, No edema, No tenderness/swelling Skin: No rashes, No significant lesion Labs Labs: Laboratory Tests Test 07/11/19 04:00 White Blood Count 8.1 x10^3/uL (4.0-11.0) Red Blood Count 3.95 x10^6/uL (3.50-5.40) Hemoglobin 10.5 g/dL (12.0-15.5) Hematocrit 30.7 % (36.0-47.0) Mean Corpuscular Volume 78 fL (79-100) Mean Corpuscular Hemoglobin 27 pg (25-35) Mean Corpuscular Hemoglobin Concent 34 g/dL (31-37) Red Cell Distribution Width 13.9 % (11.5-14.5) Platelet Count 360 x10^3/uL (140-400) Neutrophils (%) (Auto) 60 % (31-73) Lymphocytes (%) (Auto) 26 % (24-48) Monocytes (%) (Auto) 8 % (0-9) Eosinophils (%) (Auto) 6 % (0-3) Basophils (%) (Auto) 0 % (0-3) Neutrophils # (Auto) 4.9 x10^3/uL (1.8-7.7) Lymphocytes # (Auto) 2.1 x10^3/uL (1.0-4.8) Monocytes # (Auto) 0.6 x10^3/uL (0.0-1.1) Eosinophils # (Auto) 0.5 x10^3/uL (0.0-0.7) Basophils # (Auto) 0.0 x10^3/uL (0.0-0.2) Sodium Level 139 mmol/L (136-145) Potassium Level 3.8 mmol/L (3.5-5.1) Chloride Level 104 mmol/L (98-107) Carbon Dioxide Level 26 mmol/L (21-32) Anion Gap 9 (6-14) Blood Urea Nitrogen 8 mg/dL (7-20) Creatinine 0.8 mg/dL (0.6-1.0) Estimated GFR (Cockcroft-Gault) 80.7 Glucose Level 97 mg/dL (70-99) Calcium Level 9.1 mg/dL (8.5-10.1) Review of Systems Review of Systems: Denies MACDONALD Denies vision change Assessment and Plan Assessmemt and Plan Problems Medical Problems: (1) Acute respiratory failure with hypoxia Status: Acute (2) Chest pain Status: Acute (3) Dyspnea Status: Acute (4) High fever Status: Acute (5) Methamphetamine abuse Status: Acute (6) Mild malnutrition Status: Chronic (7) Pleuritic chest pain Status: Acute Assessment Chest Pain Acute respiratory failure with hypoxia Methamphetamine abuse Plan PO Doxycycline IV Zosyn, vancomycin Cardiac monitoring Home meds IV fluids DVT prophylaxis Full Code Awaiting blood cultures and sensitivities Appreciate subspecialty input Comment Review of Relevant I have reviewed the following items ina (where applicable) has been applied. Medications: Current Medications Medications (Trade) Dose Ordered Sig/Vee Route PRN Reason Start Time Stop Time Status Last Admin Dose Admin Vancomycin HCl 1 gm/Sodium Chloride 250 ml @ 250 mls/hr Q8H IV 07/10/19 18:00 07/11/19 10:39 CABRERA ZAIDI III DO Jul 11, 2019 12:16
[2019-07-11] MEDS: VANCOMYCIN PER PHARMACY MC PRN (12:56)
--- NOTE | 2019-07-11 14:48 | RAD ---
Examination: CT HEAD WO CONTRAST History: Headache for one week Comparison/Correlation: None Findings: Axial images of the head were obtained without contrast. Ventricles are normal size. No intracranial hemorrhage, midline shift, or mass effect. Bony structures are unremarkable. Impression: Normal CT head without contrast. PQRS Compliance Statement: One or more of the following individualized dose reduction techniques were utilized for this examination: 1. Automated exposure control 2. Adjustment of the mA and/or kV according to patient size 3. Use of iterative reconstruction technique Electronically signed by: Gilberto Melendez MD (07/11/2019 2:45 PM) [facility]
[2019-07-11 15:00] VITALS: BP 117/85
[2019-07-11 19:30] VITALS: BP 129/71
[2019-07-11] MEDS: ceFAZolin SODIUM 2 GM in IV DEXTROSE 5% 50 ML IV SCH (21:58)
[2019-07-11 22:20] VITALS: BP 154/96
[2019-07-12 03:50] VITALS: BP 167/89
[2019-07-12 04:24] LABS: BASO % 0 % (0-3); EOS # 0.5 x10^3/uL (0.0-0.7); EOS % 6 % (0-3); HEMATOCRIT 33.8 % (36.0-47.0); HEMOGLOBIN 11.2 g/dL (12.0-15.5); LYMPH # 2.1 x10^3/uL (1.0-4.8); LYMPH % 23 % (24-48); MEAN CORPUSCULAR HEMOGLOBIN 27 pg (25-35); MEAN CORPUSCULAR HGB CONC 33 g/dL (31-37); MEAN CORPUSCULAR VOLUME 80 fL (79-100); MONO # 0.7 x10^3/uL (0.0-1.1); MONO % 8 % (0-9); NEUT # 5.6 x10^3/uL (1.8-7.7); NEUT % 63 % (31-73); PLATELET COUNT 406 x10^3/uL (140-400); RED BLOOD COUNT 4.22 x10^6/uL (3.50-5.40); RED CELL DISTRIBUTION WIDTH 14.2 % (11.5-14.5)
[2019-07-12 04:26] LABS: CREATININE 0.8 mg/dL (0.6-1.0); GFR 80.7; POTASSIUM 3.7 mmol/L (3.5-5.1)
[2019-07-12] MEDS: HYDROcodone/APAP 10/325 1 TAB TABLET PO PRN ×2 (04:45→23:43)
[2019-07-12] MEDS: ceFAZolin SODIUM 2 GM in IV DEXTROSE 5% 50 ML IV SCH ×3 (05:05→23:35)
[2019-07-12 07:00] VITALS: BP 132/86
--- NOTE | 2019-07-12 08:35 | PDOC ---
Infectious Disease Note Subjective Subjective better. less chest pain cont to have headaches at times, no vision or ear complaints dry cough no n/v/d/abdo pain/jt pain or back pain ROS ROS o/w neg Vital Sign Vital Signs Vital Signs Date Time Temp Pulse Resp B/P (MAP) Pulse Ox O2 Delivery O2 Flow Rate FiO2 07/12/19 05:05 20 96 Room Air 07/12/19 03:50 98.4 82 167/89 (115) 98.4 Physical Exam PHYSICAL EXAM GENERAL: Alert and oriented x 3, pleasant female, lying in bed comfortably, in no acute distress, cooperative, eating breakfast. HEENT: Normocephalic, atraumatic. Anicteric. No thrush. Oral mucosa moist. Edentulous. No conjunctival petechiae. NECK: Supple. No JVD, no lymphadenopathy. LUNGS: Clear bilaterally. HEART: S1, S2. No gallops, murmurs or rubs. ABDOMEN: Soft, nontender and nondistended. No rebound or guarding. EXTREMITIES: No edema, no cyanosis, no clubbing. No peripheral stigmata of endocarditis. BACK: Reveals normal curvature. No CVA tenderness. DERMATOLOGIC: Warm, dry. No generalized rash. Multiple tattoos. NEUROLOGIC: Alert and oriented x 3, grossly nonfocal. PSYCHIATRIC: Cooperative, appropriate to mood, affect. Labs Lab Laboratory Tests Test 07/12/19 03:35 White Blood Count 9.0 x10^3/uL (4.0-11.0) Red Blood Count 4.22 x10^6/uL (3.50-5.40) Hemoglobin 11.2 g/dL (12.0-15.5) Hematocrit 33.8 % (36.0-47.0) Mean Corpuscular Volume 80 fL (79-100) Mean Corpuscular Hemoglobin 27 pg (25-35) Mean Corpuscular Hemoglobin Concent 33 g/dL (31-37) Red Cell Distribution Width 14.2 % (11.5-14.5) Platelet Count 406 x10^3/uL (140-400) Neutrophils (%) (Auto) 63 % (31-73) Lymphocytes (%) (Auto) 23 % (24-48) Monocytes (%) (Auto) 8 % (0-9) Eosinophils (%) (Auto) 6 % (0-3) Basophils (%) (Auto) 0 % (0-3) Neutrophils # (Auto) 5.6 x10^3/uL (1.8-7.7) Lymphocytes # (Auto) 2.1 x10^3/uL (1.0-4.8) Monocytes # (Auto) 0.7 x10^3/uL (0.0-1.1) Eosinophils # (Auto) 0.5 x10^3/uL (0.0-0.7) Basophils # (Auto) 0.0 x10^3/uL (0.0-0.2) Sodium Level 136 mmol/L (136-145) Potassium Level 3.7 mmol/L (3.5-5.1) Chloride Level 106 mmol/L (98-107) Carbon Dioxide Level 19 mmol/L (21-32) Anion Gap 11 (6-14) Blood Urea Nitrogen 9 mg/dL (7-20) Creatinine 0.8 mg/dL (0.6-1.0) Estimated GFR (Cockcroft-Gault) 80.7 Glucose Level 88 mg/dL (70-99) Calcium Level 9.0 mg/dL (8.5-10.1) Micro Impression: Normal CT head without contrast.07/11 Microbiology 07/09/19 Blood Culture - Preliminary, Resulted NO GROWTH AFTER 2 DAYS 07/06/19 Urine Culture - Final, Complete 07/06/19 Urine Culture Result 1 (TRE) - Final, Complete Objective Assessment 1. Staph aureus Bacteremia (MSSA) 4/6 bottles 07/07 with likely septic emboli TRE pending ,JORGE LUIS 07/08 neg for vegetations cults 07/09 neg so far 2. Dyspnea and chestpain likely from septic emboli 3. Pulmonary nodules February 2019, Increase in size and number of pulmonary nodules and infiltrates on repeat CT Chest. likely septic pulm emboli 4. Indeterminate splenic lesion ,Complex splenic cyst or hemangioma. 5. IVDU with methamphetamine 7. History of methicillin-susceptible Staphylococcus aureus bacteremia on 02/2019,treated with IV antibiotics for 6 weeks due to pulm nodules, possible infective endocarditis,echo negative. 8. MR on JORGE LUIS 9. Headache Plan Plan of Care Continue empiric IV cefazolin started 07/11 f/u blood cultures 07/09 neg so far. More cults ordered this am Followup labs in the a.m. and cultures. Advised to quit street drugs. Continue supportive care. D/W LATONYA MILLER MD Jul 12, 2019 08:35
[2019-07-12] MEDS: LACTOBACILLUS RHAMNOSUS GG 1 CAPSULE. PO SCH ×2 (08:44→20:16)
[2019-07-12 11:00] VITALS: BP 139/95
--- NOTE | 2019-07-12 12:08 | PDOC ---
PULMONARY PROGRESS NOTES Subjective feels better today Vitals Vital Signs Date Time Temp Pulse Resp B/P (MAP) Pulse Ox O2 Delivery O2 Flow Rate FiO2 07/12/19 11:23 20 94 Room Air 3.0 07/12/19 11:00 97.9 80 139/95 (110) 97.9 ROS: No Nausea, No Increase Cough General: Alert, Oriented X4, No acute distress Lungs: Clear Cardiovascular: S1, S2 Abdomen: Soft Neuro Exam: Alert Extremities: No Edema Skin: Warm, Dry Labs Laboratory Tests Test 07/11/19 04:00 07/12/19 03:35 White Blood Count 8.1 x10^3/uL (4.0-11.0) 9.0 x10^3/uL (4.0-11.0) Red Blood Count 3.95 x10^6/uL (3.50-5.40) 4.22 x10^6/uL (3.50-5.40) Hemoglobin 10.5 g/dL (12.0-15.5) 11.2 g/dL (12.0-15.5) Hematocrit 30.7 % (36.0-47.0) 33.8 % (36.0-47.0) Mean Corpuscular Volume 78 fL (79-100) 80 fL (79-100) Mean Corpuscular Hemoglobin 27 pg (25-35) 27 pg (25-35) Mean Corpuscular Hemoglobin Concent 34 g/dL (31-37) 33 g/dL (31-37) Red Cell Distribution Width 13.9 % (11.5-14.5) 14.2 % (11.5-14.5) Platelet Count 360 x10^3/uL (140-400) 406 x10^3/uL (140-400) Neutrophils (%) (Auto) 60 % (31-73) 63 % (31-73) Lymphocytes (%) (Auto) 26 % (24-48) 23 % (24-48) Monocytes (%) (Auto) 8 % (0-9) 8 % (0-9) Eosinophils (%) (Auto) 6 % (0-3) 6 % (0-3) Basophils (%) (Auto) 0 % (0-3) 0 % (0-3) Neutrophils # (Auto) 4.9 x10^3/uL (1.8-7.7) 5.6 x10^3/uL (1.8-7.7) Lymphocytes # (Auto) 2.1 x10^3/uL (1.0-4.8) 2.1 x10^3/uL (1.0-4.8) Monocytes # (Auto) 0.6 x10^3/uL (0.0-1.1) 0.7 x10^3/uL (0.0-1.1) Eosinophils # (Auto) 0.5 x10^3/uL (0.0-0.7) 0.5 x10^3/uL (0.0-0.7) Basophils # (Auto) 0.0 x10^3/uL (0.0-0.2) 0.0 x10^3/uL (0.0-0.2) Sodium Level 139 mmol/L (136-145) 136 mmol/L (136-145) Potassium Level 3.8 mmol/L (3.5-5.1) 3.7 mmol/L (3.5-5.1) Chloride Level 104 mmol/L (98-107) 106 mmol/L (98-107) Carbon Dioxide Level 26 mmol/L (21-32) 19 mmol/L (21-32) Anion Gap 9 (6-14) 11 (6-14) Blood Urea Nitrogen 8 mg/dL (7-20) 9 mg/dL (7-20) Creatinine 0.8 mg/dL (0.6-1.0) 0.8 mg/dL (0.6-1.0) Estimated GFR (Cockcroft-Gault) 80.7 80.7 Glucose Level 97 mg/dL (70-99) 88 mg/dL (70-99) Calcium Level 9.1 mg/dL (8.5-10.1) 9.0 mg/dL (8.5-10.1) Laboratory Tests Test 07/12/19 03:35 White Blood Count 9.0 x10^3/uL (4.0-11.0) Red Blood Count 4.22 x10^6/uL (3.50-5.40) Hemoglobin 11.2 g/dL (12.0-15.5) Hematocrit 33.8 % (36.0-47.0) Mean Corpuscular Volume 80 fL (79-100) Mean Corpuscular Hemoglobin 27 pg (25-35) Mean Corpuscular Hemoglobin Concent 33 g/dL (31-37) Red Cell Distribution Width 14.2 % (11.5-14.5) Platelet Count 406 x10^3/uL (140-400) Neutrophils (%) (Auto) 63 % (31-73) Lymphocytes (%) (Auto) 23 % (24-48) Monocytes (%) (Auto) 8 % (0-9) Eosinophils (%) (Auto) 6 % (0-3) Basophils (%) (Auto) 0 % (0-3) Neutrophils # (Auto) 5.6 x10^3/uL (1.8-7.7) Lymphocytes # (Auto) 2.1 x10^3/uL (1.0-4.8) Monocytes # (Auto) 0.7 x10^3/uL (0.0-1.1) Eosinophils # (Auto) 0.5 x10^3/uL (0.0-0.7) Basophils # (Auto) 0.0 x10^3/uL (0.0-0.2) Sodium Level 136 mmol/L (136-145) Potassium Level 3.7 mmol/L (3.5-5.1) Chloride Level 106 mmol/L (98-107) Carbon Dioxide Level 19 mmol/L (21-32) Anion Gap 11 (6-14) Blood Urea Nitrogen 9 mg/dL (7-20) Creatinine 0.8 mg/dL (0.6-1.0) Estimated GFR (Cockcroft-Gault) 80.7 Glucose Level 88 mg/dL (70-99) Calcium Level 9.0 mg/dL (8.5-10.1) Medications Active Scripts Medications Dose Route/Sig Max Daily Dose Days Date Category Ibuprofen 800 Mg Tablet 800 Mg PO PRN Q4-6HRS PRN 07/06/19 Reported Benadryl (Diphenhydramine Hcl) 25 Mg Capsule 1 Cap PO QHS 04/03/19 Reported Impression . 1. Dyspnea 2/2 sepsis 2. High-grade fever/ bacteremia; suspected septic emboli 3. Intravenous methamphetamine abuse 4. CXR on 07/10 : small left pleural effusion with increased adjacent atelectasis/infiltrate, also new small focus of infiltrate superiorly to the left hemithorax. 5. No history of tobacco use. 6. No evidence of pulmonary embolism by V/Q scan. Plan . 1. broad-spectrum antibiotic per ID 2. Follow all blood cultures.01/30 positive for MSSA 3. JORGE LUIS negative for vegetations on 07/08 4. bronchodilators/ IS 5. Supplemental oxygen PRN to keep sats above 92 % 6. Discussed with RN and we will follow along with you. 7. Monitor cxr for any increase in left effusion ORTEGA CUENCA MD Jul 12, 2019 12:08
--- NOTE | 2019-07-12 13:25 | PDOC ---
[employer] PROGRESS NOTE Chief Complaint Chief Complaint Chest Pain Acute respiratory failure with hypoxia Methamphetamine abuse History of Present Illness History of Present Illness 07/12/19 Pt seen and examined Finished eating breakfast and was watching TV VALENTINA RN 07/11/19 Pt seen and examined at bedside- watching cartoons with NAD Still awaiting sensitivities and repeat cultures VALENTINA RN 07/10/19 Pt seen and examined lying in bed in NAD Awaiting sensitivities and repeat cultures VALENTINA RN Chart reviewed [id number] Patient seen and examined Discussed with RN We have 4 out of 6 blood cultures positive but the transesophageal echo is negative Awaiting sensitivities Awning Hanger is here drawing another set of cultures now 07/08/19 Pt seen and examined at bedside Pt says she had a "bad night" describing sharp central chest pain radiating to her right chest. She describes the pain as an 8.5 this am Pt denies any other concerning sx Upon questioning, she says that she injected methamphetamines, and did not smoke it VALENTINA RN 07/07/19 Pt seen and examined at bedside Pt says chest pain is improved Pt exhibits NAD and expresses desire to go home saying she "has grass to cut." Vitals/I&O Vitals/I&O: Vital Signs Date Time Temp Pulse Resp B/P (MAP) Pulse Ox O2 Delivery O2 Flow Rate FiO2 07/12/19 11:23 20 94 Room Air 3.0 07/12/19 11:00 97.9 80 139/95 (110) 97.9 I & O 07/11/19 07/11/19 07/12/19 15:00 23:00 07:00 Intake Total 430 ml 330 ml 300 ml Balance 430 ml 330 ml 300 ml Physical Exam Physical Exam: GENERAL: Alert and oriented x 3, pleasant female, lying in bed comfortably, in no acute distress, cooperative, eating breakfast. HEENT: Normocephalic, atraumatic. Anicteric. No thrush. Oral mucosa moist. Edentulous. No conjunctival petechiae. NECK: Supple. No JVD, no lymphadenopathy. LUNGS: Clear bilaterally. HEART: S1, S2. No gallops, murmurs or rubs. ABDOMEN: Soft, nontender and nondistended. No rebound or guarding. EXTREMITIES: No edema, no cyanosis, no clubbing. No peripheral stigmata of endocarditis. BACK: Reveals normal curvature. No CVA tenderness. DERMATOLOGIC: Warm, dry. No generalized rash. Multiple tattoos. NEUROLOGIC: Alert and oriented x 3, grossly nonfocal. PSYCHIATRIC: Cooperative, appropriate to mood, affect. General: Alert, Oriented X3, Cooperative, No acute distress Heart: Regular rate (SR), Normal S1, Normal S2, No murmurs Lungs: Clear Abdomen: Normal bowel sounds, Soft Extremities: No clubbing, No edema, No tenderness/swelling Skin: No rashes, No significant lesion Labs Labs: Laboratory Tests Test 07/12/19 03:35 White Blood Count 9.0 x10^3/uL (4.0-11.0) Red Blood Count 4.22 x10^6/uL (3.50-5.40) Hemoglobin 11.2 g/dL (12.0-15.5) Hematocrit 33.8 % (36.0-47.0) Mean Corpuscular Volume 80 fL (79-100) Mean Corpuscular Hemoglobin 27 pg (25-35) Mean Corpuscular Hemoglobin Concent 33 g/dL (31-37) Red Cell Distribution Width 14.2 % (11.5-14.5) Platelet Count 406 x10^3/uL (140-400) Neutrophils (%) (Auto) 63 % (31-73) Lymphocytes (%) (Auto) 23 % (24-48) Monocytes (%) (Auto) 8 % (0-9) Eosinophils (%) (Auto) 6 % (0-3) Basophils (%) (Auto) 0 % (0-3) Neutrophils # (Auto) 5.6 x10^3/uL (1.8-7.7) Lymphocytes # (Auto) 2.1 x10^3/uL (1.0-4.8) Monocytes # (Auto) 0.7 x10^3/uL (0.0-1.1) Eosinophils # (Auto) 0.5 x10^3/uL (0.0-0.7) Basophils # (Auto) 0.0 x10^3/uL (0.0-0.2) Sodium Level 136 mmol/L (136-145) Potassium Level 3.7 mmol/L (3.5-5.1) Chloride Level 106 mmol/L (98-107) Carbon Dioxide Level 19 mmol/L (21-32) Anion Gap 11 (6-14) Blood Urea Nitrogen 9 mg/dL (7-20) Creatinine 0.8 mg/dL (0.6-1.0) Estimated GFR (Cockcroft-Gault) 80.7 Glucose Level 88 mg/dL (70-99) Calcium Level 9.0 mg/dL (8.5-10.1) Review of Systems Review of Systems: Denies pain Co weakness Assessment and Plan Assessmemt and Plan Problems Medical Problems: (1) Acute respiratory failure with hypoxia Status: Acute (2) Chest pain Status: Acute (3) Dyspnea Status: Acute (4) High fever Status: Acute (5) Methamphetamine abuse Status: Acute (6) Mild malnutrition Status: Chronic (7) Pleuritic chest pain Status: Acute Assessment Chest Pain Acute respiratory failure with hypoxia Methamphetamine abuse Plan Encouraged inspirometry PO Doxycycline IV Zosyn, vancomycin Cardiac monitoring Home meds IV fluids DVT prophylaxis Full Code Awaiting blood cultures and sensitivities Comment Review of Relevant I have reviewed the following items ina (where applicable) has been applied. Medications: Current Medications Medications (Trade) Dose Ordered Sig/Vee Route PRN Reason Start Time Stop Time Status Last Admin Dose Admin Cefazolin Sodium 2 gm/Dextrose 50 ml @ 100 mls/hr Q8HRS IV 07/11/19 22:00 07/12/19 05:05 CABRERA ZAIDI III DO Jul 12, 2019 13:25
--- NOTE | 2019-07-12 14:45 | NUR ---
SS following up with discharge planning. No discharge needs noted at this time. SS will continue to follow for discharge planning.
[2019-07-12 15:00] VITALS: BP 165/116
[2019-07-12 19:40] VITALS: BP 162/112
[2019-07-12] MEDS: HYDROcodone/APAP 5/325MG 1 TAB TABLET PO PRN (20:15)
[2019-07-12 22:16] VITALS: BP 159/110
[2019-07-12] MEDS ORDERED: cloNIDine HCL 0.1 MG TABLET PO PRN (22:45)
[2019-07-13] VITALS (7 sets, daily range): BP systolic 104–151; BP diastolic 62–98
[2019-07-13 04:46] LABS: BASO % 0 % (0-3); EOS # 0.4 x10^3/uL (0.0-0.7); EOS % 5 % (0-3); HEMATOCRIT 34.2 % (36.0-47.0); HEMOGLOBIN 11.6 g/dL (12.0-15.5); LYMPH # 2.2 x10^3/uL (1.0-4.8); LYMPH % 26 % (24-48); MEAN CORPUSCULAR HEMOGLOBIN 26 pg (25-35); MEAN CORPUSCULAR HGB CONC 34 g/dL (31-37); MEAN CORPUSCULAR VOLUME 77 fL (79-100); MONO # 0.6 x10^3/uL (0.0-1.1); MONO % 7 % (0-9); NEUT # 5.1 x10^3/uL (1.8-7.7); NEUT % 62 % (31-73); PLATELET COUNT 451 x10^3/uL (140-400); RED BLOOD COUNT 4.43 x10^6/uL (3.50-5.40); RED CELL DISTRIBUTION WIDTH 14.2 % (11.5-14.5); WHITE BLOOD COUNT 8.4 x10^3/uL (4.0-11.0)
[2019-07-13 04:53] LABS: CALCIUM 9.4 mg/dL (8.5-10.1); CREATININE 0.8 mg/dL (0.6-1.0); GFR 80.7; POTASSIUM 3.6 mmol/L (3.5-5.1)
[2019-07-13] MEDS: ceFAZolin SODIUM 2 GM in IV DEXTROSE 5% 50 ML IV SCH ×3 (05:13→20:27)
--- NOTE | 2019-07-13 08:18 | PDOC ---
Infectious Disease Note Subjective Subjective better. less chest pain Having some loose stool - no bloating but mild discomfort cont to have headaches at times, no vision or ear complaints dry cough no n/v/jt pain or back pain ROS ROS o/w neg Vital Sign Vital Signs Vital Signs Date Time Temp Pulse Resp B/P (MAP) Pulse Ox O2 Delivery O2 Flow Rate FiO2 07/13/19 05:12 66 105/62 (76) 07/13/19 03:02 98.1 15 95 Room Air 98.1 07/12/19 11:23 3.0 Physical Exam PHYSICAL EXAM GENERAL: Alert and oriented x 3, pleasant female, lying in bed comfortably, in no acute distress, cooperative, eating breakfast. HEENT: Normocephalic, atraumatic. Anicteric. No thrush. Oral mucosa moist. Edentulous. No conjunctival petechiae. NECK: Supple. No JVD, no lymphadenopathy. LUNGS: Clear bilaterally. HEART: S1, S2. No gallops, murmurs or rubs. ABDOMEN: Soft, nontender and nondistended. No rebound or guarding. EXTREMITIES: No edema, no cyanosis, no clubbing. No peripheral stigmata of endocarditis. BACK: Reveals normal curvature. No CVA tenderness. DERMATOLOGIC: Warm, dry. No generalized rash. Multiple tattoos. NEUROLOGIC: Alert and oriented x 3, grossly nonfocal. PSYCHIATRIC: Cooperative, appropriate to mood, affect. Labs Lab Laboratory Tests Test 07/13/19 04:15 White Blood Count 8.4 x10^3/uL (4.0-11.0) Red Blood Count 4.43 x10^6/uL (3.50-5.40) Hemoglobin 11.6 g/dL (12.0-15.5) Hematocrit 34.2 % (36.0-47.0) Mean Corpuscular Volume 77 fL (79-100) Mean Corpuscular Hemoglobin 26 pg (25-35) Mean Corpuscular Hemoglobin Concent 34 g/dL (31-37) Red Cell Distribution Width 14.2 % (11.5-14.5) Platelet Count 451 x10^3/uL (140-400) Neutrophils (%) (Auto) 62 % (31-73) Lymphocytes (%) (Auto) 26 % (24-48) Monocytes (%) (Auto) 7 % (0-9) Eosinophils (%) (Auto) 5 % (0-3) Basophils (%) (Auto) 0 % (0-3) Neutrophils # (Auto) 5.1 x10^3/uL (1.8-7.7) Lymphocytes # (Auto) 2.2 x10^3/uL (1.0-4.8) Monocytes # (Auto) 0.6 x10^3/uL (0.0-1.1) Eosinophils # (Auto) 0.4 x10^3/uL (0.0-0.7) Basophils # (Auto) 0.0 x10^3/uL (0.0-0.2) Sodium Level 142 mmol/L (136-145) Potassium Level 3.6 mmol/L (3.5-5.1) Chloride Level 105 mmol/L (98-107) Carbon Dioxide Level 27 mmol/L (21-32) Anion Gap 10 (6-14) Blood Urea Nitrogen 10 mg/dL (7-20) Creatinine 0.8 mg/dL (0.6-1.0) Estimated GFR (Cockcroft-Gault) 80.7 Glucose Level 98 mg/dL (70-99) Calcium Level 9.4 mg/dL (8.5-10.1) Micro Impression: Normal CT head without contrast.07/11 Microbiology 07/09/19 Blood Culture - Preliminary, Resulted NO GROWTH AFTER 2 DAYS 07/06/19 Urine Culture - Final, Complete 07/06/19 Urine Culture Result 1 (TRE) - Final, Complete Objective Assessment 1. Staph aureus Bacteremia (MSSA) 4/6 bottles 07/07 with likely septic emboli TRE pending ,JORGE LUIS 07/08 neg for vegetations cults 07/09 neg so far 2. Dyspnea and chestpain likely from septic emboli 3. Pulmonary nodules February 2019, Increase in size and number of pulmonary nodules and infiltrates on repeat CT Chest. likely septic pulm emboli 4. Indeterminate splenic lesion ,Complex splenic cyst or hemangioma. 5. IVDU with methamphetamine 7. History of methicillin-susceptible Staphylococcus aureus bacteremia on 02/2019,treated with IV antibiotics for 6 weeks due to pulm nodules, possible infective endocarditis,echo negative. 8. MR on JORGE LUIS 9. Headache Plan Plan of Care Continue empiric IV cefazolin started 07/11. Likely d/c home with Rocephin as she did well and improved last time and also will help with lung Will need PICC line prior to discharge anticipate placement 07/14 if cult remain neg f/u blood cultures 07/09 neg so far. More cults ordered 07/12 and so far neg Followup labs in the a.m. and cultures. Advised to quit street drugs. Continue supportive care. D/W LATONYA MILLER MD Jul 13, 2019 08:18
[2019-07-13] MEDS: LACTOBACILLUS RHAMNOSUS GG 1 CAPSULE. PO SCH ×2 (08:19→20:27)
--- NOTE | 2019-07-13 09:44 | PDOC ---
[employer] PROGRESS NOTE Chief Complaint Chief Complaint Chest Pain Acute respiratory failure with hypoxia Methamphetamine abuse History of Present Illness History of Present Illness 07/12/19 Pt seen and examined Finished eating breakfast and was watching TV VALENTINA RN 07/11/19 Pt seen and examined at bedside- watching cartoons with NAD Still awaiting sensitivities and repeat cultures VALENTINA RN 07/10/19 Pt seen and examined lying in bed in NAD Awaiting sensitivities and repeat cultures VALENTINA RN Chart reviewed [id number] Patient seen and examined Discussed with RN We have 4 out of 6 blood cultures positive but the transesophageal echo is negative Awaiting sensitivities Sub Master is here drawing another set of cultures now 07/08/19 Pt seen and examined at bedside Pt says she had a "bad night" describing sharp central chest pain radiating to her right chest. She describes the pain as an 8.5 this am Pt denies any other concerning sx Upon questioning, she says that she injected methamphetamines, and did not smoke it VALENTINA RN 07/07/19 Pt seen and examined at bedside Pt says chest pain is improved Pt exhibits NAD and expresses desire to go home saying she "has grass to cut." Vitals/I&O Vitals/I&O: Vital Signs Date Time Temp Pulse Resp B/P (MAP) Pulse Ox O2 Delivery O2 Flow Rate FiO2 07/13/19 07:00 97.6 71 16 110/63 (79) 94 Room Air 97.6 07/12/19 11:23 3.0 I & O 07/12/19 07/12/19 07/13/19 14:59 22:59 06:59 Intake Total 118 ml 238 ml 1900 ml Balance 118 ml 238 ml 1900 ml Physical Exam Physical Exam: GENERAL: Alert and oriented x 3, pleasant female, lying in bed comfortably, in no acute distress, cooperative, eating breakfast. HEENT: Normocephalic, atraumatic. Anicteric. No thrush. Oral mucosa moist. Edentulous. No conjunctival petechiae. NECK: Supple. No JVD, no lymphadenopathy. LUNGS: Clear bilaterally. HEART: S1, S2. No gallops, murmurs or rubs. ABDOMEN: Soft, nontender and nondistended. No rebound or guarding. EXTREMITIES: No edema, no cyanosis, no clubbing. No peripheral stigmata of endocarditis. BACK: Reveals normal curvature. No CVA tenderness. DERMATOLOGIC: Warm, dry. No generalized rash. Multiple tattoos. NEUROLOGIC: Alert and oriented x 3, grossly nonfocal. PSYCHIATRIC: Cooperative, appropriate to mood, affect. General: Alert, Oriented X3, Cooperative, No acute distress Heart: Regular rate (SR), Normal S1, Normal S2, No murmurs Lungs: Clear Abdomen: Normal bowel sounds, Soft Extremities: No clubbing, No edema, No tenderness/swelling Skin: No rashes, No significant lesion Labs Labs: Laboratory Tests Test 07/13/19 04:15 White Blood Count 8.4 x10^3/uL (4.0-11.0) Red Blood Count 4.43 x10^6/uL (3.50-5.40) Hemoglobin 11.6 g/dL (12.0-15.5) Hematocrit 34.2 % (36.0-47.0) Mean Corpuscular Volume 77 fL (79-100) Mean Corpuscular Hemoglobin 26 pg (25-35) Mean Corpuscular Hemoglobin Concent 34 g/dL (31-37) Red Cell Distribution Width 14.2 % (11.5-14.5) Platelet Count 451 x10^3/uL (140-400) Neutrophils (%) (Auto) 62 % (31-73) Lymphocytes (%) (Auto) 26 % (24-48) Monocytes (%) (Auto) 7 % (0-9) Eosinophils (%) (Auto) 5 % (0-3) Basophils (%) (Auto) 0 % (0-3) Neutrophils # (Auto) 5.1 x10^3/uL (1.8-7.7) Lymphocytes # (Auto) 2.2 x10^3/uL (1.0-4.8) Monocytes # (Auto) 0.6 x10^3/uL (0.0-1.1) Eosinophils # (Auto) 0.4 x10^3/uL (0.0-0.7) Basophils # (Auto) 0.0 x10^3/uL (0.0-0.2) Sodium Level 142 mmol/L (136-145) Potassium Level 3.6 mmol/L (3.5-5.1) Chloride Level 105 mmol/L (98-107) Carbon Dioxide Level 27 mmol/L (21-32) Anion Gap 10 (6-14) Blood Urea Nitrogen 10 mg/dL (7-20) Creatinine 0.8 mg/dL (0.6-1.0) Estimated GFR (Cockcroft-Gault) 80.7 Glucose Level 98 mg/dL (70-99) Calcium Level 9.4 mg/dL (8.5-10.1) Review of Systems Review of Systems: No chest pain No nausea No vomiting No wheezing No cyanosis Assessment and Plan Assessmemt and Plan Problems Medical Problems: (1) Acute respiratory failure with hypoxia Status: Acute (2) Chest pain Status: Acute (3) Dyspnea Status: Acute (4) High fever Status: Acute (5) Methamphetamine abuse Status: Acute (6) Mild malnutrition Status: Chronic (7) Pleuritic chest pain Status: Acute Assessment Chest Pain Acute respiratory failure with hypoxia Methamphetamine abuse Plan Talk to Dr. Sanches (ID) regarding placement of PICC line Awaiting culture and sensitivities Place on IV antibiotics for 6 weeks for pulmonary nodules IV fluids Ordered Norvasc 5 mg po qday Labs Discharge Comment Review of Relevant I have reviewed the following items ina (where applicable) has been applied. Medications: Current Medications Medications (Trade) Dose Ordered Sig/Vee Route PRN Reason Start Time Stop Time Status Last Admin Dose Admin Clonidine HCl (Catapres) 0.1 mg PRN Q4HRS PRN PO Hypertension 07/12/19 22:45 07/12/19 23:35 CABRERA ZAIDI III DO Jul 13, 2019 09:44
[2019-07-13] MEDS: amLODIPine BESYLATE 5 MG TABLET PO SCH (10:21)
[2019-07-13] MEDS: HYDROcodone/APAP 10/325 1 TAB TABLET PO PRN ×2 (10:22→21:27)
--- NOTE | 2019-07-13 12:02 | NUR ---
SS following up with discharge planning. SS phoned and faxed request for benefits check to [facility] for IV abx, ; fax [phone]. SS will continue to follow for discharge planning.
--- NOTE | 2019-07-13 12:34 | PDOC ---
PULMONARY PROGRESS NOTES Subjective feels better today Vitals Vital Signs Date Time Temp Pulse Resp B/P (MAP) Pulse Ox O2 Delivery O2 Flow Rate FiO2 07/13/19 11:59 18 93 Room Air 07/13/19 11:00 97.9 77 128/84 (99) 97.9 07/13/19 08:00 3.0 ROS: No Nausea, No Increase Cough General: Alert, Oriented X4, No acute distress Lungs: Clear Cardiovascular: S1, S2 Abdomen: Soft Neuro Exam: Alert Extremities: No Edema Skin: Warm, Dry Labs Laboratory Tests Test 07/12/19 03:35 07/13/19 04:15 White Blood Count 9.0 x10^3/uL (4.0-11.0) 8.4 x10^3/uL (4.0-11.0) Red Blood Count 4.22 x10^6/uL (3.50-5.40) 4.43 x10^6/uL (3.50-5.40) Hemoglobin 11.2 g/dL (12.0-15.5) 11.6 g/dL (12.0-15.5) Hematocrit 33.8 % (36.0-47.0) 34.2 % (36.0-47.0) Mean Corpuscular Volume 80 fL (79-100) 77 fL (79-100) Mean Corpuscular Hemoglobin 27 pg (25-35) 26 pg (25-35) Mean Corpuscular Hemoglobin Concent 33 g/dL (31-37) 34 g/dL (31-37) Red Cell Distribution Width 14.2 % (11.5-14.5) 14.2 % (11.5-14.5) Platelet Count 406 x10^3/uL (140-400) 451 x10^3/uL (140-400) Neutrophils (%) (Auto) 63 % (31-73) 62 % (31-73) Lymphocytes (%) (Auto) 23 % (24-48) 26 % (24-48) Monocytes (%) (Auto) 8 % (0-9) 7 % (0-9) Eosinophils (%) (Auto) 6 % (0-3) 5 % (0-3) Basophils (%) (Auto) 0 % (0-3) 0 % (0-3) Neutrophils # (Auto) 5.6 x10^3/uL (1.8-7.7) 5.1 x10^3/uL (1.8-7.7) Lymphocytes # (Auto) 2.1 x10^3/uL (1.0-4.8) 2.2 x10^3/uL (1.0-4.8) Monocytes # (Auto) 0.7 x10^3/uL (0.0-1.1) 0.6 x10^3/uL (0.0-1.1) Eosinophils # (Auto) 0.5 x10^3/uL (0.0-0.7) 0.4 x10^3/uL (0.0-0.7) Basophils # (Auto) 0.0 x10^3/uL (0.0-0.2) 0.0 x10^3/uL (0.0-0.2) Sodium Level 136 mmol/L (136-145) 142 mmol/L (136-145) Potassium Level 3.7 mmol/L (3.5-5.1) 3.6 mmol/L (3.5-5.1) Chloride Level 106 mmol/L (98-107) 105 mmol/L (98-107) Carbon Dioxide Level 19 mmol/L (21-32) 27 mmol/L (21-32) Anion Gap 11 (6-14) 10 (6-14) Blood Urea Nitrogen 9 mg/dL (7-20) 10 mg/dL (7-20) Creatinine 0.8 mg/dL (0.6-1.0) 0.8 mg/dL (0.6-1.0) Estimated GFR (Cockcroft-Gault) 80.7 80.7 Glucose Level 88 mg/dL (70-99) 98 mg/dL (70-99) Calcium Level 9.0 mg/dL (8.5-10.1) 9.4 mg/dL (8.5-10.1) Laboratory Tests Test 07/13/19 04:15 White Blood Count 8.4 x10^3/uL (4.0-11.0) Red Blood Count 4.43 x10^6/uL (3.50-5.40) Hemoglobin 11.6 g/dL (12.0-15.5) Hematocrit 34.2 % (36.0-47.0) Mean Corpuscular Volume 77 fL (79-100) Mean Corpuscular Hemoglobin 26 pg (25-35) Mean Corpuscular Hemoglobin Concent 34 g/dL (31-37) Red Cell Distribution Width 14.2 % (11.5-14.5) Platelet Count 451 x10^3/uL (140-400) Neutrophils (%) (Auto) 62 % (31-73) Lymphocytes (%) (Auto) 26 % (24-48) Monocytes (%) (Auto) 7 % (0-9) Eosinophils (%) (Auto) 5 % (0-3) Basophils (%) (Auto) 0 % (0-3) Neutrophils # (Auto) 5.1 x10^3/uL (1.8-7.7) Lymphocytes # (Auto) 2.2 x10^3/uL (1.0-4.8) Monocytes # (Auto) 0.6 x10^3/uL (0.0-1.1) Eosinophils # (Auto) 0.4 x10^3/uL (0.0-0.7) Basophils # (Auto) 0.0 x10^3/uL (0.0-0.2) Sodium Level 142 mmol/L (136-145) Potassium Level 3.6 mmol/L (3.5-5.1) Chloride Level 105 mmol/L (98-107) Carbon Dioxide Level 27 mmol/L (21-32) Anion Gap 10 (6-14) Blood Urea Nitrogen 10 mg/dL (7-20) Creatinine 0.8 mg/dL (0.6-1.0) Estimated GFR (Cockcroft-Gault) 80.7 Glucose Level 98 mg/dL (70-99) Calcium Level 9.4 mg/dL (8.5-10.1) Medications Active Scripts Medications Dose Route/Sig Max Daily Dose Days Date Category Ibuprofen 800 Mg Tablet 800 Mg PO PRN Q4-6HRS PRN 07/06/19 Reported Benadryl (Diphenhydramine Hcl) 25 Mg Capsule 1 Cap PO QHS 04/03/19 Reported Impression . 1. Dyspnea due to sepsis 2. High-grade fever/ bacteremia;POA, suspected septic emboli , improved 3. Intravenous methamphetamine abuse 4. CXR on 07/10 : small left pleural effusion with increased adjacent atelectasis/infiltrate, also new small focus of infiltrate superiorly to the left hemithorax. 5. No history of tobacco use. 6. No evidence of pulmonary embolism by V/Q scan. Plan . 1. broad-spectrum antibiotic per ID 2. blood cultures.01/30 positive for MSSA 3. JORGE LUIS negative for vegetations on 07/08 4. bronchodilators/ IS 5. Supplemental oxygen PRN to keep sats above 92 % 6. Discussed with RN and we will follow along with you. 7. Monitor cxr for any increase in left effusion ORTEGA CUENCA MD Jul 13, 2019 12:34
[2019-07-14 03:10] VITALS: BP 124/79
[2019-07-14 05:08] LABS: BASO # 0.1 x10^3/uL (0.0-0.2); BASO % 1 % (0-3); EOS # 0.5 x10^3/uL (0.0-0.7); EOS % 5 % (0-3); HEMATOCRIT 34.6 % (36.0-47.0); HEMOGLOBIN 11.9 g/dL (12.0-15.5); LYMPH # 2.6 x10^3/uL (1.0-4.8); LYMPH % 26 % (24-48); MEAN CORPUSCULAR HEMOGLOBIN 27 pg (25-35); MEAN CORPUSCULAR HGB CONC 34 g/dL (31-37); MEAN CORPUSCULAR VOLUME 78 fL (79-100); MONO # 0.7 x10^3/uL (0.0-1.1); MONO % 7 % (0-9); NEUT # 6.3 x10^3/uL (1.8-7.7); NEUT % 62 % (31-73); PLATELET COUNT 495 x10^3/uL (140-400); RED BLOOD COUNT 4.47 x10^6/uL (3.50-5.40); WHITE BLOOD COUNT 10.2 x10^3/uL (4.0-11.0)
[2019-07-14] MEDS: ceFAZolin SODIUM 2 GM in IV DEXTROSE 5% 50 ML IV SCH (05:25)
[2019-07-14 05:32] LABS: CREATININE 0.8 mg/dL (0.6-1.0); GFR 80.7; POTASSIUM 4.1 mmol/L (3.5-5.1)
--- NOTE | 2019-07-14 06:41 | PDOC ---
Infectious Disease Note Subjective Subjective better. less chest pain no n/v/jt pain or back pain/F/C/s/rash Vital Sign Vital Signs Vital Signs Date Time Temp Pulse Resp B/P (MAP) Pulse Ox O2 Delivery O2 Flow Rate FiO2 07/14/19 03:10 97.8 65 18 124/79 (94) 94 Room Air 97.8 07/13/19 21:27 94.0 Physical Exam PHYSICAL EXAM GENERAL: Alert and oriented x 3, pleasant female, lying in bed comfortably, in no acute distress, cooperative, eating breakfast. HEENT: Normocephalic, atraumatic. Anicteric. No thrush. Oral mucosa moist - no petechie. Edentulous. No conjunctival hemorrhages. Dentures NECK: Supple. No JVD, no lymphadenopathy. LUNGS: Clear bilaterally. HEART: S1, S2. No gallops, murmurs or rubs. ABDOMEN: Soft, nontender and nondistended. No rebound or guarding. EXTREMITIES: No edema, no cyanosis, no clubbing. No peripheral stigmata of endocarditis. BACK: Reveals normal curvature. No CVA tenderness. DERMATOLOGIC: Warm, dry. No generalized rash. Multiple tattoos. NEUROLOGIC: Alert and oriented x 3, grossly nonfocal. PSYCHIATRIC: Cooperative, appropriate to mood, affect. Labs Lab Laboratory Tests Test 07/14/19 03:55 White Blood Count 10.2 x10^3/uL (4.0-11.0) Red Blood Count 4.47 x10^6/uL (3.50-5.40) Hemoglobin 11.9 g/dL (12.0-15.5) Hematocrit 34.6 % (36.0-47.0) Mean Corpuscular Volume 78 fL (79-100) Mean Corpuscular Hemoglobin 27 pg (25-35) Mean Corpuscular Hemoglobin Concent 34 g/dL (31-37) Red Cell Distribution Width 14.0 % (11.5-14.5) Platelet Count 495 x10^3/uL (140-400) Neutrophils (%) (Auto) 62 % (31-73) Lymphocytes (%) (Auto) 26 % (24-48) Monocytes (%) (Auto) 7 % (0-9) Eosinophils (%) (Auto) 5 % (0-3) Basophils (%) (Auto) 1 % (0-3) Neutrophils # (Auto) 6.3 x10^3/uL (1.8-7.7) Lymphocytes # (Auto) 2.6 x10^3/uL (1.0-4.8) Monocytes # (Auto) 0.7 x10^3/uL (0.0-1.1) Eosinophils # (Auto) 0.5 x10^3/uL (0.0-0.7) Basophils # (Auto) 0.1 x10^3/uL (0.0-0.2) Sodium Level 139 mmol/L (136-145) Potassium Level 4.1 mmol/L (3.5-5.1) Chloride Level 103 mmol/L (98-107) Carbon Dioxide Level 25 mmol/L (21-32) Anion Gap 11 (6-14) Blood Urea Nitrogen 12 mg/dL (7-20) Creatinine 0.8 mg/dL (0.6-1.0) Estimated GFR (Cockcroft-Gault) 80.7 Glucose Level 89 mg/dL (70-99) Calcium Level 10.0 mg/dL (8.5-10.1) Micro Impression: Normal CT head without contrast.07/11 Microbiology 07/09/19 Blood Culture - Preliminary, Resulted NO GROWTH AFTER 2 DAYS 07/06/19 Urine Culture - Final, Complete 07/06/19 Urine Culture Result 1 (TRE) - Final, Complete Objective Assessment 1. Staph aureus Bacteremia (MSSA) 4/6 bottles 07/07 with likely septic emboli TRE pending ,JORGE LUIS 07/08 neg for vegetations cults 07/09 neg so far 2. Dyspnea and chestpain likely from septic emboli 3. Pulmonary nodules February 2019, Increase in size and number of pulmonary nodules and infiltrates on repeat CT Chest. likely septic pulm emboli 4. Indeterminate splenic lesion ,Complex splenic cyst or hemangioma. 5. IVDU with methamphetamine 7. History of methicillin-susceptible Staphylococcus aureus bacteremia on 02/2019,treated with IV antibiotics for 6 weeks due to pulm nodules, possible infective endocarditis,echo negative. 8. MR on JORGE LUIS 9. Headache Plan Plan of Care Can d/c home on IV Ceftriaxone, as previously, to have treatment to cover lung and blood. End date is 08/19. Rx in chart Will need PICC - discussed risks and she has done well before. Explained she could if she miss uses it and she understands and accepts risk. 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 Continue supportive care. D/W LATONYA MILLER MD Jul 14, 2019 06:41
[2019-07-14 07:35] VITALS: BP 118/75
[2019-07-14] MEDS ORDERED: cefTRIAXone IV Push 2 GM VIAL. IVP SCH (08:00)
--- NOTE | 2019-07-14 08:42 | NUR ---
SS following up with discharge planning. SS received phone contact from [facility], ; fax [phone], stating that pt is covered at 100% for IV antibiotics for home infusion. SS received script and phoned and faxed script and clinical to [facility]. SS spoke with Kelsie Garcia at [facility] who stated that they will come to the hospital to do a bedside teach. SS will await orders for home healthcare and will proceed accordingly with discharge planning.
[2019-07-14 10:01] VITALS: BP 129/90
[2019-07-14] MEDS: LACTOBACILLUS RHAMNOSUS GG 1 CAPSULE. PO SCH (10:28)
[2019-07-14] MEDS: HYDROcodone/APAP 10/325 1 TAB TABLET PO PRN (10:28)
[2019-07-14] MEDS: amLODIPine BESYLATE 5 MG TABLET PO SCH (10:28)
--- NOTE | 2019-07-14 10:40 | NUR ---
PICC Pre-insertion Note: Allergies and reactions: None INR 1.1 BUN 12 Cr 0.8 Platelets 495 Blood culture done Yes blood culture results Positive Order Verified Yes Consent signed Yes Previous PICC placement Yes Past Medical/Surgical history and current diagnosis reviewed Yes Patient Medical /Surgical History Related to PICC line placement Infectious Disease consult Past central line or venous access device placement Septicemia/Bacteremia Special considerations for PICC line placement None PICC placement indication shelter antibiotic usage, Macie Brennan RN PICC Nurse Addendum: 07/14/19 at 1136 by DENZEL BRENNAN RN Amended: Links added.
--- NOTE | 2019-07-14 11:12 | NUR ---
PICC Insertion Note: Procedure: Following complete explanation of the PICC procedure including the indications, risks, and potential complications, informed consent was obtained. The possibility for infection was discussed along with signs, symptoms, and prevention. All the questions were answered. Written and verbal patient education was provided. Hand hygiene performed. Standardized central line checklist was utilized. The patient was placed in the supine position, the arm was prepped with chlorhexidine and patient draped with maximum sterile barrier. 5 mL 1% lidocaine was infiltrated into the skin to provide local anesthesia. A thorough assessment of Right upper extremity completed. Using real-time ultrasound guidance and standardized micro puncture set, the Basilic vein was punctured and a peel away sheath was placed using the modified Seldinger technique. A tip location device was used to ensure adequate catheter placement. The catheter was secured using a securement device and an antimicrobial patch was applied directly on the insertion site followed by a transparent dressing. All ports withdraw blood and flush without resistance. Patient tolerated the procedure without apparent complication(s). Single Lumen Power PICC placement successful and uncomplicated. Placement verified by EKG tip confirmation system and/or chest x-ray. Tip located in the CAJ/SVC. Complications: None Catheter trimmed at 37cm with 1cm visible at insertion site.
--- NOTE | 2019-07-14 12:29 | PDOC ---
[facility] PROGRESS NOTE Chief Complaint Chief Complaint Chest Pain Acute respiratory failure with hypoxia Methamphetamine abuse History of Present Illness History of Present Illness 07/13/19 Pt seen and examined at bedside DW patient about drug use and she promised to avoid using in the future 07/12/19 Pt seen and examined Finished eating breakfast and was watching TV VALENTINA RN 07/11/19 Pt seen and examined at bedside- watching cartoons with NAD Still awaiting sensitivities and repeat cultures VALENTINA RN 07/10/19 Pt seen and examined lying in bed in NAD Awaiting sensitivities and repeat cultures VALENTINA RN Chart reviewed Patient seen and examined Discussed with RN We have 4 out of 6 blood cultures positive but the transesophageal echo is negative Awaiting sensitivities Client Onboarding Analyst is here drawing another set of cultures now 07/08/19 Pt seen and examined at bedside Pt says she had a "bad night" describing sharp central chest pain radiating to her right chest. She describes the pain as an 8.5 this am Pt denies any other concerning sx Upon questioning, she says that she injected methamphetamines, and did not smoke it VALENTINA RN 07/07/19 Pt seen and examined at bedside Pt says chest pain is improved Pt exhibits NAD and expresses desire to go home saying she "has grass to cut." Vitals/I&O Vitals/I&O: Vital Signs Date Time Temp Pulse Resp B/P (MAP) Pulse Ox O2 Delivery O2 Flow Rate FiO2 07/14/19 10:28 81 07/14/19 10:01 97.9 16 129/90 (103) 95 Room Air 97.9 07/13/19 21:27 94.0 I & O 07/13/19 07/13/19 07/14/19 15:00 23:00 07:00 Intake Total 500 ml 350 ml 350 ml Balance 500 ml 350 ml 350 ml Physical Exam Physical Exam: GENERAL: Alert and oriented x 3, pleasant female, lying in bed comfortably, in no acute distress, cooperative, eating breakfast. HEENT: Normocephalic, atraumatic. Anicteric. No thrush. Oral mucosa moist - no petechie. Edentulous. No conjunctival hemorrhages. Dentures NECK: Supple. No JVD, no lymphadenopathy. LUNGS: Clear bilaterally. HEART: S1, S2. No gallops, murmurs or rubs. ABDOMEN: Soft, nontender and nondistended. No rebound or guarding. EXTREMITIES: No edema, no cyanosis, no clubbing. No peripheral stigmata of endocarditis. BACK: Reveals normal curvature. No CVA tenderness. DERMATOLOGIC: Warm, dry. No generalized rash. Multiple tattoos. NEUROLOGIC: Alert and oriented x 3, grossly nonfocal. PSYCHIATRIC: Cooperative, appropriate to mood, affect. General: Alert, Oriented X3, Cooperative, No acute distress Heart: Regular rate (SR), Normal S1, Normal S2, No murmurs Lungs: Clear Abdomen: Normal bowel sounds, Soft Extremities: No clubbing, No edema, No tenderness/swelling Skin: No rashes, No significant lesion Labs Labs: Laboratory Tests Test 07/14/19 03:55 White Blood Count 10.2 x10^3/uL (4.0-11.0) Red Blood Count 4.47 x10^6/uL (3.50-5.40) Hemoglobin 11.9 g/dL (12.0-15.5) Hematocrit 34.6 % (36.0-47.0) Mean Corpuscular Volume 78 fL (79-100) Mean Corpuscular Hemoglobin 27 pg (25-35) Mean Corpuscular Hemoglobin Concent 34 g/dL (31-37) Red Cell Distribution Width 14.0 % (11.5-14.5) Platelet Count 495 x10^3/uL (140-400) Neutrophils (%) (Auto) 62 % (31-73) Lymphocytes (%) (Auto) 26 % (24-48) Monocytes (%) (Auto) 7 % (0-9) Eosinophils (%) (Auto) 5 % (0-3) Basophils (%) (Auto) 1 % (0-3) Neutrophils # (Auto) 6.3 x10^3/uL (1.8-7.7) Lymphocytes # (Auto) 2.6 x10^3/uL (1.0-4.8) Monocytes # (Auto) 0.7 x10^3/uL (0.0-1.1) Eosinophils # (Auto) 0.5 x10^3/uL (0.0-0.7) Basophils # (Auto) 0.1 x10^3/uL (0.0-0.2) Sodium Level 139 mmol/L (136-145) Potassium Level 4.1 mmol/L (3.5-5.1) Chloride Level 103 mmol/L (98-107) Carbon Dioxide Level 25 mmol/L (21-32) Anion Gap 11 (6-14) Blood Urea Nitrogen 12 mg/dL (7-20) Creatinine 0.8 mg/dL (0.6-1.0) Estimated GFR (Cockcroft-Gault) 80.7 Glucose Level 89 mg/dL (70-99) Calcium Level 10.0 mg/dL (8.5-10.1) Review of Systems Review of Systems: No nausea, no vomiting No headache No fever Assessment and Plan Assessmemt and Plan Problems Medical Problems: (1) Acute respiratory failure with hypoxia Status: Acute (2) Chest pain Status: Acute (3) Dyspnea Status: Acute (4) High fever Status: Acute (5) Methamphetamine abuse Status: Acute (6) Mild malnutrition Status: Chronic (7) Pleuritic chest pain Status: Acute Assessment Chest Pain Acute respiratory failure with hypoxia Methamphetamine abuse Plan PICC line being placed by Dr. Pierson [facility] home health nurse to help with medications Advised to stop drug usage Discharge Comment Review of Relevant I have reviewed the following items ina (where applicable) has been applied. Medications: Current Medications Medications (Trade) Dose Ordered Sig/Vee Route PRN Reason Start Time Stop Time Status Last Admin Dose Admin Ceftriaxone Sodium (Rocephin) 2 gm Q24H IVP 07/14/19 08:00 07/14/19 10:28 CABRERA ZAIDI III DO Jul 14, 2019 12:29
--- NOTE | 2019-07-14 12:43 | SNU/HH DC ---
DISCHARGE WITH HOME HEALTH DISCHARGE INFORMATION: Final Diagnosis: Problems Medical Problems: (1) Acute respiratory failure with hypoxia Status: Acute (2) Chest pain Status: Acute (3) Dyspnea Status: Acute (4) High fever Status: Acute (5) Methamphetamine abuse Status: Acute (6) Mild malnutrition Status: Chronic (7) Pleuritic chest pain Status: Acute Condition on Discharge: Stable CODE STATUS: Code Status: Full HOME HEALTH: Face to Face: I certify this patient is under my care and that I, or a nurse practitioner or physician's medical office receptionist assistant working with me, had a face to face encounter that meets the physician face to face encounter requirements with this patient on []. Medical Complications: Other (sepsis) RN For Eval/Treatment: Yes Physical Therapy For: Evalulation/Treatment Occupational Therapy For: Evaluation/Treatment Speech Language Pathology For: Evaluation/Treatment Home Health Aide For: Self-care CAD ADMINISTRATOR For: Community Resources Pt Meets Homebound Status: Extreme weakness w/ amb. POST DISCHARGE ORDERS: Activity Instructions for Disc: Activity as tolerated Weight Bearing Status after Di: As tolerated Bathing Instructions: Shower-keep dressing dry DIET AFTER DISCHARGE: Regular TREATMENT/EQUIPMENT ORDERS: Adaptive Equipment Issued: None Discharge Respiratory Equipmen: Oxygen CERTIFICATION STATEMENT: Certification Statement: Certification Statement: Based on the above finding, I certify that this patient is confined to the home and needs intermittent residential care, physical therapy and/or speech therapy, or continues to need occupational therapy.~ This patient is under my care, and I have initiated the establishment of the plan of care.~ This patient will be followed by myself or a community physician who will periodically review the plan of care. Home Meds Reported Medications Ibuprofen (IBUPROFEN) 800 Mg Tablet, 800 MG PO PRN Q4-6HRS PRN for INFLAMMATION, TAB 07/06/19 Diphenhydramine Hcl (BENADRYL) 25 Mg Capsule, 1 CAP PO QHS for RASH, #30 CAP 1 Refill 04/03/19 CABRERA ZAIDI III DO Jul 14, 2019 12:43
[2019-07-14 14:14] VITALS: BP 124/88
[2019-07-14] MEDS ORDERED: LACT1CAP29 PO (14:31)
[2019-07-14] MEDS ORDERED: AMLO5TAB4 PO (14:36)
--- NOTE | 2019-07-14 14:48 | NUR ---
SS following up with discharge planning. Discharge orders and clinical phoned and faxed to [facility], ; fax [phone]. Pt's RN notified.
--- NOTE | 2019-07-14 15:22 | NUR ---
Discharge: Teaching verbal and written. Reviewed medications, follow-up, infection, PICC line, Hypertension, ect. Patient verbalized understanding. All belongings with patient. PICC line in place. Prescription for lactobacillus and Norvasc. Patient ambulated off of unit accompanied by nurse.
--- NOTE | 2019-07-15 08:39 | DS ---
DATE OF DISCHARGE: 07/14/2019 ADMISSION DIAGNOSES: Chest pain and methamphetamine abuse. DISCHARGE DIAGNOSES: Resolving Gram-positive bacteremia. HOSPITAL COURSE: The patient is a pleasant 38-year-old female who injects herself with methamphetamine. She states she only did it once, but we have admitted her a couple times for the same thing. Sure enough, she grew Gram-positive bacteremia 4 out of 6 cultures. We checked her for endocarditis. Her transesophageal echo was negative. She did not have a murmur. Her white count improved. Her fevers resolved. She did well. We discharged to home yesterday with a PICC line. We had a long conversation with her about not injecting herself through her PICC line with street drugs. She triple promised me she would not do this. The patient is going to follow up for IV antibiotics for a total of another 6 weeks. DISPOSITION: Home. ACTIVITY: As tolerated. DIET: Low sodium. MEDICATIONS: Please see the MRAD. TOTAL TIME: 33 minutes. CABRERA ZAIDI DO DR: BILL/silvia JOB#: [id number] / [id number]
--- NOTE | 2019-07-16 16:49 | NUR ---
Post dc note: SW received a voice mail from pt and [facility] stating they are not able to provide services. Pt states she was informed a nurse from [facility] was supposed to visit her yesterday but no one showed up. SW attempted 5 other HH agencies and all declined. IKER spoke with Ezio from [facility] and after some discussion they have agreed to provide nursing services for pt and will send a nurse to see pt today. IKER informed them regarding lab orders for every Friday. Discussed with CM director.
== END 2019-07-14 15:10 | disposition home health service (06) | DRG 871 ==
LOC: ER 02:37 → ED HOLD 04:55 → OBSVTOIN 04:55 → 2 SOUTH 08:31
PROVIDERS: ADMIT Internal Medicine; ATTEND Internal Medicine
PROC: 02HV33Z Insertion of Infusion Device into Superior Vena Cava, Percutaneous Approach (ICD-10-PCS; principal; 2019-07-14)
PROC: B548ZZA Ultrasonography of Superior Vena Cava, Guidance (ICD-10-PCS; 2019-07-14)
DX: A41.9 Sepsis, unspecified organism (principal); J96.01 Acute respiratory failure with hypoxia; J18.9 Pneumonia, unspecified organism; E44.1 Mild protein-calorie malnutrition; B96.89 Other specified bacterial agents as the cause of diseases classified elsewhere; D18.00 Hemangioma unspecified site; D73.89 Other diseases of spleen; Z68.30 Body mass index [BMI] 30.0-30.9, adult; F15.10 Other stimulant abuse, uncomplicated; Z82.49 Family history of ischemic heart disease and other diseases of the circulatory system; Z83.3 Family history of diabetes mellitus; Z86.19 Personal history of other infectious and parasitic diseases; Z87.01 Personal history of pneumonia (recurrent); Z90.710 Acquired absence of both cervix and uterus; F19.10 Other psychoactive substance abuse, uncomplicated
CPT/HCPCS: 36415; 36569; 70450; 71045; 71046; 71250; 78582; 80048; 80053; 80061; 80202; 80307; 81001; 82553; 82565; 83605; 83690; 83735; 83880; 84145; 84484; 85007; 85025; 85379; 85610; 85730; 86592; 86703; 86705; 86709; 86803; 87040; 87077; 87086; 87205; 87340; 93005; 93306; 93312; 93320; 93325; 96361; 96372; 96374; 96375; A9540; A9558; J0690; J0696; J1100; J1650; J1885; J2001; J2543; J2704; J3370; J7030; J7040; J7050; J7120; 99285-25; G0378

== ENCOUNTER → 2019-08-24 | Outpatient (CLI) | payer OTHER ==
[~2019-08-24] MED LIST changes: +AMLO5TAB4 PO; +IBUP-1060 PO; +LACT1CAP29 PO; +PRED20TA PO
== END | disposition home or self-care (01) ==
LOC: LAB 09:58
PROVIDERS: ATTEND Internal Medicine Infectious Disease
DX: B95.61 Methicillin susceptible Staphylococcus aureus infection as the cause of diseases classified elsewhere (principal)
CPT/HCPCS: 36415; 87040

== ENCOUNTER 2020-01-28 15:55 | Inpatient (IN) | payer OTHER ==
[~2020-01-28] VITALS: Ht 160 cm; Wt 80.7 kg
[2020-01-28] MEDS ORDERED: IV NORMAL SALINE 1000ML BAG 1,000 ML IV ONE ×2 (16:30→19:45)
[2020-01-28] MEDS ORDERED: ACETAMINOPHEN 500 MG TABLET PO ONE (16:30)
[2020-01-28 17:38] LABS: INFLUENZA A PATIENT NEGATIVE (NEGATIVE); INFLUENZA B PATIENT NEGATIVE (NEGATIVE)
--- NOTE | 2020-01-28 17:59 | PHYS DOC ---
Past Medical History Past Medical History: Hypertension, Pneumonia, URI, Other Additional Past Medical Histor: SEPSIS, DRUG ABUSE (FRAN SERRANO DO) Past Surgical History: Hysterectomy Additional Past Surgical Histo: BX HAND PLASTIC SX, TEETH REMOVED. (FRAN SERRANO DO) Smoking Status: Never Smoker Alcohol Use: None Drug Use: Methamphetamine (FRAN SERRANO DO) Adult General Chief Complaint Chief Complaint: FEVER HPI HPI Patient is a 39-year-old IV drug abuser who presents with a several day history of fever body aches cough congestion and some shortness of breath. She denies any nausea or vomiting. She states she has had some headache. She denies any abdominal pain. She has not had any issues with dysuria or gross hematuria. She denies any area on her body that looks like an infected abscess[] (FRAN SERRANO DO) Review of Systems Review of Systems Constitutional: Reports fever[] Eyes: Denies change in visual acuity, redness, or eye pain [] HENT: Denies nasal congestion or sore throat [] Respiratory: Reports cough and congestion[] Cardiovascular: No additional information not addressed in HPI [] GI: Denies abdominal pain, nausea, vomiting, bloody stools or diarrhea [] : Denies dysuria or hematuria [] Musculoskeletal: Denies back pain or joint pain [] Integument: Reveals track correa[] Neurologic: Denies headache, focal weakness or sensory changes [] Endocrine: Denies polyuria or polydipsia [] All other systems were reviewed and found to be within normal limits, except as documented in this note. (FRAN SERRANO DO) Current Medications Current Medications Current Medications Medications (Trade) Dose Ordered Sig/Vee Start Time Stop Time Status Last Admin Dose Admin Acetaminophen (Tylenol) 1,000 mg 1X ONCE 01/28/20 16:30 01/28/20 16:31 DC 01/28/20 17:02 1,000 MG Piperacillin Sod/ Tazobactam Sod 3.375 gm/Sodium Chloride 50 ml @ 100 mls/hr 1X ONCE 01/28/20 19:45 01/28/20 20:14 DC 01/28/20 20:25 100 MLS/HR Sodium Chloride 1,000 ml @ 150 mls/hr Q6H40M 01/28/20 19:39 01/29/20 19:38 01/28/20 23:19 150 MLS/HR Vancomycin HCl 250 ml @ 250 mls/hr 1X ONCE 01/28/20 19:45 01/28/20 20:44 DC 01/28/20 20:25 250 MLS/HR (JENNIFER COTTON MD) Allergies Allergies Allergies Coded Allergies Type Severity Reaction Last Updated Verified No Known Drug Allergies 05/05/19 No (JENNIFER COTTON MD) Physical Exam Physical Exam Constitutional: Well developed, well nourished, appears acutely ill. [] HENT: Normocephalic, atraumatic, bilateral external ears normal, oropharynx moist, no oral exudates, nose normal. [] Eyes: PERRLA, EOMI, conjunctiva normal, no discharge. [] Neck: Normal range of motion, no tenderness, supple, no stridor, no meningismus. [] Cardiovascular: Tachycardic no obvious murmur auscultated[] Lungs & Thorax: Bilateral breath sounds clear to auscultation [] Abdomen: Bowel sounds normal, soft, no tenderness, no masses, no pulsatile masses. [] Skin: Tract correa with various stages of bruising up her right arm surrounding erythema or obvious abscess[] Back: No tenderness, no CVA tenderness. [] Extremities: No tenderness, no cyanosis, no clubbing, ROM intact, no edema. [] Neurologic: Alert and oriented X 3, normal motor function, normal sensory function, no focal deficits noted. [] Psychologic: Anxious[] (FRAN SERRANO DO) Current Patient Data Vital Signs Vital Signs Date Time Temp Pulse Resp B/P (MAP) Pulse Ox O2 Delivery O2 Flow Rate FiO2 01/28/20 19:02 100.4 100.4 01/28/20 16:51 116 16 143/96 (112) 99 Room Air (JENNIFER COTTON MD) Lab Values Laboratory Tests Test 01/28/20 17:00 01/28/20 18:25 01/28/20 18:50 Influenza Type A Antigen Negative (NEGATIVE) Influenza Type B Antigen Negative (NEGATIVE) Sodium Level 135 mmol/L (136-145) L Potassium Level 3.7 mmol/L (3.5-5.1) Chloride Level 103 mmol/L (98-107) Carbon Dioxide Level 22 mmol/L (21-32) Anion Gap 10 (6-14) Blood Urea Nitrogen 9 mg/dL (7-20) Creatinine 0.7 mg/dL (0.6-1.0) Estimated GFR (Cockcroft-Gault) 93.6 BUN/Creatinine Ratio 13 (6-20) Glucose Level 105 mg/dL (70-99) H Lactic Acid Level 0.7 mmol/L (0.4-2.0) Calcium Level 8.2 mg/dL (8.5-10.1) L Total Bilirubin 0.3 mg/dL (0.2-1.0) Aspartate Amino Transferase (AST) 14 U/L (15-37) L Alanine Aminotransferase (ALT) 34 U/L (14-59) Alkaline Phosphatase 121 U/L (46-116) H Total Protein 6.5 g/dL (6.4-8.2) Albumin 2.7 g/dL (3.4-5.0) L Albumin/Globulin Ratio 0.7 (1.0-1.7) L White Blood Count 8.6 x10^3/uL (4.0-11.0) Red Blood Count 4.04 x10^6/uL (3.50-5.40) Hemoglobin 11.0 g/dL (12.0-15.5) L Hematocrit 32.1 % (36.0-47.0) L Mean Corpuscular Volume 79 fL (79-100) Mean Corpuscular Hemoglobin 27 pg (25-35) Mean Corpuscular Hemoglobin Concent 34 g/dL (31-37) Red Cell Distribution Width 14.3 % (11.5-14.5) Platelet Count 203 x10^3/uL (140-400) Neutrophils (%) (Auto) 83 % (31-73) H Lymphocytes (%) (Auto) 9 % (24-48) L Monocytes (%) (Auto) 7 % (0-9) Eosinophils (%) (Auto) 1 % (0-3) Basophils (%) (Auto) 0 % (0-3) Neutrophils # (Auto) 7.1 x10^3/uL (1.8-7.7) Lymphocytes # (Auto) 0.8 x10^3/uL (1.0-4.8) L Monocytes # (Auto) 0.6 x10^3/uL (0.0-1.1) Eosinophils # (Auto) 0.1 x10^3/uL (0.0-0.7) Basophils # (Auto) 0.0 x10^3/uL (0.0-0.2) Laboratory Tests 01/28/20 18:50 Laboratory Tests 01/28/20 18:25 (JENNIFER COTTON MD) EKG EKG [] (FRAN SERRANO DO) Radiology/Procedures Radiology/Procedures [] (FRAN SERRANO DO) Course & Med Decision Making Course & Med Decision Making Pertinent Labs and Imaging studies reviewed. (See chart for details) [ED course: Evaluation reveals a 39-year-old female with what sounds like an upper respiratory type infection. We have attempted to place an IV and draw blood but is been unsuccessful. I will pass this patient off to Dr. Cotton.] (FRAN SERRANO DO) Course & Med Decision Making Patient care transferred to [place] at 1800. ER charge nurse was able to start IV line and draw the blood. Patient treated with IV fluids. Temperature decreased to 100.4 after treatment with Tylenol and IV fluids. Patient did not have leukocytosis or elevation of lactic acid. There is concern for possible COVID 19 infection. Patient requiring admission for further evaluation and treatment. Discussed with Dr. Rehman who is in agreement with admission. Discussed findings and plan with patient and family, who acknowledge understanding and agreement. (JENNIFER COTTON MD) Dragon Disclaimer Dragon Disclaimer This electronic medical record was generated, in whole or in part, using a voice recognition dictation system. (FRAN SERRANO DO) Departure Departure Impression: Primary Impression: High fever Additional Impressions: Suspected 2019 novel coronavirus infection IV drug abuse Anemia Hypoalbuminemia Disposition: ADMITTED INPATIENT (At 193) Admitting Physician: BLANCA (Dr. Rehman accepted admission at 1932) (JENNIFER COTTON MD) Condition: GUARDED Referrals: TONI HERNANDEZ (PCP) Problem Qualifiers Additional Impressions: Anemia Anemia type: unspecified type Qualified Codes: D64.9 - Anemia, unspecified FRAN SERRANO DO Jan 28, 2020 17:59 JENNIFER COTTON MD Jan 28, 2020 19:52
--- NOTE | 2020-01-28 18:06 | RAD ---
CHEST AP ONLY History: Fever Comparison: July 10, 2019 Findings: Single view of the chest is submitted. No significant infiltrate is identified by radiograph, previously seen left base infiltrate no longer present. There is no dependent pleural fluid or pneumothorax. Heart size is considered within normal limits. Impression: 1. No significant infiltrate is identified by radiograph. Electronically signed by: Subhash Lucas MD (01/28/2020 6:04 PM) [facility]
[2020-01-28 18:58] LABS: BASO % 0 % (0-3); EOS # 0.1 x10^3/uL (0.0-0.7); EOS % 1 % (0-3); HEMATOCRIT 32.1 % (36.0-47.0); LYMPH # 0.8 x10^3/uL (1.0-4.8); LYMPH % 9 % (24-48); MEAN CORPUSCULAR HEMOGLOBIN 27 pg (25-35); MEAN CORPUSCULAR HGB CONC 34 g/dL (31-37); MEAN CORPUSCULAR VOLUME 79 fL (79-100); MONO # 0.6 x10^3/uL (0.0-1.1); MONO % 7 % (0-9); NEUT # 7.1 x10^3/uL (1.8-7.7); NEUT % 83 % (31-73); PLATELET COUNT 203 x10^3/uL (140-400); RED BLOOD COUNT 4.04 x10^6/uL (3.50-5.40); RED CELL DISTRIBUTION WIDTH 14.3 % (11.5-14.5); WHITE BLOOD COUNT 8.6 x10^3/uL (4.0-11.0)
[2020-01-28 19:05] LABS: CALCIUM 8.2 mg/dL (8.5-10.1); CREATININE 0.7 mg/dL (0.6-1.0); GFR 93.6; POTASSIUM 3.7 mmol/L (3.5-5.1)
[2020-01-28 19:12] LABS: ALBUMIN 2.7 g/dL (3.4-5.0); ALBUMIN/GLOBULIN RATIO 0.7 (1.0-1.7); TOTAL BILIRUBIN 0.3 mg/dL (0.2-1.0); TOTAL PROTEIN 6.5 g/dL (6.4-8.2)
[2020-01-28] MEDS ORDERED: PIPERACILLIN/TAZOBACTAM 3.375 GM in IV NORMAL SALINE 50ML 50 ML IV ONE (19:45)
[2020-01-28] MEDS ORDERED: VANCOMYCIN 1GM IVPB FOR OMNI 250 ML IV ONE (19:45)
--- NOTE | 2020-01-28 20:27 | EKG ---
[facility] [address] [place] [address] Test Date: 2020-01-28 Test Time: 17:00:11 Pat Name: YOSEF GORMAN Department: Room: 8 1 Gender: F Gluing Machine Feeder: : [id number] Requested By: JENNIFER COTTON Order Number: [id number] Reading MD: Todd Jacinto MD Measurements Intervals [place] Rate: 116 P: 40 [place]: 136 QRS: 20 QRSD: 78 T: 30 QT: 274 QTc: 386 Interpretive Statements SINUS TACHYCARDIA Electronically Signed On 01-31-2020 10:39:20 CDT by Todd Jacinto MD
[2020-01-28 20:45] VITALS: BP 121/85
[2020-01-28 23:00] VITALS: BP 169/92
[2020-01-28] MEDS: IV NORMAL SALINE 1000ML BAG 1,000 ML IV SCH (23:19)
[2020-01-28] MEDS: HYDROcodone/APAP 5/325MG 1 TAB TABLET PO PRN (23:20)
[2020-01-29] MEDS ORDERED: LISI10TA2 PO (00:05)
[2020-01-29 03:00] VITALS: BP 126/79
[2020-01-29] MEDS: HYDROcodone/APAP 5/325MG 1 TAB TABLET PO PRN ×4 (03:59→23:45)
[2020-01-29 04:29] LABS: BILIRUBIN,URINE NEGATIVE (NEG); CLARITY,URINE CLEAR; COLOR,URINE YELLOW; NITRITE,URINE NEGATIVE (NEG); PH,URINE 6.5 (<5.0-8.0); PROTEIN,URINE NEGATIVE (NEG-TRACE); UROBILINOGEN,URINE 0.2 mg/dL (0.2 mg/dL)
[2020-01-29 04:38] LABS: BACTERIA,URINE 0 /HPF (0-FEW); SQUAMOUS EPITHELIAL CELL,UR OCC /LPF
[2020-01-29] MEDS: IV NORMAL SALINE 1000ML BAG 1,000 ML IV SCH ×3 (05:45→15:24)
[2020-01-29 07:00] VITALS: BP 108/66
[2020-01-29] MEDS ORDERED: PIP/TAZO PER PHARMACY MC PRN (08:30)
[2020-01-29] MEDS: VANCOMYCIN PER PHARMACY MC PRN ×2 (08:51→08:55)
--- NOTE | 2020-01-29 09:09 | PDOC1 ---
History and Physical Date of Admission Date of Admission DATE: 01/29/20 TIME: 09:00 Identification/Chief Complaint Chief Complaint FEVER Source Source: Patient History of Present Illness History of Present Illness Ms Yung is a 38 yo F w/ PMHx IVDA (methamphetamines and opioids), HTN who presents with 6 day history of cough and fevers up to 104F. She denies any na usea or vomiting. She states she has had some headache. She denies any abdominal pain. She has not had any issues with dysuria or gross hematuria. She was seen in ED 1 day prior and sent home with azithromycin which she did not fill, but has been taking prednisone from her mother. 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 However, she has been to ED multiple times with abscesses and positive blood cultures over the past few years, unclear if she is truly in remission. CXR was clear. Blood culture x1 shows GPC. Influenza negative. Temp 103.4F. WBC 8.6, Hb 11, Na 135, K 3.7, BUN 9, Cr. 0.7, glucose 105. Called for admission for further care. Past Medical History Cardiovascular: No pertinent hx Pulmonary: No pertinent hx CENTRAL NERVOUS SYSTEM: Other GI: No pertinent hx Heme/Onc: No pertinent hx Hepatobiliary: No pertinent hx Psych: No pertinent hx Musculoskeletal: Other Rheumatologic: No pertinent hx Infectious disease: Other Renal/: No pertinent hx Endocrine: No pertinent hx Past Surgical History Past Surgical History: Hysterectomy Family History Family History: Heart Disease Social History Smoke: No ALCOHOL: occassional Drugs: Crystal meth, Other (Opioids) Current Problem List Problem List Problems Medical Problems: (1) Anemia Status: Acute (2) High fever Status: Acute (3) Hypoalbuminemia Status: Acute (4) IV drug abuse Status: Acute Current Medications Current Medications Current Medications Sodium Chloride 1,000 ml @ 1,000 mls/hr 1X ONCE IV Last administered on 01/28/20at 17:02; Start 01/28/20 at 16:30; Stop 01/28/20 at 17:29; Status DC Acetaminophen (Tylenol) 1,000 mg 1X ONCE PO Last administered on 01/28/20at 17:02; Start 01/28/20 at 16:30; Stop 01/28/20 at 16:31; Status DC Sodium Chloride 1,000 ml @ 1,000 mls/hr 1X ONCE IV Last administered on 01/28/20at 20:26; Start 01/28/20 at 19:45; Stop 01/28/20 at 20:44; Status DC Piperacillin Sod/ Tazobactam Sod 3.375 gm/Sodium Chloride 50 ml @ 100 mls/hr 1X ONCE IV Last administered on 01/28/20at 20:25; Start 01/28/20 at 19:45; Stop 01/28/20 at 20:14; Status DC Vancomycin HCl 250 ml @ 250 mls/hr 1X ONCE IV Last administered on 01/28/20at 20:25; Start 01/28/20 at 19:45; Stop 01/28/20 at 20:44; Status DC Sodium Chloride 1,000 ml @ 150 mls/hr Q6H40M IV Last administered on 01/29/20at 05:45; Start 01/28/20 at 19:39; Stop 01/29/20 at 19:38 Acetaminophen/ Hydrocodone Bitart (Lortab 5/325) 1 tab PRN Q4HRS PRN PO PAIN Last administered on 01/29/20at 08:08; Start 01/28/20 at 23:15 Vancomycin HCl (Vanco Per Pharmacy) 1 each PRN DAILY PRN MC SEE COMMENTS Last administered on 01/29/20at 08:55; Start 01/29/20 at 08:30 Piperacillin Sod/ Tazobactam Sod (Zosyn Per Pharmacy) 1 each PRN DAILY PRN MC SEE COMMENTS; Start 01/29/20 at 08:30 Piperacillin Sod/ Tazobactam Sod 4.5 gm/Sodium Chloride 100 ml @ 200 mls/hr Q6HRS IV ; Start 01/29/20 at 09:00 Vancomycin HCl 1.25 gm/Sodium Chloride 250 ml @ 167 mls/hr Q8H IV ; Start 01/29/20 at 09:00 Vancomycin HCl (Vancomycin Trough Level) 1 each 1X ONCE MC ; Start 01/30/20 at 00:30; Stop 01/30/20 at 00:31 Active Scripts Active Reported Lisinopril 10 Mg Tablet 1 Tab PO DAILY Allergies Allergies: Coded Allergies: No Known Drug Allergies (Unverified , 7/10/19) ROS General: YES: Chills, Fatigue, Malaise; No: Night Sweats, Appetite, Other PSYCHOLOGICAL ROS: No: Anxiety, Behavioral Disorder, Concentration difficultie, Decreased libido, Depression, Disorientation, Hallucinations, Hostility, Irritablity, Memory difficulties, Mood Swings, Obsessive thoughts, Physical abuse, Sexual abuse, Sleep disturbances, Suicidal ideation, Other Eyes: No Blurry vision, No Decreased vision, No Double vision, No Dry eyes, No Excessive tearing, No Eye Pain, No Itchy Eyes, No Loss of vision, No Photophobia, No Scotomata, No Uses contacts, No Uses glasses, No Other HEENT: No: Heacaches, Visual Changes, Hearing change, Nasal congestion, Nasal discharge, Oral lesions, Sinus pain, Sore Throat, Epistaxis, Sneezing, Snoring, Tinnitus, Vertigo, Vocal changes, Other ALLERGY AND IMMUNOLOGY: No: Hives, Insect Bite Sensitivity, Itchy/Watery Eyes, Nasal Congestion, Post Nasal Drip, Seasonal Allergies, Other Hematological and Lymphatic: No: Bleeding Problems, Blood Clots, Blood Transfusions, Brusing, Night Sweats, Pallor, Swollen Lymph Nodes, Other ENDOCRINE: No: Breast Changes, Galactorrhea, Hair Pattern Changes, Hot Flashes, Malaise/lethargy, Mood Swings, Palpitations, Polydipsia/polyuria, Skin Changes, Temperature Intolerance, Unexpected Weight Changes, Other Breast: No New/Changing Breast Lumps, No Nipple changes, No Nipple discharge, No Other Respiratory: YES: Cough, Shortness of breath; No: Hemoptysis, Orthopnea, Pleuritic Pain, SOB with excertion, Sputum Changes, Stridor, Tachypnea, Wheezing, Other Cardiovascular: No Chest Pain, No Palpitations, No Orthopnea, No Paroxysmal Noc. Dyspnea, No Edema, No Lt Headedness, No Other Gastrointestinal: No Nausea, No Vomiting, No Abdominal Pain, No Diarrhea, No Constipation, No Melena, No Hematochezia, No Other Genitourinary: No Dysuria, No Frequency, No Incontinence, No Hematuria, No Retention, No Discharge, No Urgency, No Pain, No Flank Pain, No Other, No , No , No , No , No , No , No Musculoskeletal: No Gait Disturbance, No Joint Pain, No Joint Stiffness, No Joint Swelling, No Muscle Pain, No Muscular Weakness, No Pain In:, No Swelling In:, No Other Neurological: No Behavorial Changes, No Bowel/Bladder ControlChng, No Confusion, No Dizziness, No Gait Disturbance, No Headaches, No Impaired Coord/balance, No Memory Loss, No Numbness/Tingling, No Seizures, No Speech Problems, No Tremors, No Visual Changes, No Weakness, No Other Skin: No Dry Skin, No Eczema, No Hair Changes, No Lumps, No Mole Changes, No Mottling, No Nail Changes, No Pruritus, No Rash, No Skin Lesion Changes, No Other, No Acne Physical Exam General: Alert, Oriented X3, Cooperative, No acute distress HEENT: Atraumatic, PERRLA, EOMI, Mucous membr. moist/pink Lungs: Clear to auscultation, Normal air movement Abdomen: Normal bowel sounds, Soft, No tenderness, No hepatosplenomegaly, No masses Rectal Exam: not examined Extremities: No clubbing, No cyanosis, No edema, Normal pulses, No tenderness/swelling Skin: No rashes, No breakdown, No significant lesion Neuro: Normal gait, Normal speech, Strength at 5/5 X4 ext, Normal tone, Sensation intact, Cranial nerves 3-12 NL, Reflexes 2+ Psych/Mental Status: Mental status NL, Mood NL Vitals Vitals Vital Signs Date Time Temp Pulse Resp B/P (MAP) Pulse Ox O2 Delivery O2 Flow Rate FiO2 01/29/20 08:08 Room Air 01/29/20 07:00 98.7 86 20 108/66 (80) 94 98.7 Labs Labs Laboratory Tests Test 01/28/20 17:00 01/28/20 18:25 01/28/20 18:50 01/29/20 04:10 Influenza Type A Antigen Negative (NEGATIVE) Influenza Type B Antigen Negative (NEGATIVE) Sodium Level 135 mmol/L (136-145) Potassium Level 3.7 mmol/L (3.5-5.1) Chloride Level 103 mmol/L (98-107) Carbon Dioxide Level 22 mmol/L (21-32) Anion Gap 10 (6-14) Blood Urea Nitrogen 9 mg/dL (7-20) Creatinine 0.7 mg/dL (0.6-1.0) Estimated GFR (Cockcroft-Gault) 93.6 BUN/Creatinine Ratio 13 (6-20) Glucose Level 105 mg/dL (70-99) Lactic Acid Level 0.7 mmol/L (0.4-2.0) Calcium Level 8.2 mg/dL (8.5-10.1) Total Bilirubin 0.3 mg/dL (0.2-1.0) Aspartate Amino Transf (AST/SGOT) 14 U/L (15-37) Alanine Aminotransferase (ALT/SGPT) 34 U/L (14-59) Alkaline Phosphatase 121 U/L (46-116) Total Protein 6.5 g/dL (6.4-8.2) Albumin 2.7 g/dL (3.4-5.0) Albumin/Globulin Ratio 0.7 (1.0-1.7) White Blood Count 8.6 x10^3/uL (4.0-11.0) Red Blood Count 4.04 x10^6/uL (3.50-5.40) Hemoglobin 11.0 g/dL (12.0-15.5) Hematocrit 32.1 % (36.0-47.0) Mean Corpuscular Volume 79 fL (79-100) Mean Corpuscular Hemoglobin 27 pg (25-35) Mean Corpuscular Hemoglobin Concent 34 g/dL (31-37) Red Cell Distribution Width 14.3 % (11.5-14.5) Platelet Count 203 x10^3/uL (140-400) Neutrophils (%) (Auto) 83 % (31-73) Lymphocytes (%) (Auto) 9 % (24-48) Monocytes (%) (Auto) 7 % (0-9) Eosinophils (%) (Auto) 1 % (0-3) Basophils (%) (Auto) 0 % (0-3) Neutrophils # (Auto) 7.1 x10^3/uL (1.8-7.7) Lymphocytes # (Auto) 0.8 x10^3/uL (1.0-4.8) Monocytes # (Auto) 0.6 x10^3/uL (0.0-1.1) Eosinophils # (Auto) 0.1 x10^3/uL (0.0-0.7) Basophils # (Auto) 0.0 x10^3/uL (0.0-0.2) Urine Collection Type Unknown Urine Color Yellow Urine Clarity Clear Urine pH 6.5 (<5.0-8.0) Urine Specific [place] 1.010 (1.000-1.030) Urine Protein Negative mg/dL (NEG-TRACE) Urine Glucose (UA) Negative mg/dL (NEG) Urine Ketones (Stick) Negative mg/dL (NEG) Urine Blood Negative (NEG) Urine Nitrite Negative (NEG) Urine Bilirubin Negative (NEG) Urine Urobilinogen Dipstick 0.2 mg/dL (0.2 mg/dL) Urine Leukocyte Esterase Trace (NEG) Urine RBC 1-2 /HPF (0-2) Urine WBC 5-10 /HPF (0-4) Urine Squamous Epithelial Cells Occ /LPF Urine Bacteria 0 /HPF (0-FEW) Laboratory Tests Test 01/28/20 17:00 01/28/20 18:25 01/28/20 18:50 01/29/20 04:10 Influenza Type A Antigen Negative (NEGATIVE) Influenza Type B Antigen Negative (NEGATIVE) Sodium Level 135 mmol/L (136-145) Potassium Level 3.7 mmol/L (3.5-5.1) Chloride Level 103 mmol/L (98-107) Carbon Dioxide Level 22 mmol/L (21-32) Anion Gap 10 (6-14) Blood Urea Nitrogen 9 mg/dL (7-20) Creatinine 0.7 mg/dL (0.6-1.0) Estimated GFR (Cockcroft-Gault) 93.6 BUN/Creatinine Ratio 13 (6-20) Glucose Level 105 mg/dL (70-99) Lactic Acid Level 0.7 mmol/L (0.4-2.0) Calcium Level 8.2 mg/dL (8.5-10.1) Total Bilirubin 0.3 mg/dL (0.2-1.0) Aspartate Amino Transf (AST/SGOT) 14 U/L (15-37) Alanine Aminotransferase (ALT/SGPT) 34 U/L (14-59) Alkaline Phosphatase 121 U/L (46-116) Total Protein 6.5 g/dL (6.4-8.2) Albumin 2.7 g/dL (3.4-5.0) Albumin/Globulin Ratio 0.7 (1.0-1.7) White Blood Count 8.6 x10^3/uL (4.0-11.0) Red Blood Count 4.04 x10^6/uL (3.50-5.40) Hemoglobin 11.0 g/dL (12.0-15.5) Hematocrit 32.1 % (36.0-47.0) Mean Corpuscular Volume 79 fL (79-100) Mean Corpuscular Hemoglobin 27 pg (25-35) Mean Corpuscular Hemoglobin Concent 34 g/dL (31-37) Red Cell Distribution Width 14.3 % (11.5-14.5) Platelet Count 203 x10^3/uL (140-400) Neutrophils (%) (Auto) 83 % (31-73) Lymphocytes (%) (Auto) 9 % (24-48) Monocytes (%) (Auto) 7 % (0-9) Eosinophils (%) (Auto) 1 % (0-3) Basophils (%) (Auto) 0 % (0-3) Neutrophils # (Auto) 7.1 x10^3/uL (1.8-7.7) Lymphocytes # (Auto) 0.8 x10^3/uL (1.0-4.8) Monocytes # (Auto) 0.6 x10^3/uL (0.0-1.1) Eosinophils # (Auto) 0.1 x10^3/uL (0.0-0.7) Basophils # (Auto) 0.0 x10^3/uL (0.0-0.2) Urine Collection Type Unknown Urine Color Yellow Urine Clarity Clear Urine pH 6.5 (<5.0-8.0) Urine Specific [place] 1.010 (1.000-1.030) Urine Protein Negative mg/dL (NEG-TRACE) Urine Glucose (UA) Negative mg/dL (NEG) Urine Ketones (Stick) Negative mg/dL (NEG) Urine Blood Negative (NEG) Urine Nitrite Negative (NEG) Urine Bilirubin Negative (NEG) Urine Urobilinogen Dipstick 0.2 mg/dL (0.2 mg/dL) Urine Leukocyte Esterase Trace (NEG) Urine RBC 1-2 /HPF (0-2) Urine WBC 5-10 /HPF (0-4) Urine Squamous Epithelial Cells Occ /LPF Urine Bacteria 0 /HPF (0-FEW) Images Images CXR No significant infiltrate is identified by radiograph, previously seen left base infiltrate no longer present. There is no dependent pleural fluid or pneumothorax. Heart size is considered within normal limits. Impression: No significant infiltrate is identified by radiograph. VTE Prophylaxis Ordered VTE Prophylaxis Devices: No VTE Pharmacological Prophylaxi: Yes Assessment/Plan Assessment/Plan A/P: Cough - CXR is clear on repeat. will give cough suppressants, supportive care, monitor O2 status. May need chest CT if symptoms do not improve Blood cultures positive - source is not clear, she denies IVDA Sepsis - from gram positive bacteremia - with elevated temp was tested for SARS-CoV-2 (COVID 19) - will give empiric IVF and antibiotics, consult ID Right knee pain - topical treatment Back and neck pain - thoracic back pain Anemia - uncertain etiology, s/p hysterectomy, will check iron stores Hyperglycemia - will monitor, no hx of DM Moderate protein calorie malnutrition - Albumin low likely from prolonged illness FEN - General diet PPX - SCDs FULL CODE Inpatient for sepsis with bacteremia SHEY MA MD Jan 29, 2020 09:09
[2020-01-29] MEDS: PIPERACILLIN/TAZOBACTAM 4.5 GM in IV NORMAL SALINE 100ML 100 ML IV SCH ×4 (09:25→23:28)
[2020-01-29] MEDS: VANCOMYCIN 1.25 GM in IV NORMAL SALINE 250ML 250 ML IV SCH ×2 (10:23→16:23)
[2020-01-29 11:00] VITALS: BP 100/70
--- NOTE | 2020-01-29 11:48 | PDOC ---
Infectious Disease Note Vital Sign Vital Signs Vital Signs Date Time Temp Pulse Resp B/P (MAP) Pulse Ox O2 Delivery O2 Flow Rate FiO2 01/29/20 08:08 Room Air 01/29/20 07:00 98.7 86 20 108/66 (80) 94 98.7 Labs Lab Laboratory Tests Test 01/28/20 17:00 01/28/20 18:25 01/28/20 18:50 01/29/20 04:10 Influenza Type A Antigen Negative (NEGATIVE) Influenza Type B Antigen Negative (NEGATIVE) Sodium Level 135 mmol/L (136-145) Potassium Level 3.7 mmol/L (3.5-5.1) Chloride Level 103 mmol/L (98-107) Carbon Dioxide Level 22 mmol/L (21-32) Anion Gap 10 (6-14) Blood Urea Nitrogen 9 mg/dL (7-20) Creatinine 0.7 mg/dL (0.6-1.0) Estimated GFR (Cockcroft-Gault) 93.6 BUN/Creatinine Ratio 13 (6-20) Glucose Level 105 mg/dL (70-99) Lactic Acid Level 0.7 mmol/L (0.4-2.0) Calcium Level 8.2 mg/dL (8.5-10.1) Total Bilirubin 0.3 mg/dL (0.2-1.0) Aspartate Amino Transf (AST/SGOT) 14 U/L (15-37) Alanine Aminotransferase (ALT/SGPT) 34 U/L (14-59) Alkaline Phosphatase 121 U/L (46-116) Total Protein 6.5 g/dL (6.4-8.2) Albumin 2.7 g/dL (3.4-5.0) Albumin/Globulin Ratio 0.7 (1.0-1.7) White Blood Count 8.6 x10^3/uL (4.0-11.0) Red Blood Count 4.04 x10^6/uL (3.50-5.40) Hemoglobin 11.0 g/dL (12.0-15.5) Hematocrit 32.1 % (36.0-47.0) Mean Corpuscular Volume 79 fL (79-100) Mean Corpuscular Hemoglobin 27 pg (25-35) Mean Corpuscular Hemoglobin Concent 34 g/dL (31-37) Red Cell Distribution Width 14.3 % (11.5-14.5) Platelet Count 203 x10^3/uL (140-400) Neutrophils (%) (Auto) 83 % (31-73) Lymphocytes (%) (Auto) 9 % (24-48) Monocytes (%) (Auto) 7 % (0-9) Eosinophils (%) (Auto) 1 % (0-3) Basophils (%) (Auto) 0 % (0-3) Neutrophils # (Auto) 7.1 x10^3/uL (1.8-7.7) Lymphocytes # (Auto) 0.8 x10^3/uL (1.0-4.8) Monocytes # (Auto) 0.6 x10^3/uL (0.0-1.1) Eosinophils # (Auto) 0.1 x10^3/uL (0.0-0.7) Basophils # (Auto) 0.0 x10^3/uL (0.0-0.2) Urine Collection Type Unknown Urine Color Yellow Urine Clarity Clear Urine pH 6.5 (<5.0-8.0) Urine Specific [place] 1.010 (1.000-1.030) Urine Protein Negative mg/dL (NEG-TRACE) Urine Glucose (UA) Negative mg/dL (NEG) Urine Ketones (Stick) Negative mg/dL (NEG) Urine Blood Negative (NEG) Urine Nitrite Negative (NEG) Urine Bilirubin Negative (NEG) Urine Urobilinogen Dipstick 0.2 mg/dL (0.2 mg/dL) Urine Leukocyte Esterase Trace (NEG) Urine RBC 1-2 /HPF (0-2) Urine WBC 5-10 /HPF (0-4) Urine Squamous Epithelial Cells Occ /LPF Urine Bacteria 0 /HPF (0-FEW) Micro Objective Assessment GPC bacteremia POA Fever Cough Pyruia h/o IVDU 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 Repeat BC Drug screen COVID-19 test Droplet precautions for now D/w nursing full consult to follow Thank you [id number] Attending Co-Sign The patient was seen and interviewed as well as examined at the bedside. The chart was reviewed. The case was discussed. Agree with the plan of care. ALL BECKER CARD BOXER Jan 29, 2020 11:48 MOODY NIELSEN MD Jan 29, 2020 14:33
--- NOTE | 2020-01-29 12:23 | CONS ---
DATE OF CONSULTATION: 01/29/2020 REFERRING PHYSICIAN: Dr. Rehman. REASON FOR CONSULTATION: Positive blood cultures. HISTORY OF PRESENT ILLNESS: This patient is a 39-year-old female known to our service from previous admission for treatment of MSSA bacteremia with likely septic emboli in 06/2019. She presents to the ER with complaints of dry cough, fevers, chills/shakes and had body pains. Symptoms started about 4-5 days ago. She self-medicated with prednisone without relief. On arrival, she had a temperature of 103.4. Lactic acid 0.7 and WBC count was normal. Influenza screen was negative. Urinalysis was positive for WBC's and trace leukocyte esterase. Chest x-ray showed no significant infiltrates, pleural fluid or pneumothorax. Blood cultures now show gram-positive cocci in one set. She is currently on vancomycin and Zosyn. The patient continues not to feel very well. She has some [id number] left-sided back pain. Denies tingling or weakness in lower extremities. Denies dysuria, frequency or urgency. She has a history of IV drug use. She says she has been clean for over a year now. Denies rash or itching. She had a headache earlier. Denies nausea, vomiting or diarrhea. Denies known exposure for COVID-19. She says her family is well. She has been spending most of her time indoors. PAST MEDICAL HISTORY: Recurrent MSSA bacteremia (February and June 2019) with likely septic emboli treated. IV drug use. PAST SURGICAL HISTORY: Dental extraction. Hysterectomy. SOCIAL HISTORY: The patient and her 2 children live with her mother and father. [place] with [place], cats, dogs and horses. History of IV drug use, methamphetamine. FAMILY HISTORY: Drug use, diabetes, heart disease. ALLERGIES: No known drug allergies. MEDICATIONS: Vancomycin and Zosyn. Other medications are available and have been reviewed on the DEC. REVIEW OF SYSTEMS: Per HPI, otherwise all other review of systems are negative. PHYSICAL EXAMINATION: VITAL SIGNS: Temperature is 98.7, T-max 103.4, blood pressure 108/66, heart rate 86, respiratory rate 20, pulse oximetry 94% on room air. BMI 32. GENERAL: The patient is propped up in bed, alert, in tired appearance. HEENT: Pupils equally round, reactive. Normal conjunctivae. Oropharynx pink and moist. No lesions. Edentulous. NECK: Supple. LUNGS: Clear to auscultation. HEART: S1, S2. No murmur appreciated. ABDOMEN: Obese, soft, nontender. EXTREMITIES: No gross edema or cyanosis. SKIN: Warm to touch. No signs of rash. Multiple tattoos. No peripheral stigmata noted. NEUROLOGIC: Alert and answering questions appropriately. Peripheral IVs look okay. LABORATORY DATA: On admission: WBC was 8.6, hemoglobin 11.0, platelets 203,000. Sodium 135, potassium 3.7, creatinine 0.7, BUN 9, glucose 105. Lactic acid 0.7, AST 14, ALT 34, total bilirubin 0.3, albumin 2.7. Urinalysis per HPI. Blood cultures show gram-positive cocci one set, identification is still pending. Urine culture pending. Chest x-ray per HPI. ASSESSMENT: 1. Gram-positive cocci bacteremia, present on admission. 2. Fever. 3. Cough. 4. Pyuria. 5. History of IV drug use. 6. History of recurrent methicillin-susceptible staph aureus bacteremia. 7. Farm exposure. PLAN: 1. Continue the vancomycin per pharmacy protocol as well as Zosyn. Monitor renal function closely. 2. Further antibiotic modifications pending culture results. 3. Repeat blood cultures for bacterial clearance. 4. Check drug screen. 5. Check for COVID-19 for completeness sake 6. Droplet precautions for now. 7. Discussed with nursing. Attending Co-Sign The patient was seen and interviewed as well as examined at the bedside. The chart was reviewed. The case was discussed. Agree with the plan of care. Thank you, Dr. Rehman for asking us to participate in this patient's care. If you have further questions or concerns, please call. MOODY NIELSEN MD DR: CHIARA/silvia JOB#: [id number] / [id number] PASCUAL
[2020-01-29 13:50] LABS: BARBITURATES NEG (NEG); BENZODIAZEPINES NEG (NEG); CANNABINOIDS NEG (NEG); COCAINE NEG (NEG); METHADONE NEG (NEG); OPIATES POS (NEG); PHENCYCLIDINE NEG (NEG)
[2020-01-29 13:54] LABS: AMPHETAMINE/METHAMPHETAMINE NEG (NEG)
[2020-01-29 15:00] VITALS: BP 82/55
[2020-01-29] MEDS: ENOXAPARIN 40 MG/0.4 ML SYRINGE. SQ SCH (16:23)
[2020-01-29 19:00] VITALS: BP 114/75
[2020-01-29] MEDS: LACTOBACILLUS RHAMNOSUS GG 1 CAPSULE. PO SCH (20:13)
[2020-01-29 23:00] VITALS: BP 125/92
[2020-01-30 01:01] LABS: CREATININE 0.8 mg/dL (0.6-1.0); GFR 80.3; POTASSIUM 4.1 mmol/L (3.5-5.1)
[2020-01-30 01:06] LABS: VANC TR 12.3 mcg/mL (10.0-20.0)
[2020-01-30] MEDS: VANCOMYCIN 1.5 GM in IV NORMAL SALINE 500ML BAG 500 ML IV SCH ×3 (01:35→18:15)
[2020-01-30] MEDS: VANCOMYCIN PER PHARMACY MC PRN (01:59)
[2020-01-30 03:00] VITALS: BP 122/78
[2020-01-30] MEDS: HYDROcodone/APAP 5/325MG 1 TAB TABLET PO PRN ×3 (04:32→20:35)
[2020-01-30] MEDS: PIPERACILLIN/TAZOBACTAM 4.5 GM in IV NORMAL SALINE 100ML 100 ML IV SCH ×3 (06:11→20:36)
[2020-01-30 07:00] VITALS: BP 126/81
[2020-01-30] MEDS: LACTOBACILLUS RHAMNOSUS GG 1 CAPSULE. PO SCH ×2 (08:24→20:34)
--- NOTE | 2020-01-30 09:49 | PDOC ---
PROGRESS NOTES Chief Complaint Chief Complaint A/P: Cough - CXR is clear on repeat. will give cough suppressants, supportive care, monitor O2 status. May need chest CT if symptoms do not improve Blood cultures positive - source is not clear, she denies IVDA Sepsis - from gram positive bacteremia - with elevated temp was tested for SARS-CoV-2 (COVID 19) - will give empiric IVF and antibiotics, consult ID Right knee pain - topical treatment Back and neck pain - thoracic back pain Anemia - uncertain etiology, s/p hysterectomy, will check iron stores Hyperglycemia - will monitor, no hx of DM Moderate protein calorie malnutrition - Albumin low likely from prolonged illness Right breast lump - likely fibrocystic disease. will monitor. If it worsens will obtain US FEN - General diet PPX - SCDs FULL CODE Inpatient for sepsis with bacteremia History of Present Illness History of Present Illness Ms Yung is a 38 yo F w/ PMHx IVDA (methamphetamines and opioids), HTN who presents with 6 day history of cough and fevers up to 104F. She denies any nausea or vomiting. She states she has had some headache. She denies any abdominal pain. She has not had any issues with dysuria or gross hematuria. She was seen in ED 1 day prior and sent home with azithromycin which she did not fill, but has been taking prednisone from her mother. 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 However, she has been to ED multiple times with abscesses and positive blood cultures over the past few years, unclear if she is truly in remission. CXR was clear. Blood culture x1 shows GPC. Influenza negative. Temp 103.4F. WBC 8.6, Hb 11, Na 135, K 3.7, BUN 9, Cr. 0.7, glucose 105. Called for admission for further care. COVID negative. Blood cultures all positive for GPC. CRP 77. Has some right breast pain and lump today. No SOB or CP. Vitals Vitals Vital Signs Date Time Temp Pulse Resp B/P (MAP) Pulse Ox O2 Delivery O2 Flow Rate FiO2 01/30/20 08:24 Room Air 01/30/20 07:00 98.5 85 20 126/81 (96) 96 98.5 Physical Exam General: Alert, Oriented X3, Cooperative, No acute distress Lungs: Clear Abdomen: Normal bowel sounds, Soft, No tenderness, No hepatosplenomegaly, No masses Extremities: No clubbing, No cyanosis, No edema, Normal pulses, No tenderness/swelling Skin: No rashes, No breakdown, No significant lesion Labs LABS Laboratory Tests Test 01/29/20 11:39 01/29/20 12:30 01/30/20 00:27 Coronavirus (COVID-19)(PCR) See separate report Urine Opiates Screen Pos (NEG) Urine Methadone Screen Neg (NEG) Urine Barbiturates Neg (NEG) Urine Phencyclidine Screen Neg (NEG) Urine Amphetamine/Methamphetamine Neg (NEG) Urine Benzodiazepines Screen Neg (NEG) Urine Cocaine Screen Neg (NEG) Urine Cannabinoids Screen Neg (NEG) Urine Ethyl Alcohol Neg (NEG) Sodium Level 139 mmol/L (136-145) Potassium Level 4.1 mmol/L (3.5-5.1) Chloride Level 106 mmol/L (98-107) Carbon Dioxide Level 26 mmol/L (21-32) Anion Gap 7 (6-14) Blood Urea Nitrogen 11 mg/dL (7-20) Creatinine 0.8 mg/dL (0.6-1.0) Estimated GFR (Cockcroft-Gault) 80.3 Glucose Level 104 mg/dL (70-99) Calcium Level 8.0 mg/dL (8.5-10.1) Procalcitonin 0.38 ng/mL (0.00-0.10) Vancomycin Level Trough 12.3 mcg/mL (10.0-20.0) Vancomycin Last Dose Date 01/29/20 Vancomycin Last Dose Time 1700 Assessment and Plan Assessmemt and Plan Problems Medical Problems: (1) Anemia Status: Acute (2) High fever Status: Acute (3) Hypoalbuminemia Status: Acute (4) IV drug abuse Status: Acute Comment Review of Relevant I have reviewed the following items ina (where applicable) has been applied. Labs Laboratory Tests Test 01/28/20 17:00 01/28/20 18:25 01/28/20 18:50 01/29/20 04:10 Influenza Type A Antigen Negative (NEGATIVE) Influenza Type B Antigen Negative (NEGATIVE) Sodium Level 135 mmol/L (136-145) Potassium Level 3.7 mmol/L (3.5-5.1) Chloride Level 103 mmol/L (98-107) Carbon Dioxide Level 22 mmol/L (21-32) Anion Gap 10 (6-14) Blood Urea Nitrogen 9 mg/dL (7-20) Creatinine 0.7 mg/dL (0.6-1.0) Estimated GFR (Cockcroft-Gault) 93.6 BUN/Creatinine Ratio 13 (6-20) Glucose Level 105 mg/dL (70-99) Lactic Acid Level 0.7 mmol/L (0.4-2.0) Calcium Level 8.2 mg/dL (8.5-10.1) Total Bilirubin 0.3 mg/dL (0.2-1.0) Aspartate Amino Transf (AST/SGOT) 14 U/L (15-37) Alanine Aminotransferase (ALT/SGPT) 34 U/L (14-59) Alkaline Phosphatase 121 U/L (46-116) C-Reactive Protein, Quantitative 77.0 mg/L (0-3.3) Total Protein 6.5 g/dL (6.4-8.2) Albumin 2.7 g/dL (3.4-5.0) Albumin/Globulin Ratio 0.7 (1.0-1.7) White Blood Count 8.6 x10^3/uL (4.0-11.0) Red Blood Count 4.04 x10^6/uL (3.50-5.40) Hemoglobin 11.0 g/dL (12.0-15.5) Hematocrit 32.1 % (36.0-47.0) Mean Corpuscular Volume 79 fL (79-100) Mean Corpuscular Hemoglobin 27 pg (25-35) Mean Corpuscular Hemoglobin Concent 34 g/dL (31-37) Red Cell Distribution Width 14.3 % (11.5-14.5) Platelet Count 203 x10^3/uL (140-400) Neutrophils (%) (Auto) 83 % (31-73) Lymphocytes (%) (Auto) 9 % (24-48) Monocytes (%) (Auto) 7 % (0-9) Eosinophils (%) (Auto) 1 % (0-3) Basophils (%) (Auto) 0 % (0-3) Neutrophils # (Auto) 7.1 x10^3/uL (1.8-7.7) Lymphocytes # (Auto) 0.8 x10^3/uL (1.0-4.8) Monocytes # (Auto) 0.6 x10^3/uL (0.0-1.1) Eosinophils # (Auto) 0.1 x10^3/uL (0.0-0.7) Basophils # (Auto) 0.0 x10^3/uL (0.0-0.2) Urine Collection Type Unknown Urine Color Yellow Urine Clarity Clear Urine pH 6.5 (<5.0-8.0) Urine Specific [place] 1.010 (1.000-1.030) Urine Protein Negative mg/dL (NEG-TRACE) Urine Glucose (UA) Negative mg/dL (NEG) Urine Ketones (Stick) Negative mg/dL (NEG) Urine Blood Negative (NEG) Urine Nitrite Negative (NEG) Urine Bilirubin Negative (NEG) Urine Urobilinogen Dipstick 0.2 mg/dL (0.2 mg/dL) Urine Leukocyte Esterase Trace (NEG) Urine RBC 1-2 /HPF (0-2) Urine WBC 5-10 /HPF (0-4) Urine Squamous Epithelial Cells Occ /LPF Urine Bacteria 0 /HPF (0-FEW) Test 01/29/20 11:39 01/29/20 12:30 01/30/20 00:27 Coronavirus (COVID-19)(PCR) See separate report Urine Opiates Screen Pos (NEG) Urine Methadone Screen Neg (NEG) Urine Barbiturates Neg (NEG) Urine Phencyclidine Screen Neg (NEG) Urine Amphetamine/Methamphetamine Neg (NEG) Urine Benzodiazepines Screen Neg (NEG) Urine Cocaine Screen Neg (NEG) Urine Cannabinoids Screen Neg (NEG) Urine Ethyl Alcohol Neg (NEG) Sodium Level 139 mmol/L (136-145) Potassium Level 4.1 mmol/L (3.5-5.1) Chloride Level 106 mmol/L (98-107) Carbon Dioxide Level 26 mmol/L (21-32) Anion Gap 7 (6-14) Blood Urea Nitrogen 11 mg/dL (7-20) Creatinine 0.8 mg/dL (0.6-1.0) Estimated GFR (Cockcroft-Gault) 80.3 Glucose Level 104 mg/dL (70-99) Calcium Level 8.0 mg/dL (8.5-10.1) Procalcitonin 0.38 ng/mL (0.00-0.10) Vancomycin Level Trough 12.3 mcg/mL (10.0-20.0) Vancomycin Last Dose Date 01/29/20 Vancomycin Last Dose Time 1700 Laboratory Tests Test 01/29/20 11:39 01/29/20 12:30 01/30/20 00:27 Coronavirus (COVID-19)(PCR) See separate report Urine Opiates Screen Pos (NEG) Urine Methadone Screen Neg (NEG) Urine Barbiturates Neg (NEG) Urine Phencyclidine Screen Neg (NEG) Urine Amphetamine/Methamphetamine Neg (NEG) Urine Benzodiazepines Screen Neg (NEG) Urine Cocaine Screen Neg (NEG) Urine Cannabinoids Screen Neg (NEG) Urine Ethyl Alcohol Neg (NEG) Sodium Level 139 mmol/L (136-145) Potassium Level 4.1 mmol/L (3.5-5.1) Chloride Level 106 mmol/L (98-107) Carbon Dioxide Level 26 mmol/L (21-32) Anion Gap 7 (6-14) Blood Urea Nitrogen 11 mg/dL (7-20) Creatinine 0.8 mg/dL (0.6-1.0) Estimated GFR (Cockcroft-Gault) 80.3 Glucose Level 104 mg/dL (70-99) Calcium Level 8.0 mg/dL (8.5-10.1) Procalcitonin 0.38 ng/mL (0.00-0.10) Vancomycin Level Trough 12.3 mcg/mL (10.0-20.0) Vancomycin Last Dose Date 01/29/20 Vancomycin Last Dose Time 1700 Microbiology 01/29/20 Blood Culture - Final, Complete Medications Current Medications Sodium Chloride 1,000 ml @ 1,000 mls/hr 1X ONCE IV Last administered on 01/28/20at 17:02; Start 01/28/20 at 16:30; Stop 01/28/20 at 17:29; Status DC Acetaminophen (Tylenol) 1,000 mg 1X ONCE PO Last administered on 01/28/20at 17:02; Start 01/28/20 at 16:30; Stop 01/28/20 at 16:31; Status DC Sodium Chloride 1,000 ml @ 1,000 mls/hr 1X ONCE IV Last administered on 01/28/20at 20:26; Start 01/28/20 at 19:45; Stop 01/28/20 at 20:44; Status DC Piperacillin Sod/ Tazobactam Sod 3.375 gm/Sodium Chloride 50 ml @ 100 mls/hr 1X ONCE IV Last administered on 01/28/20at 20:25; Start 01/28/20 at 19:45; Stop 01/28/20 at 20:14; Status DC Vancomycin HCl 250 ml @ 250 mls/hr 1X ONCE IV Last administered on 01/28/20at 20:25; Start 01/28/20 at 19:45; Stop 01/28/20 at 20:44; Status DC Sodium Chloride 1,000 ml @ 150 mls/hr Q6H40M IV Last administered on 01/29/20at 15:24; Start 01/28/20 at 19:39; Stop 01/29/20 at 19:38; Status DC Acetaminophen/ Hydrocodone Bitart (Lortab 5/325) 1 tab PRN Q4HRS PRN PO PAIN Last administered on 01/29/20at 08:08; Start 01/28/20 at 23:15; Stop 01/29/20 at 09:48; Status DC Vancomycin HCl (Vanco Per Pharmacy) 1 each PRN DAILY PRN MC SEE COMMENTS Last administered on 01/30/20at 01:59; Start 01/29/20 at 08:30 Piperacillin Sod/ Tazobactam Sod (Zosyn Per Pharmacy) 1 each PRN DAILY PRN MC SEE COMMENTS; Start 01/29/20 at 08:30 Piperacillin Sod/ Tazobactam Sod 4.5 gm/Sodium Chloride 100 ml @ 200 mls/hr Q6HRS IV Last administered on 01/30/20at 06:11; Start 01/29/20 at 09:00 Vancomycin HCl 1.25 gm/Sodium Chloride 250 ml @ 167 mls/hr Q8H IV Last administered on 01/29/20at 16:23; Start 01/29/20 at 09:00; Stop 01/30/20 at 01:23; Status DC Vancomycin HCl (Vancomycin Trough Level) 1 each 1X ONCE MC Last administered on 01/30/20at 00:30; Start 01/30/20 at 00:30; Stop 01/30/20 at 00:31; Status DC Acetaminophen/ Hydrocodone Bitart (Lortab 5/325) 1 tab PRN Q6HRS PRN PO PAIN Last administered on 01/30/20at 08:24; Start 01/29/20 at 14:00 Lactobacillus Rhamnosus (Culturelle) 1 cap BID PO Last administered on 01/30/20at 08:24; Start 01/29/20 at 21:00 Enoxaparin Sodium (Lovenox 40mg Syringe) 40 mg Q24H SQ Last administered on 01/29/20at 16:23; Start 01/29/20 at 16:00 Vancomycin HCl 1.5 gm/Sodium Chloride 500 ml @ 250 mls/hr Q8H IV Last administered on 01/30/20at 01:35; Start 01/30/20 at 01:30 Vancomycin HCl (Vancomycin Trough Level) 1 each 1X ONCE MC ; Start 01/31/20 at 01:00; Stop 01/31/20 at 01:01 Active Scripts Active Reported Lisinopril 10 Mg Tablet 1 Tab PO DAILY Vitals/I & O Vital Sign - Last 24 Hours 01/29/20 01/29/20 01/29/20 01/29/20 11:00 15:00 16:27 17:47 Temp 95.6 96.3 95.6 96.3 Pulse 78 70 Resp 20 20 B/P (MAP) 100/70 (80) 82/55 (64) Pulse Ox 100 100 O2 Delivery Room Air Room Air Room Air Room Air 01/29/20 01/29/20 01/29/20 01/29/20 19:00 20:37 23:00 23:45 Temp 97.8 99.3 97.8 99.3 Pulse 80 86 Resp 18 18 B/P (MAP) 114/75 (88) 125/92 (103) Pulse Ox 100 100 O2 Delivery Room Air Room Air 01/30/20 01/30/20 01/30/20 01/30/20 00:45 03:00 04:32 05:32 Temp 98.9 98.9 Pulse 88 Resp 18 B/P (MAP) 122/78 (93) Pulse Ox 95 O2 Delivery Room Air Room Air Room Air 01/30/20 01/30/20 01/30/20 07:00 07:54 08:24 Temp 98.5 98.5 Pulse 85 Resp 20 B/P (MAP) 126/81 (96) Pulse Ox 96 O2 Delivery Room Air Room Air Room Air l Intake and Output 01/29/20 01/29/20 01/30/20 15:00 23:00 07:00 Intake Total 450 ml 1275 ml 600 ml Balance 450 ml 1275 ml 600 ml SHEY MA MD Jan 30, 2020 09:49
[2020-01-30 11:00] VITALS: BP 118/84
--- NOTE | 2020-01-30 11:36 | PDOC ---
Infectious Disease Note Subjective Subjective COVID-19 neg Droplet precautions discontinued Transferred down to room 424 No further fevers last 24 hrs c/o throbbing headache and left-sided back pain Denies N/V/D/weakness ROS ROS per HPI Vital Sign Vital Signs Vital Signs Date Time Temp Pulse Resp B/P (MAP) Pulse Ox O2 Delivery O2 Flow Rate FiO2 01/30/20 11:00 98.2 88 20 118/84 (95) 94 Room Air 98.2 Physical Exam PHYSICAL EXAM GENERAL: Propped up in bed, alert, in tired appearance. HEENT: Pupils equally round, reactive. Normal conjunctivae. Oropharynx pink and moist. No lesions. Edentulous. NECK: Supple. No rigidity LUNGS: Clear to auscultation. HEART: S1, S2. No murmur appreciated. ABDOMEN: Obese, soft, nontender. BACK: No vertebral tenderness EXTREMITIES: No gross edema or cyanosis. SKIN: Warm to touch. No signs of rash. Multiple tattoos. No peripheral stigmata noted. NEUROLOGIC: Alert and answering questions appropriately. Left EJ ok Labs Lab Laboratory Tests Test 01/29/20 11:39 01/29/20 12:30 01/30/20 00:27 Coronavirus (COVID-19)(PCR) See separate report Urine Opiates Screen Pos (NEG) Urine Methadone Screen Neg (NEG) Urine Barbiturates Neg (NEG) Urine Phencyclidine Screen Neg (NEG) Urine Amphetamine/Methamphetamine Neg (NEG) Urine Benzodiazepines Screen Neg (NEG) Urine Cocaine Screen Neg (NEG) Urine Cannabinoids Screen Neg (NEG) Urine Ethyl Alcohol Neg (NEG) Sodium Level 139 mmol/L (136-145) Potassium Level 4.1 mmol/L (3.5-5.1) Chloride Level 106 mmol/L (98-107) Carbon Dioxide Level 26 mmol/L (21-32) Anion Gap 7 (6-14) Blood Urea Nitrogen 11 mg/dL (7-20) Creatinine 0.8 mg/dL (0.6-1.0) Estimated GFR (Cockcroft-Gault) 80.3 Glucose Level 104 mg/dL (70-99) Calcium Level 8.0 mg/dL (8.5-10.1) Procalcitonin 0.38 ng/mL (0.00-0.10) Vancomycin Level Trough 12.3 mcg/mL (10.0-20.0) Vancomycin Last Dose Date 01/29/20 Vancomycin Last Dose Time 1700 Micro 01/28. BLOOD CULTURE Final GRAM POSITIVE COCCI IN CLUSTERS 1 SET DRAWN(01/28), 1 OF 2 POSITIVE 01/27. BLOOD CULTURE Final GRAM POSITIVE COCCI IN CLUSTERS 1 SET DRAWN AND 1 SET POSITIVE Objective Assessment GPC bacteremia POA from 01/27. ID still pending -Repeat BC 01/28 + GPC Fever - better Cough. COVID-19 neg Pyruia h/o IVDU. 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 vanc trough 12.3 Probiotics f/u BC. GPC ID still pending UC pending Avoid PICC placement at this time D/w nursing Attending Co-Sign The patient was seen and interviewed as well as examined at the bedside. The chart was reviewed. The case was discussed. Agree with the plan of care. ALL BECKER APRN Jan 30, 2020 11:36 MOODY NIELSEN MD Jan 30, 2020 12:32
[2020-01-30 15:00] VITALS: BP 124/75
[2020-01-30] MEDS: ENOXAPARIN 40 MG/0.4 ML SYRINGE. SQ SCH (17:25)
[2020-01-30 19:00] VITALS: BP 136/92
[2020-01-30 23:02] VITALS: BP 121/78
[2020-01-31] MEDS: PIPERACILLIN/TAZOBACTAM 4.5 GM in IV NORMAL SALINE 100ML 100 ML IV SCH ×5 (01:15→23:57)
[2020-01-31] MEDS: VANCOMYCIN 1.5 GM in IV NORMAL SALINE 500ML BAG 500 ML IV SCH (01:30)
[2020-01-31 01:40] LABS: BASO % 1 % (0-3); EOS # 0.4 x10^3/uL (0.0-0.7); EOS % 7 % (0-3); HEMATOCRIT 30.8 % (36.0-47.0); HEMOGLOBIN 10.7 g/dL (12.0-15.5); LYMPH # 1.8 x10^3/uL (1.0-4.8); LYMPH % 35 % (24-48); MEAN CORPUSCULAR HEMOGLOBIN 28 pg (25-35); MEAN CORPUSCULAR HGB CONC 35 g/dL (31-37); MEAN CORPUSCULAR VOLUME 80 fL (79-100); MONO # 0.6 x10^3/uL (0.0-1.1); MONO % 11 % (0-9); NEUT # 2.4 x10^3/uL (1.8-7.7); NEUT % 46 % (31-73); PLATELET COUNT 263 x10^3/uL (140-400); RED BLOOD COUNT 3.88 x10^6/uL (3.50-5.40); RED CELL DISTRIBUTION WIDTH 14.5 % (11.5-14.5); WHITE BLOOD COUNT 5.2 x10^3/uL (4.0-11.0)
[2020-01-31 01:54] LABS: CALCIUM 8.8 mg/dL (8.5-10.1); CREATININE 0.8 mg/dL (0.6-1.0); GFR 80.3; POTASSIUM 3.8 mmol/L (3.5-5.1)
[2020-01-31 02:01] LABS: VANC TR 21.6 mcg/mL (10.0-20.0)
[2020-01-31 03:03] VITALS: BP 124/79
[2020-01-31] MEDS: VANCOMYCIN PER PHARMACY MC PRN ×3 (03:37→13:07)
[2020-01-31 04:53] LABS: % BANDS 3 % (0-9); % EOS 4 % (0-5); % LYMPHS 52 % (24-48); % MONOS 8 % (0-10); % SEGS 33 % (35-66); PLT ESTIMATE ADEQUATE (ADEQUATE)
[2020-01-31 07:05] VITALS: BP 135/91
[2020-01-31] MEDS: ONDANSETRON ODT 4 MG TAB.RAPDIS. PO PRN ×3 (08:08→22:17)
[2020-01-31] MEDS: HYDROcodone/APAP 5/325MG 1 TAB TABLET PO PRN ×2 (08:10→22:17)
[2020-01-31] MEDS: LACTOBACILLUS RHAMNOSUS GG 1 CAPSULE. PO SCH ×2 (08:11→20:55)
--- NOTE | 2020-01-31 09:25 | PDOC ---
Infectious Disease Note Subjective: Subjective Pt has no fevers last 24 hrs still has some nausea and headache no chestpain or left-sided back pain Denies V/D/weakness Vital Signs: Vital Signs Vital Signs Date Time Temp Pulse Resp B/P (MAP) Pulse Ox O2 Delivery O2 Flow Rate FiO2 01/31/20 08:10 97 Room Air 01/31/20 07:05 98.0 62 18 135/91 (106) 98.0 Physical Exam: PHYSICAL EXAM GENERAL: Propped up in bed, alert, in tired appearance. HEENT: Pupils equally round, reactive. Normal conjunctivae. Oropharynx pink and moist. No lesions. Edentulous. NECK: Supple. No rigidity LUNGS: Clear to auscultation. HEART: S1, S2. No murmur appreciated. ABDOMEN: Obese, soft, nontender. BACK: No vertebral tenderness EXTREMITIES: No gross edema or cyanosis. SKIN: Warm to touch. No signs of rash. Multiple tattoos. No peripheral stigmata noted. NEUROLOGIC: Alert and answering questions appropriately. Left EJ ok Medications: Inpatient Meds: Current Medications Medications (Trade) Dose Ordered Sig/Vee Start Time Stop Time Status Last Admin Dose Admin Acetaminophen (Tylenol) 1,000 mg 1X ONCE 01/28/20 16:30 01/28/20 16:31 DC 01/28/20 17:02 1,000 MG Acetaminophen/ Hydrocodone Bitart (Lortab 5/325) 1 tab PRN Q6HRS PRN 01/29/20 14:00 01/31/20 08:10 1 TAB Enoxaparin Sodium (Lovenox 40mg Syringe) 40 mg Q24H 01/29/20 16:00 01/30/20 17:25 40 MG Lactobacillus Rhamnosus (Culturelle) 1 cap BID 01/29/20 21:00 01/31/20 08:11 1 CAP Ondansetron HCl (Zofran Odt) 4 mg PRN Q4HRS PRN 01/31/20 08:00 01/31/20 08:08 4 MG Piperacillin Sod/ Tazobactam Sod (Zosyn Per Pharmacy) 1 each PRN DAILY PRN 01/29/20 08:30 Piperacillin Sod/ Tazobactam Sod 3.375 gm/Sodium Chloride 50 ml @ 100 mls/hr 1X ONCE 01/28/20 19:45 01/28/20 20:14 DC 01/28/20 20:25 100 MLS/HR Piperacillin Sod/ Tazobactam Sod 4.5 gm/Sodium Chloride 100 ml @ 200 mls/hr Q6HRS 01/29/20 09:00 01/31/20 06:33 200 MLS/HR Sodium Chloride 1,000 ml @ 150 mls/hr Q6H40M 01/28/20 19:39 01/29/20 19:38 DC 01/29/20 15:24 150 MLS/HR Vancomycin HCl (Vanco Per Pharmacy) 1 each PRN DAILY PRN 01/29/20 08:30 01/31/20 03:37 1 EACH Vancomycin HCl (Vancomycin Trough Level) 1 each 1X ONCE 02/01/20 06:30 02/01/20 06:31 Vancomycin HCl 1.25 gm/Sodium Chloride 250 ml @ 167 mls/hr Q8H 01/29/20 09:00 01/30/20 01:23 DC 01/29/20 16:23 167 MLS/HR Vancomycin HCl 1.5 gm/Sodium Chloride 500 ml @ 250 mls/hr Q10H 01/31/20 11:00 Labs: Lab Laboratory Tests Test 01/31/20 01:15 White Blood Count 5.2 x10^3/uL (4.0-11.0) Red Blood Count 3.88 x10^6/uL (3.50-5.40) Hemoglobin 10.7 g/dL (12.0-15.5) Hematocrit 30.8 % (36.0-47.0) Mean Corpuscular Volume 80 fL (79-100) Mean Corpuscular Hemoglobin 28 pg (25-35) Mean Corpuscular Hemoglobin Concent 35 g/dL (31-37) Red Cell Distribution Width 14.5 % (11.5-14.5) Platelet Count 263 x10^3/uL (140-400) Neutrophils (%) (Auto) 46 % (31-73) Lymphocytes (%) (Auto) 35 % (24-48) Monocytes (%) (Auto) 11 % (0-9) Eosinophils (%) (Auto) 7 % (0-3) Basophils (%) (Auto) 1 % (0-3) Neutrophils # (Auto) 2.4 x10^3/uL (1.8-7.7) Lymphocytes # (Auto) 1.8 x10^3/uL (1.0-4.8) Monocytes # (Auto) 0.6 x10^3/uL (0.0-1.1) Eosinophils # (Auto) 0.4 x10^3/uL (0.0-0.7) Basophils # (Auto) 0.0 x10^3/uL (0.0-0.2) Segmented Neutrophils % 33 % (35-66) Band Neutrophils % 3 % (0-9) Lymphocytes % 52 % (24-48) Monocytes % 8 % (0-10) Eosinophils % 4 % (0-5) Platelet Estimate Adequate (ADEQUATE) Sodium Level 142 mmol/L (136-145) Potassium Level 3.8 mmol/L (3.5-5.1) Chloride Level 104 mmol/L (98-107) Carbon Dioxide Level 27 mmol/L (21-32) Anion Gap 11 (6-14) Blood Urea Nitrogen 10 mg/dL (7-20) Creatinine 0.8 mg/dL (0.6-1.0) Estimated GFR (Cockcroft-Gault) 80.3 Glucose Level 99 mg/dL (70-99) Calcium Level 8.8 mg/dL (8.5-10.1) Vancomycin Level Trough 21.6 mcg/mL (10.0-20.0) Vancomycin Last Dose Date Vancomycin Last Dose Time Objective: Assessment: GPC bacteremia POA from 01/27 and 01/28. ID still pending Fever - better Cough. COVID-19 neg Pyruia UC neg h/o IVDU. 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 vanc trough 21.6 hold vanc for today f/u random level tomorrow and adjust Probiotics f/u . GPC ID still pending f/u UC Avoid PICC placement at this time repeat bc D/w nursing MOODY NIELSEN MD Jan 31, 2020 09:25
[2020-01-31 10:41] VITALS: BP 102/53
--- NOTE | 2020-01-31 10:41 | PDOC ---
PROGRESS NOTES Chief Complaint Chief Complaint impression Cough - CXR is clear on repeat. will give cough suppressants, supportive care, monitor O2 status. May need chest CT if symptoms do not improve Blood cultures positive - source is not clear, she denies IVDA Sepsis - from gram positive bacteremia - with elevated temp was tested for SARS-CoV-2 (COVID 19) - will give empiric IVF and antibiotics, consult ID Right knee pain - topical treatment Back and neck pain - thoracic back pain Anemia - uncertain etiology, s/p hysterectomy, will check iron stores Hyperglycemia - will monitor, no hx of DM Moderate protein calorie malnutrition - Albumin low likely from prolonged illness Right breast lump - likely fibrocystic disease. will monitor. If it worsens will obtain US FEN - General diet PPX - SCDs FULL CODE Inpatient for sepsis with bacteremia t max 103.4 F 01/28/20 COVID-19 NEG History of Present Illness History of Present Illness 38 yo F w/ PMHx IVDA (methamphetamines and opioids), HTN who presents with 6 day history of cough and fevers up to 104F. She denies any nausea or vomiting. She states she has had some headache. She denies any abdominal pain. She has not had any issues with dysuria or gross hematuria. She was seen in ED 1 day prior and sent home with azithromycin which she did not fill, but has been taking prednisone from her mother. notes prior opioid dependence which she has been in sustained remission from for over 7 years, she began this habit after a hysterectomy when she was younger. However, she has been to ED multiple times with abscesses and positive blood cultures over the past few years, unclear if she is truly in remission. CXR was clear. Blood culture x1 shows GPC. Influenza negative. Temp 103.4F. WBC 8.6, Hb 11, Na 135, K 3.7, BUN 9, Cr. 0.7, glucose 105. Called for admission for further care. COVID negative. Blood cultures all positive for GPC. CRP 77. Has some right breast pain . No SOB or CP. Vitals Vitals Vital Signs Date Time Temp Pulse Resp B/P (MAP) Pulse Ox O2 Delivery O2 Flow Rate FiO2 01/31/20 09:10 97 Room Air 01/31/20 07:05 98.0 62 18 135/91 (106) 98.0 Physical Exam Physical Exam GENERAL: Propped up in bed, alert, in tired appearance. HEENT: Pupils equally round, reactive. Normal conjunctivae. Oropharynx pink and moist. No lesions. Edentulous. NECK: Supple. No rigidity LUNGS: Clear to auscultation. HEART: S1, S2. No murmur appreciated. ABDOMEN: Obese, soft, nontender. BACK: No vertebral tenderness EXTREMITIES: No gross edema or cyanosis. SKIN: Warm to touch. No signs of rash. Multiple tattoos. No peripheral stigmata noted. NEUROLOGIC: Alert and answering questions appropriately. Left EJ ok General: Alert, Oriented X3, Cooperative, No acute distress Lungs: Clear Abdomen: Normal bowel sounds, Soft, No tenderness, No hepatosplenomegaly, No masses Extremities: No clubbing, No cyanosis, No edema, Normal pulses, No tenderness/swelling Skin: No rashes, No breakdown, No significant lesion Labs LABS CHEST AP ONLY History: Fever Comparison: July 10, 2019 Findings: Single view of the chest is submitted. No significant infiltrate is identified by radiograph, previously seen left base infiltrate no longer present. There is no dependent pleural fluid or pneumothorax. Heart size is considered within normal limits. Impression: 1. No significant infiltrate is identified by radiograph. Electronically signed by: Mile Ruiz MD (01/28/2020 6:04 PM) [facility] DICTATED and SIGNED BY: MILE RUIZ MD DATE: 01/28/20 180 Laboratory Tests Test 01/31/20 01:15 White Blood Count 5.2 x10^3/uL (4.0-11.0) Red Blood Count 3.88 x10^6/uL (3.50-5.40) Hemoglobin 10.7 g/dL (12.0-15.5) Hematocrit 30.8 % (36.0-47.0) Mean Corpuscular Volume 80 fL (79-100) Mean Corpuscular Hemoglobin 28 pg (25-35) Mean Corpuscular Hemoglobin Concent 35 g/dL (31-37) Red Cell Distribution Width 14.5 % (11.5-14.5) Platelet Count 263 x10^3/uL (140-400) Neutrophils (%) (Auto) 46 % (31-73) Lymphocytes (%) (Auto) 35 % (24-48) Monocytes (%) (Auto) 11 % (0-9) Eosinophils (%) (Auto) 7 % (0-3) Basophils (%) (Auto) 1 % (0-3) Neutrophils # (Auto) 2.4 x10^3/uL (1.8-7.7) Lymphocytes # (Auto) 1.8 x10^3/uL (1.0-4.8) Monocytes # (Auto) 0.6 x10^3/uL (0.0-1.1) Eosinophils # (Auto) 0.4 x10^3/uL (0.0-0.7) Basophils # (Auto) 0.0 x10^3/uL (0.0-0.2) Segmented Neutrophils % 33 % (35-66) Band Neutrophils % 3 % (0-9) Lymphocytes % 52 % (24-48) Monocytes % 8 % (0-10) Eosinophils % 4 % (0-5) Platelet Estimate Adequate (ADEQUATE) Sodium Level 142 mmol/L (136-145) Potassium Level 3.8 mmol/L (3.5-5.1) Chloride Level 104 mmol/L (98-107) Carbon Dioxide Level 27 mmol/L (21-32) Anion Gap 11 (6-14) Blood Urea Nitrogen 10 mg/dL (7-20) Creatinine 0.8 mg/dL (0.6-1.0) Estimated GFR (Cockcroft-Gault) 80.3 Glucose Level 99 mg/dL (70-99) Calcium Level 8.8 mg/dL (8.5-10.1) Vancomycin Level Trough 21.6 mcg/mL (10.0-20.0) Vancomycin Last Dose Date Vancomycin Last Dose Time Assessment and Plan Assessmemt and Plan Problems Medical Problems: (1) Anemia Status: Acute (2) High fever Status: Acute (3) Hypoalbuminemia Status: Acute (4) IV drug abuse Status: Acute Comment Review of Relevant I have reviewed the following items ina (where applicable) has been applied. Labs Laboratory Tests Test 01/29/20 11:39 01/29/20 12:30 01/30/20 00:27 01/31/20 01:15 Coronavirus (COVID-19)(PCR) See separate report Urine Opiates Screen Pos (NEG) Urine Methadone Screen Neg (NEG) Urine Barbiturates Neg (NEG) Urine Phencyclidine Screen Neg (NEG) Urine Amphetamine/Methamphetamine Neg (NEG) Urine Benzodiazepines Screen Neg (NEG) Urine Cocaine Screen Neg (NEG) Urine Cannabinoids Screen Neg (NEG) Urine Ethyl Alcohol Neg (NEG) Sodium Level 139 mmol/L (136-145) 142 mmol/L (136-145) Potassium Level 4.1 mmol/L (3.5-5.1) 3.8 mmol/L (3.5-5.1) Chloride Level 106 mmol/L (98-107) 104 mmol/L (98-107) Carbon Dioxide Level 26 mmol/L (21-32) 27 mmol/L (21-32) Anion Gap 7 (6-14) 11 (6-14) Blood Urea Nitrogen 11 mg/dL (7-20) 10 mg/dL (7-20) Creatinine 0.8 mg/dL (0.6-1.0) 0.8 mg/dL (0.6-1.0) Estimated GFR (Cockcroft-Gault) 80.3 80.3 Glucose Level 104 mg/dL (70-99) 99 mg/dL (70-99) Calcium Level 8.0 mg/dL (8.5-10.1) 8.8 mg/dL (8.5-10.1) Procalcitonin 0.38 ng/mL (0.00-0.10) Vancomycin Level Trough 12.3 mcg/mL (10.0-20.0) 21.6 mcg/mL (10.0-20.0) Vancomycin Last Dose Date 01/29/20 Vancomycin Last Dose Time 1700 White Blood Count 5.2 x10^3/uL (4.0-11.0) Red Blood Count 3.88 x10^6/uL (3.50-5.40) Hemoglobin 10.7 g/dL (12.0-15.5) Hematocrit 30.8 % (36.0-47.0) Mean Corpuscular Volume 80 fL (79-100) Mean Corpuscular Hemoglobin 28 pg (25-35) Mean Corpuscular Hemoglobin Concent 35 g/dL (31-37) Red Cell Distribution Width 14.5 % (11.5-14.5) Platelet Count 263 x10^3/uL (140-400) Neutrophils (%) (Auto) 46 % (31-73) Lymphocytes (%) (Auto) 35 % (24-48) Monocytes (%) (Auto) 11 % (0-9) Eosinophils (%) (Auto) 7 % (0-3) Basophils (%) (Auto) 1 % (0-3) Neutrophils # (Auto) 2.4 x10^3/uL (1.8-7.7) Lymphocytes # (Auto) 1.8 x10^3/uL (1.0-4.8) Monocytes # (Auto) 0.6 x10^3/uL (0.0-1.1) Eosinophils # (Auto) 0.4 x10^3/uL (0.0-0.7) Basophils # (Auto) 0.0 x10^3/uL (0.0-0.2) Segmented Neutrophils % 33 % (35-66) Band Neutrophils % 3 % (0-9) Lymphocytes % 52 % (24-48) Monocytes % 8 % (0-10) Eosinophils % 4 % (0-5) Platelet Estimate Adequate (ADEQUATE) Laboratory Tests Test 01/31/20 01:15 White Blood Count 5.2 x10^3/uL (4.0-11.0) Red Blood Count 3.88 x10^6/uL (3.50-5.40) Hemoglobin 10.7 g/dL (12.0-15.5) Hematocrit 30.8 % (36.0-47.0) Mean Corpuscular Volume 80 fL (79-100) Mean Corpuscular Hemoglobin 28 pg (25-35) Mean Corpuscular Hemoglobin Concent 35 g/dL (31-37) Red Cell Distribution Width 14.5 % (11.5-14.5) Platelet Count 263 x10^3/uL (140-400) Neutrophils (%) (Auto) 46 % (31-73) Lymphocytes (%) (Auto) 35 % (24-48) Monocytes (%) (Auto) 11 % (0-9) Eosinophils (%) (Auto) 7 % (0-3) Basophils (%) (Auto) 1 % (0-3) Neutrophils # (Auto) 2.4 x10^3/uL (1.8-7.7) Lymphocytes # (Auto) 1.8 x10^3/uL (1.0-4.8) Monocytes # (Auto) 0.6 x10^3/uL (0.0-1.1) Eosinophils # (Auto) 0.4 x10^3/uL (0.0-0.7) Basophils # (Auto) 0.0 x10^3/uL (0.0-0.2) Segmented Neutrophils % 33 % (35-66) Band Neutrophils % 3 % (0-9) Lymphocytes % 52 % (24-48) Monocytes % 8 % (0-10) Eosinophils % 4 % (0-5) Platelet Estimate Adequate (ADEQUATE) Sodium Level 142 mmol/L (136-145) Potassium Level 3.8 mmol/L (3.5-5.1) Chloride Level 104 mmol/L (98-107) Carbon Dioxide Level 27 mmol/L (21-32) Anion Gap 11 (6-14) Blood Urea Nitrogen 10 mg/dL (7-20) Creatinine 0.8 mg/dL (0.6-1.0) Estimated GFR (Cockcroft-Gault) 80.3 Glucose Level 99 mg/dL (70-99) Calcium Level 8.8 mg/dL (8.5-10.1) Vancomycin Level Trough 21.6 mcg/mL (10.0-20.0) Vancomycin Last Dose Date Vancomycin Last Dose Time Microbiology 01/29/20 Blood Culture - Final, Complete 01/29/20 Urine Culture - Final, Complete 01/29/20 Urine Culture Result 1 (TRE) - Final, Complete Medications Current Medications Sodium Chloride 1,000 ml @ 1,000 mls/hr 1X ONCE IV Last administered on 01/28/20at 17:02; Start 01/28/20 at 16:30; Stop 01/28/20 at 17:29; Status DC Acetaminophen (Tylenol) 1,000 mg 1X ONCE PO Last administered on 01/28/20at 17:02; Start 01/28/20 at 16:30; Stop 01/28/20 at 16:31; Status DC Sodium Chloride 1,000 ml @ 1,000 mls/hr 1X ONCE IV Last administered on 01/28/20at 20:26; Start 01/28/20 at 19:45; Stop 01/28/20 at 20:44; Status DC Piperacillin Sod/ Tazobactam Sod 3.375 gm/Sodium Chloride 50 ml @ 100 mls/hr 1X ONCE IV Last administered on 01/28/20 20:25; Start 01/28/20 at 19:45; Stop 01/28/20 at 20:14; Status DC Vancomycin HCl 250 ml @ 250 mls/hr 1X ONCE IV Last administered on 01/28/20at 20:25; Start 01/28/20 at 19:45; Stop 01/28/20 at 20:44; Status DC Sodium Chloride 1,000 ml @ 150 mls/hr Q6H40M IV Last administered on 01/29/20at 15:24; Start 01/28/20 at 19:39; Stop 01/29/20 at 19:38; Status DC Acetaminophen/ Hydrocodone Bitart (Lortab 5/325) 1 tab PRN Q4HRS PRN PO PAIN Last administered on 01/29/20at 08:08; Start 01/28/20 at 23:15; Stop 01/29/20 at 09:48; Status DC Vancomycin HCl (Vanco Per Pharmacy) 1 each PRN DAILY PRN MC SEE COMMENTS Last administered on 01/31/20at 09:33; Start 01/29/20 at 08:30 Piperacillin Sod/ Tazobactam Sod (Zosyn Per Pharmacy) 1 each PRN DAILY PRN MC SEE COMMENTS; Start 01/29/20 at 08:30 Piperacillin Sod/ Tazobactam Sod 4.5 gm/Sodium Chloride 100 ml @ 200 mls/hr Q6HRS IV Last administered on 01/31/20at 06:33; Start 01/29/20 at 09:00 Vancomycin HCl 1.25 gm/Sodium Chloride 250 ml @ 167 mls/hr Q8H IV Last administered on 01/29/20at 16:23; Start 01/29/20 at 09:00; Stop 01/30/20 at 01:23; Status DC Vancomycin HCl (Vancomycin Trough Level) 1 each 1X ONCE MC Last administered on 01/30/20at 00:30; Start 01/30/20 at 00:30; Stop 01/30/20 at 00:31; Status DC Acetaminophen/ Hydrocodone Bitart (Lortab 5/325) 1 tab PRN Q6HRS PRN PO PAIN Last administered on 01/31/20at 08:10; Start 01/29/20 at 14:00 Lactobacillus Rhamnosus (Culturelle) 1 cap BID PO Last administered on 01/31/20at 08:11; Start 01/29/20 at 21:00 Enoxaparin Sodium (Lovenox 40mg Syringe) 40 mg Q24H SQ Last administered on 01/30/20at 17:25; Start 01/29/20 at 16:00 Vancomycin HCl 1.5 gm/Sodium Chloride 500 ml @ 250 mls/hr Q8H IV Last administered on 01/30/20at 18:15; Start 01/30/20 at 01:30; Stop 01/31/20 at 03:26; Status DC Vancomycin HCl (Vancomycin Trough Level) 1 each 1X ONCE MC Last administered on 01/31/20at 01:00; Start 01/31/20 at 01:00; Stop 01/31/20 at 01:01; Status DC Vancomycin HCl 1.5 gm/Sodium Chloride 500 ml @ 250 mls/hr Q10H IV ; Start 01/31/20 at 11:00; Status Cancel Vancomycin HCl (Vancomycin Trough Level) 1 each 1X ONCE MC ; Start 02/01/20 at 05:00; Stop 02/01/20 at 05:01 Ondansetron HCl (Zofran Odt) 4 mg PRN Q4HRS PRN PO NAUSEA/VOMITING Last administered on 01/31/20at 08:08; Start 01/31/20 at 08:00 Active Scripts Active Reported Lisinopril 10 Mg Tablet 1 Tab PO DAILY Vitals/I & O Vital Sign - Last 24 Hours 01/30/20 01/30/20 01/30/20 01/30/20 11:00 15:00 19:00 20:00 Temp 98.2 98.2 98.3 98.2 98.2 98.3 Pulse 88 91 87 Resp 20 20 18 B/P (MAP) 118/84 (95) 124/75 (91) 136/92 (107) Pulse Ox 94 95 96 O2 Delivery Room Air Room Air Room Air Room Air 01/30/20 01/30/20 01/30/20 01/31/20 20:35 21:35 23:02 03:03 Temp 98.1 97.5 98.1 97.5 Pulse 80 79 Resp 20 20 18 18 B/P (MAP) 121/78 (92) 124/79 (94) Pulse Ox 96 97 100 97 O2 Delivery Room Air Room Air Room Air Room Air 01/31/20 01/31/20 01/31/20 01/31/20 07:05 08:08 08:10 09:10 Temp 98.0 98.0 Pulse 62 Resp 18 B/P (MAP) 135/91 (106) Pulse Ox 97 97 97 O2 Delivery Room Air Room Air Room Air Room Air CHRISTIANO PEREZ MD Jan 31, 2020 10:41
[2020-01-31] MEDS ORDERED: VANCOMYCIN 1.5 GM in IV NORMAL SALINE 500ML BAG 500 ML IV SCH (11:00)
[2020-01-31 14:36] VITALS: BP 125/86
[2020-01-31] MEDS: ENOXAPARIN 40 MG/0.4 ML SYRINGE. SQ SCH (15:35)
[2020-01-31 19:00] VITALS: BP 112/73
[2020-01-31 23:00] VITALS: BP 149/99
[2020-02-01 03:00] VITALS: BP 129/71
[2020-02-01] MEDS: ONDANSETRON ODT 4 MG TAB.RAPDIS. PO PRN (04:43)
[2020-02-01] MEDS: HYDROcodone/APAP 5/325MG 1 TAB TABLET PO PRN ×3 (04:43→17:26)
[2020-02-01 05:45] LABS: ANION GAP 9 (6-14); BLOOD UREA NITROGEN 12 mg/dL (7-20); CALCIUM 8.9 mg/dL (8.5-10.1); CARBON DIOXIDE 28 mmol/L (21-32); CHLORIDE 105 mmol/L (98-107); CREATININE 0.8 mg/dL (0.6-1.0); GFR 80.3; GLUCOSE 83 mg/dL (70-99); POTASSIUM 4.2 mmol/L (3.5-5.1); SODIUM 142 mmol/L (136-145); VANC TR 2.4 mcg/mL (10.0-20.0)
[2020-02-01] MEDS: PIPERACILLIN/TAZOBACTAM 4.5 GM in IV NORMAL SALINE 100ML 100 ML IV SCH ×4 (06:20→23:57)
[2020-02-01 07:00] VITALS: BP 106/70
[2020-02-01] MEDS: LACTOBACILLUS RHAMNOSUS GG 1 CAPSULE. PO SCH ×2 (08:07→20:44)
--- NOTE | 2020-02-01 09:00 | PDOC ---
Infectious Disease Note Subjective: Subjective Pt has no fevers cont to have headache no chestpain or left-sided back pain Denies F/N/ V/D/weakness Vital Signs: Vital Signs Vital Signs Date Time Temp Pulse Resp B/P (MAP) Pulse Ox O2 Delivery O2 Flow Rate FiO2 02/01/20 07:00 97.8 82 18 106/70 (82) 93 Room Air 97.8 Physical Exam: PHYSICAL EXAM GENERAL: Propped up in bed, alert, in tired appearance. HEENT: Pupils equally round, reactive. Normal conjunctivae. Oropharynx pink and moist. No lesions. Edentulous. NECK: Supple. No rigidity LUNGS: Clear to auscultation. HEART: S1, S2. No murmur appreciated. ABDOMEN: Obese, soft, nontender. BACK: No vertebral tenderness EXTREMITIES: No gross edema or cyanosis. SKIN: Warm to touch. No signs of rash. Multiple tattoos. No peripheral stigmata noted. NEUROLOGIC: Alert and answering questions appropriately. Left EJ ok Medications: Inpatient Meds: Current Medications Medications (Trade) Dose Ordered Sig/Vee Start Time Stop Time Status Last Admin Dose Admin Acetaminophen (Tylenol) 1,000 mg 1X ONCE 01/28/20 16:30 01/28/20 16:31 DC 01/28/20 17:02 1,000 MG Acetaminophen/ Hydrocodone Bitart (Lortab 5/325) 1 tab PRN Q6HRS PRN 01/29/20 14:00 02/01/20 04:43 1 TAB Enoxaparin Sodium (Lovenox 40mg Syringe) 40 mg Q24H 01/29/20 16:00 01/31/20 15:35 40 MG Lactobacillus Rhamnosus (Culturelle) 1 cap BID 01/29/20 21:00 02/01/20 08:07 1 CAP Ondansetron HCl (Zofran Odt) 4 mg PRN Q4HRS PRN 01/31/20 08:00 02/01/20 04:43 4 MG Piperacillin Sod/ Tazobactam Sod (Zosyn Per Pharmacy) 1 each PRN DAILY PRN 01/29/20 08:30 Piperacillin Sod/ Tazobactam Sod 3.375 gm/Sodium Chloride 50 ml @ 100 mls/hr 1X ONCE 01/28/20 19:45 01/28/20 20:14 DC 01/28/20 20:25 100 MLS/HR Piperacillin Sod/ Tazobactam Sod 4.5 gm/Sodium Chloride 100 ml @ 200 mls/hr Q6HRS 01/29/20 09:00 02/01/20 06:20 200 MLS/HR Sodium Chloride 1,000 ml @ 150 mls/hr Q6H40M 01/28/20 19:39 01/29/20 19:38 DC 01/29/20 15:24 150 MLS/HR Vancomycin HCl (Vanco Per Pharmacy) 1 each PRN DAILY PRN 01/29/20 08:30 01/31/20 13:07 1 EACH Vancomycin HCl (Vancomycin Trough Level) 1 each 1X ONCE 02/01/20 05:00 02/01/20 05:01 DC 02/01/20 04:48 1 EACH Vancomycin HCl 1.25 gm/Sodium Chloride 250 ml @ 167 mls/hr Q8H 01/29/20 09:00 01/30/20 01:23 DC 01/29/20 16:23 167 MLS/HR Vancomycin HCl 1.5 gm/Sodium Chloride 500 ml @ 250 mls/hr Q10H 01/31/20 11:00 Cancel Labs: Lab Laboratory Tests Test 02/01/20 04:45 Sodium Level 142 mmol/L (136-145) Potassium Level 4.2 mmol/L (3.5-5.1) Chloride Level 105 mmol/L (98-107) Carbon Dioxide Level 28 mmol/L (21-32) Anion Gap 9 (6-14) Blood Urea Nitrogen 12 mg/dL (7-20) Creatinine 0.8 mg/dL (0.6-1.0) Estimated GFR (Cockcroft-Gault) 80.3 Glucose Level 83 mg/dL (70-99) Calcium Level 8.9 mg/dL (8.5-10.1) Vancomycin Level Trough 2.4 mcg/mL (10.0-20.0) Vancomycin Last Dose Date 01/31/20 Vancomycin Last Dose Time 0600 Objective: Assessment: Staph aureus bacteremia POA from 01/27 and 01/28. Fever - better Cough. COVID-19 neg Pyruia UC neg h/o IVDU. 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 staph angela f/u UC Avoid PICC placement at this time f/u repeat bc D/w nursing MOODY NIELSEN MD Feb 01, 2020 09:00
[2020-02-01] MEDS: VANCOMYCIN 1.5 GM in IV NORMAL SALINE 500ML BAG 500 ML IV SCH ×2 (10:30→20:44)
[2020-02-01 11:00] VITALS: BP 117/66
[2020-02-01] MEDS: VANCOMYCIN PER PHARMACY MC PRN (11:28)
--- NOTE | 2020-02-01 11:35 | PDOC ---
PROGRESS NOTES Chief Complaint Chief Complaint impression Cough - CXR is clear on repeat. will give cough suppressants, supportive care, monitor O2 status. May need chest CT if symptoms do not improve Blood cultures positive - source is not clear, she denies IVDA Sepsis - from gram positive bacteremia - with elevated temp was tested for SARS-CoV-2 (COVID 19) - will give empiric IVF and antibiotics, consult ID Right knee pain - topical treatment Back and neck pain - thoracic back pain Anemia - uncertain etiology, s/p hysterectomy, will check iron stores Hyperglycemia - will monitor, no hx of DM Moderate protein calorie malnutrition - Albumin low likely from prolonged illness Right breast lump - likely fibrocystic disease. will monitor. If it worsens will obtain US FEN - General diet PPX - SCDs FULL CODE Inpatient for sepsis with bacteremia t max 103.4 F 01/28/20 COVID-19 NEG cont IV Zosyn CONT iv vanc 1.25mg IV q12 CARDIOLOGY consult re possible endocarditis History of Present Illness History of Present Illness 38 yo F w/ PMHx IVDA (methamphetamines and opioids), HTN who presents with 6 day history of cough and fevers up to 104F. She denies any nausea or vomiting. 01/31 states she has had some headache. She denies any abdominal pain. She has not had any issues with dysuria or gross hematuria. She was seen in ED 1 day prior and sent home with azithromycin which she did not fill, but has been taking prednisone from her mother. notes prior opioid dependence which she has been in sustained remission from for over 7 years, she began this habit after a hysterectomy when she was younger. However, she has been to ED multiple times with abscesses and positive blood cu ltures over the past few years, unclear if she is truly in remission. CXR was clear. Blood culture x1 shows GPC. Influenza negative. Temp 103.4F. WBC 8.6, Hb 11, Na 135, K 3.7, BUN 9, Cr. 0.7, glucose 105. Called for admission for further care. COVID negative. Blood cultures all positive for GPC. CRP 77. Has some right breast pain . No SOB or CP. esr 4/7 pending 37 min pt exam, chart review, > 50% of time spent with exam, chart review, pt care coordination Vitals Vitals Vital Signs Date Time Temp Pulse Resp B/P (MAP) Pulse Ox O2 Delivery O2 Flow Rate FiO2 02/01/20 11:15 93 Room Air 02/01/20 07:00 97.8 82 18 106/70 (82) 97.8 Physical Exam Physical Exam GENERAL: Propped up in bed, alert, in tired appearance. HEENT: Pupils equally round, reactive. Normal conjunctivae. Oropharynx pink and moist. No lesions. Edentulous. NECK: Supple. No rigidity LUNGS: Clear to auscultation. HEART: S1, S2. No murmur appreciated. ABDOMEN: Obese, soft, nontender. BACK: No vertebral tenderness EXTREMITIES: No gross edema or cyanosis. SKIN: Warm to touch. No signs of rash. Multiple tattoos. No peripheral stigmata noted. NEUROLOGIC: Alert and answering questions appropriately. Left EJ ok General: Alert, Oriented X3, Cooperative, No acute distress Lungs: Clear Abdomen: Normal bowel sounds, Soft, No tenderness, No hepatosplenomegaly, No masses Extremities: No clubbing, No cyanosis, No edema, Normal pulses, No tenderness/swelling Skin: No rashes, No breakdown, No significant lesion Labs LABS SPEC #: [id number] DOLLY: 01/28/20 STATUS: COMP REQ #: [id number] RECD: 01/28/[address]: FRAN SERRANO DO SOURCE: BLOOD ENTR: 01/28/20 [facility] DR: TONI HERNANDEZ SPDC: ORDERED: BCULT Procedure Result ----- ------- BLOOD CULTURE Final GRAM POSITIVE COCCI IN CLUSTERS 1 SET DRAWN AND 1 SET POSITIVE CALLED TO JCARLOS HONG RN IN 6S BY ZAC,01/29/20,0810 SPECIMEN SENDING TO [facility] FOR FURTHER WORK UP. Laboratory Tests Test 02/01/20 04:45 Sodium Level 142 mmol/L (136-145) Potassium Level 4.2 mmol/L (3.5-5.1) Chloride Level 105 mmol/L (98-107) Carbon Dioxide Level 28 mmol/L (21-32) Anion Gap 9 (6-14) Blood Urea Nitrogen 12 mg/dL (7-20) Creatinine 0.8 mg/dL (0.6-1.0) Estimated GFR (Cockcroft-Gault) 80.3 Glucose Level 83 mg/dL (70-99) Calcium Level 8.9 mg/dL (8.5-10.1) Vancomycin Level Trough 2.4 mcg/mL (10.0-20.0) Vancomycin Last Dose Date 01/31/20 Vancomycin Last Dose Time 0600 Assessment and Plan Assessmemt and Plan Problems Medical Problems: (1) Anemia Status: Acute (2) High fever Status: Acute (3) Hypoalbuminemia Status: Acute (4) IV drug abuse Status: Acute Comment Review of Relevant I have reviewed the following items ina (where applicable) has been applied. Labs Laboratory Tests Test 01/31/20 01:15 02/01/20 04:45 White Blood Count 5.2 x10^3/uL (4.0-11.0) Red Blood Count 3.88 x10^6/uL (3.50-5.40) Hemoglobin 10.7 g/dL (12.0-15.5) Hematocrit 30.8 % (36.0-47.0) Mean Corpuscular Volume 80 fL (79-100) Mean Corpuscular Hemoglobin 28 pg (25-35) Mean Corpuscular Hemoglobin Concent 35 g/dL (31-37) Red Cell Distribution Width 14.5 % (11.5-14.5) Platelet Count 263 x10^3/uL (140-400) Neutrophils (%) (Auto) 46 % (31-73) Lymphocytes (%) (Auto) 35 % (24-48) Monocytes (%) (Auto) 11 % (0-9) Eosinophils (%) (Auto) 7 % (0-3) Basophils (%) (Auto) 1 % (0-3) Neutrophils # (Auto) 2.4 x10^3/uL (1.8-7.7) Lymphocytes # (Auto) 1.8 x10^3/uL (1.0-4.8) Monocytes # (Auto) 0.6 x10^3/uL (0.0-1.1) Eosinophils # (Auto) 0.4 x10^3/uL (0.0-0.7) Basophils # (Auto) 0.0 x10^3/uL (0.0-0.2) Segmented Neutrophils % 33 % (35-66) Band Neutrophils % 3 % (0-9) Lymphocytes % 52 % (24-48) Monocytes % 8 % (0-10) Eosinophils % 4 % (0-5) Platelet Estimate Adequate (ADEQUATE) Sodium Level 142 mmol/L (136-145) 142 mmol/L (136-145) Potassium Level 3.8 mmol/L (3.5-5.1) 4.2 mmol/L (3.5-5.1) Chloride Level 104 mmol/L (98-107) 105 mmol/L (98-107) Carbon Dioxide Level 27 mmol/L (21-32) 28 mmol/L (21-32) Anion Gap 11 (6-14) 9 (6-14) Blood Urea Nitrogen 10 mg/dL (7-20) 12 mg/dL (7-20) Creatinine 0.8 mg/dL (0.6-1.0) 0.8 mg/dL (0.6-1.0) Estimated GFR (Cockcroft-Gault) 80.3 80.3 Glucose Level 99 mg/dL (70-99) 83 mg/dL (70-99) Calcium Level 8.8 mg/dL (8.5-10.1) 8.9 mg/dL (8.5-10.1) Vancomycin Level Trough 21.6 mcg/mL (10.0-20.0) 2.4 mcg/mL (10.0-20.0) Vancomycin Last Dose Date 01/31/20 Vancomycin Last Dose Time 0600 Laboratory Tests Test 02/01/20 04:45 Sodium Level 142 mmol/L (136-145) Potassium Level 4.2 mmol/L (3.5-5.1) Chloride Level 105 mmol/L (98-107) Carbon Dioxide Level 28 mmol/L (21-32) Anion Gap 9 (6-14) Blood Urea Nitrogen 12 mg/dL (7-20) Creatinine 0.8 mg/dL (0.6-1.0) Estimated GFR (Cockcroft-Gault) 80.3 Glucose Level 83 mg/dL (70-99) Calcium Level 8.9 mg/dL (8.5-10.1) Vancomycin Level Trough 2.4 mcg/mL (10.0-20.0) Vancomycin Last Dose Date 01/31/20 Vancomycin Last Dose Time 0600 Microbiology 01/29/20 Blood Culture - Final, Complete 01/29/20 Urine Culture - Final, Complete 01/29/20 Urine Culture Result 1 (TRE) - Final, Complete Medications Current Medications Sodium Chloride 1,000 ml @ 1,000 mls/hr 1X ONCE IV Last administered on 01/28/20at 17:02; Start 01/28/20 at 16:30; Stop 01/28/20 at 17:29; Status DC Acetaminophen (Tylenol) 1,000 mg 1X ONCE PO Last administered on 01/28/20at 17:02; Start 01/28/20 at 16:30; Stop 01/28/20 at 16:31; Status DC Sodium Chloride 1,000 ml @ 1,000 mls/hr 1X ONCE IV Last administered on 01/28/20at 20:26; Start 01/28/20 at 19:45; Stop 01/28/20 at 20:44; Status DC Piperacillin Sod/ Tazobactam Sod 3.375 gm/Sodium Chloride 50 ml @ 100 mls/hr 1X ONCE IV Last administered on 01/28/20at 20:25; Start 01/28/20 at 19:45; Stop 01/28/20 at 20:14; Status DC Vancomycin HCl 250 ml @ 250 mls/hr 1X ONCE IV Last administered on 01/28/20at 20:25; Start 01/28/20 at 19:45; Stop 01/28/20 at 20:44; Status DC Sodium Chloride 1,000 ml @ 150 mls/hr Q6H40M IV Last administered on 01/29/20at 15:24; Start 01/28/20 at 19:39; Stop 01/29/20 at 19:38; Status DC Acetaminophen/ Hydrocodone Bitart (Lortab 5/325) 1 tab PRN Q4HRS PRN PO PAIN Last administered on 01/29/20 08:08; Start 01/28/20 at 23:15; Stop 01/29/20 at 09:48; Status DC Vancomycin HCl (Vanco Per Pharmacy) 1 each PRN DAILY PRN MC SEE COMMENTS Last administered on 02/01/20at 11:28; Start 01/29/20 at 08:30 Piperacillin Sod/ Tazobactam Sod (Zosyn Per Pharmacy) 1 each PRN DAILY PRN MC SEE COMMENTS; Start 01/29/20 at 08:30 Piperacillin Sod/ Tazobactam Sod 4.5 gm/Sodium Chloride 100 ml @ 200 mls/hr Q6HRS IV Last administered on 02/01/20at 11:29; Start 01/29/20 at 09:00 Vancomycin HCl 1.25 gm/Sodium Chloride 250 ml @ 167 mls/hr Q8H IV Last administered on 01/29/20at 16:23; Start 01/29/20 at 09:00; Stop 01/30/20 at 01:23; Status DC Vancomycin HCl (Vancomycin Trough Level) 1 each 1X ONCE MC Last administered on 01/30/20at 00:30; Start 01/30/20 at 00:30; Stop 01/30/20 at 00:31; Status DC Acetaminophen/ Hydrocodone Bitart (Lortab 5/325) 1 tab PRN Q6HRS PRN PO PAIN Last administered on 02/01/20at 10:06; Start 01/29/20 at 14:00 Lactobacillus Rhamnosus (Culturelle) 1 cap BID PO Last administered on 02/01/20at 08:07; Start 01/29/20 at 21:00 Enoxaparin Sodium (Lovenox 40mg Syringe) 40 mg Q24H SQ Last administered on 01/31/20at 15:35; Start 01/29/20 at 16:00 Vancomycin HCl 1.5 gm/Sodium Chloride 500 ml @ 250 mls/hr Q8H IV Last administered on 01/30/20at 18:15; Start 01/30/20 at 01:30; Stop 01/31/20 at 03:26; Status DC Vancomycin HCl (Vancomycin Trough Level) 1 each 1X ONCE MC Last administered on 01/31/20at 01:00; Start 01/31/20 at 01:00; Stop 01/31/20 at 01:01; Status DC Vancomycin HCl 1.5 gm/Sodium Chloride 500 ml @ 250 mls/hr Q10H IV ; Start 01/31/20 at 11:00; Status Cancel Vancomycin HCl (Vancomycin Trough Level) 1 each 1X ONCE MC Last administered on 02/01/20at 04:48; Start 02/01/20 at 05:00; Stop 02/01/20 at 05:01; Status DC Ondansetron HCl (Zofran Odt) 4 mg PRN Q4HRS PRN PO NAUSEA/VOMITING Last adminis tered on 02/01/20at 04:43; Start 01/31/20 at 08:00 Vancomycin HCl 1.5 gm/Sodium Chloride 500 ml @ 250 mls/hr Q12H IV Last adminis tered on 02/01/20at 10:30; Start 02/01/20 at 09:00 Active Scripts Active Reported Lisinopril 10 Mg Tablet 1 Tab PO DAILY Vitals/I & O Vital Sign - Last 24 Hours 01/31/20 01/31/20 01/31/20 01/31/20 14:36 19:00 20:00 22:17 Temp 97.7 97.7 97.7 97.7 Pulse 72 71 Resp 18 18 B/P (MAP) 125/86 (99) 112/73 (86) Pulse Ox 97 98 98 O2 Delivery Room Air Room Air Room Air Room Air 01/31/20 02/01/20 02/01/20 02/01/20 23:00 03:00 04:43 05:43 Temp 98.2 98.6 98.2 98.6 Pulse 76 79 Resp 18 18 B/P (MAP) 149/99 (116) 129/71 (90) Pulse Ox 95 96 96 96 O2 Delivery Room Air Room Air Room Air Room Air 02/01/20 02/01/20 02/01/20 07:00 07:45 11:15 Temp 97.8 97.8 Pulse 82 Resp 18 B/P (MAP) 106/70 (82) Pulse Ox 93 93 O2 Delivery Room Air Room Air Room Air Intake and Output 01/31/20 01/31/20 02/01/20 14:59 22:59 06:59 Intake Total 800 ml Balance 800 ml CHRISTIANO PEREZ MD Feb 01, 2020 11:35
[2020-02-01] MEDS: HYDROcodone/APAP 7.5/325MG 1 TAB TABLET PO PRN (12:32)
[2020-02-01 15:00] VITALS: BP 116/76
--- NOTE | 2020-02-01 15:32 | PDOC2 ---
LINNETTE ALLAN TEXTILE BROKER 02/01/20 1532: CARDIAC CONSULT DATE OF CONSULT Date of Consult DATE: 02/01/20 TIME: 15:08 REASON FOR CONSULT Reason for Consult: evaluated risk for endocarditis REFERRING PHYSICIAN Referring Physician: Dr. Rehman SOURCE Source: Chart review, Patient HISTORY OF PRESENT ILLNESS HISTORY OF PRESENT ILLNESS This is a 39 yo female, with a history if IVDU and MSSA bacteremia (February and June 2019), who presented late last week due to 2-day history of fevers, neck and upper back pain, MACDONALD, and cough. COVID was negative. BC positive for GPC. Cardiology consult was obtained to evaluate for endocarditis. Patient feeling better and is asking about discharge. Denies any chest pain, palpitati ons, dizziness, diaphoresis, or nausea/vomiting. Patient reports she has been clean of drug use since 03/14. Since that point, has had all teeth extracted. PAST MEDICAL HISTORY Cardiovascular: HTN Infectious disease: Other (MSSA bacteremia) PAST SURGICAL HISTORY Past Surgical History: Hysterectomy, Other (teeth extracted) FAMILY HISTORY Family History: Coronary Artery Disease (father), Hypertension SOCIAL HISTORY Smoke: No ALCOHOL: none Drugs: Other (methamphetamine use. quit 07/15) Lives: with Family CURRENT MEDICATIONS CURRENT MEDICATIONS Current Medications Medications (Trade) Dose Ordered Sig/Vee Route PRN Reason Start Time Stop Time Status Last Admin Dose Admin Vancomycin HCl (Vancomycin Trough Level) 1 each 1X ONCE MC 02/01/20 05:00 02/01/20 05:01 DC 02/01/20 04:48 Vancomycin HCl 1.5 gm/Sodium Chloride 500 ml @ 250 mls/hr Q12H IV 02/01/20 09:00 02/01/20 10:30 Acetaminophen/ Hydrocodone Bitart (Lortab 7.5/325) 1 tab PRN Q4HRS PRN PO PAIN 02/01/20 12:30 02/01/20 12:32 ALLERGIES ALLERGIES: Coded Allergies: No Known Drug Allergies (Unverified , 05/05/19) ROS Review of System 14 point ROS conducted with pertinent positives noted above in hPI PHYSICAL EXAM General: Alert, Oriented X3, Cooperative, No acute distress HEENT: Atraumatic Lungs: Clear to auscultation Heart: Other (heart tones regular. Not on tele) Abdomen: Soft, No tenderness Extremities: No edema, Normal pulses Skin: No significant lesion Neuro: Normal speech Psych/Mental Status: Mental status NL, Mood NL MUSCULOSKELETAL: No deformity VITALS/I&O VITALS/I&O: Vital Signs Date Time Temp Pulse Resp B/P (MAP) Pulse Ox O2 Delivery O2 Flow Rate FiO2 02/01/20 11:15 93 Room Air 02/01/20 11:00 97.7 72 18 117/66 (83) 97.7 I & O 0 01/31/20 01/31/20 02/01/20 15:00 23:00 07:00 Intake Total 800 ml Balance 800 ml LABS Lab: Laboratory Tests Test 02/01/20 04:45 Sodium Level 142 mmol/L (136-145) Potassium Level 4.2 mmol/L (3.5-5.1) Chloride Level 105 mmol/L (98-107) Carbon Dioxide Level 28 mmol/L (21-32) Anion Gap 9 (6-14) Blood Urea Nitrogen 12 mg/dL (7-20) Creatinine 0.8 mg/dL (0.6-1.0) Estimated GFR (Cockcroft-Gault) 80.3 Glucose Level 83 mg/dL (70-99) Calcium Level 8.9 mg/dL (8.5-10.1) Vancomycin Level Trough 2.4 mcg/mL (10.0-20.0) L Vancomycin Last Dose Date 01/31/20 Vancomycin Last Dose Time 0600 Laboratory Tests 02/01/20 04:45 ECHOCARDIOGRAM ECHOCARDIOGRAM <Conclusion> The left ventricle is hyperdynamic. The Ejection Fraction is >70%. There is normal LV segmental wall motion. Trace tricuspid regurgitation. The PA pressure was estimated at 29 mmHg. There is no evidence of significant pericardial effusion. DATE: 07/06/19 1404 <Conclusion> The left ventricular systolic function is normal. The Ejection Fraction is 55-60%. There is normal LV segmental wall motion. Trace mitral regurgitation. Mild to moderate tricuspid regurgitation. There is no evidence of significant pericardial effusion. No intracardiac vegetations or thrombi. DATE: 07/08/191656 ASSESSMENT/PLAN ASSESSMENT/PLAN 1. Fevers,sepsis, bacteremia; BC + GPC 2. Hypertension 3. H/o MSSA bacteremia (February and June 2019) JORGE LUIS 06/2019 without evidence of vegetation or thrombus as noted above 4. H/o IVDU (Reports clean since 06/2019) Recommendations Resume home lisinopril for BP control Echo to assess for endocarditis Consider JORGE LUIS for further evaluation if clinical suspicion is high or TTE shows evidence of vegetation. Will d/w ID Supportive care BOBBY CROCKETT MD 02/01/20 1557: CARDIAC CONSULT ASSESSMENT/PLAN ASSESSMENT/PLAN Pt. seen and examined. Agree with above BRANCH LEAD note. Supportive care. Thanks LINNETTE ALLAN APRN Feb 01, 2020 15:32 BOBBY CROCKETT MD Feb 01, 2020 15:57
[2020-02-01] MEDS: ENOXAPARIN 40 MG/0.4 ML SYRINGE. SQ SCH (17:21)
[2020-02-01 19:00] VITALS: BP_SYST 109; BP_SYST 146; BP_DIAS 72; BP_DIAS 75
[2020-02-01 23:06] VITALS: BP 123/47
[2020-02-02] VITALS (12 sets, daily range): BP systolic 97–163; BP diastolic 75–102
[2020-02-02] MEDS: HYDROcodone/APAP 7.5/325MG 1 TAB TABLET PO PRN ×4 (00:02→22:09)
[2020-02-02 04:31] LABS: BASO % 0 % (0-3); EOS # 0.4 x10^3/uL (0.0-0.7); EOS % 5 % (0-3); HEMATOCRIT 31.9 % (36.0-47.0); HEMOGLOBIN 10.7 g/dL (12.0-15.5); LYMPH # 1.9 x10^3/uL (1.0-4.8); LYMPH % 27 % (24-48); MEAN CORPUSCULAR HEMOGLOBIN 27 pg (25-35); MEAN CORPUSCULAR HGB CONC 34 g/dL (31-37); MEAN CORPUSCULAR VOLUME 80 fL (79-100); MONO # 0.5 x10^3/uL (0.0-1.1); MONO % 7 % (0-9); NEUT # 4.3 x10^3/uL (1.8-7.7); NEUT % 60 % (31-73); PLATELET COUNT 333 x10^3/uL (140-400); RED BLOOD COUNT 3.97 x10^6/uL (3.50-5.40); RED CELL DISTRIBUTION WIDTH 14.1 % (11.5-14.5); WHITE BLOOD COUNT 7.1 x10^3/uL (4.0-11.0)
[2020-02-02 04:51] LABS: ALBUMIN 2.2 g/dL (3.4-5.0); ALBUMIN/GLOBULIN RATIO 0.6 (1.0-1.7); CALCIUM 8.3 mg/dL (8.5-10.1); CREATININE 1.2 mg/dL (0.6-1.0); GFR 50.3; POTASSIUM 3.9 mmol/L (3.5-5.1); TOTAL BILIRUBIN 0.3 mg/dL (0.2-1.0); TOTAL PROTEIN 6.1 g/dL (6.4-8.2)
[2020-02-02] MEDS: PIPERACILLIN/TAZOBACTAM 4.5 GM in IV NORMAL SALINE 100ML 100 ML IV SCH (06:35)
[2020-02-02] MEDS: ONDANSETRON ODT 4 MG TAB.RAPDIS. PO PRN (06:39)
[2020-02-02] MEDS ORDERED: IV RINGERS,LACTATED 1000ML 1,000 ML IV SCH (07:05)
[2020-02-02] MEDS ORDERED: ONDANSETRON PF 4 MG/2 ML VIAL. IVP PRN (07:15)
[2020-02-02] MEDS ORDERED: MORPHINE SULFATE 2 MG/ML VIAL. IVP PRN (07:15)
[2020-02-02] MEDS ORDERED: PROCHLORPERAZINE 10 MG/2 ML VIAL. IVP PRN (07:15)
[2020-02-02] MEDS ORDERED: HYDROmorphone 2 MG/ML VIAL IVP PRN (07:15)
[2020-02-02] MEDS ORDERED: LIDOCAINE 1% PF 2 ML VIAL. ID PRN (07:15)
[2020-02-02] MEDS ORDERED: fentaNYL PF VIAL 100 MCG/2 ML VIAL IVP PRN ×2 (07:15)
[2020-02-02] MEDS ORDERED: LIDOCAINE 2% VISCOUS 15 ML SOLUTION. SWSW ONE (08:15)
[2020-02-02] MEDS ORDERED: LIDOCAINE 2% TOPICAL JELLY 30GM TUBE. TP ONE (08:15)
[2020-02-02] MEDS ORDERED: BENZOCAINE ONE 20% MUCOSAL SPRAY. MM (08:15)
--- NOTE | 2020-02-02 10:12 | PDOC ---
Infectious Disease Note Subjective: Subjective Pt has no fevers cont to have headache no chestpain or left-sided back pain Denies F/N/ V/D/weakness Vital Signs: Vital Signs Vital Signs Date Time Temp Pulse Resp B/P (MAP) Pulse Ox O2 Delivery O2 Flow Rate FiO2 02/02/20 07:30 Room Air 02/02/20 07:00 97.7 68 16 148/100 (116) 94 97.7 Physical Exam: PHYSICAL EXAM GENERAL: Propped up in bed, alert, in tired appearance. HEENT: Pupils equally round, reactive. Normal conjunctivae. Oropharynx pink and moist. No lesions. Edentulous. NECK: Supple. No rigidity LUNGS: Clear to auscultation. HEART: S1, S2. No murmur appreciated. ABDOMEN: Obese, soft, nontender. BACK: No vertebral tenderness EXTREMITIES: No gross edema or cyanosis. SKIN: Warm to touch. No signs of rash. Multiple tattoos. No peripheral stigmata noted. NEUROLOGIC: Alert and answering questions appropriately. Left EJ ok Medications: Inpatient Meds: Current Medications Medications (Trade) Dose Ordered Sig/Vee Start Time Stop Time Status Last Admin Dose Admin Acetaminophen (Tylenol) 1,000 mg 1X ONCE 01/28/20 16:30 01/28/20 16:31 DC 01/28/20 17:02 1,000 MG Acetaminophen/ Hydrocodone Bitart (Lortab 5/325) 1 tab PRN Q6HRS PRN 01/29/20 14:00 02/01/20 17:26 1 TAB Acetaminophen/ Hydrocodone Bitart (Lortab 7.5/325) 1 tab PRN Q4HRS PRN 02/01/20 12:30 02/02/20 06:39 1 TAB Benzocaine (Hurricaine One) 2 spray 1X ONCE 02/02/20 08:15 02/02/20 08:16 DC Enoxaparin Sodium (Lovenox 40mg Syringe) 40 mg Q24H 01/29/20 16:00 02/01/20 17:21 40 MG Fentanyl Citrate (Fentanyl 2ml Vial) 50 mcg PRN Q5MIN PRN 02/02/20 07:15 02/02/20 20:00 Hydromorphone HCl (Dilaudid) 0.5 mg PRN Q10MIN PRN 02/02/20 07:15 02/02/20 20:00 Lactobacillus Rhamnosus (Culturelle) 1 cap BID 01/29/20 21:00 02/01/20 20:44 1 CAP Lidocaine HCl (Viscous Lidocaine) 15 ml 1X ONCE 02/02/20 08:15 02/02/20 08:16 DC Lidocaine HCl (Xylocaine 2% Topical 30gm Tube) 1 ebony 1X ONCE 02/02/20 08:15 02/02/20 08:16 DC Lidocaine HCl (Xylocaine-Mpf 1% 2ml Vial) 2 ml 1X PRN PRN 02/02/20 07:15 02/02/20 20:00 Lisinopril (Prinivil) 10 mg DAILY 02/02/20 09:00 Morphine Sulfate (Morphine Sulfate) 1 mg PRN Q10MIN PRN 02/02/20 07:15 02/02/20 20:00 Nafcillin Sodium 2 gm/Dextrose 100 ml @ 200 mls/hr Q4HRS 02/02/20 10:00 Ondansetron HCl (Zofran Odt) 4 mg PRN Q4HRS PRN 01/31/20 08:00 02/02/20 06:39 4 MG Ondansetron HCl (Zofran) 4 mg PRN Q6HRS PRN 02/02/20 07:15 02/02/20 20:00 Piperacillin Sod/ Tazobactam Sod (Zosyn Per Pharmacy) 1 each PRN DAILY PRN 01/29/20 08:30 02/02/20 08:47 DC Piperacillin Sod/ Tazobactam Sod 3.375 gm/Sodium Chloride 50 ml @ 100 mls/hr 1X ONCE 01/28/20 19:45 01/28/20 20:14 DC 01/28/20 20:25 100 MLS/HR Piperacillin Sod/ Tazobactam Sod 4.5 gm/Sodium Chloride 100 ml @ 200 mls/hr Q6HRS 01/29/20 09:00 02/02/20 08:42 DC 02/02/20 06:35 200 MLS/HR Prochlorperazine Edisylate (Compazine) 5 mg PACU PRN PRN 02/02/20 07:15 02/02/20 20:00 Ringer's Solution 1,000 ml @ 30 mls/hr Q24H 02/02/20 07:05 02/02/20 19:04 Sodium Chloride 1,000 ml @ 150 mls/hr Q6H40M 01/28/20 19:39 01/29/20 19:38 DC 01/29/20 15:24 150 MLS/HR Vancomycin HCl (Vanco Per Pharmacy) 1 each PRN DAILY PRN 01/29/20 08:30 02/02/20 08:46 DC 02/01/20 11:28 1 EACH Vancomycin HCl (Vancomycin Trough Level) 1 each 1X ONCE 02/01/20 05:00 02/01/20 05:01 DC 02/01/20 04:48 1 EACH Vancomycin HCl 1.25 gm/Sodium Chloride 250 ml @ 167 mls/hr Q8H 01/29/20 09:00 01/30/20 01:23 DC 01/29/20 16:23 167 MLS/HR Vancomycin HCl 1.5 gm/Sodium Chloride 500 ml @ 250 mls/hr Q12H 02/01/20 09:00 02/02/20 08:42 DC 02/01/20 20:44 250 MLS/HR Labs: Lab Laboratory Tests Test 02/02/20 03:40 White Blood Count 7.1 x10^3/uL (4.0-11.0) Red Blood Count 3.97 x10^6/uL (3.50-5.40) Hemoglobin 10.7 g/dL (12.0-15.5) Hematocrit 31.9 % (36.0-47.0) Mean Corpuscular Volume 80 fL (79-100) Mean Corpuscular Hemoglobin 27 pg (25-35) Mean Corpuscular Hemoglobin Concent 34 g/dL (31-37) Red Cell Distribution Width 14.1 % (11.5-14.5) Platelet Count 333 x10^3/uL (140-400) Neutrophils (%) (Auto) 60 % (31-73) Lymphocytes (%) (Auto) 27 % (24-48) Monocytes (%) (Auto) 7 % (0-9) Eosinophils (%) (Auto) 5 % (0-3) Basophils (%) (Auto) 0 % (0-3) Neutrophils # (Auto) 4.3 x10^3/uL (1.8-7.7) Lymphocytes # (Auto) 1.9 x10^3/uL (1.0-4.8) Monocytes # (Auto) 0.5 x10^3/uL (0.0-1.1) Eosinophils # (Auto) 0.4 x10^3/uL (0.0-0.7) Basophils # (Auto) 0.0 x10^3/uL (0.0-0.2) Erythrocyte Sedimentation Rate 50 (0-25) Sodium Level 141 mmol/L (136-145) Potassium Level 3.9 mmol/L (3.5-5.1) Chloride Level 106 mmol/L (98-107) Carbon Dioxide Level 29 mmol/L (21-32) Anion Gap 6 (6-14) Blood Urea Nitrogen 14 mg/dL (7-20) Creatinine 1.2 mg/dL (0.6-1.0) Estimated GFR (Cockcroft-Gault) 50.3 BUN/Creatinine Ratio 12 (6-20) Glucose Level 80 mg/dL (70-99) Calcium Level 8.3 mg/dL (8.5-10.1) Total Bilirubin 0.3 mg/dL (0.2-1.0) Aspartate Amino Transf (AST/SGOT) 26 U/L (15-37) Alanine Aminotransferase (ALT/SGPT) 76 U/L (14-59) Alkaline Phosphatase 137 U/L (46-116) Creatine Kinase 22 U/L (26-192) Total Protein 6.1 g/dL (6.4-8.2) Albumin 2.2 g/dL (3.4-5.0) Albumin/Globulin Ratio 0.6 (1.0-1.7) Objective: Assessment: MSSA bacteremia POA from 01/27 and 01/28. Fever - better Cough. COVID-19 neg Pyruia UC neg h/o IVDU. 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
[2020-02-02] MEDS ORDERED: PROPOFOL 20 ML IV ONE (10:27)
[2020-02-02] MEDS: NAFCILLIN 2 GM in IV DEXTROSE 5% 100ML 100 ML IV SCH ×3 (10:57→22:08)
--- NOTE | 2020-02-02 11:10 | CARD ---
MR#: [id number] Date of Study: 02/02/2020 Ordering Physician: LINNETTE ALLAN, Referring Physician: LINNETTE ALLAN Tech: Charisma Capellan RDCS APPROVED REPORT EXAM: Transesophageal echocardiogram with color flow Doppler. INDICATION Infection:Rule out subacute bacterial endocarditis Reason For Test : Rule out endocarditis. PROCEDURE After obtaining informed consent, patient underwent transesophageal echo in the PACU. Type of Sedation : General Anesthesia Sedation was administered by Nazario Harrell CRNA. Sedation was achieved with Propofol 170mg intravenously. Transesophageal probe was inserted and advanced into esophagus by Todd Jacinto MD. The JORGE LUIS was performed without complications. Throughout the procedure, the blood pressure, pulse oximetry, cardiac rhythm, and rate were monitored . The patient tolerated the procedure without adverse effects. Recovery from general anesthesia was une ventful and vital signs were stable. LEFT VENTRICLE The left ventricle is normal size. There is normal left ventricular wall thickness. The left ventricu lar systolic function is normal and the ejection fraction is within normal range. The Ejection Fracti on is 55-60%. There is normal LV segmental wall motion. The left ventricular diastolic function and f illing is normal for age. No left ventricle thrombus noted on this study. There is no ventricular sep jennifer defect visualized. There is no left ventricular aneurysm. There is no mass noted in the left vent ricle. RIGHT VENTRICLE The right ventricle is normal size. There is normal right ventricular wall thickness. The right ventr icular systolic function is normal. ATRIA The left atrium size is normal. The right atrium size is normal. The interatrial septum is intact wit h no evidence for an atrial septal defect or patent foramen ovale as noted on 2-D or Doppler imaging. There is no thrombus noted in the left atrial appendage. AORTIC VALVE The aortic valve is normal in structure and function. Doppler and Color Flow revealed no significant aortic regurgitation. There is no significant aortic valvular stenosis. There is no aortic valvular v egetation. MITRAL VALVE The mitral valve is normal in structure and function. There is no evidence of mitral valve prolapse o r vegetation. There is no mitral valve stenosis. Doppler and Color-flow revealed trivial mitral regur gitation. TRICUSPID VALVE The tricuspid valve is normal in structure and function. Doppler and Color Flow revealed trivial tric uspid regurgitation. There is no tricuspid valve prolapse or vegetation. There is no tricuspid valve stenosis. PULMONIC VALVE The pulmonary valve is normal in structure and function. Doppler and Color Flow revealed no pulmonic valvular regurgitation. There is no pulmonic valvular stenosis. GREAT VESSELS The aortic root is normal in size. The ascending aorta is normal in size. The pulmonary artery is nor mal. The IVC is normal in size and collapses >50% with inspiration. PERICARDIAL EFFUSION There is no evidence of significant pericardial effusion. There is no pleural effusion. Critical Notification Critical Value: No <Conclusion> The left ventricular systolic function is normal and the ejection fraction is within normal range. Th e Ejection Fraction is 55-60%. There is normal LV segmental wall motion. No evidence of vegetation on the cardiac structures. Signed by : Todd Jacinto, Electronically Approved : 02/02/2020 11:10:06
--- NOTE | 2020-02-02 11:25 | PDOC ---
PROGRESS NOTES Chief Complaint Chief Complaint impression Cough - CXR is clear on repeat. will give cough suppressants, supportive care, monitor O2 status. May need chest CT if symptoms do not improve Blood cultures positive - source is not clear, she denies IVDA Sepsis - from gram positive bacteremia - with elevated temp was tested for SARS-CoV-2 (COVID 19) - will give empiric IVF and antibiotics, consult ID Right knee pain - topical treatment Back and neck pain - thoracic back pain Anemia - uncertain etiology, s/p hysterectomy, will check iron stores Hyperglycemia - will monitor, no hx of DM Moderate protein calorie malnutrition - Albumin low likely from prolonged illness Right breast lump - likely fibrocystic disease. will monitor. If it worsens will obtain US FEN - General diet PPX - SCDs FULL CODE Inpatient for sepsis with bacteremia t max 103.4 F 01/28/20 COVID-19 NEG cont IV Zosyn CONT iv vanc 1.25mg IV q12 IV [facility] consult re possible endocarditis JORGE LUIS Avoid PICC placement History of Present Illness History of Present Illness 38 yo F w/ PMHx IVDA (methamphetamines and opioids), HTN who presents with 6 day history of cough and fevers up to 104F. She denies any nausea or vomiting. 01/31 states she has had some headache. She denies any abdominal pain. She has not had any issues with dysuria or gross hematuria. She was seen in ED 1 day prior and sent home with azithromycin which she did not fill, but has been taking prednisone from her mother. notes prior opioid dependence which she has been in sustained remission from for over 7 years, she began this habit after a hysterectomy when she was younger. However, she has been to ED multiple times with abscesses and positive blood cultures over the past few years, unclear if she is truly in remission. CXR was clear. Blood culture x1 shows GPC. Influenza negative. Temp 103.4F. WBC 8.6, Hb 11, Na 135, K 3.7, BUN 9, Cr. 0.7, glucose 105. Called for admission for further care. COVID negative. Blood cultures all positive for GPC. CRP 77. Has some right breast pain . No SOB or CP. esr 4/7 pending 39 min pt exam, chart review, > 50% of time spent with exam, chart review, pt care coordination Vitals Vitals Vital Signs Date Time Temp Pulse Resp B/P (MAP) Pulse Ox O2 Delivery O2 Flow Rate FiO2 02/02/20 10:20 97.4 72 20 150/97 94 Room Air 97.4 Physical Exam Physical Exam GENERAL: Propped up in bed, alert, in tired appearance. HEENT: Pupils equally round, reactive. Normal conjunctivae. Oropharynx pink and moist. No lesions. Edentulous. NECK: Supple. No rigidity LUNGS: Clear to auscultation. HEART: S1, S2. No murmur appreciated. ABDOMEN: Obese, soft, nontender. BACK: No vertebral tenderness EXTREMITIES: No gross edema or cyanosis. SKIN: Warm to touch. No signs of rash. Multiple tattoos. No peripheral stigmata noted. NEUROLOGIC: Alert and answering questions appropriately. Left EJ ok General: Alert, Oriented X3, Cooperative, No acute distress Heart: Other (heart tones regular. Not on tele) Lungs: Clear Abdomen: Soft, No tenderness Extremities: No edema, Normal pulses Skin: No significant lesion Labs LABS Laboratory Tests Test 02/02/20 03:40 White Blood Count 7.1 x10^3/uL (4.0-11.0) Red Blood Count 3.97 x10^6/uL (3.50-5.40) Hemoglobin 10.7 g/dL (12.0-15.5) Hematocrit 31.9 % (36.0-47.0) Mean Corpuscular Volume 80 fL (79-100) Mean Corpuscular Hemoglobin 27 pg (25-35) Mean Corpuscular Hemoglobin Concent 34 g/dL (31-37) Red Cell Distribution Width 14.1 % (11.5-14.5) Platelet Count 333 x10^3/uL (140-400) Neutrophils (%) (Auto) 60 % (31-73) Lymphocytes (%) (Auto) 27 % (24-48) Monocytes (%) (Auto) 7 % (0-9) Eosinophils (%) (Auto) 5 % (0-3) Basophils (%) (Auto) 0 % (0-3) Neutrophils # (Auto) 4.3 x10^3/uL (1.8-7.7) Lymphocytes # (Auto) 1.9 x10^3/uL (1.0-4.8) Monocytes # (Auto) 0.5 x10^3/uL (0.0-1.1) Eosinophils # (Auto) 0.4 x10^3/uL (0.0-0.7) Basophils # (Auto) 0.0 x10^3/uL (0.0-0.2) Erythrocyte Sedimentation Rate 50 (0-25) Sodium Level 141 mmol/L (136-145) Potassium Level 3.9 mmol/L (3.5-5.1) Chloride Level 106 mmol/L (98-107) Carbon Dioxide Level 29 mmol/L (21-32) Anion Gap 6 (6-14) Blood Urea Nitrogen 14 mg/dL (7-20) Creatinine 1.2 mg/dL (0.6-1.0) Estimated GFR (Cockcroft-Gault) 50.3 BUN/Creatinine Ratio 12 (6-20) Glucose Level 80 mg/dL (70-99) Calcium Level 8.3 mg/dL (8.5-10.1) Total Bilirubin 0.3 mg/dL (0.2-1.0) Aspartate Amino Transf (AST/SGOT) 26 U/L (15-37) Alanine Aminotransferase (ALT/SGPT) 76 U/L (14-59) Alkaline Phosphatase 137 U/L (46-116) Creatine Kinase 22 U/L (26-192) Total Protein 6.1 g/dL (6.4-8.2) Albumin 2.2 g/dL (3.4-5.0) Albumin/Globulin Ratio 0.6 (1.0-1.7) Assessment and Plan Assessmemt and Plan Problems Medical Problems: (1) Anemia Status: Acute (2) High fever Status: Acute (3) Hypoalbuminemia Status: Acute (4) IV drug abuse Status: Acute Comment Review of Relevant I have reviewed the following items ina (where applicable) has been applied. Labs Laboratory Tests Test 02/01/20 04:45 02/02/20 03:40 Sodium Level 142 mmol/L (136-145) 141 mmol/L (136-145) Potassium Level 4.2 mmol/L (3.5-5.1) 3.9 mmol/L (3.5-5.1) Chloride Level 105 mmol/L (98-107) 106 mmol/L (98-107) Carbon Dioxide Level 28 mmol/L (21-32) 29 mmol/L (21-32) Anion Gap 9 (6-14) 6 (6-14) Blood Urea Nitrogen 12 mg/dL (7-20) 14 mg/dL (7-20) Creatinine 0.8 mg/dL (0.6-1.0) 1.2 mg/dL (0.6-1.0) Estimated GFR (Cockcroft-Gault) 80.3 50.3 Glucose Level 83 mg/dL (70-99) 80 mg/dL (70-99) Calcium Level 8.9 mg/dL (8.5-10.1) 8.3 mg/dL (8.5-10.1) Vancomycin Level Trough 2.4 mcg/mL (10.0-20.0) Vancomycin Last Dose Date 01/31/20 Vancomycin Last Dose Time 0600 White Blood Count 7.1 x10^3/uL (4.0-11.0) Red Blood Count 3.97 x10^6/uL (3.50-5.40) Hemoglobin 10.7 g/dL (12.0-15.5) Hematocrit 31.9 % (36.0-47.0) Mean Corpuscular Volume 80 fL (79-100) Mean Corpuscular Hemoglobin 27 pg (25-35) Mean Corpuscular Hemoglobin Concent 34 g/dL (31-37) Red Cell Distribution Width 14.1 % (11.5-14.5) Platelet Count 333 x10^3/uL (140-400) Neutrophils (%) (Auto) 60 % (31-73) Lymphocytes (%) (Auto) 27 % (24-48) Monocytes (%) (Auto) 7 % (0-9) Eosinophils (%) (Auto) 5 % (0-3) Basophils (%) (Auto) 0 % (0-3) Neutrophils # (Auto) 4.3 x10^3/uL (1.8-7.7) Lymphocytes # (Auto) 1.9 x10^3/uL (1.0-4.8) Monocytes # (Auto) 0.5 x10^3/uL (0.0-1.1) Eosinophils # (Auto) 0.4 x10^3/uL (0.0-0.7) Basophils # (Auto) 0.0 x10^3/uL (0.0-0.2) Erythrocyte Sedimentation Rate 50 (0-25) BUN/Creatinine Ratio 12 (6-20) Total Bilirubin 0.3 mg/dL (0.2-1.0) Aspartate Amino Transf (AST/SGOT) 26 U/L (15-37) Alanine Aminotransferase (ALT/SGPT) 76 U/L (14-59) Alkaline Phosphatase 137 U/L (46-116) Creatine Kinase 22 U/L (26-192) Total Protein 6.1 g/dL (6.4-8.2) Albumin 2.2 g/dL (3.4-5.0) Albumin/Globulin Ratio 0.6 (1.0-1.7) Laboratory Tests Test 02/02/20 03:40 White Blood Count 7.1 x10^3/uL (4.0-11.0) Red Blood Count 3.97 x10^6/uL (3.50-5.40) Hemoglobin 10.7 g/dL (12.0-15.5) Hematocrit 31.9 % (36.0-47.0) Mean Corpuscular Volume 80 fL (79-100) Mean Corpuscular Hemoglobin 27 pg (25-35) Mean Corpuscular Hemoglobin Concent 34 g/dL (31-37) Red Cell Distribution Width 14.1 % (11.5-14.5) Platelet Count 333 x10^3/uL (140-400) Neutrophils (%) (Auto) 60 % (31-73) Lymphocytes (%) (Auto) 27 % (24-48) Monocytes (%) (Auto) 7 % (0-9) Eosinophils (%) (Auto) 5 % (0-3) Basophils (%) (Auto) 0 % (0-3) Neutrophils # (Auto) 4.3 x10^3/uL (1.8-7.7) Lymphocytes # (Auto) 1.9 x10^3/uL (1.0-4.8) Monocytes # (Auto) 0.5 x10^3/uL (0.0-1.1) Eosinophils # (Auto) 0.4 x10^3/uL (0.0-0.7) Basophils # (Auto) 0.0 x10^3/uL (0.0-0.2) Erythrocyte Sedimentation Rate 50 (0-25) Sodium Level 141 mmol/L (136-145) Potassium Level 3.9 mmol/L (3.5-5.1) Chloride Level 106 mmol/L (98-107) Carbon Dioxide Level 29 mmol/L (21-32) Anion Gap 6 (6-14) Blood Urea Nitrogen 14 mg/dL (7-20) Creatinine 1.2 mg/dL (0.6-1.0) Estimated GFR (Cockcroft-Gault) 50.3 BUN/Creatinine Ratio 12 (6-20) Glucose Level 80 mg/dL (70-99) Calcium Level 8.3 mg/dL (8.5-10.1) Total Bilirubin 0.3 mg/dL (0.2-1.0) Aspartate Amino Transf (AST/SGOT) 26 U/L (15-37) Alanine Aminotransferase (ALT/SGPT) 76 U/L (14-59) Alkaline Phosphatase 137 U/L (46-116) Creatine Kinase 22 U/L (26-192) Total Protein 6.1 g/dL (6.4-8.2) Albumin 2.2 g/dL (3.4-5.0) Albumin/Globulin Ratio 0.6 (1.0-1.7) Microbiology 02/01/20 Blood Culture - Preliminary, Resulted NO GROWTH AFTER 1 DAY 01/29/20 Urine Culture - Final, Complete 01/29/20 Urine Culture Result 1 (TRE) - Final, Complete Medications Current Medications Sodium Chloride 1,000 ml @ 1,000 mls/hr 1X ONCE IV Last administered on 01/28/20at 17:02; Start 01/28/20 at 16:30; Stop 01/28/20 at 17:29; Status DC Acetaminophen (Tylenol) 1,000 mg 1X ONCE PO Last administered on 01/28/20at 17:02; Start 01/28/20 at 16:30; Stop 01/28/20 at 16:31; Status DC Sodium Chloride 1,000 ml @ 1,000 mls/hr 1X ONCE IV Last administered on 01/28/20at 20:26; Start 01/28/20 at 19:45; Stop 01/28/20 at 20:44; Status DC Piperacillin Sod/ Tazobactam Sod 3.375 gm/Sodium Chloride 50 ml @ 100 mls/hr 1X ONCE IV Last administered on 01/28/20 20:25; Start 01/28/20 at 19:45; Stop 01/28/20 at 20:14; Status DC Vancomycin HCl 250 ml @ 250 mls/hr 1X ONCE IV Last administered on 01/28/20 20:25; Start 01/28/20 at 19:45; Stop 01/28/20 at 20:44; Status DC Sodium Chloride 1,000 ml @ 150 mls/hr Q6H40M IV Last administered on 01/29/20at 15:24; Start 01/28/20 at 19:39; Stop 01/29/20 at 19:38; Status DC Acetaminophen/ Hydrocodone Bitart (Lortab 5/325) 1 tab PRN Q4HRS PRN PO PAIN Last administered on 01/29/20at 08:08; Start 01/28/20 at 23:15; Stop 01/29/20 at 09:48; Status DC Vancomycin HCl (Vanco Per Pharmacy) 1 each PRN DAILY PRN MC SEE COMMENTS Last administered on 02/01/20at 11:28; Start 01/29/20 at 08:30; Stop 02/02/20 at 08:46; Status DC Piperacillin Sod/ Tazobactam Sod (Zosyn Per Pharmacy) 1 each PRN DAILY PRN MC SEE COMMENTS; Start 01/29/20 at 08:30; Stop 02/02/20 at 08:47; Status DC Piperacillin Sod/ Tazobactam Sod 4.5 gm/Sodium Chloride 100 ml @ 200 mls/hr Q6HRS IV Last administered on 02/02/20at 06:35; Start 01/29/20 at 09:00; Stop 02/02/20 at 08:42; Status DC Vancomycin HCl 1.25 gm/Sodium Chloride 250 ml @ 167 mls/hr Q8H IV Last administered on 01/29/20 16:23; Start 01/29/20 at 09:00; Stop 01/30/20 at 01:23; Status DC Vancomycin HCl (Vancomycin Trough Level) 1 each 1X ONCE MC Last administered on 01/30/20at 00:30; Start 01/30/20 at 00:30; Stop 01/30/20 at 00:31; Status DC Acetaminophen/ Hydrocodone Bitart (Lortab 5/325) 1 tab PRN Q6HRS PRN PO PAIN Last administered on 02/01/20 17:26; Start 01/29/20 at 14:00 Lactobacillus Rhamnosus (Culturelle) 1 cap BID PO Last administered on 02/01/20at 20:44; Start 01/29/20 at 21:00 Enoxaparin Sodium (Lovenox 40mg Syringe) 40 mg Q24H SQ Last administered on 02/01/20 17:21; Start 01/29/20 at 16:00 Vancomycin HCl 1.5 gm/Sodium Chloride 500 ml @ 250 mls/hr Q8H IV Last administered on 01/30/20at 18:15; Start 01/30/20 at 01:30; Stop 01/31/20 at 03:26; Status DC Vancomycin HCl (Vancomycin Trough Level) 1 each 1X ONCE MC Last administered on 01/31/20at 01:00; Start 01/31/20 at 01:00; Stop 01/31/20 at 01:01; Status DC Vancomycin HCl 1.5 gm/Sodium Chloride 500 ml @ 250 mls/hr Q10H IV ; Start 01/31/20 at 11:00; Status Cancel Vancomycin HCl (Vancomycin Trough Level) 1 each 1X ONCE MC Last administered on 02/01/20at 04:48; Start 02/01/20 at 05:00; Stop 02/01/20 at 05:01; Status DC Ondansetron HCl (Zofran Odt) 4 mg PRN Q4HRS PRN PO NAUSEA/VOMITING Last administered on 02/02/20 06:39; Start 01/31/20 at 08:00 Vancomycin HCl 1.5 gm/Sodium Chloride 500 ml @ 250 mls/hr Q12H IV Last administered on 02/01/20at 20:44; Start 02/01/20 at 09:00; Stop 02/02/20 at 08:42; Status DC Acetaminophen/ Hydrocodone Bitart (Lortab 7.5/325) 1 tab PRN Q4HRS PRN PO PAIN Last administered on 02/02/20at 06:39; Start 02/01/20 at 12:30 Lisinopril (Prinivil) 10 mg DAILY PO ; Start 02/02/20 at 09:00 Ondansetron HCl (Zofran) 4 mg PRN Q6HRS PRN IVP NAUSEA/VOMITING; Start 02/02/20 at 07:15; Stop 02/02/20 at 20:00 Fentanyl Citrate (Fentanyl 2ml Vial) 25 mcg PRN Q5MIN PRN IVP MILD PAIN 1-3; Start 02/02/20 at 07:15; Stop 02/02/20 at 20:00 Fentanyl Citrate (Fentanyl 2ml Vial) 50 mcg PRN Q5MIN PRN IVP MODERATE TO SEVERE PAIN; Start 02/02/20 at 07:15; Stop 02/02/20 at 20:00 Morphine Sulfate (Morphine Sulfate) 1 mg PRN Q10MIN PRN IVP SEVERE PAIN 7-10; Start 02/02/20 at 07:15; Stop 02/02/20 at 20:00 Ringer's Solution 1,000 ml @ 30 mls/hr Q24H IV Last administered on 02/02/20at 10:23; Start 02/02/20 at 07:05; Stop 02/02/20 at 19:04 Lidocaine HCl (Xylocaine-Mpf 1% 2ml Vial) 2 ml 1X PRN PRN ID IV START; Start 02/02/20 at 07:15; Stop 02/02/20 at 20:00 Hydromorphone HCl (Dilaudid) 0.5 mg PRN Q10MIN PRN IVP SEV PAIN, Second choice; Start 02/02/20 at 07:15; Stop 02/02/20 at 20:00 Prochlorperazine Edisylate (Compazine) 5 mg PACU PRN PRN IVP NAUSEA, MRX1; Start 02/02/20 at 07:15; Stop 02/02/20 at 20:00 Benzocaine (Hurricaine One) 2 spray 1X ONCE MM Last administered on 02/02/20at 10:23; Start 02/02/20 at 08:15; Stop 02/02/20 at 08:16; Status DC Lidocaine HCl (Viscous Lidocaine) 15 ml 1X ONCE SWSW Last administered on 02/02/20at 10:23; Start 02/02/20 at 08:15; Stop 02/02/20 at 08:16; Status DC Lidocaine HCl (Xylocaine 2% Topical 30gm Tube) 1 ebony 1X ONCE TP Last administered on 02/02/20at 10:24; Start 02/02/20 at 08:15; Stop 02/02/20 at 08:16; Status DC Nafcillin Sodium 2 gm/Dextrose 100 ml @ 200 mls/hr Q4HRS IV Last administered on 02/02/20at 10:57; Start 02/02/20 at 10:00 Propofol 40 ml @ As Directed STK-MED ONCE IV ; Start 02/02/20 at 10:27; Stop 02/02/20 at 10:27; Status DC Active Scripts Active Reported Lisinopril 10 Mg Tablet 1 Tab PO DAILY Vitals/I & O Vital Sign - Last 24 Hours 02/01/20 02/01/20 02/01/20 02/01/20 13:30 15:00 18:29 19:00 Temp 98.0 97.9 98.0 97.9 Pulse 68 73 Resp 18 16 20 B/P (MAP) 116/76 (89) 109/72 (84) Pulse Ox 94 94 92 O2 Delivery Room Air Room Air Room Air Room Air 02/01/20 02/01/20 02/02/20 02/02/20 20:00 23:06 00:02 03:00 Temp 97.7 98.1 97.7 98.1 Pulse 66 70 Resp 20 20 B/P (MAP) 123/47 (72) 116/80 (92) Pulse Ox 95 95 93 O2 Delivery Room Air Room Air Room Air Room Air 02/02/20 02/02/20 02/02/20 02/02/20 06:39 07:00 07:30 10:20 Temp 97.7 97.4 97.7 97.4 Pulse 68 72 Resp 16 20 B/P (MAP) 148/100 (116) 150/97 Pulse Ox 93 94 94 O2 Delivery Room Air Room Air Room Air Room Air Intake and Output 02/01/20 02/01/20 02/02/20 15:00 23:00 07:00 Intake Total 300 ml 400 ml Balance 300 ml 400 ml CHRISTIANO PEREZ MD Feb 02, 2020 11:25
[2020-02-02] MEDS: LISINOPRIL 10 MG TABLET PO SCH (12:04)
[2020-02-02] MEDS: LACTOBACILLUS RHAMNOSUS GG 1 CAPSULE. PO SCH ×2 (12:04→22:09)
[2020-02-02] MEDS: ENOXAPARIN 40 MG/0.4 ML SYRINGE. SQ SCH (17:26)
[2020-02-03] MEDS: NAFCILLIN 2 GM in IV DEXTROSE 5% 100ML 100 ML IV SCH ×6 (01:05→20:12)
[2020-02-03 03:00] VITALS: BP 134/62
[2020-02-03 07:30] VITALS: BP 132/90
[2020-02-03] MEDS: LISINOPRIL 10 MG TABLET PO SCH (08:07)
[2020-02-03] MEDS: LACTOBACILLUS RHAMNOSUS GG 1 CAPSULE. PO SCH ×2 (08:07→20:12)
[2020-02-03] MEDS: HYDROcodone/APAP 7.5/325MG 1 TAB TABLET PO PRN ×3 (08:08→20:17)
--- NOTE | 2020-02-03 08:31 | PDOC ---
Infectious Disease Note Subjective: Subjective Pt has no fevers no other complaints Vital Signs: Vital Signs Vital Signs Date Time Temp Pulse Resp B/P (MAP) Pulse Ox O2 Delivery O2 Flow Rate FiO2 02/03/20 08:11 Room Air 02/03/20 08:08 18 02/03/20 08:07 76 137/75 02/03/20 07:30 97.7 96 97.7 02/02/20 11:00 2 Physical Exam: PHYSICAL EXAM GENERAL: Propped up in bed, alert, in tired appearance. HEENT: Pupils equally round, reactive. Normal conjunctivae. Oropharynx pink and moist. No lesions. Edentulous. NECK: Supple. No rigidity LUNGS: Clear to auscultation. HEART: S1, S2. No murmur appreciated. ABDOMEN: Obese, soft, nontender. BACK: No vertebral tenderness EXTREMITIES: No gross edema or cyanosis. SKIN: Warm to touch. No signs of rash. Multiple tattoos. No peripheral stigmata noted. NEUROLOGIC: Alert and answering questions appropriately. Left EJ ok Medications: Inpatient Meds: Current Medications Medications (Trade) Dose Ordered Sig/Vee Start Time Stop Time Status Last Admin Dose Admin Acetaminophen (Tylenol) 1,000 mg 1X ONCE 01/28/20 16:30 01/28/20 16:31 DC 01/28/20 17:02 1,000 MG Acetaminophen/ Hydrocodone Bitart (Lortab 5/325) 1 tab PRN Q6HRS PRN 01/29/20 14:00 02/01/20 17:26 1 TAB Acetaminophen/ Hydrocodone Bitart (Lortab 7.5/325) 1 tab PRN Q4HRS PRN 02/01/20 12:30 02/03/20 08:08 1 TAB Benzocaine (Hurricaine One) 2 spray 1X ONCE 02/02/20 08:15 02/02/20 08:16 DC 02/02/20 10:23 2 SPRAY Enoxaparin Sodium (Lovenox 40mg Syringe) 40 mg Q24H 01/29/20 16:00 02/02/20 17:26 40 MG Fentanyl Citrate (Fentanyl 2ml Vial) 50 mcg PRN Q5MIN PRN 02/02/20 07:15 02/02/20 20:00 DC Hydromorphone HCl (Dilaudid) 0.5 mg PRN Q10MIN PRN 4/8/20 07:15 02/02/20 20:00 DC Lactobacillus Rhamnosus (Culturelle) 1 cap BID 01/29/20 21:00 02/03/20 08:07 1 CAP Lidocaine HCl (Viscous Lidocaine) 15 ml 1X ONCE 02/02/20 08:15 02/02/20 08:16 DC 02/02/20 10:23 15 ML Lidocaine HCl (Xylocaine 2% Topical 30gm Tube) 1 ebony 1X ONCE 02/02/20 08:15 02/02/20 08:16 DC 02/02/20 10:24 1 EBONY Lidocaine HCl (Xylocaine-Mpf 1% 2ml Vial) 2 ml 1X PRN PRN 02/02/20 07:15 02/02/20 20:00 DC Lisinopril (Prinivil) 10 mg DAILY 02/02/20 09:00 02/03/20 08:07 10 MG Morphine Sulfate (Morphine Sulfate) 1 mg PRN Q10MIN PRN 02/02/20 07:15 02/02/20 20:00 DC Nafcillin Sodium 2 gm/Dextrose 100 ml @ 200 mls/hr Q4HRS 02/02/20 10:00 02/03/20 08:11 200 MLS/HR Ondansetron HCl (Zofran Odt) 4 mg PRN Q4HRS PRN 01/31/20 08:00 02/02/20 06:39 4 MG Ondansetron HCl (Zofran) 4 mg PRN Q6HRS PRN 02/02/20 07:15 02/02/20 20:00 DC Piperacillin Sod/ Tazobactam Sod (Zosyn Per Pharmacy) 1 each PRN DAILY PRN 01/29/20 08:30 02/02/20 08:47 DC Piperacillin Sod/ Tazobactam Sod 3.375 gm/Sodium Chloride 50 ml @ 100 mls/hr 1X ONCE 01/28/20 19:45 01/28/20 20:14 DC 01/28/20 20:25 100 MLS/HR Piperacillin Sod/ Tazobactam Sod 4.5 gm/Sodium Chloride 100 ml @ 200 mls/hr Q6HRS 01/29/20 09:00 02/02/20 08:42 DC 02/02/20 06:35 200 MLS/HR Prochlorperazine Edisylate (Compazine) 5 mg PACU PRN PRN 02/02/20 07:15 02/02/20 20:00 DC Propofol 20 ml @ As Directed STK-MED ONCE 02/02/20 10:27 02/02/20 10:27 DC Ringer's Solution 1,000 ml @ 30 mls/hr Q24H 02/02/20 07:05 02/02/20 19:04 DC 02/02/20 10:23 30 MLS/HR Sodium Chloride 1,000 ml @ 150 mls/hr Q6H40M 01/28/20 19:39 01/29/20 19:38 DC 01/29/20 15:24 150 MLS/HR Vancomycin HCl (Vanco Per Pharmacy) 1 each PRN DAILY PRN 01/29/20 08:30 02/02/20 08:46 DC 02/01/20 11:28 1 EACH Vancomycin HCl (Vancomycin Trough Level) 1 each 1X ONCE 02/01/20 05:00 02/01/20 05:01 DC 02/01/20 04:48 1 EACH Vancomycin HCl 1.25 gm/Sodium Chloride 250 ml @ 167 mls/hr Q8H 01/29/20 09:00 01/30/20 01:23 DC 01/29/20 16:23 167 MLS/HR Vancomycin HCl 1.5 gm/Sodium Chloride 500 ml @ 250 mls/hr Q12H 02/01/20 09:00 02/02/20 08:42 DC 02/01/20 20:44 250 MLS/HR Objective: Assessment: MSSA bacteremia POA from 01/27 and 01/28. JORGE LUIS 02/01 neg for endocarditis repeat bc neg from 01/31 Fever - better Cough. COVID-19 neg Pyruia UC neg h/o IVDU. 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
[2020-02-03 11:44] VITALS: BP 111/70
--- NOTE | 2020-02-03 11:46 | PDOC ---
PROGRESS NOTES Chief Complaint Chief Complaint impression Cough - CXR is clear on repeat. will give cough suppressants, supportive care, monitor O2 status. May need chest CT if symptoms do not improve Blood cultures positive - source is not clear, she denies IVDA Sepsis - from gram positive bacteremia - with elevated temp was tested for SARS-CoV-2 (COVID 19) - will give empiric IVF and antibiotics, consult ID Right knee pain - topical treatment Back and neck pain - thoracic back pain Anemia - uncertain etiology, s/p hysterectomy, will check iron stores Hyperglycemia - will monitor, no hx of DM Moderate protein calorie malnutrition - Albumin low likely from prolonged illness Right breast lump - likely fibrocystic disease. will monitor. If it worsens will obtain US FEN - General diet PPX - SCDs FULL CODE Inpatient for sepsis with bacteremia t max 103.4 F 01/28/20 COVID-19 NEG cont IV Zosyn CONT iv vanc 1.25mg IV q12 IV [facility] consult re possible endocarditis JORGE LUIS Avoid PICC placement History of Present Illness History of Present Illness 38 yo F w/ PMHx IVDA (methamphetamines and opioids), HTN who presents with 6 day history of cough and fevers up to 104F. She denies any nausea or vomiting. 01/31 states she has had some headache. She denies any abdominal pain. She has not had any issues with dysuria or gross hematuria. She was seen in ED 1 day prior and sent home with azithromycin which she did not fill, but has been taking prednisone from her mother. notes prior opioid dependence which she has been in sustained remission from for over 7 years, she began this habit after a hysterectomy when she was younger. However, she has been to ED multiple times with abscesses and positive blood cultures over the past few years, unclear if she is truly in remission. CXR was clear. Blood culture x1 shows GPC. Influenza negative. Temp 103.4F. WBC 8.6, Hb 11, Na 135, K 3.7, BUN 9, Cr. 0.7, glucose 105. Called for admission for further care. COVID negative. Blood cultures all positive for GPC. CRP 77. Has some right breast pain . No SOB or CP. esr 4/7 pending 39 min pt exam, chart review, > 50% of time spent with exam, chart review, pt care coordination Vitals Vitals Vital Signs Date Time Temp Pulse Resp B/P (MAP) Pulse Ox O2 Delivery O2 Flow Rate FiO2 02/03/20 11:44 97.9 78 16 111/70 (84) 95 Room Air 97.9 02/02/20 11:00 2 Physical Exam Physical Exam GENERAL: Propped up in bed, alert, in tired appearance. HEENT: Pupils equally round, reactive. Normal conjunctivae. Oropharynx pink and moist. No lesions. Edentulous. NECK: Supple. No rigidity LUNGS: Clear to auscultation. HEART: S1, S2. No murmur appreciated. ABDOMEN: Obese, soft, nontender. BACK: No vertebral tenderness EXTREMITIES: No gross edema or cyanosis. SKIN: Warm to touch. No signs of rash. Multiple tattoos. No peripheral stigmata noted. NEUROLOGIC: Alert and answering questions appropriately. Left EJ ok General: Alert, Oriented X3, Cooperative, No acute distress Heart: Other (heart tones regular. Not on tele) Lungs: Clear Abdomen: Soft, No tenderness Extremities: No edema, Normal pulses Skin: No significant lesion Assessment and Plan Assessmemt and Plan Problems Medical Problems: (1) Anemia Status: Acute (2) High fever Status: Acute (3) Hypoalbuminemia Status: Acute (4) IV drug abuse Status: Acute Comment Review of Relevant I have reviewed the following items ina (where applicable) has been applied. Labs Laboratory Tests Test 02/02/20 03:40 White Blood Count 7.1 x10^3/uL (4.0-11.0) Red Blood Count 3.97 x10^6/uL (3.50-5.40) Hemoglobin 10.7 g/dL (12.0-15.5) Hematocrit 31.9 % (36.0-47.0) Mean Corpuscular Volume 80 fL (79-100) Mean Corpuscular Hemoglobin 27 pg (25-35) Mean Corpuscular Hemoglobin Concent 34 g/dL (31-37) Red Cell Distribution Width 14.1 % (11.5-14.5) Platelet Count 333 x10^3/uL (140-400) Neutrophils (%) (Auto) 60 % (31-73) Lymphocytes (%) (Auto) 27 % (24-48) Monocytes (%) (Auto) 7 % (0-9) Eosinophils (%) (Auto) 5 % (0-3) Basophils (%) (Auto) 0 % (0-3) Neutrophils # (Auto) 4.3 x10^3/uL (1.8-7.7) Lymphocytes # (Auto) 1.9 x10^3/uL (1.0-4.8) Monocytes # (Auto) 0.5 x10^3/uL (0.0-1.1) Eosinophils # (Auto) 0.4 x10^3/uL (0.0-0.7) Basophils # (Auto) 0.0 x10^3/uL (0.0-0.2) Erythrocyte Sedimentation Rate 50 (0-25) Sodium Level 141 mmol/L (136-145) Potassium Level 3.9 mmol/L (3.5-5.1) Chloride Level 106 mmol/L (98-107) Carbon Dioxide Level 29 mmol/L (21-32) Anion Gap 6 (6-14) Blood Urea Nitrogen 14 mg/dL (7-20) Creatinine 1.2 mg/dL (0.6-1.0) Estimated GFR (Cockcroft-Gault) 50.3 BUN/Creatinine Ratio 12 (6-20) Glucose Level 80 mg/dL (70-99) Calcium Level 8.3 mg/dL (8.5-10.1) Total Bilirubin 0.3 mg/dL (0.2-1.0) Aspartate Amino Transf (AST/SGOT) 26 U/L (15-37) Alanine Aminotransferase (ALT/SGPT) 76 U/L (14-59) Alkaline Phosphatase 137 U/L (46-116) Creatine Kinase 22 U/L (26-192) Total Protein 6.1 g/dL (6.4-8.2) Albumin 2.2 g/dL (3.4-5.0) Albumin/Globulin Ratio 0.6 (1.0-1.7) Microbiology 02/01/20 Blood Culture - Preliminary, Resulted NO GROWTH AFTER 2 DAYS 01/29/20 Urine Culture - Final, Complete 01/29/20 Urine Culture Result 1 (TRE) - Final, Complete Medications Current Medications Sodium Chloride 1,000 ml @ 1,000 mls/hr 1X ONCE IV Last administered on 01/28/20at 17:02; Start 01/28/20 at 16:30; Stop 01/28/20 at 17:29; Status DC Acetaminophen (Tylenol) 1,000 mg 1X ONCE PO Last administered on 01/28/20at 17:02; Start 01/28/20 at 16:30; Stop 01/28/20 at 16:31; Status DC Sodium Chloride 1,000 ml @ 1,000 mls/hr 1X ONCE IV Last administered on 01/28/20at 20:26; Start 01/28/20 at 19:45; Stop 01/28/20 at 20:44; Status DC Piperacillin Sod/ Tazobactam Sod 3.375 gm/Sodium Chloride 50 ml @ 100 mls/hr 1X ONCE IV Last administered on 01/28/20at 20:25; Start 01/28/20 at 19:45; Stop 01/28/20 at 20:14; Status DC Vancomycin HCl 250 ml @ 250 mls/hr 1X ONCE IV Last administered on 01/28/20at 20:25; Start 01/28/20 at 19:45; Stop 01/28/20 at 20:44; Status DC Sodium Chloride 1,000 ml @ 150 mls/hr Q6H40M IV Last administered on 01/29/20at 15:24; Start 01/28/20 at 19:39; Stop 01/29/20 at 19:38; Status DC Acetaminophen/ Hydrocodone Bitart (Lortab 5/325) 1 tab PRN Q4HRS PRN PO PAIN Last administered on 01/29/20at 08:08; Start 01/28/20 at 23:15; Stop 01/29/20 at 09:48; Status DC Vancomycin HCl (Vanco Per Pharmacy) 1 each PRN DAILY PRN MC SEE COMMENTS Last administered on 02/01/20at 11:28; Start 01/29/20 at 08:30; Stop 02/02/20 at 08:46; Status DC Piperacillin Sod/ Tazobactam Sod (Zosyn Per Pharmacy) 1 each PRN DAILY PRN MC SEE COMMENTS; Start 01/29/20 at 08:30; Stop 02/02/20 at 08:47; Status DC Piperacillin Sod/ Tazobactam Sod 4.5 gm/Sodium Chloride 100 ml @ 200 mls/hr Q6HRS IV Last administered on 02/02/20at 06:35; Start 01/29/20 at 09:00; Stop 02/02/20 at 08:42; Status DC Vancomycin HCl 1.25 gm/Sodium Chloride 250 ml @ 167 mls/hr Q8H IV Last administered on 01/29/20 16:23; Start 01/29/20 at 09:00; Stop 01/30/20 at 01:23; Status DC Vancomycin HCl (Vancomycin Trough Level) 1 each 1X ONCE MC Last administered on 01/30/20at 00:30; Start 01/30/20 at 00:30; Stop 01/30/20 at 00:31; Status DC Acetaminophen/ Hydrocodone Bitart (Lortab 5/325) 1 tab PRN Q6HRS PRN PO PAIN Last administered on 02/01/20 17:26; Start 01/29/20 at 14:00 Lactobacillus Rhamnosus (Culturelle) 1 cap BID PO Last administered on 02/03/20 08:07; Start 01/29/20 at 21:00 Enoxaparin Sodium (Lovenox 40mg Syringe) 40 mg Q24H SQ Last administered on 02/02/20at 17:26; Start 01/29/20 at 16:00 Vancomycin HCl 1.5 gm/Sodium Chloride 500 ml @ 250 mls/hr Q8H IV Last administered on 01/30/20at 18:15; Start 01/30/20 at 01:30; Stop 01/31/20 at 03:26; Status DC Vancomycin HCl (Vancomycin Trough Level) 1 each 1X ONCE MC Last administered on 01/31/20at 01:00; Start 01/31/20 at 01:00; Stop 01/31/20 at 01:01; Status DC Vancomycin HCl 1.5 gm/Sodium Chloride 500 ml @ 250 mls/hr Q10H IV ; Start 01/31/20 at 11:00; Status Cancel Vancomycin HCl (Vancomycin Trough Level) 1 each 1X ONCE MC Last administered on 02/01/20at 04:48; Start 02/01/20 at 05:00; Stop 02/01/20 at 05:01; Status DC Ondansetron HCl (Zofran Odt) 4 mg PRN Q4HRS PRN PO NAUSEA/VOMITING Last administered on 02/02/20 06:39; Start 01/31/20 at 08:00 Vancomycin HCl 1.5 gm/Sodium Chloride 500 ml @ 250 mls/hr Q12H IV Last administered on 02/01/20at 20:44; Start 02/01/20 at 09:00; Stop 02/02/20 at 08:42; Status DC Acetaminophen/ Hydrocodone Bitart (Lortab 7.5/325) 1 tab PRN Q4HRS PRN PO PAIN Last administered on 02/03/20at 08:08; Start 02/01/20 at 12:30 Lisinopril (Prinivil) 10 mg DAILY PO Last administered on 02/03/20at 08:07; S tart 02/02/20 at 09:00 Ondansetron HCl (Zofran) 4 mg PRN Q6HRS PRN IVP NAUSEA/VOMITING; Start 02/02/20 at 07:15; Stop 02/02/20 at 20:00; Status DC Fentanyl Citrate (Fentanyl 2ml Vial) 25 mcg PRN Q5MIN PRN IVP MILD PAIN 1-3; Start 02/02/20 at 07:15; Stop 02/02/20 at 20:00; Status DC Fentanyl Citrate (Fentanyl 2ml Vial) 50 mcg PRN Q5MIN PRN IVP MODERATE TO SEVERE PAIN; Start 02/02/20 at 07:15; Stop 02/02/20 at 20:00; Status DC Morphine Sulfate (Morphine Sulfate) 1 mg PRN Q10MIN PRN IVP SEVERE PAIN 7-10; Start 02/02/20 at 07:15; Stop 02/02/20 at 20:00; Status DC Ringer's Solution 1,000 ml @ 30 mls/hr Q24H IV Last administered on 02/02/20at 10:23; Start 02/02/20 at 07:05; Stop 02/02/20 at 19:04; Status DC Lidocaine HCl (Xylocaine-Mpf 1% 2ml Vial) 2 ml 1X PRN PRN ID IV START; Start 02/02/20 at 07:15; Stop 02/02/20 at 20:00; Status DC Hydromorphone HCl (Dilaudid) 0.5 mg PRN Q10MIN PRN IVP SEV PAIN, Second choice; Start 02/02/20 at 07:15; Stop 02/02/20 at 20:00; Status DC Prochlorperazine Edisylate (Compazine) 5 mg PACU PRN PRN IVP NAUSEA, MRX1; Start 02/02/20 at 07:15; Stop 02/02/20 at 20:00; Status DC Benzocaine (Hurricaine One) 2 spray 1X ONCE MM Last administered on 02/02/20at 10:23; Start 02/02/20 at 08:15; Stop 02/02/20 at 08:16; Status DC Lidocaine HCl (Viscous Lidocaine) 15 ml 1X ONCE SWSW Last administered on 02/02/20at 10:23; Start 02/02/20 at 08:15; Stop 02/02/20 at 08:16; Status DC Lidocaine HCl (Xylocaine 2% Topical 30gm Tube) 1 ebony 1X ONCE TP Last administered on 02/02/20at 10:24; Start 02/02/20 at 08:15; Stop 02/02/20 at 08:16; Status DC Nafcillin Sodium 2 gm/Dextrose 100 ml @ 200 mls/hr Q4HRS IV Last administered on 02/03/20at 11:31; Start 02/02/20 at 10:00 Propofol 20 ml @ As Directed STK-MED ONCE IV ; Start 02/02/20 at 10:27; Stop 02/02/20 at 10:27; Status DC Active Scripts Active Reported Lisinopril 10 Mg Tablet 1 Tab PO DAILY Vitals/I & O Vital Sign - Last 24 Hours 02/02/20 02/02/20 02/02/20 02/02/20 12:04 12:15 12:30 12:45 Pulse 86 86 77 76 Resp 18 18 20 B/P (MAP) 163/97 97/75 (82) 145/102 (116) 139/100 (113) Pulse Ox 96 96 96 O2 Delivery Room Air Room Air Room Air 02/02/20 02/02/20 02/02/20 02/02/20 13:00 13:30 14:00 15:00 Pulse 75 77 83 78 Resp 16 18 18 20 B/P (MAP) 133/96 (108) 128/81 (97) 119/78 (92) 143/90 (107) Pulse Ox 94 93 97 97 O2 Delivery Room Air Room Air Room Air Room Air 02/02/20 02/02/20 02/02/20 02/02/20 15:00 17:25 18:30 19:00 Temp 98.2 98.0 98.2 98.0 Pulse 83 81 Resp 18 20 B/P (MAP) 119/78 (92) 130/81 (97) Pulse Ox 93 93 O2 Delivery Room Air Room Air Room Air Room Air 02/02/20 02/02/20 02/02/20 02/02/20 21:15 22:09 23:00 23:12 Temp 97.9 97.9 Pulse 75 Resp 20 B/P (MAP) 122/94 (103) Pulse Ox 97 O2 Delivery Room Air Room Air Room Air Room Air 02/03/20 02/03/20 02/03/20 02/03/20 03:00 07:30 08:07 08:08 Temp 98.0 97.7 98.0 97.7 Pulse 71 72 76 Resp 18 16 18 B/P (MAP) 134/62 (86) 132/90 (104) 137/75 Pulse Ox 92 96 O2 Delivery Room Air Room Air 02/03/20 02/03/20 02/03/20 08:11 09:15 11:44 Temp 97.9 97.9 Pulse 78 Resp 16 16 B/P (MAP) 111/70 (84) Pulse Ox 95 O2 Delivery Room Air Room Air Room Air Intake and Output 02/02/20 02/02/20 02/03/20 15:00 23:00 07:00 Intake Total 400 ml 100 ml 400 ml Output Total 350 ml Balance 50 ml 100 ml 400 ml CHRISTIANO PEREZ MD Feb 03, 2020 11:46
[2020-02-03] MEDS: ENOXAPARIN 40 MG/0.4 ML SYRINGE. SQ SCH (15:09)
[2020-02-03 15:12] VITALS: BP 132/91
[2020-02-03 19:00] VITALS: BP 133/90
[2020-02-03] MEDS: ONDANSETRON ODT 4 MG TAB.RAPDIS. PO PRN (20:12)
[2020-02-03 23:00] VITALS: BP 144/72
[2020-02-04] MEDS: NAFCILLIN 2 GM in IV DEXTROSE 5% 100ML 100 ML IV SCH ×4 (01:10→12:59)
[2020-02-04] MEDS: HYDROcodone/APAP 7.5/325MG 1 TAB TABLET PO PRN (01:11)
[2020-02-04 03:00] VITALS: BP 126/78
[2020-02-04 07:00] VITALS: BP 137/94
[2020-02-04] MEDS: LACTOBACILLUS RHAMNOSUS GG 1 CAPSULE. PO SCH (08:05)
[2020-02-04] MEDS: LISINOPRIL 10 MG TABLET PO SCH (08:06)
[2020-02-04] MEDS: ONDANSETRON ODT 4 MG TAB.RAPDIS. PO PRN (08:14)
--- NOTE | 2020-02-04 08:52 | PDOC ---
Infectious Disease Note Subjective: Subjective Pt has no fevers no other complaints eager for dc home today Vital Signs: Vital Signs Vital Signs Date Time Temp Pulse Resp B/P (MAP) Pulse Ox O2 Delivery O2 Flow Rate FiO2 02/04/20 08:06 68 137/94 02/04/20 07:00 98.0 16 97 Room Air 98.0 Physical Exam: PHYSICAL EXAM GENERAL: Propped up in bed, alert, in tired appearance. HEENT: Pupils equally round, reactive. Normal conjunctivae. Oropharynx pink and moist. No lesions. Edentulous. NECK: Supple. No rigidity LUNGS: Clear to auscultation. HEART: S1, S2. No murmur appreciated. ABDOMEN: Obese, soft, nontender. BACK: No vertebral tenderness EXTREMITIES: No gross edema or cyanosis. SKIN: Warm to touch. No signs of rash. Multiple tattoos. No peripheral stigmata noted. NEUROLOGIC: Alert and answering questions appropriately. Left EJ ok Medications: Inpatient Meds: Current Medications Medications (Trade) Dose Ordered Sig/Vee Start Time Stop Time Status Last Admin Dose Admin Acetaminophen (Tylenol) 1,000 mg 1X ONCE 01/28/20 16:30 01/28/20 16:31 DC 01/28/20 17:02 1,000 MG Acetaminophen/ Hydrocodone Bitart (Lortab 5/325) 1 tab PRN Q6HRS PRN 01/29/20 14:00 02/01/20 17:26 1 TAB Acetaminophen/ Hydrocodone Bitart (Lortab 7.5/325) 1 tab PRN Q4HRS PRN 02/01/20 12:30 02/04/20 01:11 1 TAB Benzocaine (Hurricaine One) 2 spray 1X ONCE 02/02/20 08:15 02/02/20 08:16 DC 02/02/20 10:23 2 SPRAY Enoxaparin Sodium (Lovenox 40mg Syringe) 40 mg Q24H 01/29/20 16:00 02/03/20 15:09 40 MG Fentanyl Citrate (Fentanyl 2ml Vial) 50 mcg PRN Q5MIN PRN 02/02/20 07:15 02/02/20 20:00 DC Hydromorphone HCl (Dilaudid) 0.5 mg PRN Q10MIN PRN 02/02/20 07:15 02/02/20 20:00 DC Lactobacillus Rhamnosus (Culturelle) 1 cap BID 01/29/20 21:00 02/04/20 08:05 1 CAP Lidocaine HCl (Viscous Lidocaine) 15 ml 1X ONCE 02/02/20 08:15 02/02/20 08:16 DC 02/02/20 10:23 15 ML Lidocaine HCl (Xylocaine 2% Topical 30gm Tube) 1 ebony 1X ONCE 02/02/20 08:15 02/02/20 08:16 DC 02/02/20 10:24 1 EBONY Lidocaine HCl (Xylocaine-Mpf 1% 2ml Vial) 2 ml 1X PRN PRN 02/02/20 07:15 02/02/20 20:00 DC Lisinopril (Prinivil) 10 mg DAILY 02/02/20 09:00 02/04/20 08:06 10 MG Morphine Sulfate (Morphine Sulfate) 1 mg PRN Q10MIN PRN 02/02/20 07:15 02/02/20 20:00 DC Nafcillin Sodium 2 gm/Dextrose 100 ml @ 200 mls/hr Q4HRS 02/02/20 10:00 02/04/20 08:03 200 MLS/HR Ondansetron HCl (Zofran Odt) 4 mg PRN Q4HRS PRN 01/31/20 08:00 02/04/20 08:14 4 MG Ondansetron HCl (Zofran) 4 mg PRN Q6HRS PRN 02/02/20 07:15 02/02/20 20:00 DC Piperacillin Sod/ Tazobactam Sod (Zosyn Per Pharmacy) 1 each PRN DAILY PRN 01/29/20 08:30 02/02/20 08:47 DC Piperacillin Sod/ Tazobactam Sod 3.375 gm/Sodium Chloride 50 ml @ 100 mls/hr 1X ONCE 01/28/20 19:45 01/28/20 20:14 DC 01/28/20 20:25 100 MLS/HR Piperacillin Sod/ Tazobactam Sod 4.5 gm/Sodium Chloride 100 ml @ 200 mls/hr Q6HRS 01/29/20 09:00 02/02/20 08:42 DC 02/02/20 06:35 200 MLS/HR Prochlorperazine Edisylate (Compazine) 5 mg PACU PRN PRN 02/02/20 07:15 02/02/20 20:00 DC Propofol 20 ml @ As Directed STK-MED ONCE 02/02/20 10:27 02/02/20 10:27 DC Ringer's Solution 1,000 ml @ 30 mls/hr Q24H 02/02/20 07:05 02/02/20 19:04 DC 02/02/20 10:23 30 MLS/HR Sodium Chloride 1,000 ml @ 150 mls/hr Q6H40M 01/28/20 19:39 01/29/20 19:38 DC 01/29/20 15:24 150 MLS/HR Vancomycin HCl (Vanco Per Pharmacy) 1 each PRN DAILY PRN 01/29/20 08:30 02/02/20 08:46 DC 02/01/20 11:28 1 EACH Vancomycin HCl (Vancomycin Trough Level) 1 each 1X ONCE 02/01/20 05:00 02/01/20 05:01 DC 02/01/20 04:48 1 EACH Vancomycin HCl 1.25 gm/Sodium Chloride 250 ml @ 167 mls/hr Q8H 01/29/20 09:00 01/30/20 01:23 DC 01/29/20 16:23 167 MLS/HR Vancomycin HCl 1.5 gm/Sodium Chloride 500 ml @ 250 mls/hr Q12H 02/01/20 09:00 02/02/20 08:42 DC 02/01/20 20:44 250 MLS/HR Labs: Lab Laboratory Tests Test 02/03/20 12:33 Special Test - Miscellaneous See separate report Objective: Assessment: MSSA bacteremia POA from 01/27 and 01/28. JORGE LUIS 02/01 neg for endocarditis repeat bc neg from 01/31 Fever - better Cough. COVID-19 neg Pyruia UC neg h/o IVDU. 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
--- NOTE | 2020-02-04 10:20 | PDOC ---
PROGRESS NOTES Chief Complaint Chief Complaint discharge dx Cough - CXR is clear on repeat. will give cough suppressants, supportive care, monitor O2 status. May need chest CT if symptoms do not improve Blood cultures positive - source is not clear, she denies IVDA Sepsis - from gram positive bacteremia - with elevated temp was tested for SARS-CoV-2 (COVID 19) - will give empiric IVF and antibiotics, consult ID Right knee pain - topical treatment Back and neck pain - thoracic back pain Anemia - uncertain etiology, s/p hysterectomy, will check iron stores Hyperglycemia - will monitor, no hx of DM Moderate protein calorie malnutrition - Albumin low likely from prolonged illness Right breast lump - likely fibrocystic disease. will monitor. If it worsens will obtain US FEN - General diet PPX - SCDs FULL CODE Inpatient for sepsis with bacteremia t max 103.4 F 01/28/20 COVID-19 NEG IV NAFCILLIN q 4 hrs CARDIOLOGY consult re possible endocarditis JORGE LUIS neg for vegetation d/c planning time 35 min History of Present Illness History of Present Illness 38 yo F w/ PMHx IVDA (methamphetamines and opioids), HTN who presents with 6 day history of cough and fevers up to 104F. She denies any nausea or vomiting. 4/ states she has had some headache. She denies any abdominal pain. She has not had any issues with dysuria or gross hematuria. She was seen in ED 1 day prior and sent home with azithromycin which she did not fill, but has been taking prednisone from her mother. notes prior opioid dependence which she has been in sustained remission from for over 7 years, she began this habit after a hysterectomy when she was younger. However, she has been to ED multiple times with abscesses and positive blood cultures over the past few years, unclear if she is truly in remission. CXR was clear. Blood culture x1 shows GPC. Influenza negative. Temp 103.4F. WBC 8.6, Hb 11, Na 135, K 3.7, BUN 9, Cr. 0.7, glucose 105. Called for admission for further care. COVID negative. Blood cultures all positive for GPC. CRP 77. Has some right breast pain . No SOB or CP. esr 4/7 pending 39 min pt exam, chart review, > 50% of time spent with exam, chart review, pt care coordination Vitals Vitals Vital Signs Date Time Temp Pulse Resp B/P (MAP) Pulse Ox O2 Delivery O2 Flow Rate FiO2 02/04/20 08:06 68 137/94 02/04/20 07:00 98.0 16 97 Room Air 98.0 Physical Exam Physical Exam GENERAL: Propped up in bed, alert, in tired appearance. HEENT: Pupils equally round, reactive. Normal conjunctivae. Oropharynx pink and moist. No lesions. Edentulous. NECK: Supple. No rigidity LUNGS: Clear to auscultation. HEART: S1, S2. No murmur appreciated. ABDOMEN: Obese, soft, nontender. BACK: No vertebral tenderness EXTREMITIES: No gross edema or cyanosis. SKIN: Warm to touch. No signs of rash. Multiple tattoos. No peripheral stigmata noted. NEUROLOGIC: Alert and answering questions appropriately. Left EJ ok midline placed General: Alert, Oriented X3, Cooperative, No acute distress Heart: Regular rate, Normal S1, Normal S2, Other (heart tones regular. Not on tele) Lungs: Clear Abdomen: Soft, No tenderness Extremities: No cyanosis, No edema, Normal pulses Skin: No significant lesion Labs LABS Laboratory Tests Test 02/03/20 12:33 Special Test - Miscellaneous See separate report Assessment and Plan Assessmemt and Plan Problems Medical Problems: (1) Anemia Status: Acute (2) High fever Status: Acute (3) Hypoalbuminemia Status: Acute (4) IV drug abuse Status: Acute Comment Review of Relevant I have reviewed the following items ina (where applicable) has been applied. Labs Laboratory Tests Test 02/03/20 12:33 Special Test - Miscellaneous See separate report Laboratory Tests Test 02/03/20 12:33 Special Test - Miscellaneous See separate report Microbiology 02/01/20 Blood Culture - Preliminary, Resulted NO GROWTH AFTER 3 DAYS 01/29/20 Urine Culture - Final, Complete 01/29/20 Urine Culture Result 1 (TRE) - Final, Complete Medications Current Medications Sodium Chloride 1,000 ml @ 1,000 mls/hr 1X ONCE IV Last administered on 01/28/20at 17:02; Start 01/28/20 at 16:30; Stop 01/28/20 at 17:29; Status DC Acetaminophen (Tylenol) 1,000 mg 1X ONCE PO Last administered on 01/28/20at 17:02; Start 01/28/20 at 16:30; Stop 01/28/20 at 16:31; Status DC Sodium Chloride 1,000 ml @ 1,000 mls/hr 1X ONCE IV Last administered on 01/28/20at 20:26; Start 01/28/20 at 19:45; Stop 01/28/20 at 20:44; Status DC Piperacillin Sod/ Tazobactam Sod 3.375 gm/Sodium Chloride 50 ml @ 100 mls/hr 1X ONCE IV Last administered on 01/28/20at 20:25; Start 01/28/20 at 19:45; Stop 01/28/20 at 20:14; Status DC Vancomycin HCl 250 ml @ 250 mls/hr 1X ONCE IV Last administered on 01/28/20at 20:25; Start 01/28/20 at 19:45; Stop 01/28/20 at 20:44; Status DC Sodium Chloride 1,000 ml @ 150 mls/hr Q6H40M IV Last administered on 01/29/20at 15:24; Start 01/28/20 at 19:39; Stop 01/29/20 at 19:38; Status DC Acetaminophen/ Hydrocodone Bitart (Lortab 5/325) 1 tab PRN Q4HRS PRN PO PAIN Last administered on 01/29/20at 08:08; Start 01/28/20 at 23:15; Stop 01/29/20 at 09:48; Status DC Vancomycin HCl (Vanco Per Pharmacy) 1 each PRN DAILY PRN MC SEE COMMENTS Last administered on 02/01/20at 11:28; Start 01/29/20 at 08:30; Stop 02/02/20 at 08:46; Status DC Piperacillin Sod/ Tazobactam Sod (Zosyn Per Pharmacy) 1 each PRN DAILY PRN MC SEE COMMENTS; Start 01/29/20 at 08:30; Stop 02/02/20 at 08:47; Status DC Piperacillin Sod/ Tazobactam Sod 4.5 gm/Sodium Chloride 100 ml @ 200 mls/hr Q6HRS IV Last administered on 02/02/20at 06:35; Start 01/29/20 at 09:00; Stop 02/02/20 at 08:42; Status DC Vancomycin HCl 1.25 gm/Sodium Chloride 250 ml @ 167 mls/hr Q8H IV Last administered on 01/29/20 16:23; Start 01/29/20 at 09:00; Stop 01/30/20 at 01:23; Status DC Vancomycin HCl (Vancomycin Trough Level) 1 each 1X ONCE MC Last administered on 01/30/20 00:30; Start 01/30/20 at 00:30; Stop 01/30/20 at 00:31; Status DC Acetaminophen/ Hydrocodone Bitart (Lortab 5/325) 1 tab PRN Q6HRS PRN PO MODERATE PAIN Last administered on 02/01/20 17:26; Start 01/29/20 at 14:00 Lactobacillus Rhamnosus (Culturelle) 1 cap BID PO Last administered on 02/04/20 08:05; Start 01/29/20 at 21:00 Enoxaparin Sodium (Lovenox 40mg Syringe) 40 mg Q24H SQ Last administered on 02/03/20 15:09; Start 01/29/20 at 16:00 Vancomycin HCl 1.5 gm/Sodium Chloride 500 ml @ 250 mls/hr Q8H IV Last administered on 01/30/20 18:15; Start 01/30/20 at 01:30; Stop 01/31/20 at 03:26; Status DC Vancomycin HCl (Vancomycin Trough Level) 1 each 1X ONCE MC Last administered on 01/31/20 01:00; Start 01/31/20 at 01:00; Stop 01/31/20 at 01:01; Status DC Vancomycin HCl 1.5 gm/Sodium Chloride 500 ml @ 250 mls/hr Q10H IV ; Start 01/31/20 at 11:00; Status Cancel Vancomycin HCl (Vancomycin Trough Level) 1 each 1X ONCE MC Last administered on 02/01/20at 04:48; Start 02/01/20 at 05:00; Stop 02/01/20 at 05:01; Status DC Ondansetron HCl (Zofran Odt) 4 mg PRN Q4HRS PRN PO NAUSEA/VOMITING Last ad ministered on 02/04/20 08:14; Start 01/31/20 at 08:00 Vancomycin HCl 1.5 gm/Sodium Chloride 500 ml @ 250 mls/hr Q12H IV Last a dministered on 02/01/20at 20:44; Start 02/01/20 at 09:00; Stop 02/02/20 at 08:42; Status DC Acetaminophen/ Hydrocodone Bitart (Lortab 7.5/325) 1 tab PRN Q4HRS PRN PO SEVERE PAIN Last administered on 02/04/20at 01:11; Start 02/01/20 at 12:30 Lisinopril (Prinivil) 10 mg DAILY PO Last administered on 02/04/20at 08:06; Start 02/02/20 at 09:00 Ondansetron HCl (Zofran) 4 mg PRN Q6HRS PRN IVP NAUSEA/VOMITING; Start 02/02/20 at 07:15; Stop 02/02/20 at 20:00; Status DC Fentanyl Citrate (Fentanyl 2ml Vial) 25 mcg PRN Q5MIN PRN IVP MILD PAIN 1-3; Start 02/02/20 at 07:15; Stop 02/02/20 at 20:00; Status DC Fentanyl Citrate (Fentanyl 2ml Vial) 50 mcg PRN Q5MIN PRN IVP MODERATE TO SEVERE PAIN; Start 02/02/20 at 07:15; Stop 02/02/20 at 20:00; Status DC Morphine Sulfate (Morphine Sulfate) 1 mg PRN Q10MIN PRN IVP SEVERE PAIN 7-10; Start 02/02/20 at 07:15; Stop 02/02/20 at 20:00; Status DC Ringer's Solution 1,000 ml @ 30 mls/hr Q24H IV Last administered on 02/02/20at 10:23; Start 02/02/20 at 07:05; Stop 02/02/20 at 19:04; Status DC Lidocaine HCl (Xylocaine-Mpf 1% 2ml Vial) 2 ml 1X PRN PRN ID IV START; Start 02/02/20 at 07:15; Stop 02/02/20 at 20:00; Status DC Hydromorphone HCl (Dilaudid) 0.5 mg PRN Q10MIN PRN IVP SEV PAIN, Second choice; Start 02/02/20 at 07:15; Stop 02/02/20 at 20:00; Status DC Prochlorperazine Edisylate (Compazine) 5 mg PACU PRN PRN IVP NAUSEA, MRX1; Start 02/02/20 at 07:15; Stop 02/02/20 at 20:00; Status DC Benzocaine (Hurricaine One) 2 spray 1X ONCE MM Last administered on 02/02/20at 10:23; Start 02/02/20 at 08:15; Stop 02/02/20 at 08:16; Status DC Lidocaine HCl (Viscous Lidocaine) 15 ml 1X ONCE SWSW Last administered on 02/02/20at 10:23; Start 02/02/20 at 08:15; Stop 02/02/20 at 08:16; Status DC Lidocaine HCl (Xylocaine 2% Topical 30gm Tube) 1 ebony 1X ONCE TP Last a dministered on 02/02/20at 10:24; Start 02/02/20 at 08:15; Stop 02/02/20 at 08:16; Status DC Nafcillin Sodium 2 gm/Dextrose 100 ml @ 200 mls/hr Q4HRS IV Last administered on 02/04/20at 08:03; Start 02/02/20 at 10:00 Propofol 20 ml @ As Directed STK-MED ONCE IV ; Start 02/02/20 at 10:27; Stop 02/02/20 at 10:27; Status DC Active Scripts Active Reported Lisinopril 10 Mg Tablet 1 Tab PO DAILY Vitals/I & O Vital Sign - Last 24 Hours 02/03/20 02/03/20 02/03/20 02/03/20 11:44 15:11 15:12 16:15 Temp 97.9 98.1 97.9 98.1 Pulse 78 77 Resp 16 20 16 20 B/P (MAP) 111/70 (84) 132/91 (105) Pulse Ox 95 96 O2 Delivery Room Air Room Air Room Air 02/03/20 02/03/20 02/03/20 02/04/20 19:00 20:15 23:00 03:00 Temp 98.0 98.4 97.9 98.0 98.4 97.9 Pulse 81 77 80 Resp 18 18 16 B/P (MAP) 133/90 (104) 144/72 (96) 126/78 (94) Pulse Ox 94 93 93 O2 Delivery Room Air 02/04/20 02/04/20 07:00 08:06 Temp 98.0 98.0 Pulse 68 68 Resp 16 B/P (MAP) 137/94 (108) 137/94 Pulse Ox 97 O2 Delivery Room Air Intake and Output 02/03/20 02/03/20 02/04/20 15:00 23:00 07:00 Intake Total 0 ml 0 ml 240 ml Balance 0 ml 0 ml 240 ml CHRISTIANO PEREZ MD Feb 04, 2020 10:20
[2020-02-04 11:00] VITALS: BP 128/87
--- NOTE | 2020-02-04 14:01 | RAD ---
PORTABLE CHEST 1V History: PICC line placement. Comparison: January 28, 2020 Findings: Interval placement right PICC with tip projecting over the mid SVC. No consolidation or pleural effusion. No pneumothorax. Normal heart size. Impression: 1. Interval placement right PICC. Electronically signed by: nAdrew Jaquez DO (02/04/2020 1:58 PM) [id number]
--- NOTE | 2020-02-04 14:17 | PDOC3 ---
Discharge Summary Date of Admission: Jan 29, 2020 Date of Discharge: Feb 04, 2020 Follow-Up: 1-2 days Admitting Diagnosis comment: discharge dx Cough - CXR is clear on repeat. will give cough suppressants, supportive care, monitor O2 status. May need chest CT if symptoms do not improve Blood cultures positive - source is not clear, she denies IVDA Sepsis - from gram positive bacteremia - with elevated temp was tested for SARS-CoV-2 (COVID 19) neg on iv nafcillin q 4 hrs with home health Right knee pain - topical treatment Back and neck pain - thoracic back pain Anemia - uncertain etiology, s/p hysterectomy, will check iron stores Hyperglycemia - will monitor, no hx of DM Moderate protein calorie malnutrition - Albumin low likely from prolonged illness Right breast lump - likely fibrocystic disease. will monitor. If it worsens will obtain US FEN - General diet PPX - SCDs FULL CODE Inpatient for sepsis with bacteremia t max 103.4 F 01/28/20 COVID-19 NEG IV NAFCILLIN q 4 hrs CARDIOLOGY consult re possible endocarditis JORGE LUIS neg for vegetation d/c planning time 35 min History of Present Illness History of Present Illness 38 yo F w/ PMHx IVDA (methamphetamines and opioids), HTN who presents with 6 day history of cough and fevers up to 104F. She denies any nausea or vomiting. 01/31 states she has had some headache. She denies any abdominal pain. She has not had any issues with dysuria or gross hematuria. She was seen in ED 1 day prior and sent home with azithromycin which she did not fill, but has been taking prednisone from her mother. notes prior opioid dependence which she has been in sustained remission from for over 7 years, she began this habit after a hysterectomy when she was younger. However, she has been to ED multiple times with abscesses and positive blood cultures over the past few years, unclear if she is truly in remission. CXR was clear. Blood culture x1 shows GPC. Influenza negative. Temp 103.4F. WBC 8.6, Hb 11, Na 135, K 3.7, BUN 9, Cr. 0.7, glucose 105. Called for admission for further care. COVID negative. Blood cultures all positive for GPC. CRP 77. Has some right breast pain . No SOB or CP. esr 4/7 50 Vitals Vitals Vital Signs Date Time Temp Pulse Resp B/P (MAP) Pulse Ox O2 Delivery O2 Flow Rate FiO2 02/04/20 08:06 68 137/94 02/04/20 07:00 98.0 16 97 Room Air 98.0 Physical Exam Physical Exam GENERAL: Propped up in bed, alert, in tired appearance. HEENT: Pupils equally round, reactive. Normal conjunctivae. Oropharynx pink and moist. No lesions. Edentulous. NECK: Supple. No rigidity LUNGS: Clear to auscultation. HEART: S1, S2. No murmur appreciated. ABDOMEN: Obese, soft, nontender. BACK: No vertebral tenderness EXTREMITIES: No gross edema or cyanosis. SKIN: Warm to touch. No signs of rash. Multiple tattoos. No peripheral stigmata noted. NEUROLOGIC: Alert and answering questions appropriately. Left EJ ok midline placed General: Alert, Oriented X3, Cooperative, No acute distress Heart: Regular rate, Normal S1, Normal S2, Other (heart tones regular. Not on tele) Lungs: Clear Abdomen: Soft, No tenderness Extremities: No cyanosis, No edema, Normal pulses Skin: No significant lesion FINAL DIAGNOSIS Problems Medical Problems: (1) Anemia Status: Acute (2) High fever Status: Acute (3) Hypoalbuminemia Status: Acute (4) IV drug abuse Status: Acute Brief Hospital Course Ms. Yung is a 39 old [sex] who presented with [bacteremia ] CONDITION AT DISCHARGE: Improved Discharge Medications Current Medications Sodium Chloride 1,000 ml @ 1,000 mls/hr 1X ONCE IV Last administered on 01/28/20at 17:02; Start 01/28/20 at 16:30; Stop 01/28/20 at 17:29; Status DC Acetaminophen (Tylenol) 1,000 mg 1X ONCE PO Last administered on 01/28/20at 17:02; Start 01/28/20 at 16:30; Stop 01/28/20 at 16:31; Status DC Sodium Chloride 1,000 ml @ 1,000 mls/hr 1X ONCE IV Last administered on 01/28/20at 20:26; Start 01/28/20 at 19:45; Stop 01/28/20 at 20:44; Status DC Piperacillin Sod/ Tazobactam Sod 3.375 gm/Sodium Chloride 50 ml @ 100 mls/hr 1X ONCE IV Last administered on 01/28/20 20:25; Start 01/28/20 at 19:45; Stop 01/28/20 at 20:14; Status DC Vancomycin HCl 250 ml @ 250 mls/hr 1X ONCE IV Last administered on 01/28/20 20:25; Start 01/28/20 at 19:45; Stop 01/28/20 at 20:44; Status DC Sodium Chloride 1,000 ml @ 150 mls/hr Q6H40M IV Last administered on 01/29/20at 15:24; Start 01/28/20 at 19:39; Stop 01/29/20 at 19:38; Status DC Acetaminophen/ Hydrocodone Bitart (Lortab 5/325) 1 tab PRN Q4HRS PRN PO PAIN Last administered on 01/29/20at 08:08; Start 01/28/20 at 23:15; Stop 01/29/20 at 09:48; Status DC Vancomycin HCl (Vanco Per Pharmacy) 1 each PRN DAILY PRN MC SEE COMMENTS Last administered on 02/01/20at 11:28; Start 01/29/20 at 08:30; Stop 02/02/20 at 08:46; Status DC Piperacillin Sod/ Tazobactam Sod (Zosyn Per Pharmacy) 1 each PRN DAILY PRN MC SEE COMMENTS; Start 01/29/20 at 08:30; Stop 02/02/20 at 08:47; Status DC Piperacillin Sod/ Tazobactam Sod 4.5 gm/Sodium Chloride 100 ml @ 200 mls/hr Q6HRS IV Last administered on 02/02/20at 06:35; Start 01/29/20 at 09:00; Stop 02/02/20 at 08:42; Status DC Vancomycin HCl 1.25 gm/Sodium Chloride 250 ml @ 167 mls/hr Q8H IV Last administered on 01/29/20at 16:23; Start 01/29/20 at 09:00; Stop 01/30/20 at 01:23; Status DC Vancomycin HCl (Vancomycin Trough Level) 1 each 1X ONCE MC Last administered on 01/30/20at 00:30; Start 01/30/20 at 00:30; Stop 01/30/20 at 00:31; Status DC Acetaminophen/ Hydrocodone Bitart (Lortab 5/325) 1 tab PRN Q6HRS PRN PO MODERATE PAIN Last administered on 02/01/20 17:26; Start 01/29/20 at 14:00 Lactobacillus Rhamnosus (Culturelle) 1 cap BID PO Last administered on 02/04/20 08:05; Start 01/29/20 at 21:00 Enoxaparin Sodium (Lovenox 40mg Syringe) 40 mg Q24H SQ Last administered on 02/03/20 15:09; Start 01/29/20 at 16:00 Vancomycin HCl 1.5 gm/Sodium Chloride 500 ml @ 250 mls/hr Q8H IV Last administered on 01/30/20 18:15; Start 01/30/20 at 01:30; Stop 01/31/20 at 03:26; Status DC Vancomycin HCl (Vancomycin Trough Level) 1 each 1X ONCE MC Last administered on 01/31/20at 01:00; Start 01/31/20 at 01:00; Stop 01/31/20 at 01:01; Status DC Vancomycin HCl 1.5 gm/Sodium Chloride 500 ml @ 250 mls/hr Q10H IV ; Start 01/31/20 at 11:00; Status Cancel Vancomycin HCl (Vancomycin Trough Level) 1 each 1X ONCE MC Last administered on 02/01/20at 04:48; Start 02/01/20 at 05:00; Stop 02/01/20 at 05:01; Status DC Ondansetron HCl (Zofran Odt) 4 mg PRN Q4HRS PRN PO NAUSEA/VOMITING Last administered on 02/04/20 08:14; Start 01/31/20 at 08:00 Vancomycin HCl 1.5 gm/Sodium Chloride 500 ml @ 250 mls/hr Q12H IV Last administered on 02/01/20at 20:44; Start 02/01/20 at 09:00; Stop 02/02/20 at 08:42; Status DC Acetaminophen/ Hydrocodone Bitart (Lortab 7.5/325) 1 tab PRN Q4HRS PRN PO SEVERE PAIN Last administered on 02/04/20 01:11; Start 02/01/20 at 12:30 Lisinopril (Prinivil) 10 mg DAILY PO Last administered on 02/04/20 08:06; Start 02/02/20 at 09:00 Ondansetron HCl (Zofran) 4 mg PRN Q6HRS PRN IVP NAUSEA/VOMITING; Start 02/02/20 at 07:15; Stop 02/02/20 at 20:00; Status DC Fentanyl Citrate (Fentanyl 2ml Vial) 25 mcg PRN Q5MIN PRN IVP MILD PAIN 1-3; Start 02/02/20 at 07:15; Stop 02/02/20 at 20:00; Status DC Fentanyl Citrate (Fentanyl 2ml Vial) 50 mcg PRN Q5MIN PRN IVP MODERATE TO SEVERE PAIN; Start 02/02/20 at 07:15; Stop 02/02/20 at 20:00; Status DC Morphine Sulfate (Morphine Sulfate) 1 mg PRN Q10MIN PRN IVP SEVERE PAIN 7-10; Start 02/02/20 at 07:15; Stop 02/02/20 at 20:00; Status DC Ringer's Solution 1,000 ml @ 30 mls/hr Q24H IV Last administered on 02/02/20at 10:23; Start 02/02/20 at 07:05; Stop 02/02/20 at 19:04; Status DC Lidocaine HCl (Xylocaine-Mpf 1% 2ml Vial) 2 ml 1X PRN PRN ID IV START; Start 02/02/20 at 07:15; Stop 02/02/20 at 20:00; Status DC Hydromorphone HCl (Dilaudid) 0.5 mg PRN Q10MIN PRN IVP SEV PAIN, Second choice; Start 02/02/20 at 07:15; Stop 02/02/20 at 20:00; Status DC Prochlorperazine Edisylate (Compazine) 5 mg PACU PRN PRN IVP NAUSEA, MRX1; Start 02/02/20 at 07:15; Stop 02/02/20 at 20:00; Status DC Benzocaine (Hurricaine One) 2 spray 1X ONCE MM Last administered on 02/02/20at 10:23; Start 02/02/20 at 08:15; Stop 02/02/20 at 08:16; Status DC Lidocaine HCl (Viscous Lidocaine) 15 ml 1X ONCE SWSW Last administered on 02/02/20at 10:23; Start 02/02/20 at 08:15; Stop 02/02/20 at 08:16; Status DC Lidocaine HCl (Xylocaine 2% Topical 30gm Tube) 1 ebony 1X ONCE TP Last administered on 02/02/20at 10:24; Start 02/02/20 at 08:15; Stop 02/02/20 at 08:16; Status DC Nafcillin Sodium 2 gm/Dextrose 100 ml @ 200 mls/hr Q4HRS IV Last administered on 02/04/20at 12:59; Start 02/02/20 at 10:00 Propofol 20 ml @ As Directed STK-MED ONCE IV ; Start 02/02/20 at 10:27; Stop 02/02/20 at 10:27; Status DC Active Scripts Active Reported Lisinopril 10 Mg Tablet 1 Tab PO DAILY Vital Signs Vital Signs Date Time Temp Pulse Resp B/P (MAP) Pulse Ox O2 Delivery O2 Flow Rate FiO2 02/04/20 11:00 97.7 81 16 128/87 (101) 99 Room Air 97.7 Labs Laboratory Tests Test 02/03/20 12:33 Special Test - Miscellaneous See separate report Allergies Allergies Coded Allergies Type Severity Reaction Last Updated Verified No Known Drug Allergies 05/05/19 No Disposition/Orders: D/C to Home w/ HH CHRISTIANO PEREZ MD Feb 04, 2020 14:17
[2020-02-04] MEDS ORDERED: LACT1CAP19 PO (14:19)
[2020-02-04] MEDS ORDERED: NAFC2FRO IV (14:19)
[2020-02-04] MEDS ORDERED: ONDA4TAB12 PO (14:19)
--- NOTE | 2020-02-04 14:21 | SNU/HH DC ---
DISCHARGE WITH HOME HEALTH DISCHARGE INFORMATION: Discharge Date: Feb 04, 2020 Final Diagnosis: Problems Medical Problems: (1) Anemia Status: Acute (2) High fever Status: Acute (3) Hypoalbuminemia Status: Acute (4) IV drug abuse Status: Acute Condition on Discharge: Stable CODE STATUS: Code Status: Full HOME HEALTH: Face to Face: I certify this patient is under my care and that I, or a nurse practitioner or physician's pharmacy assistant working with me, had a face to face encounter that meets the physician face to face encounter requirements with this patient on []. Medical Complications: Other (bacteremia) Assisted For: Assess Cardiopulm Status, Assess & Educate Safety, Assess/Skilled Observatio, IV Infusion Therapy RN For Eval/Treatment: Yes Physical Therapy For: Evalulation/Treatment Occupational Therapy For: Evaluation/Treatment Home Health Aide For: Self-care DIABETES SPECIALIST For: Community Resources Pt Meets Homebound Status: Limited distance walking, Psychological condition POST DISCHARGE ORDERS: Activity Instructions for Disc: Activity as tolerated Weight Bearing Status after Di: As tolerated Bathing Instructions: Shower-keep dressing dry DIET AFTER DISCHARGE: Regular CHECKS AFTER DISCHARGE: Checks after discharge: Check blood press - daily, Check your Temp as needed TREATMENT/EQUIPMENT ORDERS: Adaptive Equipment Issued: None Infusion Equipment, home use: IV Line, PICC Line Discharge Respiratory Equipmen: Oxygen CERTIFICATION STATEMENT: Certification Statement: Certification Statement: Based on the above finding, I certify that this patient is confined to the home and needs intermittent nursing home care, physical therapy and/or speech therapy, or continues to need occupational therapy.~ This patient is under my care, and I have initiated the establishment of the plan of care.~ This patient will be followed by myself or a community physician who will periodically review the plan of care. Home Meds Active Scripts Lactobacillus Rhamnosus Gg (CULTURELLE) 1 Each Cap.sprink, 1 CAP PO BID for supplement for 30 Days, #60 CAP Prov:CHRISTIANO PEREZ MD 02/04/20 Ondansetron (ONDANSETRON ODT) 4 Mg Tab.rapdis, 4 MG PO PRN Q4HRS PRN for NAUSEA/VOMITING for 30 Days, #60 TAB Prov:CHRISTIANO PEREZ MD 02/04/20 Nafcillin In Dextrose,Iso-Osm (NAFCILLIN 2 GM/ 100 ML INJ) 2 Gm/100 Ml Froz.piggy, 2 GM IV q 4 hrs for bacteremia for 14 Days, #100 EACH Prov:CHRISTIANO PEREZ MD 02/04/20 Reported Medications Lisinopril (LISINOPRIL) 10 Mg Tablet, 1 TAB PO DAILY for blood pressure, #30 TAB 5 Refills 01/29/20 CHRISTIANO PEREZ MD Feb 04, 2020 14:21
== END 2020-02-04 15:00 | disposition home health service (06) | DRG 872 ==
LOC: ER 15:55 → 6 SOUTH 20:11 → 4 NORTH 01-30 09:48
PROVIDERS: ADMIT Family Medicine; ATTEND Family Medicine
PROC: 02HV33Z Insertion of Infusion Device into Superior Vena Cava, Percutaneous Approach (ICD-10-PCS; principal; 2020-01-28)
PROC: B24BZZ4 Ultrasonography of Heart with Aorta, Transesophageal (ICD-10-PCS; 2020-02-02)
DX: A41.01 Sepsis due to Methicillin susceptible Staphylococcus aureus (principal); E44.0 Moderate protein-calorie malnutrition; F11.20 Opioid dependence, uncomplicated; I38 Endocarditis, valve unspecified; B96.89 Other specified bacterial agents as the cause of diseases classified elsewhere; D64.9 Anemia, unspecified; F15.90 Other stimulant use, unspecified, uncomplicated; F19.10 Other psychoactive substance abuse, uncomplicated; I10 Essential (primary) hypertension; N64.4 Mastodynia; Z82.49 Family history of ischemic heart disease and other diseases of the circulatory system; Z83.3 Family history of diabetes mellitus; N60.11 Diffuse cystic mastopathy of right breast; Z90.710 Acquired absence of both cervix and uterus; R73.9 Hyperglycemia, unspecified; M54.2 Cervicalgia; B99.8 Other infectious disease; M54.6 Pain in thoracic spine; M25.561 Pain in right knee; Z87.01 Personal history of pneumonia (recurrent); Z03.818 Encounter for observation for suspected exposure to other biological agents ruled out; Z68.31 Body mass index [BMI] 31.0-31.9, adult; Z79.899 Other long term (current) drug therapy
CPT/HCPCS: 36415; 36569; 71045; 80048; 80053; 80202; 80307; 81001; 82550; 83605; 84145; 85007; 85025; 85651; 86140; 87040; 87077; 87086; 87205; 87635; 87804; 93005; 93312; 93325; 96361; 96374; 96375; 99285; J1650; J2543; J2704; J3370; J3490; J7030; J7040; J7050; J7060; J7120; Q0162; G0378

== ENCOUNTER → 2020-02-28 | Outpatient (CLI) | payer OTHER ==
[2020-02-04 11:00] VITALS: BP 128/87
[~2020-02-28] MED LIST changes: +LACT1CAP19 PO; +LISI10TA2 PO; +NAFC2FRO IV; +ONDA4TAB12 PO
[2020-02-28 16:23] LABS: BASO % 1 % (0-3); EOS # 0.6 x10^3/uL (0.0-0.7); EOS % 11 % (0-3); HEMATOCRIT 41.4 % (36.0-47.0); HEMOGLOBIN 13.7 g/dL (12.0-15.5); LYMPH # 1.9 x10^3/uL (1.0-4.8); LYMPH % 34 % (24-48); MEAN CORPUSCULAR HEMOGLOBIN 27 pg (25-35); MEAN CORPUSCULAR HGB CONC 33 g/dL (31-37); MEAN CORPUSCULAR VOLUME 82 fL (79-100); MONO # 0.4 x10^3/uL (0.0-1.1); MONO % 8 % (0-9); NEUT # 2.5 x10^3/uL (1.8-7.7); NEUT % 46 % (31-73); PLATELET COUNT 282 x10^3/uL (140-400); RED BLOOD COUNT 5.07 x10^6/uL (3.50-5.40); RED CELL DISTRIBUTION WIDTH 16.4 % (11.5-14.5); WHITE BLOOD COUNT 5.5 x10^3/uL (4.0-11.0)
[2020-02-28 16:46] LABS: ALBUMIN 3.6 g/dL (3.4-5.0); CREATININE 0.9 mg/dL (0.6-1.0); DIRECT BILIRUBIN 0.1 mg/dL (0.0-0.2); GFR 70.1; TOTAL BILIRUBIN 0.4 mg/dL (0.2-1.0); TOTAL PROTEIN 7.6 g/dL (6.4-8.2)
== END | disposition home or self-care (01) ==
LOC: LAB 15:45
PROVIDERS: ATTEND Internal Medicine Infectious Disease
DX: Z22.321 Carrier or suspected carrier of Methicillin susceptible Staphylococcus aureus (principal)
CPT/HCPCS: 36415; 80076; 82565; 84520; 85025; 85651

== ENCOUNTER 2020-04-19 01:02 | Emergency (ER) | payer OTHER ==
[~2020-04-19] VITALS: Ht 160 cm; Wt 77.3 kg
[2020-04-19] MEDS ORDERED: fentaNYL PF VIAL 100 MCG/2 ML VIAL IV PRN (01:15)
[2020-04-19 01:27] LABS: BASO % 0 % (0-3); EOS # 0.5 x10^3/uL (0.0-0.7); EOS % 7 % (0-3); HEMATOCRIT 40.2 % (36.0-47.0); HEMOGLOBIN 13.8 g/dL (12.0-15.5); LYMPH # 3.2 x10^3/uL (1.0-4.8); LYMPH % 41 % (24-48); MEAN CORPUSCULAR HEMOGLOBIN 28 pg (25-35); MEAN CORPUSCULAR HGB CONC 34 g/dL (31-37); MEAN CORPUSCULAR VOLUME 82 fL (79-100); MONO # 0.6 x10^3/uL (0.0-1.1); MONO % 7 % (0-9); NEUT # 3.5 x10^3/uL (1.8-7.7); NEUT % 44 % (31-73); PLATELET COUNT 280 x10^3/uL (140-400); RED BLOOD COUNT 4.89 x10^6/uL (3.50-5.40); RED CELL DISTRIBUTION WIDTH 14.5 % (11.5-14.5); WHITE BLOOD COUNT 7.9 x10^3/uL (4.0-11.0)
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
[2020-04-19] MEDS ORDERED: IV NORMAL SALINE 1000ML BAG 1,000 ML IV SCH (01:30)
[2020-04-19] MEDS ORDERED: ONDANSETRON PF 4 MG/2 ML VIAL. IVP ONE (01:30)
[2020-04-19 01:34] LABS: CALCIUM 8.5 mg/dL (8.5-10.1); CREATININE 1.1 mg/dL (0.6-1.0); GFR 55.6; POTASSIUM 3.9 mmol/L (3.5-5.1)
[2020-04-19 01:39] LABS: ALBUMIN 3.6 g/dL (3.4-5.0); ALBUMIN/GLOBULIN RATIO 0.9 (1.0-1.7); TOTAL BILIRUBIN 0.2 mg/dL (0.2-1.0); TOTAL PROTEIN 7.4 g/dL (6.4-8.2)
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
[2020-04-19 01:41] LABS: PROTHROMBIN TIME PATIENT 11.5 SEC (11.7-14.0)
[2020-04-19] MEDS ORDERED: CONTRAST GIVEN. MC PRN (02:15)
[2020-04-19] MEDS ORDERED: IOHEXOL 350 MG/ML 100 ML VIAL. IV ONE (02:30)
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
[2020-04-19 02:50] LABS: BILIRUBIN,URINE NEGATIVE (NEG); CLARITY,URINE CLEAR; COLOR,URINE YELLOW; NITRITE,URINE NEGATIVE (NEG); PROTEIN,URINE NEGATIVE (NEG-TRACE); UROBILINOGEN,URINE 0.2 mg/dL (0.2 mg/dL)
[2020-04-19 02:56] LABS: SQUAMOUS EPITHELIAL CELL,UR OCC /LPF
[2020-04-19 02:57] LABS: BACTERIA,URINE 0 /HPF (0-FEW); RBC,URINE 0 /HPF (0-2); WBC,URINE 0 /HPF (0-4)
[2020-04-19] MEDS ORDERED: CEPH500C PO (03:09)
[2020-04-19] MEDS ORDERED: HYDR-3164 PO (03:09)
[2020-04-19 03:28] VITALS: BP 144/84
[2020-04-19] MEDS ORDERED: ceFAZolin SODIUM IV Push 1 GM VIAL. IVP ONE (03:30)
[2020-04-19] MEDS ORDERED: AMOX1TAB61 PO (03:45)
== END 2020-04-19 03:33 | disposition home or self-care (01) ==
LOC: ER 01:02
DX: S71.132A Puncture wound without foreign body, left thigh, initial encounter (principal); I10 Essential (primary) hypertension; W34.00XA Accidental discharge from unspecified firearms or gun, initial encounter; Y93.89 Activity, other specified; Y92.89 Other specified places as the place of occurrence of the external cause; Y99.8 Other external cause status
CPT/HCPCS: 36415; 72170; 73552; 73706; 80053; 81001; 85025; 85610; 85730; 96374; 96375; 99285; J0690; J2405; J3010; J7030; Q9967

== ENCOUNTER → 2020-04-20 | Outpatient (CLI) | payer OTHER ==
[2020-04-19 03:28] VITALS: BP 144/84
[~2020-04-20] MED LIST changes: +AMOX1TAB61 PO; +CEPH500C PO
[2020-04-20 15:37] LABS: BASO % 1 % (0-3); EOS # 0.3 x10^3/uL (0.0-0.7); EOS % 5 % (0-3); HEMATOCRIT 41.2 % (36.0-47.0); HEMOGLOBIN 14.4 g/dL (12.0-15.5); LYMPH # 2.1 x10^3/uL (1.0-4.8); LYMPH % 34 % (24-48); MEAN CORPUSCULAR HEMOGLOBIN 29 pg (25-35); MEAN CORPUSCULAR HGB CONC 35 g/dL (31-37); MEAN CORPUSCULAR VOLUME 82 fL (79-100); MONO # 0.4 x10^3/uL (0.0-1.1); MONO % 7 % (0-9); NEUT # 3.4 x10^3/uL (1.8-7.7); NEUT % 54 % (31-73); PLATELET COUNT 301 x10^3/uL (140-400); RED BLOOD COUNT 5.05 x10^6/uL (3.50-5.40); RED CELL DISTRIBUTION WIDTH 14.2 % (11.5-14.5); WHITE BLOOD COUNT 6.2 x10^3/uL (4.0-11.0)
[2020-04-20 15:48] LABS: BLOOD UREA NITROGEN 15 mg/dL (7-20); GFR 62.1
[2020-04-20 15:50] LABS: C-REACTIVE PROTEIN < 0.5 mg/L (0-3.3)
== END | disposition home or self-care (01) ==
LOC: LAB 14:58
PROVIDERS: ATTEND Internal Medicine
DX: R78.81 Bacteremia (principal)
CPT/HCPCS: 36415; 82565; 84520; 85025; 86140

== ENCOUNTER → 2020-05-09 | Outpatient (CLI) | payer OTHER ==
[2020-04-19 03:28] VITALS: BP 144/84
[2020-05-09 16:40] LABS: BASO % 0 % (0-3); EOS % 0 % (0-3); HEMATOCRIT 37.4 % (36.0-47.0); HEMOGLOBIN 12.9 g/dL (12.0-15.5); LYMPH # 1.1 x10^3/uL (1.0-4.8); LYMPH % 13 % (24-48); MEAN CORPUSCULAR HEMOGLOBIN 28 pg (25-35); MEAN CORPUSCULAR HGB CONC 35 g/dL (31-37); MEAN CORPUSCULAR VOLUME 82 fL (79-100); MONO # 0.1 x10^3/uL (0.0-1.1); MONO % 2 % (0-9); NEUT # 6.8 x10^3/uL (1.8-7.7); NEUT % 85 % (31-73); PLATELET COUNT 261 x10^3/uL (140-400); RED BLOOD COUNT 4.55 x10^6/uL (3.50-5.40); RED CELL DISTRIBUTION WIDTH 14.1 % (11.5-14.5)
[2020-05-09 17:02] LABS: ALBUMIN 3.6 g/dL (3.4-5.0); CREATININE 1.2 mg/dL (0.6-1.0); DIRECT BILIRUBIN 0.1 mg/dL (0.0-0.2); GFR 50.3; TOTAL BILIRUBIN 0.1 mg/dL (0.2-1.0); TOTAL PROTEIN 7.4 g/dL (6.4-8.2)
== END | disposition home or self-care (01) ==
LOC: LAB 15:43
PROVIDERS: ATTEND Internal Medicine Infectious Disease
DX: A49.01 Methicillin susceptible Staphylococcus aureus infection, unspecified site (principal); R78.81 Bacteremia
CPT/HCPCS: 36415; 80076; 82565; 84520; 85025; 86140